=== PATIENT | male | born 1945 | race Caucasian/White ===

== ENCOUNTER → 2018-01-26 16:26 | Outpatient (CLI) | payer MEDICARE, SELFPAY ==
[2018-01-26 17:38] LABS: Anion Gap 6 (5-15); BUN 10 mg/dL (7-18); Calcium,Total 8.5 mg/dL (8.5-10.1); Chloride 103 mmol/L (98-107); Creatinine, Serum 0.91 mg/dL (0.70-1.30); EST Glomerular Filtration Rate 87 mL/min (>60); Est Glom Filt Rate - Afr Amer 105 mL/min (>60); Glucose 99 mg/dL (74-106); Potassium 4.1 mmol/L (3.5-5.1); Sodium Level 136 mmol/L (136-145)
[2018-01-26 18:08] LABS: BNP,B-Type NATRIURETIC PEPTIDE 240.2 pg/mL (0-100)
== END ==
PROVIDERS: Family Provider Family Medicine; PCP Family Medicine; Visit Provider Nurse Practitioner Acute Care
DX: R06.02 Shortness of breath (principal)
CPT/HCPCS: 36415; 80048; 83880

== ENCOUNTER → 2018-02-15 12:44 | Outpatient (CLI) | payer MEDICARE, SELFPAY ==
--- NOTE | 2018-02-15 12:46 | ECHOCS_ITS ---
Reason For Study: DYSPNEA Procedure This was a 2D Doppler, Color Flow transthoracic echocardiogram. Exam performed in department. Left Ventricle Normal LV size. Mild concentric left ventricular hypertrophy. Left ventricular systolic function is normal. The estimated ejection fraction is 65 %. Transmitral diastolic flow velocities suggest severe (stage 3) diastolic dysfunction. No regional wall motion abnormalities noted. Right Ventricle Normal RV size. Normal systolic function. Atria Normal left atrium. Normal right atrium. Mitral Valve Normal mitral valve. Tricuspid Valve Normal tricuspid valve. Mild (1+) tricuspid valve insufficiency. Pulmonary artery systolic pressure is 39 mmHg. Aortic Valve Normal aortic valve. Pulmonic Valve Normal pulmonic valve. Great Vessels Normal aortic root. The pulmonary artery is normal size. Normal inferior vena cava. Pericardium/Pleural No pericardial effusion. Medication 22 gauge I.V. with prn adaptor inserted into right arm. Diluted definity 3ml given slow IV push to enhance endocardial definition. MMode/2D Measurements & Calculations LVIDd: 4.4 cm IVSd: 1.3 cm LVOT diam: 2.0 cm LVIDs: 2.9 cm LVPWd: 1.5 cm LVOT area: 3.0 cm2 FS: 34.4 % Ao root diam: 3.7 cm LAV(MOD-bp): 122.6 ml EDV(MOD-sp4): 148.7 ml LA dimension: 5.9 cm LAV(MOD-bp) Indexed: 45.2 ml/m2 ESV(MOD-sp4): 52.4 ml LAV(MOD-sp2): 79.9 ml EF(MOD-sp4): 64.7 % LAV(MOD-sp4): 150.2 ml EDV(MOD-sp2): 107.2 ml SV(MOD-sp4): 96.3 ml SV(MOD-sp2): 75.9 ml EF(MOD-sp2): 70.8 % LA A4 area: 39.9 cm2 Doppler Measurements & Calculations MV E max ayden: 144.4 cm/sec MV V2 max: 163.2 cm/sec Ao V2 max: 178.2 cm/sec MV A max ayden: 71.4 cm/sec MV max P.7 mmHg Ao max P.8 mmHg MV E/A: 2.0 MV V2 mean: 61.8 cm/sec Ao V2 mean: 127.6 cm/sec MV mean P.1 mmHg Ao mean P.4 mmHg MV V2 VTI: 36.0 cm Ao V2 VTI: 38.3 cm MVA(VTI): 2.0 cm2 JASS(I,D): 1.9 cm2 JASS(V,D): 1.4 cm2 LV V1 max: 84.1 cm/sec SV(LVOT): 72.0 ml PA V2 max: 125.0 cm/sec LV V1 max P.8 mmHg LV V1 mean P.6 mmHg LV V1 mean: 74.3 cm/sec LV V1 VTI: 23.9 cm TR max ayden: 294.0 cm/sec TR max P.6 mmHg Interpretation Summary Normal LV size. Mild concentric left ventricular hypertrophy. Left ventricular systolic function is normal. The estimated ejection fraction is 65 %. Transmitral diastolic flow velocities suggest severe (stage 3) diastolic dysfunction Mild (1+) tricuspid valve insufficiency. Ordering Physician: Ginger Wright Referring Physician: LORENZO MENDOZA Performed By: Tiana Molina, OSCAR, RVT
== END ==
PROVIDERS: Family Provider Family Medicine; PCP Family Medicine; Visit Provider Nurse Practitioner Acute Care
DX: R06.02 Shortness of breath (principal); Z98.890 Other specified postprocedural states
CPT/HCPCS: 93306; Q9957; A4216; C8929

== ENCOUNTER → 2018-03-16 12:48 | Outpatient (CLI) | payer MEDICARE, SELFPAY ==
--- NOTE | 2018-03-16 13:08 | RAD_ITS ---
STUDY: X-RAY CHEST REASON FOR EXAM: Male, 72 years old. Shortness of breath. On home oxygen. TECHNIQUE: 2 views COMPARISON: Prior chest radiograph of March 22, 2017. Prior chest CT exam of March 12, 2017 FINDINGS: A prior infiltrate of the right upper lobe has completely resolved since last year. On lateral imaging there appears to be some vague increased density posteriorly over the spine with no corollary findings on the anterior image. Otherwise stable changes. There is no demonstrated pleural abnormality. Stable cardiac size status post prior midline sternotomy. Normal mediastinum and barak. Normal visualized pulmonary arteries. There is atherosclerotic calcification of the aortic arch with tortuosity. Normal visualized thoracic spine. Normal visualized ribs, clavicles, and shoulders. There is no demonstrated abnormality of the visualized soft tissue structures of the upper abdomen. RAD/Chest PA and Lateral IMPRESSION: Complete resolution of the prior right upper lobe infiltrate. Vague new density over the posterior lower lobes on lateral imaging with no corollary finding on anterior imaging. Could be a area of atelectasis or infiltrate or posterior effusion. Otherwise, stable chronic changes. Stable cardiac size status post prior midline sternotomy. Electronically Signed: Roshni Chi MD at 18:11 EDT , Service support ,
[2018-03-16 13:48] LABS: Absolute Lymphocyte Count 1.56 X10^3/ul (0.83-4.51); Absolute Neutrophil Count 4.7 X10^3/uL (2.0-7.7); Basophil# 0.01 X10^3/uL; Basophil% 0.1 % (0-1); Eosinophil# 0.08 X10^3/uL; Eosinophils% 1.2 % (0-5); Hematocrit 33.7 % (40-54); Lymphocyte # 1.56 X10^3/ul (4.0); Lymphocyte % 22.9 % (19-41); Mean Corp Hgb Conc 29.7 g/gl (32-36); Mean Corpuscular Volume 80.8 fL (80-94); Mean Platelet Vol. 9.9 fl (6.2-12.0); Monocyte# 0.46 X10^3/uL; Monocyte% 6.8 % (0-10); Neutrophil # 4.68 X10^3/uL (2.7-7.7); Neutrophil % 68.9 % (47-70); POSITIVE COUNT NO; POSITIVE DIFFERENTIAL NO; POSITIVE MORPHOLOGY NO; Platelet Count 224 K/mm3 (150-450); RBC Distribution Width CV 17.3 % (11.6-14.6); RBC Distribution Width SD 50.9 fl (35.1-43.9); Red Blood Count 4.17 M/mm3 (4.6-6.2); White Blood Count 6.8 K/mm3 (4.4-11.0)
[2018-03-16 13:54] LABS: International Normalized Ratio 1.2; Prothrombin Time (Protime)PT. 15.3 SECONDS (11.7-14.9)
[2018-03-16 14:08] LABS: Anion Gap 5 (5-15); BUN 13 mg/dL (7-18); BUN/Creat Ratio 13.1 RATIO (10-20); Calcium,Total 8.5 mg/dL (8.5-10.1); Chloride 100 mmol/L (98-107); Creatinine, Serum 0.99 mg/dL (0.70-1.30); EST Glomerular Filtration Rate 78 mL/min (>60); Est Glom Filt Rate - Afr Amer 95 mL/min (>60); Glucose 77 mg/dL (74-106); Potassium 3.8 mmol/L (3.5-5.1); Sodium Level 135 mmol/L (136-145)
== END ==
PROVIDERS: Family Provider Family Medicine; PCP Family Medicine; Visit Provider Internal Medicine Cardiovascular Disease
DX: I50.9 Heart failure, unspecified (principal); I25.119 Atherosclerotic heart disease of native coronary artery with unspecified angina pectoris; I48.0 Paroxysmal atrial fibrillation; R06.02 Shortness of breath
CPT/HCPCS: 36415; 71046; 80048; 85025; 85610; 85730

== ENCOUNTER → 2018-03-22 07:59 | Day surgery (SDC) | payer MEDICARE, SELFPAY ==
[2018-03-21 09:42] VITALS: BMI 44.1
[2018-03-22 10:36] LABS: Base Excess 1 mmol/L (-2 to +2); Bicarbonate 25.3 mmol/L (22-26); Blood Gas Specimen Type ART; PO2 78 mmHG (75-100); SO2 96 % (95-99); Total Carbon Dioxide 26 mmol/L; pCO2 38.8 mmHg (35-45); pH 7.42 (7.35-7.45)
[2018-03-22 10:36] LABS: Blood Gas Specimen Type VEN; VBG BASE EXCESS 1 mmol/L (-1.0-3.5); VBG Bicarbonate 26 mmol/L (22-26); VBG Oxygen Content 27 mmol/L (23-33); VBG PO2 33 mmHg (25-40); VBG SO2 64 % (50-70); VBG pCO2 42.1 mmHg (41-51)
[2018-03-22 10:36] LABS: Blood Gas Specimen Type VEN; VBG BASE EXCESS 2 mmol/L (-1.0-3.5); VBG Bicarbonate 27 mmol/L (22-26); VBG Oxygen Content 29 mmol/L (23-33); VBG PO2 31 mmHg (25-40); VBG SO2 60 % (50-70); VBG pCO2 43.7 mmHg (41-51)
[2018-03-22 10:36] LABS: Blood Gas Specimen Type VEN; VBG BASE EXCESS 3 mmol/L (-1.0-3.5); VBG Bicarbonate 28 mmol/L (22-26); VBG Oxygen Content 29 mmol/L (23-33); VBG PO2 31 mmHg (25-40); VBG SO2 59 % (50-70); VBG pCO2 44.8 mmHg (41-51)
--- NOTE | 2018-03-22 11:03 | CL.D_ITS ---
Patient Name: VANNESA WILSON Study Date: 03/22/2018 Performing: Vinicius Jarrett MD Ht: 74.01 inches 188 cm : 1945 Wt: 343.92 lbs 156 kg Age: 72 Gender: male BSA: 2.74 PROCEDURE(S) PERFORMED [id number]-[id number]/LHC/COR/LV/CABG CLINICAL PROFILE AND INDICATIONS Indications: Stable Known CAD Heart Failure: Heart Failure Type: Diastolic Stress/Imaging Stress/Image Study Performed: No Angina Classification Anginal Classification w/in 2 Weeks: No symptoms CAD Presentations: Other: Shortness of Breath CONCLUSIONS Elevated Left Ventricular End Diastolic Pressure Right heart pressures - moderately to severely elevated The patient has pulmonary hypertension which is moderate - severe. Intracardiac shunting: None Normal LV size, wall motion,and systolic function LVEF: by LV gram 65 % [place] Multivessel CAD LEBRON to the LAD: patent SVG to the IR: patent SVG to the RPDA: patent SVG to the RPLV: patent RECOMMENDATIONS Risk factor modification Medical therapy DESCRIPTION OF PROCEDURE The patient arrived to the procedure lab. The risks and benefits of the procedure as well as a full d escription of our services here and current unavailability of surgical backup were fully explained to the patient and/or their significant other prior to the catheterization. The Timeout was completed, verifying the correct patient and procedure. The patient's procedural site was prepped and draped in the usual fashion. Local anesthetic was given subcutaneously to right groin region with Lidocaine 2%. Using a modified Seldinger technique, arterial access was obtained via the right femoral artery, a 4 Fr sheath was inserted Venous access was obtained via the right femoral vein, a 7Fr sheath was insert ed. A 7Fr thermal dilution catheter was inserted and right heart pressures were recorded, it was then advanced to PA position for cardiac outputs. Thermal dilution cardiac outputs were then recorded. O2 saturations were then obtained. The Thermal dilution catheter was then removed. Left Ventriculograph y was performed in TAPIA projection using a 4 Fr. Pigtail catheter. LV to AO pullback pressures were th en recorded. Simultaneous pressures were then recorded. Left Coronary Artery selective angiography wa s performed in multiple views using a 4 Fr. JL5 catheter. Right Coronary Artery selective angiography was then performed in multiple views using a 4 Fr. 3DRC catheter. Saphenous Vein graft to the RPDA s elective angiography was performed in multiple views using a 4 Fr. 3DRC catheter. Saphenous Vein anabela t to the RPL selective angiography was performed in multiple views using a 4 Fr. 3DRC catheter. Saphe nous Vein graft to the Ramus selective angiography was performed in multiple views using a 4 Fr. 3DRC catheter. Saphenous Vein graft to the RPDA selective angiography was performed in multiple views usi ng a 4 Fr. JR4 catheter. Left internal mammary artery graft to the LAD selective angiography was perf ormed in multiple views using a 4 Fr. JR4 catheter.The arterial sheath was pulled and manual compress ion applied until hemostasis is achieved.. The venous sheath was then pulled and manual compression a pplied until hemostasis achieved CORONARY ANGIOGRAPHY DOMINANCE: Right Dominant LEFT HEART ASSESSMENT Left Ventricular Ejection Fraction: by LV Gram 65 % Elevated Left Ventricular End Diastolic Pressure LVEDP: 23 mmHg Normal Left Ventricular systolic function RIGHT HEART ASSESSMENT Thermal CO: 4.95 Thermal CI: 1.81 PW: 24/26 17 PA: 46/15 29 RV: 48/0 9 RA: / 18 PVR: 194 Right Heart pressures - elevated Pulmonary Hypertension Moderate - Severe Intracardiac shunting: None LEFT MAIN: Mild luminal irregularities LEFT ANTERIOR DECENDING ARTERY: PROX LAD: Eccentric: Hazy: 75 % Stenosis MID LAD: Eccentric: 75 % Stenosis, Eccentric: 85 % Stenosis DISTAL LAD: s/p the LEBRON attachment filling late, faintly, and partially CIRCUMFLEX ARTERY: PROX CIRC: Previously placed stent is patent with minimal luminal irregularities RAMUS: is occluded with the mid to distal portion filling via the SVG graft with no obvious angiograp hically significant appearing disease distal to the graft attachment RIGHT CORONARY ARTERY: Diffuse: Eccentric: 25-50 % Stenosis GRAFTS: LEBRON graft to the Mid LAD is patent with the mid to distal LAD filling late, faintly, and partially Saphenous Vein graft to the Ramus is patent with no angiographically significant appearing disease di stal to the graft attachment Saphenous Vein graft to the RPDA is patent with no angiographically significant appearing disease dis jose to the graft attachment Saphenous Vein graft to the RPLV is patent with no angiographically significant appearing disease dis jose to the graft attachment VALVE FINDINGS: Normal Aortic Valve function Normal Mitral Valve function AORTIC ROOT: Angiographically normal COMPLICATIONS No Complications PROCEDURE MEDICATIONS Versed 1 mg IV Fentanyl 25 mcg IV Oxygen: 2 L/min via nasal cannula SUMMARY OF HEMODYNAMIC DATA Time AIR REST ECG 08:27:39 ECG 08:27:56 RA 22/21 (18) SV 09:48:43 RV 48/0, 9 09:49:00 PA 46/15 (29) PA 09:49:45 PW 24/ (17) PV 09:50:45 LV 127/-5, 15 09:56:23 PW 32/38 (22) 09:56:23 LV 129/-4, 23 09:56:29 PW 32/ (23) 09:56:29 LV 115/5, 20 09:58:02 PW 41/24 (23) 09:58:02 LVp 116/4, 23 09:58:26 AOp 109/52 (74) 09:58:31 PA 45/15 (29) 09:59:21 RV 49/3, 19 09:59:38 RA 39/ (18) 09:59:53 Type SV CO (l/m) CI (l/m/ HR Time AIR REST Thermal 260.50 4.95 1.81 19 08:27:39 Label % O2 Pres/Loc Time AIR REST IVC 64 10:02:07 RA 60 SV 10:02:34 PA 59 PA 10:02:41 Signed By Vinicius Jarrett MD On 03/22/2018 11:03:06 Vinicius Jarrett MD
== END ==
PROVIDERS: Family Provider Family Medicine; PCP Family Medicine; Visit Provider Internal Medicine Cardiovascular Disease
DX: I25.10 Atherosclerotic heart disease of native coronary artery without angina pectoris (principal); I27.20 Pulmonary hypertension, unspecified; I11.0 Hypertensive heart disease with heart failure; I50.31 Acute diastolic (congestive) heart failure; E11.51 Type 2 diabetes mellitus with diabetic peripheral angiopathy without gangrene; G47.33 Obstructive sleep apnea (adult) (pediatric); E66.9 Obesity, unspecified; Z68.41 Body mass index [BMI] 40.0-44.9, adult; I48.0 Paroxysmal atrial fibrillation; I49.3 Ventricular premature depolarization; E78.5 Hyperlipidemia, unspecified; M19.90 Unspecified osteoarthritis, unspecified site; Z95.1 Presence of aortocoronary bypass graft; Z79.82 Long term (current) use of aspirin; Z79.4 Long term (current) use of insulin; Z79.899 Other long term (current) drug therapy
CPT/HCPCS: 82803; 93461; 99152; 99153; J7030; Q9967; C1751; C1769; C1894

== ENCOUNTER → 2018-03-31 11:27 | Outpatient (CLI) | payer MEDICARE, SELFPAY ==
[2018-03-31 12:21] LABS: Anion Gap 7 (5-15); BUN 18 mg/dL (7-18); BUN/Creat Ratio 14.8 RATIO (10-20); Calcium,Total 8.5 mg/dL (8.5-10.1); Chloride 100 mmol/L (98-107); Creatinine, Serum 1.22 mg/dL (0.70-1.30); EST Glomerular Filtration Rate 62 mL/min (>60); Est Glom Filt Rate - Afr Amer 75 mL/min (>60); Glucose 193 mg/dL (74-106); Sodium Level 136 mmol/L (136-145)
== END ==
PROVIDERS: Family Provider Family Medicine; PCP Family Medicine; Visit Provider Internal Medicine Cardiovascular Disease
DX: R06.02 Shortness of breath (principal); I25.10 Atherosclerotic heart disease of native coronary artery without angina pectoris; Z95.1 Presence of aortocoronary bypass graft; Z95.5 Presence of coronary angioplasty implant and graft; I48.0 Paroxysmal atrial fibrillation; I49.3 Ventricular premature depolarization
CPT/HCPCS: 36415; 80048

== ENCOUNTER → 2018-08-09 12:53 | Outpatient (CLI) | payer MEDICARE, SELFPAY ==
--- NOTE | 2018-08-10 08:40 | PFTCOMP_ITS ---
COMPLETE PULMONARY FUNCTION TEST INTERPRETATION Brief HPI: Patient is a 73 year old male, currently under the care of myself, who presents to [facility] for complete pulmonary function tests secondary to diagnosis of RAQUEL. Respiratory therapist reports good effort and reproducible results. Interpretation: Forced expiration spirometry shows no large airways obstructive ventilatory defect with an FEV1 of 69% predicted. There is no significant bronchodilator response by ATS criteria. Spirograms are of good quality and plateau normally. The respiratory flow volume loop shows a normal pattern. Lung volumes by body plethysmography show a decreased total lung capacity at 5.97 L, 81% predicted. All other lung volumes are reduced symmetrically. Diffusion capacity by carbon monoxide is decreased at 45% predicted. The airway resistance is elevated. Compared to previous pulmonary function tests from 09/13/2017, there has been no significant change. Impression: Mild restrictive ventilatory defect with a reduction diffusing capacity out of proportion. No significant change compared to previous study.
== END ==
PROVIDERS: Family Provider Family Medicine; PCP Family Medicine; Visit Provider Internal Medicine Critical Care Medicine
DX: G47.33 Obstructive sleep apnea (adult) (pediatric) (principal); I27.20 Pulmonary hypertension, unspecified
CPT/HCPCS: 94060; 94726; 94729

== ENCOUNTER → 2019-06-26 | Outpatient (CLI) | payer MEDICARE, SELFPAY ==
[2019-03-30 12:42] VITALS: BMI 42.8
--- NOTE | 2019-06-26 13:16 | RAD_ITS ---
STUDY: X-RAY CHEST REASON FOR EXAM: Male, 74 years old. Shortness of breath TECHNIQUE: Frontal and lateral views of the chest COMPARISON: 03/16/2018 FINDINGS: There are mild congestive changes noted. The lungs are otherwise clear. There are no pleural effusions. There is no pneumothorax. The heart is enlarged, but stable. Again noted are sternotomy wires. The visualized osseous structures are within normal limits. RAD/Chest PA and Lateral IMPRESSION: Mild pulmonary vascular congestion. Electronically Signed: Jairo Reza, at 18:03 EDT Tel , Service support ,
[2019-06-26 13:21] LABS: Absolute Lymphocyte Count 1.31 X10^3/uL (0.83-4.51); Absolute Neutrophil Count 5.8 X10^3/uL (2.0-7.7); Basophil# 0.02 X10^3/uL; Basophil% 0.3 % (0-1); Eosinophils% 2.6 % (0-5); Hematocrit 30.6 % (40-54); Hemoglobin 8.4 g/dL (13.0-16.5); Lymphocyte # 1.31 X10^3/ul (4.0); Lymphocyte % 16.9 % (19-41); Mean Corp Hgb Conc 27.5 g/dL (32-36); Mean Corpuscular Hgb 21.7 pg (27.0-32.0); Mean Corpuscular Volume 79.1 fL (80-94); Mean Platelet Vol. 9.7 fl (6.2-12.0); Monocyte% 5.2 % (0-10); NRBC Flagged by Analyzer 0 % (0-5); Neutrophil # 5.77 X10^3/uL (2.7-7.7); Neutrophil % 74.6 % (47-70); Platelet Count 211 K/mm3 (150-450); RBC Distribution Width CV 18.1 % (11.6-14.6); RBC Distribution Width SD 51.1 fl (35.1-43.9); Red Blood Count 3.87 M/mm3 (4.6-6.2); White Blood Count 7.7 K/mm3 (4.4-11.0)
[2019-06-26 13:45] LABS: Anion Gap 10 (5-15); BUN 17 mg/dL (7-18); BUN/Creat Ratio 12.9 RATIO (10-20); Calcium,Total 8.6 mg/dL (8.5-10.1); Chloride 101 mmol/L (98-107); Creatinine, Serum 1.32 mg/dL (0.70-1.30); EST Glomerular Filtration Rate 56 mL/min (>60); Est Glom Filt Rate - Afr Amer 68 mL/min (>60); Glucose 183 mg/dL (74-106); Potassium 4.4 mmol/L (3.5-5.1); Sodium Level 140 mmol/L (136-145)
== END | disposition home or self-care (01) ==
LOC: LAB 12:44
PROVIDERS: Nurse Practitioner Family; Family Provider Family Medicine; PCP Family Medicine; Referring Provider Internal Medicine Cardiovascular Disease; Visit Provider Internal Medicine Cardiovascular Disease
DX: I25.10 Atherosclerotic heart disease of native coronary artery without angina pectoris (principal); I27.20 Pulmonary hypertension, unspecified; R06.09 Other forms of dyspnea; Z95.1 Presence of aortocoronary bypass graft; Z95.5 Presence of coronary angioplasty implant and graft
CPT/HCPCS: 36415; 71046; 80048; 83880; 85025

== ENCOUNTER → 2019-07-18 | Outpatient (CLI) | payer MEDICARE, SELFPAY ==
[2019-07-05 15:02] VITALS: BMI 46.2
--- NOTE | 2019-07-18 14:57 | ECHOCS_ITS ---
Reason For Study: SOB Procedure This was a 2D Doppler, Color Flow transthoracic echocardiogram. The study was technically difficult. Contrast injection was performed. Exam performed in department. Left Ventricle Normal LV size. Mild concentric left ventricular hypertrophy. Left ventricular systolic function is normal. The estimated ejection fraction is 65 %. Unable to assess diastolic dysfunction. No regional wall motion abnormalities noted. Right Ventricle Normal RV size. Normal systolic function. Atria The left atrium is mildly enlarged. The right atrium is not well visualized. No doppler evidence for ASD. Mitral Valve There is moderate mitral annular calcification. Mild focal mitral valve calcification of the anterior leaflet. Trivial mitral valve insufficiency. Tricuspid Valve Normal tricuspid valve. Trivial tricuspid valve insufficiency. Unable to estimate RV systolic pressure/pulmonary artery pressure due to technically difficult study. Aortic Valve The aortic valve is not well visualized. Pulmonic Valve The pulmonic valve is not well visualized. Great Vessels The aortic root is not well visualized peer. Pericardium/Pleural No pericardial effusion. Medication 22 gauge I.V. with prn adaptor inserted into right arm. Diluted definity 3ml given slow IV push to enhance endocardial definition. MMode/2D Measurements & Calculations LVIDd: 5.0 cm IVSd: 1.3 cm LVIDs: 3.0 cm LVPWd: 1.7 cm FS: 39.4 % Time Measurements MV dec time: 0.17 sec Doppler Measurements & Calculations MV E max ayden: 111.9 cm/sec MV V2 max: 194.7 cm/sec MV P1/2t max ayden: 194.7 cm/sec MV A max ayden: 45.1 cm/sec MV max P.2 mmHg MV P1/2t: 52.7 msec MV E/A: 2.5 MV V2 mean: 80.8 cm/sec MV dec slope: 1082 cm/sec2 MV mean P.6 mmHg MVA(P1/2t): 4.2 cm2 MV V2 VTI: 30.6 cm Ao V2 max: 203.0 cm/sec LV V1 max: 84.5 cm/sec PA V2 max: 108.1 cm/sec Ao max P.6 mmHg LV V1 max P.9 mmHg Interpretation Summary The study was technically difficult. Contrast injection was performed. Left ventricular systolic function is normal. The estimated ejection fraction is 65 %. Mild concentric left ventricular hypertrophy. The left atrium is mildly enlarged. There is moderate mitral annular calcification. Mild focal mitral valve calcification of the anterior leaflet. Trivial mitral valve insufficiency. Trivial tricuspid valve insufficiency. Unable to estimate RV systolic pressure/pulmonary artery pressure due to technically difficult study. Unable to assess diastolic dysfunction. Ordering Physician: Gilberto Jimenez Referring Physician: Gilberto Jimenez Performed By: Harjinder George RCS
== END | disposition home or self-care (01) ==
LOC: CVS 14:56
PROVIDERS: Family Provider Family Medicine; PCP Family Medicine; Referring Provider Nurse Practitioner Family; Visit Provider Nurse Practitioner Family
DX: I25.10 Atherosclerotic heart disease of native coronary artery without angina pectoris (principal); R06.09 Other forms of dyspnea; Z95.1 Presence of aortocoronary bypass graft; Z95.5 Presence of coronary angioplasty implant and graft; I27.20 Pulmonary hypertension, unspecified; I48.0 Paroxysmal atrial fibrillation; I10 Essential (primary) hypertension; E78.5 Hyperlipidemia, unspecified
CPT/HCPCS: 93306; Q9957; C8929

== ENCOUNTER 2019-07-25 12:36 | Inpatient (IN) | payer MEDICARE, SELFPAY ==
[2019-07-05 15:02] VITALS: BMI 46.2
[2019-07-25] VITALS (45 sets, daily range): BP systolic 117–170; BP diastolic 70–91; PULSE 93–137; RESP 12–30; TEMP 36.6–36.8; O2SAT 92–100; BMI 49.3; BMI 48.2
--- NOTE | 2019-07-25 12:42 | RAD_ITS ---
STUDY: X-RAY CHEST REASON FOR EXAM: Male, 74 years old. Shortness of breath. TECHNIQUE: Single AP portable view of the chest. COMPARISON: Comparison is made with prior study dated June 26, 2019. FINDINGS: EKG electrodes are seen. Stable elevation of the right hemidiaphragm. There is evidence of vascular congestion and CHF. There is no demonstrated pleural abnormality. Sternal cerclage wires and vascular clips are present from a prior sternotomy and coronary artery bypass graft procedure (CABG). Cardiomegaly. Normal mediastinum and barak. Normal visualized pulmonary arteries. Normal visualized aortic arch and descending thoracic aorta. Normal visualized thoracic spine. Normal visualized ribs, clavicles, and shoulders. There is no demonstrated abnormality of the visualized soft tissue structures of the upper abdomen. RAD/Chest 1 View (Portable) IMPRESSION: Cardiomegaly and CHF. Prior CABG. Electronically Signed: Ander Stafford, at 13:08 EDT , Service support ,
--- NOTE | 2019-07-25 12:42 | EKG12_ITS ---
Test Reason : SOB Blood Pressure : / mmHG Vent. Rate : 121 BPM Atrial Rate : 097 BPM P-R Int : 000 ms QRS Dur : 092 ms QT Int : 296 ms P-R-T Axes : 000 078 -10 degrees QTc Int : 420 ms Atrial fibrillation with rapid ventricular response Abnormal QRS-T angle, consider primary T wave abnormality Abnormal ECG Confirmed by ZOYA DOMÍNGUEZ ([id number]), offline editor TRACY MCLAUGHLIN ([id number]) on 07/26/2019 1:41:34 PM Referred By: Tam Dexter Confirmed By:ZOYA DOMÍNGUEZ
--- NOTE | 2019-07-25 12:48 | ED.VIS.GEN ---
History of Present Illness Chief Complaint: Shortness of Breath Onset: Days Context: Gradual Onset Timing: Continuous Current Severity: Moderate Maximum Severity: Severe Narrative: The patient presents to the emergency department shortness of breath. He states that over the past couple weeks, is been getting worse. He did have an outpatient echo done this week. He is had about a 30 pound weight gain. He describes exertional dyspnea and orthopnea. The patient does have a prior history of atrial fibrillation, but during his bypass he had a pulmonary artery ablation and that is since resolved. He is been following with Dr. Jarrett and with Dr. Turpin. He states he had increase his oxygen at home. He is been having increasing exertional dyspnea and increasing leg edema. He states he did have an echo this past week. He denies any fevers or chills. He denies any chest pain. Prior similar symptoms: Yes Recent Illness/Hospitalization: No Past Medical History - Allergies and Home Meds Allergies/Adverse Reactions: Allergies acetaminophen [From Percocet] Allergy (Verified 07/25/19 12:43) Swelling oxycodone [From Percocet] Allergy (Verified 07/25/19 12:43) A-fib, Swelling, Sulfa (Sulfonamide Antibiotics) Allergy (Verified 07/25/19 12:43) Swelling atropine Adverse Reaction (Severe, Verified 07/25/19 12:43) arrhythmia hydrochlorothiazide [From Hyzaar] Adverse Reaction (Severe, Verified 07/25/19 12:43) arrhythmia losartan [From Hyzaar] Adverse Reaction (Severe, Verified 07/25/19 12:43) arrhythmia quinapril [From Accupril] Adverse Reaction (Severe, Verified 07/25/19 12:43) arrhythmia atorvastatin [From Lipitor] Adverse Reaction (Intermediate, Verified 07/25/19 12:43) myalgias metformin Adverse Reaction (Intermediate, Verified 07/25/19 12:43) myalgias Primary Care Physician: Abdi Navarro MD [Primary Care Provider] - Prior records reviewed: Yes Past Medical History: - - CHF, chronic respiratory failure, history of atrial fibrillation Surgical History: coronary bypass surgery Smoking Status: Never smoker - Family History Maternal Family History: Family History (Last Reviewed 03/30/19 @ 13:06 by ANIKA GasparC) Mother CAD (coronary artery disease) Father CVA (cerebral vascular accident) Myocardial infarction Brother Myocardial infarction Brother CAD (coronary artery disease) Myocardial infarction Sister CAD (coronary artery disease) Family History: Reports: No pertinent history Paternal Family History: Family History (Last Reviewed 03/30/19 @ 13:06 by ILIANA Gaspar) Mother CAD (coronary artery disease) Father CVA (cerebral vascular accident) Myocardial infarction Brother Myocardial infarction Brother CAD (coronary artery disease) Myocardial infarction Sister CAD (coronary artery disease) Family History: Reports: No pertinent history Review of Systems General: Denies: Chills, Fever, Sweats Eyes: Denies: Visual changes - bilaterally, Diplopia ENT: Denies: Rhinorrhea, Sore throat Cardiovascular: Reports: Heart racing. Denies: Chest pain, Palpitations Respiratory: Reports: Dyspnea, Cough, Dyspnea on exertion, Orthopnea Gastrointestinal: Denies: Abdominal pain, Nausea, Vomiting, Diarrhea, Melena, Hematochezia Genitourinary: Denies: Dysuria, Hematuria, Frequency Musculoskeletal: Denies: Back pain, Extremity Pain Skin: Denies: Rash, Wounds Neurological: Denies: Headache, Weakness, Numbness Physical Exam Vital Signs/Narrative: Vital Signs Temp Pulse Resp BP Pulse Ox 07/25/19 12:37 98.3 F 137 H 30 H 147/81 H 100 Inital Vital Signs reviewed: Yes General: Well nourished, Well developed, No Acute Distress Head: Normocephalic, Atraumatic Eyes: Perrl, EOMI ENT: Moist mucous membranes, No rhinorrhea Neck: Supple, Nontender Cardiovascular: No murmurs, Irregular, Tachycardia Respiratory: No distress, Chest nontender, Diminished, Decreased Air Movement Abdomen: Soft, Nontender, Nondistended, Normal bowel sounds Back: Nontender, Normal Inspection Extremities: Nontender, Edema Skin: Normal color, No rash Neurological: Alert, Oriented x3, Cranial nerves II-XII grossly intact, Normal Strength, Normal Sensation Psychological: Normal affect, Normal Mood Diagnostic/Tx/Re-eval Chest X-Ray - ED: 1 View, Read by ED Physician, Chronic Changes, Cardiomegaly, CHF Clinical Impression(s) from Imaging Studies Chest X-Ray 07/25/19 12:42 IMPRESSION: Cardiomegaly and CHF. Prior CABG. Electronically Signed: Ander Stafford, at 13:08 EDT , Service support , Abnormal Lab Results 07/25/19 07/25/19 07/25/19 12:50 12:50 12:50 WBC 8.7 RBC 3.79 L Hgb 8.3 L Hct 29.8 L MCV 78.6 L MCH 21.9 L MCHC 27.9 L RDW Std Deviation 54.2 H RDW Coeff of Lakshmi 18.9 H Plt Count 221 MPV 9.7 Immature Gran % (Auto) 0.300 Neut % (Auto) 83.8 H Lymph % (Auto) 8.5 L [place] % (Auto) 5.4 Eos % (Auto) 1.8 Baso % (Auto) 0.2 Absolute Neuts (auto) 7.3 Absolute Lymphs (auto) 0.74 L Nucleated RBC % 0 Sodium 137 Potassium 4.3 Chloride 101 Carbon Dioxide 30.0 Anion Gap 6 BUN 21 H Creatinine 1.42 H Estim Creat Clear Calc 52.26 Est GFR (MDRD) Af Amer 63 Est GFR (MDRD) Non-Af 52 L BUN/Creatinine Ratio 14.8 Glucose 196 H Calcium 8.6 Troponin I < 0.015 B-Natriuretic Peptide 93.4 - Rhythm Strip Rhythm Strip: A-fib Rate: 120 Ectopy: None - EKG Initial EKG Interpretation: No Acute Injury Pattern, Atrial Fibrillation Prior: Changed Follow-up EKG Interpretation: No Acute Injury Pattern, Atrial Fibrillation Prior: Unchanged - Medical Decision Making The patient was placed on BiPAP on arrival. He did have marked improvement of his aeration and resolution of his hypoxia. He does appear to be in diffuse volume overload. EKG was obtained which shows atrial fibrillation. This does appear to be new. The patient is not on anticoagulants. Patient was given diltiazem with better rate control. Repeat EKG continues to demonstrate atrial fibrillation. Chest x-ray shows evidence of volume overload. The patient was started on IV diuresis. I did discuss his care with Dr. Jarrett. At this point, we are going to start a heparin drip as the patient may need further cardiac intervention and we will hold on long-acting anticoagulants. Patient was discussed with the hospitalist and will be admitted for diuresis and his respiratory failure. Impression 1. Atrial fibrillation with rapid ventricular response 2. CHF with hypoxia 3. Acute on chronic respiratory failure - Critical Care Time Critical care time (excluding procedures): 30-74 minutes ED Disposition - Plan for ED Patient: Referrals: Abdi Navarro MD [Primary Care Provider] -
[2019-07-25 13:00] LABS: Absolute Lymphocyte Count 0.74 X10^3/uL (0.83-4.51); Absolute Neutrophil Count 7.3 X10^3/uL (2.0-7.7); Basophil# 0.02 X10^3/uL; Basophil% 0.2 % (0-1); Eosinophil# 0.16 X10^3/uL; Eosinophils% 1.8 % (0-5); Hematocrit 29.8 % (40-54); Hemoglobin 8.3 g/dL (13.0-16.5); Lymphocyte # 0.74 X10^3/ul (4.0); Lymphocyte % 8.5 % (19-41); Mean Corp Hgb Conc 27.9 g/dL (32-36); Mean Corpuscular Hgb 21.9 pg (27.0-32.0); Mean Corpuscular Volume 78.6 fL (80-94); Mean Platelet Vol. 9.7 fl (6.2-12.0); Monocyte# 0.47 X10^3/uL; Monocyte% 5.4 % (0-10); NRBC Flagged by Analyzer 0 % (0-5); Neutrophil # 7.27 X10^3/uL (2.7-7.7); Neutrophil % 83.8 % (47-70); Platelet Count 221 K/mm3 (150-450); RBC Distribution Width CV 18.9 % (11.6-14.6); RBC Distribution Width SD 54.2 fl (35.1-43.9); Red Blood Count 3.79 M/mm3 (4.6-6.2); White Blood Count 8.7 K/mm3 (4.4-11.0)
[2019-07-25] MEDS: dilTIAZem 25 MG/5 ML Vial 20 MG IV BOLUS (13:07)
[2019-07-25 13:16] LABS: Anion Gap 6 (5-15); BUN 21 mg/dL (7-18); BUN/Creat Ratio 14.8 RATIO (10-20); Calcium,Total 8.6 mg/dL (8.5-10.1); Chloride 101 mmol/L (98-107); Creatinine, Serum 1.42 mg/dL (0.70-1.30); EST Glomerular Filtration Rate 52 mL/min (>60); Est Glom Filt Rate - Afr Amer 63 mL/min (>60); Estimated Creatinine Clearance 52.26 ml/min; Glucose 196 mg/dL (74-106); Potassium 4.3 mmol/L (3.5-5.1); Sodium Level 137 mmol/L (136-145)
--- NOTE | 2019-07-25 13:17 | EKG12_ITS ---
Test Reason : REPEAT Blood Pressure : / mmHG Vent. Rate : 101 BPM Atrial Rate : 127 BPM P-R Int : 000 ms QRS Dur : 092 ms QT Int : 364 ms P-R-T Axes : 000 080 005 degrees QTc Int : 471 ms Atrial fibrillation with rapid ventricular response Abnormal ECG Confirmed by ZOYA DOMÍNGUEZ ([id number]), acquisition editor TRACY MCLAUGHLIN ([id number]) on 07/26/2019 1:40:53 PM Referred By: Tam Dexter Confirmed By:ZOYA DOMÍNGUEZ
[2019-07-25 13:25] LABS: BNP,B-Type NATRIURETIC PEPTIDE 93.4 pg/mL (0-100)
[2019-07-25] MEDS: Furosemide 40 MG/4 ML Vial IV (13:35)
--- NOTE | 2019-07-25 13:53 | NURSING ---
PT, PTT HEMOLIZED
--- NOTE | 2019-07-25 14:05 | NURSING ---
HANK BARRAGAN CHF, AFIB
[2019-07-25] MEDS: Heparin Injection (Vial) 5,000 UNIT/ML VIAL 14000 UNIT IV (14:19)
[2019-07-25] MEDS: HEPARIN/D5w 25,000 UNITS 25,000 UNITS/250 ML IV.SOLN. 21 UNITS IV (14:23)
[2019-07-25 14:28] LABS: International Normalized Ratio 1.2
[2019-07-25 14:29] LABS: Partial Thromboplast Time 30.9 Seconds (24.1-36.2)
--- NOTE | 2019-07-25 14:40 | HP.PCM_ITS ---
Problem List (1) (HFpEF) heart failure with preserved ejection fraction Status: Acute Qualifiers: Heart failure chronicity: acute Qualified Code(s): I50.31 - Acute diastolic (congestive) heart failure (2) Atrial fibrillation with RVR Status: Acute History of Present Illness Date of Admission: 07/25/19 Chief Complaint: shortness of breath The patient is a 74 year old M who has been chronically breath for years but has become progressively more short of breath over the past month but more so over the past several days. Patient has a history of heart failure and states that he has had increasing lower extremity and scrotal edema over the past several weeks and just continued to increase. Patient states that he does not weigh himself daily but states that he is put on at least 30 pounds over the past few weeks. Patient presents to the emergency room and was no tachypneic and was on his standard oxygen but was placed on BiPAP and is breathing much more comfortably at this time. Patient was found to have CHF and did receive IV Lasix. Catheter was placed in the emergency room. Patient states that at home, he has urinary frequency with low urine volumes. May have been some difficulty with the catheter placement and may have not been under the most ideal of sterile conditions, according to the bedside nurse. [] Past Medical History Past Medical History (Chronic Problems): Chronic Problems (Last Reviewed 03/30/19 @ 13:06 by Ginger Wright NP-C) Coronary artery disease (Chronic) Pulmonary hypertension (Chronic) Type II Type 2 diabetes mellitus (Chronic) Presence of aortocoronary bypass graft (Chronic ~10/2010) CABG x4: LEBRON to LAD, SVG to RI, SVG to PDA, SVG to posterolateral Lt ventricular branch, PVI w/ Atricure Ablation and ligation of Lt atrial appendage 10/2010 Presence of stent in coronary artery (Chronic ~01/2011) PTCA/Stent to mid LCX 01/2011 Periodic limb movement sleep disorder (Chronic) DM (diabetes mellitus) with peripheral vascular complication (Chronic) Atherosclerotic heart disease of [place] coronary artery without angina pectoris (Chronic) CABG x4: LEBRON to LAD, SVG to RI, SVG to PDA, SVG to posterolateral Lt ventricular branch, PVI w/ Atricure Ablation and ligation of Lt atrial appendage 10/2010; PTCA/Stent to mid LCX 01/2011 Body mass index 40.0-44.9, adult (Chronic) Bilateral leg weakness (Chronic) Meniscus degeneration (Chronic) RAQUEL (obstructive sleep apnea) (Chronic) Obesity (Chronic) PVC (premature ventricular contraction) (Chronic) Hyperlipidemia (Chronic) Hypertension (Chronic) Paroxysmal a-fib (Chronic) S/P pulmonary vein isolation; Medical History: Medical History (Last Updated 07/25/19 @ 14:44 by Tam Dexter DO) Type 2 diabetes mellitus (Chronic) E11.9 DM (diabetes mellitus) with peripheral vascular complication (Chronic) E11.51 Atherosclerotic heart disease of [place] coronary artery without angina pectoris (Chronic) I25.10 CABG x4: LEBRON to LAD, SVG to RI, SVG to PDA, SVG to posterolateral Lt ventricular branch, PVI w/ Atricure Ablation and ligation of Lt atrial braulio endage 10/2010; PTCA/Stent to mid X 01/2011 Body mass index 40.0-44.9, adult (Chronic) Z68.41 Bilateral leg weakness (Chronic) R29.898 Meniscus degeneration (Chronic) M23.309 RAQUEL (obstructive sleep apnea) (Chronic) G47.33 Obesity (Chronic) E66.9 PVC (premature ventricular contraction) (Chronic) I49.3 Paroxysmal atrial fibrillation (Acute) I48.0 SOB (shortness of breath) (Acute) R06.02 Abnormal EKG (Resolved) R94.31 Dyspnea on exertion (Acute) R06.09 Echo shows EF 65%, stage III diastolic dysfunction and PASP 39 mmHg BPH (benign prostatic hyperplasia) N40.0 Malaise and fatigue R53.81, R53.83 Osteoarthritis M19.90 Allergies acetaminophen [From Percocet] Allergy (Verified 07/25/19 12:43) Swelling oxycodone [From Percocet] Allergy (Verified 07/25/19 12:43) A-fib, Swelling, Sulfa (Sulfonamide Antibiotics) Allergy (Verified 07/25/19 12:43) Swelling atropine Adverse Reaction (Severe, Verified 07/25/19 12:43) arrhythmia hydrochlorothiazide [From Hyzaar] Adverse Reaction (Severe, Verified 07/25/19 12:43) arrhythmia losartan [From Hyzaar] Adverse Reaction (Severe, Verified 07/25/19 12:43) arrhythmia quinapril [From Accupril] Adverse Reaction (Severe, Verified 07/25/19 12:43) arrhythmia atorvastatin [From Lipitor] Adverse Reaction (Intermediate, Verified 07/25/19 12:43) myalgias metformin Adverse Reaction (Intermediate, Verified 07/25/19 12:43) myalgias Home Medications: Ambulatory Orders Medication Instructions Recorded Duloxetine HCl 60 mg PO QHS 03/11/17 Finasteride [Proscar] 5 mg PO QHS 03/11/17 Gabapentin [Neurontin] 300 mg PO BIDCM 03/11/17 Hydrocodone/Acetaminophen 1 tab PO BID 03/11/17 [Hydrocodon-Acetaminophen 5-325] Melatonin 20 mg PO QHS PRN 03/11/17 Ranitidine [Zantac] 300 mg PO BID 03/11/17 Tamsulosin HCl [Flomax] 0.4 mg PO QHS 03/11/17 diphenhydramine 25 1 tab PO QHS PRN 11/24/17 mg-acetaminophen 500 mg tablet albuterol sulfate HFA 90 2 puff INHALATION Q6H #18 g 01/26/18 mcg/actuation aerosol inhaler clonazepam 0.5 mg tablet 0.5 mg PO QDAY PRN tab 03/16/18 insulin U-100 regular human 100 1 sliding scale dose SC UD 03/16/18 unit/mL injection solution polyethylene glycol 3350 17 gram 17 g PO QDAY 03/16/18 oral powder packet furosemide 40 mg tablet 40 mg PO BID #180 tab 03/10/19 hydroxyzine HCl 10 mg tablet 10 mg PO QHS 03/30/19 pramipexole 0.25 mg tablet 0.5 mg PO QHS #180 tab 03/30/19 amlodipine 5 mg tablet 5 mg PO DAILY #30 tab 07/05/19 Surgical History: Surgical History (Last Reviewed 07/25/19 @ 14:44 by Tam Dexter DO) Presence of aortocoronary bypass graft (Chronic) Onset Date: ~10/2010 Z95.1 CABG x4: LEBRON to LAD, SVG to RI, SVG to PDA, SVG to posterolateral Lt ventricular branch, PVI w/ Atricure Ablation and ligation of Lt atrial appendage 10/2010 Presence of stent in coronary artery (Chronic) Onset Date: ~01/2011 Z95.5 PTCA/Stent to mid LCX 01/2011 History of cardiac cath Z98.890 Surgical History: coronary bypass surgery Smoking Status: Never smoker Tobacco Use: Non-smoker Alcohol: None Drugs: None - *Family History Maternal Family History: Family History (Last Reviewed 07/25/19 @ 14:44 by Tam Dexter DO) Mother CAD (coronary artery disease) Father CVA (cerebral vascular accident) Myocardial infarction Brother Myocardial infarction Brother CAD (coronary artery disease) Myocardial infarction Sister CAD (coronary artery disease) History Items: No pertinent history Paternal Family History: Family History (Last Reviewed 07/25/19 @ 14:44 by Tam Dexter DO) Mother CAD (coronary artery disease) Father CVA (cerebral vascular accident) Myocardial infarction Brother Myocardial infarction Brother CAD (coronary artery disease) Myocardial infarction Sister CAD (coronary artery disease) History Items: No pertinent history Review of Systems Constitutional: Denies: Anorexia, Chills, Fever, Night Sweats Eyes: Denies: Blurred vision, Double vision HEENT: Denies: Head Aches, Sinus Congestion, Sinus Drainage Cardiovascular: Reports: Chest Pain - With shortness of breath, Edema Respiratory: Reports: Cough - Nonproductive, Shortness of Breath, Shortness of breath at rest. Denies: Sputum production Gastrointestinal: Denies: Abdominal Pain, Nausea, Vomiting Genitourinary: Reports: Frequency. Denies: Dysuria Musculoskeletal: Denies: Joint Pain, Joint Tenderness Skin: Denies: Rash, Wounds Neurological: Reports: - - There is seizures in his toes. Denies: Blurred vision, Double vision Psychiatric: Denies: Anxiety, Depression Endocrine: Reports: Change in Body Habitus - Roughly increased to 30 pounds over the past several weeks Hematologic/ Lymphatic: Denies: Easy Bruising, Easy Bleeding, Hx of blood clot Comment: A 10 point review of systems were negative except as mentioned in the history of present illness and the other review of systems. VTE Information - Inpt Only VTE Present on Admission: No VTE Mechan Device Prophylaxis: None VTE Pharm Prophylaxis ordered?: No Reason prophylaxis not ordered:: Procedure Not Indicated Patient Problems: Active and Suspected Problems (Last Reviewed 03/30/19 @ 13:06 by Ginger Wright NP-C) (HFpEF) heart failure with preserved ejection fraction (Acute) Atrial fibrillation with RVR (Acute) - Physical Exam General: Alert, No apparent distress, - - On BiPAP. Breathing comfortably. No conversational dyspnea, no respiratory distress. HEENT: Atraumatic, Normocephalic Oral: Moist Mucosa, No Gingival or Mucosal Lesions/ Ulcerations Neck: No Nodes, Thyroid Normal Size and Texture, - - Thick neck and unable to appreciate any JVD Lungs: Normal air movement, - - Coarse breath sounds bilaterally Cardiovascular: Irregular Rate, Tachycardic Abdomen: Bowel Sounds Present, Soft, Non Tender, Non-Distended, Obese, - - Scrotal edema Extremities: Edema - Taut bilaterally standing into the buttocks Skin: No rashes, No breakdown Musculoskeletal: No Tenderness to Palpation of Joints or Extremities, No Muscle Wasting Neurological: Deep Tendon Reflexes 2+/4 and Symmetrical, - - No clonus Psych/Mental Status: Normal Affect, Appropriate Vital Signs Temp Pulse Resp BP Pulse Ox 36.8 C 114 H 14 134/78 H 100 07/25/19 12:37 07/25/19 14:28 07/25/19 14:28 07/25/19 14:12 07/25/19 14:28 Oxygen Flow Rate (L/min) 12 Oxygen Delivery Method Bi-pap Weight: 174.2 kg Body Mass Index (BMI) 49.3 Laboratory Tests Past 24 Hrs 07/25/19 07/25/19 07/25/19 12:50 12:50 12:50 WBC 8.7 RBC 3.79 L Hgb 8.3 L Hct 29.8 L MCV 78.6 L MCH 21.9 L MCHC 27.9 L RDW Std Deviation 54.2 H RDW Coeff of Lakshmi 18.9 H Plt Count 221 MPV 9.7 Immature Gran % (Auto) 0.300 Neut % (Auto) 83.8 H Lymph % (Auto) 8.5 L [place] % (Auto) 5.4 Eos % (Auto) 1.8 Baso % (Auto) 0.2 Absolute Neuts (auto) 7.3 Absolute Lymphs (auto) 0.74 L Nucleated RBC % 0 PT INR APTT Sodium 137 Potassium 4.3 Chloride 101 Carbon Dioxide 30.0 Anion Gap 6 BUN 21 H Creatinine 1.42 H Estim Creat Clear Calc 52.26 Est GFR (MDRD) Af Amer 63 Est GFR (MDRD) Non-Af 52 L BUN/Creatinine Ratio 14.8 Glucose 196 H Calcium 8.6 Troponin I < 0.015 B-Natriuretic Peptide 93.4 07/25/19 14:15 WBC RBC Hgb Hct MCV MCH MCHC RDW Std Deviation RDW Coeff of Lakshmi Plt Count MPV Immature Gran % (Auto) Neut % (Auto) Lymph % (Auto) [place] % (Auto) Eos % (Auto) Baso % (Auto) Absolute Neuts (auto) Absolute Lymphs (auto) Nucleated RBC % PT 15.0 H INR 1.2 APTT 30.9 Sodium Potassium Chloride Carbon Dioxide Anion Gap BUN Creatinine Estim Creat Clear Calc Est GFR (MDRD) Af Amer Est GFR (MDRD) Non-Af BUN/Creatinine Ratio Glucose Calcium Troponin I B-Natriuretic Peptide Assessment/Plan All Active Problems (Last Reviewed 03/30/19 @ 13:06 by Ginger Wright, [employer]-C) (HFpEF) heart failure with preserved ejection fraction (Acute) Atrial fibrillation with RVR (Acute) Paroxysmal atrial fibrillation (Acute) SOB (shortness of breath) (Acute) Abnormal EKG (Resolved) Dyspnea on exertion (Acute) 1. Acute heart failure with preserved ejection fraction * EF of 65% from echocardiogram on July 18 * Patient's weight is up 11 kg since July 05 and 23 kg since March 30 * Continue with IV Lasix * Patient not a candidate for angiotensin receptor blockers nor GLORIA inhibitors given the reported allergies to both agents * Fluid restrict 1500 cc/day 2. Atrial fibrillation with RVR * Patient received a bolus of diltiazem and then subsequently has been started on a drip * Anticoagulated with heparin drip at this time * Cardiology consultation * Cycle troponins * Likley exacerbated due to the CHF 3. Acute on chronic respiratory failure * Secondary to above * Currently on BiPAP, wean as tolerated 4. Diabetes mellitus type 2 * Sliding scale insulin and monitor 5. VTE prophylaxis: Not indicated as patient is already anticoagulated on heparin drip. If the heparin needs to be discontinued then patient need to be considered for likely chemical prophylaxis over mechanical. 6. Advanced care planning: Confirmed with the patient. Patient wishes to be DNR Comfort Care arrest, however, patient is fine with intubation if that would be needed. Code Visit Inpatient E&M: [id number] Init Hosp L3
--- NOTE | 2019-07-25 15:11 | CPS ---
Transported pt from E.R. to PCU on 100% NRB then placed on BIPAP upon arrival to the room. Changed mask to a large for patient comfort.
[2019-07-25 16:21] LABS: Bedside Glucose 205 mg/dL (70-110)
--- NOTE | 2019-07-25 17:54 | PCM.CONS.C ---
Problem List (1) Atrial fibrillation with RVR Status: Acute (2) (HFpEF) heart failure with preserved ejection fraction Status: Acute Qualifiers: Heart failure chronicity: acute Qualified Code(s): I50.31 - Acute diastolic (congestive) heart failure (3) Coronary artery disease Status: Chronic Qualifiers: Coronary Disease-Associated Artery/Lesion type: [place] artery [place] vs. transplanted heart: [place] heart Associated angina: without angina Qualified Code(s): I25.10 - Atherosclerotic heart disease of [place] coronary artery without angina pectoris (4) Presence of stent in coronary artery Status: Chronic Comment: PTCA/Stent to mid LCX 01/2011 (5) Presence of aortocoronary bypass graft Status: Chronic Comment: CABG x4: LEBRON to LAD, SVG to RI, SVG to PDA, SVG to posterolateral Lt ventricular branch, PVI w/ Atricure Ablation and ligation of Lt atrial appendage 10/2010 (6) Hyperlipidemia Status: Chronic Qualifiers: Hyperlipidemia type: unspecified Qualified Code(s): E78.5 - Hyperlipidemia, unspecified (7) Hypertension Status: Chronic Qualifiers: Hypertension type: essential hypertension Qualified Code(s): I10 - Essential (primary) hypertension (8) Pulmonary hypertension Status: Chronic Comment: Type II (9) Type 2 diabetes mellitus Status: Chronic (10) RAQUEL (obstructive sleep apnea) Status: Chronic (11) Anemia Status: Chronic (12) Obesity Status: Chronic Qualifiers: Obesity type: due to excess calories Obesity classification: adult class 3 (BMI >= 40) Serious obesity comorbidity presence: with serious comorbidity Body mass index: BMI 40.0-44.9 Qualified Code(s): E66.01 - Morbid (severe) obesity due to excess calories; Z68.41 - Body mass index (BMI) 40.0-44.9, adult Reason for Consult Date of Consultation: 07/25/19 History of Present Illness: The patient is a 74 year old white male with a past medical history which is included underlying CAD, PCI, CABG, paroxysmal atrial fibrillation, hyperlipidemia, hypertension, pulmonary hypertension, diabetes mellitus, obstructive sleep apnea, anemia, and obesity who presents for evaluation of concerns of progressive shortness of breath/dyspnea, findings compatible with anasarca, as well as subsequent findings compatible with atrial fibrillation. The patient has been undergoing evaluation care as an outpatient for concerns of shortness of breath/dyspnea and peripheral pitting edema. He has been having adjustment of his medications including his diuretics. He is also undergone noninvasive evaluation with a transthoracic echocardiogram as noted below. The patient states that for some time now he has been noticing progressive shortness of breath and dyspnea and peripheral pitting edema. He states his lower extremity edema has worsened over time as it has become more prominent in his legs, thighs, and scrotum. He notes that his scrotal edema has become much more prominent over approximately the last 3 days. He also notes over similar time frame that his shortness of breath/dyspnea has worsened. He presented to the emergency department for further evaluation and care. He was noted to have a negative troponin I level and a negative BNP level of 93.4. His cardiac rhythm appeared to be atrial fibrillation and on ECG demonstrated atrial fibrillation with poor R wave progression and nonspecific T wave abnormality. A portable chest x-ray suggested increased pulmonary vascularity. He was placed in the PCU for further evaluation and care. This has included initiation of IV diuretic therapy. He also states that he has become anemic over time. He has not outpatient appointment with gastroenterology in the near future for evaluation of this. He states the only gastrointestinal bleeding he has noted has been bright red blood per rectum secondary to his hemorrhoids when he is constipated. He denies any symptoms of his atrial dysrhythmia. He has had this in the remote past and states at that point time he could feel it. At the present time he states he cannot. He has had no near syncope or syncope. [] Past Medical History Allergies/Adverse Reactions: Allergies acetaminophen [From Percocet] Allergy (Verified 07/25/19 12:43) Swelling oxycodone [From Percocet] Allergy (Verified 07/25/19 12:43) A-fib, Swelling, Sulfa (Sulfonamide Antibiotics) Allergy (Verified 07/25/19 12:43) Swelling atropine Adverse Reaction (Severe, Verified 07/25/19 12:43) arrhythmia hydrochlorothiazide [From Hyzaar] Adverse Reaction (Severe, Verified 07/25/19 12:43) arrhythmia losartan [From Hyzaar] Adverse Reaction (Severe, Verified 07/25/19 12:43) arrhythmia quinapril [From Accupril] Adverse Reaction (Severe, Verified 07/25/19 12:43) arrhythmia atorvastatin [From Lipitor] Adverse Reaction (Intermediate, Verified 07/25/19 12:43) myalgias metformin Adverse Reaction (Intermediate, Verified 07/25/19 12:43) myalgias Home Medications: Ambulatory Orders Medication Instructions Recorded Duloxetine HCl 60 mg PO QHS 03/11/17 Gabapentin [Neurontin] 300 mg PO BIDCM 03/11/17 Hydrocodone/Acetaminophen 1 tab PO DAILY 03/11/17 [Hydrocodon-Acetaminophen 5-325] Melatonin 15 mg PO QHS PRN 03/11/17 Ranitidine [Zantac] 300 mg PO BID 03/11/17 Tamsulosin HCl [Flomax] 0.4 mg PO QHS MDD \ 03/11/17 polyethylene glycol 3350 17 gram 17 g PO QDAY 03/16/18 oral powder packet furosemide 40 mg tablet 40 mg PO BID #180 tab 03/10/19 pramipexole 0.25 mg tablet 0.5 mg PO QHS #180 tab 03/30/19 amlodipine 5 mg tablet 5 mg PO DAILY #30 tab 07/05/19 Hydrocodone/Acetaminophen 2 ea PO QHS 07/25/19 [Hydrocodon-Acetaminophen 5-325] Hydroxyzine HCl 100 mg PO QHS 07/25/19 Insulin U-500 [Humulin R U-500 0.4 ml SQ TIDCM 07/25/19 (BK)] Naproxen Sodium 440 mg PO BID 07/25/19 Past Medical History (Chronic Problems): Chronic Problems (Last Updated 07/25/19 @ 14:44 by Tam Dexter DO) Hyperlipidemia (Chronic) Hypertension (Chronic) Paroxysmal a-fib (Chronic) S/P pulmonary vein isolation; Periodic limb movement sleep disorder (Chronic) Pulmonary hypertension (Chronic) Type II Coronary artery disease (Chronic) Anemia (Chronic) Type 2 diabetes mellitus (Chronic) Presence of aortocoronary bypass graft (Chronic ~10/2010) CABG x4: LEBRON to LAD, SVG to RI, SVG to PDA, SVG to posterolateral Lt ventricular branch, PVI w/ Atricure Ablation and ligation of Lt atrial appendage 10/2010 Presence of stent in coronary artery (Chronic ~01/2011) PTCA/Stent to mid LCX 01/2011 DM (diabetes mellitus) with peripheral vascular complication (Chronic) Atherosclerotic heart disease of [place] coronary artery without angina pectoris (Chronic) CABG x4: LEBRON to LAD, SVG to RI, SVG to PDA, SVG to posterolateral Lt ventricular branch, PVI w/ Atricure Ablation and ligation of Lt atrial appendage 10/2010; PTCA/Stent to mid LCX 01/2011 Body mass index 40.0-44.9, adult (Chronic) Bilateral leg weakness (Chronic) Meniscus degeneration (Chronic) RAQUEL (obstructive sleep apnea) (Chronic) Obesity (Chronic) PVC (premature ventricular contraction) (Chronic) Surgical History: coronary bypass surgery - *Family History Maternal Family History: Family History (Last Reviewed 07/25/19 @ 14:44 by Tam Dexetr DO) Mother CAD (coronary artery disease) Father CVA (cerebral vascular accident) Myocardial infarction Brother Myocardial infarction Brother CAD (coronary artery disease) Myocardial infarction Sister CAD (coronary artery disease) History Items: No pertinent history Paternal Family History: Family History (Last Reviewed 07/25/19 @ 14:44 by Tam Dexter DO) Mother CAD (coronary artery disease) Father CVA (cerebral vascular accident) Myocardial infarction Brother Myocardial infarction Brother CAD (coronary artery disease) Myocardial infarction Sister CAD (coronary artery disease) History Items: No pertinent history Smoking Status: Never smoker Tobacco Use: Chew Alcohol: None Drugs: None Review of Systems - Review of Systems General: Reports: - - Weight gain. Denies: Fever, Fatigue, Night Sweats Cardiovascular: Reports: Shortness of Breath, Shortness of Breath at Rest, Shortness of Breath with Exertion, PND, Peripheral Edema. Denies: Chest Discomfort, Orthopnea, Palpitations, Lightheadedness, Dizziness, Near Syncope, Syncope Respiratory: Reports: Shortness of Breath. Denies: Cough, Sputum Production, Hemoptysis Gastrointestinal: Denies: Hematemesis, Hematochezia, Melena Genitourinary: Reports: - - Scrotal edema. Denies: Dysuria, Hematuria Skin: Denies: Rash Subjectve: This is a 74-year-old white male who appears to be resting recently comfortably at the moment. Objective: Vital Signs Temp Pulse Resp BP Pulse Ox 98.3 F 121 H 16 148/91 H 97 07/25/19 17:15 07/25/19 17:15 07/25/19 17:15 07/25/19 17:15 07/25/19 17:15 Oxygen Flow Rate (L/min) 4.5 Oxygen Delivery Method Nasal Cannula Weight: 375 lb 7.155 oz Body Mass Index (BMI) 48.2 Intake and Output for Last 24 Hours 07/23/19 07/24/19 07/25/19 23:59 23:59 23:59 Intake Total 22.84 / 22.84 Balance 22.84 / 22.84 General: Awake, Alert, Oriented x 3, Cooperative, No Acute Distress, Obese HEENT: Atraumatic, Normocephalic, PERRL, EOMI, Sclera Non Icteric Oral: Moist Mucosa Neck: Supple, Good ROM, No JVD Lungs: Diminished [place] Bases, Rhonchi Cardiovascular: Irregular Rhythm, Normal S1, Normal S2 Abdomen: Bowel Sounds Present, Soft, Non Tender, Obese Genitalia: Scrotal Edema Extremities: Severe RLE Edema, Severe LLE Edema Psych/Mental Status: Appropriate 07/25/19 12:50: WBC 8.7, RBC 3.79 L, Hgb 8.3 L, Hct 29.8 L, MCV 78.6 L, MCH 21.9 L, MCHC 27.9 L, Plt Count 221, MPV 9.7, Immature Gran % (Auto) 0.300, Neut % (Auto) 83.8 H, Lymph % (Auto) 8.5 L, [place] % (Auto) 5.4, Eos % (Auto) 1.8, Baso % (Auto) 0.2, Absolute Neuts (auto) 7.3, Nucleated RBC % 0 07/25/19 12:50: Sodium 137, Potassium 4.3, Chloride 101, Carbon Dioxide 30.0, Anion Gap 6, BUN 21 H, Creatinine 1.42 H, Est GFR (MDRD) Af Amer 63, Est GFR (MDRD) Non-Af 52 L, BUN/Creatinine Ratio 14.8, Glucose 196 H, Calcium 8.6, Troponin I < 0.015 07/25/19 12:50: B-Natriuretic Peptide 93.4 07/25/19 14:15: PT 15.0 H, INR 1.2, APTT 30.9 07/25/19 16:05: Troponin I < 0.015 Rhythm: EKG: ECHO: 07-18-19: Technically difficult study; contrast injection performed Left ventricular systolic function considered normal with an estimated LVEF 65%; mild concentric LVH; mild left atrial enlargement; moderate mitral annular calcification; mild focal mitral valve calcification of the anterior leaflet; trivial MR/TR; unable to estimate RV systolic pressure; unable to assess diastolic dysfunction Stress test: 09-10-2015: Pharmacologic stress nuclear imaging study: Myocardial perfusion changes appearing compatible with physiologic apical thinning although an area of previous myocardial injury/infarction could not be excluded with no myocardial perfusion changes consider diagnostic for stress-induced myocardial ischemia with a gated LVEF of 56% Cardiac Cath: 03-22-18 Elevated left ventricular end-diastolic pressure Right heart pressures-moderately to severely elevated Pulmonary hypertension which is moderate to severe Intracardiac shunting: None Left ventricle considered normal with respect to size, wall motion, and systolic function with an estimated LVEF 65% Left main coronary artery with mild luminal irregularities LAD with proximal eccentric hazy 75% stenosis followed by mid eccentric 75% stenosis followed by eccentric 85% stenosis with the distal LAD status post a LEBRON graft attachment filling late, faintly, and partially Left circumflex coronary artery previously stented and patent with minimal luminal irregularities Intermediate ramus coronary artery is occluded with the mid to distal portion filling via the SVG graft with no angiographically significant appearing disease distal to the graft attachment Right coronary artery with diffuse eccentric 25 to 50% stenosis LEBRON to the LAD patent SVG to the intermediate ramus patent SVG to the right PDA patent SVG to the right posterior lateral branch patent PCI: 02-18-2011 PCI of the LCx with a Promus 3.0 x 12 mm stent to the mid LCx system CT Surgery: 11-05-2010 LEBRON to the LAD SVG to the intermediate ramus SVG to the PDA SVG to the posterior lateral left ventricular branch Pulmonary vein isolation with an Atricure ablation and ligation of the left atrial appendage CXR: Preliminary evaluation: Increased pulmonary vascularity; please see official report Assessment/Plan 1. Atrial fibrillation The patient has a history of paroxysmal atrial fibrillation. He appears to be in atrial fibrillation at this time. It is unclear whether this is a primary component leading to his worsening CHF scenario versus being secondary to what appears to be his underlying pulmonary disease process. At the present time he will need to continue rate control therapy. He is being placed on antiarrhythmic therapy in the hopes of regaining sinus rhythm. He is also been placed on anticoagulant therapy. He will need to be monitored on anticoagulant therapy based on his anemia for any worsening anemia that would warrant interruption of his anticoagulant therapy for additional evaluation and care. Depending upon his clinical course he may need to be considered for future attempts at regaining sinus rhythm with synchronized biphasic DC cardioversion. This may have to be preceded by a JAMILA as the exact duration of his atrial dysrhythmia is unknown. However prior to such a procedure it would be reasonable to try and bring his overall clinical status and pulmonary process under better control. 2. CHF: Preserved ejection fraction He does have evidence of CHF. This is in the setting of what appears to be preserved LV systolic function. Of interest is that his BNP level is negative. This would be a high negative predictive value laboratory suggesting his findings may not be related to ventricular dysfunction. Thus, although he is going to proceed with evaluation and care for CHF with preserved ejection fraction with medical management as deemed appropriate, consideration will have to be given to monitoring for other noncardiovascular etiologies of his pulmonary findings, etc. that warrant further evaluation and care based upon his negative BNP level. 3. CAD status post PCI status post CABG He has undergone noninvasive and invasive evaluation as described above. At the moment there appears to be no clear-cut indicators of an acute coronary syndrome contributing to his ongoing condition that would warrant reevaluation in the cardiac catheterization laboratory. However, this could change depending upon his clinical course. 4. Hyperlipidemia He will continue risk factor evaluation care as tolerated. 5. Hypertension His blood pressure will be monitored. He will continue medical management with adjustment as needed. 6. Pulmonary hypertension He does have significant pulmonary hypertension as previously noted. This may be secondary to his history of obstructive sleep apnea. This could contribute to cor pulmonale with right heart failure which could contribute to his clinical scenario. He will need continue evaluation and care. 7. Diabetes mellitus He will continue evaluation care per internal medicine. 8. Obstructive sleep apnea Depending upon his overall clinical status he may need further input from pulmonology as well with respect to his ongoing pulmonary disease process. 9. Anemia He is anemic. The etiology is unclear at this time. He is scheduled for future outpatient gastroenterology evaluation. However depending upon his clinical course he may need further evaluation of his anemia during his hospital course. As noted above his hemoglobin will need to be monitored as he is on IV heparin for any obvious evidence of decline warranting interruption of anticoagulant therapy and additional evaluation and care. 10. Obesity Unfortunately he remains obese. This is despite his best efforts of attempting to lose weight. Comment: The patient's case has been discussed and reviewed with the patient, his spouse, and the [facility] emergency department staff. Thank you for allowing me to participate in the care of your patient. This note was generated using a voice recognition system and there may be incorrect words, spelling or punctuation that were not noted when reviewing the office note prior to saving.
[2019-07-25] MEDS: Gabapentin 300 MG Capsule PO (18:00)
[2019-07-25] MEDS: Insulin Lispro 100 UNIT/ML INSULN.PEN SC (18:01)
[2019-07-25] MEDS: Furosemide 500 MG in Empty Viaflex 50 mL 1 EACH CONT INF (18:44)
[2019-07-25 20:53] LABS: Partial Thromboplast Time 67.5 Seconds (24.1-36.2)
[2019-07-25] MEDS: Tamsulosin HCl 0.4 MG Capsule PO (21:26)
[2019-07-25] MEDS: Famotidine 20 MG Tablet 40 MG PO (21:26)
[2019-07-25] MEDS: Finasteride 5 MG Tablet PO (21:26)
[2019-07-25] MEDS: hydrOXYzine PAM 25 MG Capsule 100 MG PO (21:27)
[2019-07-25] MEDS: MELATONIN 10 MG TABLET 20 MG PO (21:27)
[2019-07-25] MEDS: Pramipexole Di-HCl 0.25 MG Tablet 0.5 MG PO (21:27)
[2019-07-25] MEDS: HYDROcodone Bitartrate/Apap 5/325 Tablet PO (21:27)
[2019-07-25] MEDS: DULoxetine Hcl 60 MG Capsule PO (21:27)
[2019-07-25 21:41] LABS: Bedside Glucose 169 mg/dL (70-110)
[2019-07-26] VITALS (42 sets, daily range): BP systolic 120–162; BP diastolic 68–97; PULSE 80–100; RESP 10–20; TEMP 36.1–37; O2SAT 80–100
[2019-07-26] MEDS: HEPARIN/D5w 25,000 UNITS 25,000 UNITS/250 ML IV.SOLN. 21 UNITS IV (01:02)
[2019-07-26 01:36] LABS: Bedside Glucose 120 mg/dL (70-110)
[2019-07-26 03:19] LABS: Partial Thromboplast Time 53.3 Seconds (24.1-36.2)
[2019-07-26] MEDS: Heparin Injection (Vial) 5,000 UNIT/ML VIAL IV (03:35)
--- NOTE | 2019-07-26 03:55 | NURSING ---
pts vitals charted at 0345 were done at 0230 unable to delete or amend time in titration vitals.
[2019-07-26 04:10] LABS: Anion Gap 9 (5-15); BUN 22 mg/dL (7-18); BUN/Creat Ratio 16.7 RATIO (10-20); Calcium,Total 8.1 mg/dL (8.5-10.1); Chloride 102 mmol/L (98-107); Creatinine, Serum 1.32 mg/dL (0.70-1.30); EST Glomerular Filtration Rate 56 mL/min (>60); Est Glom Filt Rate - Afr Amer 68 mL/min (>60); Estimated Creatinine Clearance 56.22 ml/min; Glucose 105 mg/dL (74-106); Magnesium 2.3 mg/dL (1.6-2.6); Potassium 3.5 mmol/L (3.5-5.1); Sodium Level 141 mmol/L (136-145)
[2019-07-26 04:37] LABS: Absolute Lymphocyte Count 1.62 X10^3/uL (0.83-4.51); Absolute Neutrophil Count 7.4 X10^3/uL (2.0-7.7); Basophil# 0.04 X10^3/uL; Basophil% 0.4 % (0-1); Eosinophil# 0.21 X10^3/uL; Eosinophils% 2.1 % (0-5); Hematocrit 27.4 % (40-54); Hemoglobin 7.8 g/dL (13.0-16.5); Lymphocyte # 1.62 X10^3/ul (4.0); Lymphocyte % 16.2 % (19-41); Mean Corp Hgb Conc 28.5 g/dL (32-36); Mean Corpuscular Hgb 21.9 pg (27.0-32.0); NRBC Flagged by Analyzer 0 % (0-5); Neutrophil # 7.39 X10^3/uL (2.7-7.7); Platelet Count 204 K/mm3 (150-450); RBC Distribution Width CV 19.2 % (11.6-14.6); RBC Distribution Width SD 53.6 fl (35.1-43.9); Red Blood Count 3.56 M/mm3 (4.6-6.2)
--- NOTE | 2019-07-26 05:55 | EKG12_ITS ---
Test Reason : AM Blood Pressure : / mmHG Vent. Rate : 088 BPM Atrial Rate : 088 BPM P-R Int : 204 ms QRS Dur : 100 ms QT Int : 414 ms P-R-T Axes : 070 073 024 degrees QTc Int : 500 ms Normal sinus rhythm Nonspecific T wave abnormality Prolonged QT Abnormal ECG When compared with ECG of 25-JUL-2019 13:28, MANUAL COMPARISON REQUIRED, DATA IS UNCONFIRMED Confirmed by ZOYA DOMÍNGUEZ ([id number]), image editor TRACY MCLAUGHLIN ([id number]) on 07/27/2019 2:06:44 PM Referred By: Tam Dexter Confirmed By:ZOYA DOMÍNGUEZ
--- NOTE | 2019-07-26 08:01 | PN_ITS ---
Patient Problems: Active and Suspected Problems (Last Updated 07/26/19 @ 07:25 by Romi Walls MD) (HFpEF) heart failure with preserved ejection fraction (Acute) Atrial fibrillation with RVR (Acute) Subjective: Chief complaint: Follow-up after admission for acute diastolic CHF, A. fib with RVR, acute on chronic hypoxic respiratory failure and anemia. Patient seen and examined. He is on BiPAP. He reported minimal improvement of his shortness of breath and still requiring BiPAP. He denied chest pain, palpitation, dizziness or lightheadedness. He denied abdominal pain, nausea vomiting. He is on IV Lasix drip, Cardizem drip, amiodarone drip and IV heparin drip. He is afebrile, heart rate stable, pressure is maintained, pulse ox is 96% on BiPAP. - Physical Exam General: Alert, Oriented x3, Cooperative, - - Moderately short of breath. HEENT: Atraumatic, PERRLA, EOMI, Normocephalic Oral: Moist Mucosa, No Gingival or Mucosal Lesions/ Ulcerations Neck: Supple, No JVD, Negative Carotid Bruits, Trachea Midline, Thyroid Normal Size and Texture Lungs: No rhonchi, No wheeze, No rales, Diminished, Rhonchi, Short of Breath Cardiovascular: Normal S1, Normal S2, No murmurs, PMI Normal, Irregular Rate Abdomen: Bowel Sounds Present, Soft, Non Tender, Non-Distended, No Hepato- splenomegaly, Obese Extremities: No clubbing, No cyanosis, Edema Skin: No rashes, No breakdown Lymphatic: No Cervical, Supraclavicular, or Inguinal Adenopathy Neurological: Cranial nerves II-XII grossly intact, Motor Exam 5/5 strength throughout Psych/Mental Status: Normal Affect, Appropriate Vital Signs Temp Pulse Resp BP Pulse Ox 98.6 F 87 10 L 136/72 H 96 07/26/19 04:05 07/26/19 06:55 07/26/19 06:55 07/26/19 06:55 07/26/19 06:55 Oxygen Flow Rate (L/min) 35 Oxygen Delivery Method Bi-pap Weight: 374 lb 12.573 oz Body Mass Index (BMI) 48.2 Intake and Output for Last 24 Hours 07/24/19 07/25/19 07/26/19 23:59 23:59 23:59 Intake Total 1193.67 / 1197.92 404.66 / 404.66 Output Total 1050 / 1050 600 / 600 Balance 143.67 / 147.92 -195.34 / -195.34 Laboratory Tests Past 24 Hrs 07/25/19 07/25/19 07/25/19 12:50 12:50 12:50 WBC 8.7 RBC 3.79 L Hgb 8.3 L Hct 29.8 L MCV 78.6 L MCH 21.9 L MCHC 27.9 L RDW Std Deviation 54.2 H RDW Coeff of Lakshmi 18.9 H Plt Count 221 MPV 9.7 Immature Gran % (Auto) 0.300 Neut % (Auto) 83.8 H Lymph % (Auto) 8.5 L [place] % (Auto) 5.4 Eos % (Auto) 1.8 Baso % (Auto) 0.2 Absolute Neuts (auto) 7.3 Absolute Lymphs (auto) 0.74 L Nucleated RBC % 0 PT INR APTT Sodium 137 Potassium 4.3 Chloride 101 Carbon Dioxide 30.0 Anion Gap 6 BUN 21 H Creatinine 1.42 H Estim Creat Clear Calc 52.26 Est GFR (MDRD) Af Amer 63 Est GFR (MDRD) Non-Af 52 L BUN/Creatinine Ratio 14.8 Glucose 196 H Hemoglobin A1c Calcium 8.6 Magnesium Troponin I < 0.015 B-Natriuretic Peptide 93.4 07/25/19 07/25/19 07/25/19 14:15 16:05 18:34 WBC RBC Hgb Hct MCV MCH MCHC RDW Std Deviation RDW Coeff of Lakshmi Plt Count MPV Immature Gran % (Auto) Neut % (Auto) Lymph % (Auto) [place] % (Auto) Eos % (Auto) Baso % (Auto) Absolute Neuts (auto) Absolute Lymphs (auto) Nucleated RBC % PT 15.0 H INR 1.2 APTT 30.9 Sodium Potassium Chloride Carbon Dioxide Anion Gap BUN Creatinine Estim Creat Clear Calc Est GFR (MDRD) Af Amer Est GFR (MDRD) Non-Af BUN/Creatinine Ratio Glucose Hemoglobin A1c Calcium Magnesium Troponin I < 0.015 < 0.015 B-Natriuretic Peptide 07/25/19 07/26/19 07/26/19 20:30 02:55 02:55 WBC 10.0 RBC 3.56 L Hgb 7.8 L Hct 27.4 L MCV 77.0 L MCH 21.9 L MCHC 28.5 L RDW Std Deviation 53.6 H RDW Coeff of Lakshmi 19.2 H Plt Count 204 MPV 9.0 Immature Gran % (Auto) 0.300 Neut % (Auto) 74.0 H Lymph % (Auto) 16.2 L [place] % (Auto) 7.0 Eos % (Auto) 2.1 Baso % (Auto) 0.4 Absolute Neuts (auto) 7.4 Absolute Lymphs (auto) 1.62 Nucleated RBC % 0 PT INR APTT 67.5 H Sodium 141 Potassium 3.5 Chloride 102 Carbon Dioxide 30.0 Anion Gap 9 BUN 22 H Creatinine 1.32 H Estim Creat Clear Calc 56.22 Est GFR (MDRD) Af Amer 68 Est GFR (MDRD) Non-Af 56 L BUN/Creatinine Ratio 16.7 Glucose 105 Hemoglobin A1c Calcium 8.1 L Magnesium 2.3 Troponin I B-Natriuretic Peptide 07/26/19 07/26/19 02:55 02:55 WBC RBC Hgb Hct MCV MCH MCHC RDW Std Deviation RDW Coeff of Lakshmi Plt Count MPV Immature Gran % (Auto) Neut % (Auto) Lymph % (Auto) [place] % (Auto) Eos % (Auto) Baso % (Auto) Absolute Neuts (auto) Absolute Lymphs (auto) Nucleated RBC % PT INR APTT 53.3 H Sodium Potassium Chloride Carbon Dioxide Anion Gap BUN Creatinine Estim Creat Clear Calc Est GFR (MDRD) Af Amer Est GFR (MDRD) Non-Af BUN/Creatinine Ratio Glucose Hemoglobin A1c Pending Calcium Magnesium Troponin I B-Natriuretic Peptide POC Glucose 07/26/19 07/25/19 07/25/19 01:29 21:35 16:16 POC Glucose 120 H 169 H 205 H Clinical Impression(s) from Imaging Studies Chest X-Ray 07/25/19 12:42 IMPRESSION: Cardiomegaly and CHF. Prior CABG. Electronically Signed: Ander Stafford, at 13:08 EDT , Service support , Medical Necessity - Tobacco Use Smoking Status: Never smoker Tobacco Use: Chew Assessment/Plan All Active Problems (Last Updated 07/26/19 @ 07:25 by Romi Walls MD) (HFpEF) heart failure with preserved ejection fraction (Acute) Atrial fibrillation with RVR (Acute) This is a 74 years old male patient presented to the emergency room because of shortness of breath and was found to have acute diastolic CHF, A. fib with RVR and acute on chronic hypoxic respiratory failure. #1 acute diastolic CHF: With preserved ejection fraction. He is on IV Lasix drip. He is not on GLORIA inhibitors because of chronic kidney disease. His EKG revealed normal sinus rhythm, prolonged QTC, no acute ischemic changes. Troponin are negative. Patient had echocardiogram several days ago that showed ejection fraction of 65%, other findings reviewed. Cardiology consulted. Plan to continue same treatment for now. #2 A. fib with RVR: With past history of chronic A. fib. He is on IV Cardizem as well as IV amiodarone drips. He converted back to sinus rhythm, rate is controlled now, blood pressure stable. He is on IV heparin drip for anti- coagulation. #3 acute on chronic hypoxic respiratory failure: Multifactorial secondary to acute CHF, obesity, history of obstructive sleep apnea. At this time, he is on BiPAP. He is on IV diuresis as above. The same treatment. #4 acute on chronic anemia: Baseline hemoglobin around 10 to 11 g/dL. Has been trending down, it is down to 7.8 g/dL today. No evidence of active bleeding. Plan to repeat CBC tomorrow morning, transfuse if hemoglobin remains below 8 g/dL. #5 stage III chronic kidney disease: Baseline kidney function has been around 1.3 to 1.5 mg/dL. Today's creatinine is 1.32, stable at baseline. #6 CAD status post CABG and PCI: EKG without acute ischemic changes, troponins negative, no chest pain. Continue aspirin, IV heparin drip as above. #7 hypertension: Blood pressure stable, continue Norvasc and IV Lasix. #8 type 2 diabetes mellitus: Blood sugar stable, continue Humulin insulin 3 times daily and sliding scale. #9 benign prostatic hypertrophy: Continue Flomax and Proscar. #10 depression: Stable, continue Cymbalta. #11 DVT prophylaxis: On IV heparin drip. This note was generated with [employer] software. It may contain incorrect words, spelling, and punctuation that were not noted in checking the note before signing. Code Visit Inpatient E&M: 17587 Subs Hosp L3
[2019-07-26 08:21] LABS: Bedside Glucose 106 mg/dL (70-110)
[2019-07-26 08:46] LABS: Hemoglobin A1c 6.1 % (4.2-6.3)
[2019-07-26] MEDS: Gabapentin 300 MG Capsule PO ×2 (09:51→17:07)
[2019-07-26] MEDS: Nystatin Powder 15gm Bottle 1 APPLIC TOPICAL ×2 (09:51→22:20)
[2019-07-26] MEDS: Famotidine 20 MG Tablet 40 MG PO ×2 (09:51→22:20)
[2019-07-26] MEDS: amLODIPine 5 MG Tablet PO (09:51)
[2019-07-26] MEDS: Polyethylene Glycol 3350 17 GM PACKET PO (09:52)
[2019-07-26] MEDS: Aspirin E.C. 81 MG Tablet PO (09:58)
[2019-07-26 10:44] LABS: Partial Thromboplast Time 58.4 Seconds (24.1-36.2)
[2019-07-26] MEDS: Amiodarone 200 MG Tablet PO ×2 (11:09→22:18)
--- NOTE | 2019-07-26 12:14 | CASEMGMT ---
Pt had indicated to admitting RN that he does not have a living will but that the POA is on the chart. SW checked the paper and e-chart, the document is not present. SW spoke w/pt and in room, let them know POA form is not on file here. Pt states he is aware of it, and if it becomes necessary will bring in the form. HOLDEN French
[2019-07-26 12:51] LABS: Bedside Glucose 176 mg/dL (70-110)
--- NOTE | 2019-07-26 13:22 | PN.CARD_ITS ---
Subjectve: The patient is awake and alert. He denies ongoing symptoms of chest discomfort. He states he has chronic shortness of breath and dyspnea. He has had no significant change since yesterday. He denies ongoing palpitations at this time. He continues with lower extremity peripheral pitting edema/scrotal edema. Objective: Vital Signs Temp Pulse Resp BP Pulse Ox 97.8 F 88 15 120/72 92 07/26/19 12:00 07/26/19 12:00 07/26/19 12:00 07/26/19 12:00 07/26/19 12:00 Oxygen Flow Rate (L/min) 4 Oxygen Delivery Method Venturi Mask Weight: 374 lb 12.573 oz Body Mass Index (BMI) 48.2 Intake and Output for Last 24 Hours 07/24/19 07/25/19 07/26/19 23:59 23:59 23:59 Intake Total 1193.67 / 1197.92 1025.04 / 1025.04 Output Total 1050 / 1050 1550 / 1550 Balance 143.67 / 147.92 -524.96 / -524.96 General: Awake, Alert, Oriented x 3, Cooperative, Obese HEENT: Atraumatic, Normocephalic, PERRL, EOMI, Sclera Non Icteric Oral: Moist Mucosa Neck: Supple, Good ROM, No JVD Lungs: Rhonchi Cardiovascular: Regular Rhythm, Normal S1, Normal S2 Abdomen: Bowel Sounds Present, Soft, Non Tender, Obese Genitalia: Scrotal Edema Extremities: Severe RLE Edema, Severe LLE Edema Psych/Mental Status: Appropriate 07/25/19 12:50: B-Natriuretic Peptide 93.4 07/25/19 14:15: PT 15.0 H, INR 1.2, APTT 30.9 07/25/19 16:05: Troponin I < 0.015 07/25/19 18:34: Troponin I < 0.015 07/25/19 20:30: APTT 67.5 H 07/26/19 02:55: WBC 10.0, RBC 3.56 L, Hgb 7.8 L, Hct 27.4 L, MCV 77.0 L, MCH 21.9 L, MCHC 28.5 L, Plt Count 204, MPV 9.0, Immature Gran % (Auto) 0.300, Neut % (Auto) 74.0 H, Lymph % (Auto) 16.2 L, [place] % (Auto) 7.0, Eos % (Auto) 2.1, Baso % (Auto) 0.4, Absolute Neuts (auto) 7.4, Nucleated RBC % 0 07/26/19 02:55: Sodium 141, Potassium 3.5, Chloride 102, Carbon Dioxide 30.0, Anion Gap 9, BUN 22 H, Creatinine 1.32 H, Est GFR (MDRD) Af Amer 68, Est GFR (MDRD) Non-Af 56 L, BUN/Creatinine Ratio 16.7, Glucose 105, Calcium 8.1 L, Magnesium 2.3 07/26/19 02:55: Hemoglobin A1c 6.1 07/26/19 02:55: APTT 53.3 H 07/26/19 09:50: APTT 58.4 H Rhythm: Sinus rhythm EKG: Sinus rhythm; nonspecific ST segment abnormality Medical Necessity - Tobacco Use Smoking Status: Never smoker Tobacco Use: Chew Assessment/Plan 1. Atrial fibrillation The patient has a history of paroxysmal atrial fibrillation. He appears to be in atrial fibrillation at this time. It is unclear whether this is a primary component leading to his worsening CHF scenario versus being secondary to what appears to be his underlying pulmonary disease process. He has converted to sinus rhythm. He will continue rate control therapy, anticoagulant therapy, and antiarrhythmic therapy. His IV medications will be converted to oral medications at this time. 2. CHF: Preserved ejection fraction He does have evidence of CHF. This is in the setting of what appears to be preserved LV systolic function. Of interest is that his BNP level is negative. This would be a high negative predictive value laboratory suggesting his findings may not be related to ventricular dysfunction. Thus, although he is going to proceed with evaluation and care for CHF with preserved ejection fraction with medical management as deemed appropriate, consideration will have to be given to monitoring for other noncardiovascular etiologies of his pulmonary findings, etc. that warrant further evaluation and care based upon his negative BNP level. He is continuing diuretic therapy. 3. CAD status post PCI status post CABG He has undergone noninvasive and invasive evaluation as described above. At the moment there appears to be no clear-cut indicators of an acute coronary syndrome contributing to his ongoing condition that would warrant reevaluation in the cardiac catheterization laboratory. However, this could change depending upon his clinical course. 4. Hyperlipidemia He will continue risk factor evaluation care as tolerated. 5. Hypertension His blood pressure will be monitored. He will continue medical management with adjustment as needed. 6. Pulmonary hypertension He does have significant pulmonary hypertension as previously noted. This may be secondary to his history of obstructive sleep apnea. This could contribute to cor pulmonale with right heart failure which could contribute to his clinical scenario. He will need continue evaluation and care. 7. Diabetes mellitus He will continue evaluation care per internal medicine. 8. Obstructive sleep apnea Depending upon his overall clinical status he may need further input from pulmonology as well with respect to his ongoing pulmonary disease process. 9. Anemia His H&H has decreased somewhat. This will need to be followed. He may need PRBC transfusions to assist with his oxygen carrying capacity. 10. Obesity Unfortunately he remains obese. This is despite his best efforts of attempting to lose weight. Thank you for allowing me to participate in the care of your patient. This note was generated using a voice recognition system and there may be incorrect words, spelling or punctuation that were not noted when reviewing the office note prior to saving.
[2019-07-26] MEDS: dilTIAZem CD 120 MG Capsule PO ×2 (13:51→22:14)
[2019-07-26] MEDS: APIXABAN 5 MG TABLET PO ×2 (13:52→22:19)
[2019-07-26] MEDS: 0.9% NaCl Peripheral Flush Adult/Peds IV ×2 (13:52→20:21)
--- NOTE | 2019-07-26 14:11 | CASEMGMT ---
ALESSANDRO SIDDIQI assessment: Face to Face with patient for initial transition planning/care coordination assessment. ALESSANDRO SIDDIQI introduced self and role at [facility], pt voices understanding and consents to assessment at this time. Pt is sitting up in bed in no distress at this time. Pt is A/Ox4 at this time and answers all questions appropriately at this time. Pt's is at bedside during assessment and pt is hard of hearing. Care providers, pharmacy, and demographics verified at this time. PCP: [facility] Specialists: devin Turpin; Luiza, cardio; luis daniel Murry in [place]; ROSIE Hargrove Preferred Pharmacy: [facility] Insurance: [employer] Prescription Benefit: MMOMCR Living Will/HPOA: Pt states does not have LW but does have HPOA and is aware that the HPOA is not on file at [facility] at this time. Pt's , Alice Yan, is HPOA and pt is encouraged to bring HPOA when able. LNOK: Alice Yan, Living Arrangements: Pt states lives with in 1 story condo and states no concerns at home at this time. Pt states is normally independent with ADL's but also states that does help with certain ADL's and helping to transport pt as well. Transportation: Pt states drives self and no tranportation concerns at this time but states does need 's assistance with getting in and out of car. DME/HHC: Pt states has the following DME: cane, walker, w/c, grab bars, shower chair, lift chair, cpap and home oxygen order for 2 liters thru [employer] at this time. Pt states has been using 5 liters at home prior to admission and was heading into the hospital for oxygen testing when ended up admitted. Call to [employer] and they do verify that pt's order is for 2 liters and if pt needs 4liters or less then new order needed but if pt needs more than 4 liters then new order and new testing needed. Pt states no hx of SNF or HHC in the past. Pt/ state no concerns with going home at time of discharge. Pt states is retired. Pt states does not smoke or drink ETOH. Pt states no further concerns/needs at this time. CM to follow for any further oxygen need and discharge planning/needs. Advised pt to ask for CM if any further questions/concerns/needs arise, voices understanding. Pt Goal: Home Plan: Home Suzanna FRANCOIS CM
[2019-07-26 16:47] LABS: Partial Thromboplast Time 33.1 Seconds (24.1-36.2)
[2019-07-26 17:25] LABS: Bedside Glucose 152 mg/dL (70-110)
[2019-07-26] MEDS: Furosemide 500 MG in Empty Viaflex 50 mL 1 EACH CONT INF (20:05)
[2019-07-26] MEDS: DULoxetine Hcl 60 MG Capsule PO (22:18)
[2019-07-26] MEDS: Pramipexole Di-HCl 0.25 MG Tablet 0.5 MG PO (22:19)
[2019-07-26] MEDS: Tamsulosin HCl 0.4 MG Capsule PO (22:19)
[2019-07-26] MEDS: Finasteride 5 MG Tablet PO (22:20)
[2019-07-26] MEDS: hydrOXYzine PAM 25 MG Capsule 100 MG PO (22:21)
[2019-07-26 22:35] LABS: Bedside Glucose 142 mg/dL (70-110)
[2019-07-27] VITALS (11 sets, daily range): BP systolic 144–154; BP diastolic 69–74; PULSE 86–95; RESP 12–18; TEMP 36.3–36.8; O2SAT 95–100
[2019-07-27] MEDS: Amiodarone 200 MG Tablet PO ×3 (05:43→21:36)
[2019-07-27 07:03] LABS: Absolute Lymphocyte Count 0.82 X10^3/uL (0.83-4.51); Absolute Neutrophil Count 7.3 X10^3/uL (2.0-7.7); Basophil# 0.02 X10^3/uL; Basophil% 0.2 % (0-1); Eosinophils% 1.1 % (0-5); Hematocrit 28.9 % (40-54); Lymphocyte # 0.82 X10^3/ul (4.0); Lymphocyte % 9.4 % (19-41); Mean Corp Hgb Conc 27.7 g/dL (32-36); Mean Corpuscular Hgb 21.6 pg (27.0-32.0); Mean Corpuscular Volume 78.1 fL (80-94); Mean Platelet Vol. 9.4 fl (6.2-12.0); Monocyte# 0.53 X10^3/uL; Monocyte% 6.1 % (0-10); NRBC Flagged by Analyzer 0 % (0-5); Neutrophil # 7.25 X10^3/uL (2.7-7.7); Neutrophil % 82.9 % (47-70); Platelet Count 207 K/mm3 (150-450); RBC Distribution Width CV 19.1 % (11.6-14.6); RBC Distribution Width SD 53.7 fl (35.1-43.9); White Blood Count 8.8 K/mm3 (4.4-11.0)
[2019-07-27 07:23] LABS: Anion Gap 3 (5-15); BUN 18 mg/dL (7-18); BUN/Creat Ratio 13.4 RATIO (10-20); Calcium,Total 8.4 mg/dL (8.5-10.1); Chloride 100 mmol/L (98-107); Creatinine, Serum 1.34 mg/dL (0.70-1.30); EST Glomerular Filtration Rate 55 mL/min (>60); Est Glom Filt Rate - Afr Amer 67 mL/min (>60); Estimated Creatinine Clearance 55.38 ml/min; Glucose 92 mg/dL (74-106); Potassium 3.4 mmol/L (3.5-5.1); Sodium Level 140 mmol/L (136-145)
[2019-07-27 07:40] LABS: Bedside Glucose 105 mg/dL (70-110)
--- NOTE | 2019-07-27 08:04 | PN_ITS ---
Patient Problems: Active and Suspected Problems (Last Updated 07/26/19 @ 07:25 by Romi Walls MD) (HFpEF) heart failure with preserved ejection fraction (Acute) Atrial fibrillation with RVR (Acute) Subjective: Chief complaint: Follow-up after admission for acute diastolic CHF, A. fib with RVR, acute on chronic hypoxic respiratory failure and anemia. Patient seen and examined. No acute events overnight. Patient mentioned that his breathing is getting better but he still needs BiPAP. He gets short of breath with nasal cannula only. He complains of cough, no sputum production. Denies chest pain, palpitation, dizziness or lightheadedness. He has been afebrile, blood pressure and heart rate are stable, pulse ox is 97% on BiPAP. - Physical Exam General: Alert, Oriented x3, Cooperative, - - Minimally short of breath. HEENT: Atraumatic, PERRLA, EOMI, Normocephalic Oral: Moist Mucosa, No Gingival or Mucosal Lesions/ Ulcerations Neck: Supple, No JVD, Negative Carotid Bruits, Trachea Midline, Thyroid Normal Size and Texture Lungs: Clear to auscultation, Normal air movement, No rhonchi, No wheeze, Diminished, - - Faint crackles at the bases. Cardiovascular: Regular rate, Regular Rhythm, Normal S1, Normal S2, PMI Normal Abdomen: Bowel Sounds Present, Soft, Non Tender, Non-Distended, No Hepato- splenomegaly, Obese Extremities: No clubbing, No cyanosis, Edema Skin: No rashes, No breakdown Lymphatic: No Cervical, Supraclavicular, or Inguinal Adenopathy Neurological: Cranial nerves II-XII grossly intact, Motor Exam 5/5 strength throughout Psych/Mental Status: Normal Affect, Appropriate, Alert and oriented to time, place, person, mood and affect Vital Signs Temp Pulse Resp BP Pulse Ox 97.4 F L 87 16 154/69 H 95 07/27/19 04:00 07/27/19 07:06 07/27/19 04:00 07/27/19 04:00 07/27/19 06:52 Oxygen Flow Rate (L/min) [ 4 AMBULATION with Oxygen] Oxygen Flow Rate (L/min) 4 Oxygen Delivery Method Nasal Cannula Weight: 370 lb 6.025 oz Body Mass Index (BMI) 48.2 Intake and Output for Last 24 Hours 07/25/19 07/26/19 07/27/19 23:59 23:59 23:59 Intake Total 1193.67 / 1197.92 1636.88 / 1636.88 60 / 60 Output Total 1050 / 1050 3500 / 3500 1675 / 1675 Balance 143.67 / 147.92 -1863.12 / -1863.12 -1615 / -1615 Laboratory Tests Past 24 Hrs 07/26/19 07/26/19 07/26/19 02:55 09:50 15:50 WBC RBC Hgb Hct MCV MCH MCHC RDW Std Deviation RDW Coeff of Lakshmi Plt Count MPV Immature Gran % (Auto) Neut % (Auto) Lymph % (Auto) [place] % (Auto) Eos % (Auto) Baso % (Auto) Absolute Neuts (auto) Absolute Lymphs (auto) Nucleated RBC % APTT 58.4 H 33.1 Sodium Potassium Chloride Carbon Dioxide Anion Gap BUN Creatinine Estim Creat Clear Calc Est GFR (MDRD) Af Amer Est GFR (MDRD) Non-Af BUN/Creatinine Ratio Glucose Hemoglobin A1c 6.1 Calcium 07/27/19 07/27/19 06:37 06:37 WBC 8.8 RBC 3.70 L Hgb 8.0 L Hct 28.9 L MCV 78.1 L MCH 21.6 L MCHC 27.7 L RDW Std Deviation 53.7 H RDW Coeff of Lakshmi 19.1 H Plt Count 207 MPV 9.4 Immature Gran % (Auto) 0.300 Neut % (Auto) 82.9 H Lymph % (Auto) 9.4 L [place] % (Auto) 6.1 Eos % (Auto) 1.1 Baso % (Auto) 0.2 Absolute Neuts (auto) 7.3 Absolute Lymphs (auto) 0.82 L Nucleated RBC % 0 APTT Sodium 140 Potassium 3.4 L Chloride 100 Carbon Dioxide 37.0 H Anion Gap 3 L BUN 18 Creatinine 1.34 H Estim Creat Clear Calc 55.38 Est GFR (MDRD) Af Amer 67 Est GFR (MDRD) Non-Af 55 L BUN/Creatinine Ratio 13.4 Glucose 92 Hemoglobin A1c Calcium 8.4 L POC Glucose 07/27/19 07/26/19 07/26/19 07:37 22:13 17:02 POC Glucose 105 142 H 152 H 07/26/19 07/26/19 12:18 08:16 POC Glucose 176 H 106 Medical Necessity - Tobacco Use Smoking Status: Never smoker Tobacco Use: Chew Assessment/Plan All Active Problems (Last Updated 07/26/19 @ 07:25 by Romi Walls MD) (HFpEF) heart failure with preserved ejection fraction (Acute) Atrial fibrillation with RVR (Acute) This is a 74 years old male patient presented to the emergency room because of shortness of breath and was found to have acute diastolic CHF, A. fib with RVR and acute on chronic hypoxic respiratory failure. #1 acute diastolic CHF: He is on IV Lasix drip. He is not on GLORIA inhibitors because of chronic kidney disease. His EKG revealed normal sinus rhythm, prolonged QTC, no acute ischemic changes. Troponin are negative. Patient had echocardiogram several days ago that showed ejection fraction of 65%, other findings reviewed. Cardiology consulted. Serum BUN and creatinine remained stable. Plan to continue IV Lasix drip. #2 A. fib with RVR: With past history of chronic A. fib. Converted back to sinus rhythm, rate is controlled. IV Cardizem and IV amiodarone drip was discontinued. He is on p.o. amiodarone and Cardizem. Started on Eliquis for anticoagulation. #3 acute on chronic hypoxic respiratory failure: Multifactorial secondary to acute CHF, obesity, history of obstructive sleep apnea. At this time, patient remained on BiPAP. He is on IV diuresis as above. #4 acute on chronic anemia: Baseline hemoglobin around 10 to 11 g/dL. Has been trending down, it is down to 7.8 g/dL yesterday and today, it is 8 g/dL. No evidence of active bleeding. Plan to monitor and transfuse if hemoglobin dropped below 8. #5 stage III chronic kidney disease: Baseline kidney function has been around 1.3 to 1.5 mg/dL. Today's creatinine is 1.34, stable at baseline. Plan to repeat BMP tomorrow morning #6 CAD status post CABG and PCI: EKG without acute ischemic changes, troponins negative, no chest pain. Continue aspirin, IV heparin discontinued. #7 hypertension: Blood pressure stable, continue Norvasc and IV Lasix. #8 type 2 diabetes mellitus: Blood sugar stable, continue Humulin insulin 3 times daily and sliding scale. #9 benign prostatic hypertrophy: Continue Flomax and Proscar. #10 depression: Stable, continue Cymbalta. #11 DVT prophylaxis: Continue Eliquis. This note was generated with [employer] software. It may contain incorrect words, spelling, and punctuation that were not noted in checking the note before signing. Code Visit Inpatient E&M: 56629 Subs Hosp L2
[2019-07-27] MEDS: Aspirin E.C. 81 MG Tablet PO (08:12)
[2019-07-27] MEDS: Gabapentin 300 MG Capsule PO ×2 (08:12→17:00)
[2019-07-27] MEDS: Nystatin Powder 15gm Bottle 1 APPLIC TOPICAL ×2 (10:32→21:35)
[2019-07-27] MEDS: amLODIPine 5 MG Tablet PO (10:33)
[2019-07-27] MEDS: dilTIAZem CD 120 MG Capsule PO ×2 (10:33→21:35)
[2019-07-27] MEDS: APIXABAN 5 MG TABLET PO ×2 (10:33→21:36)
[2019-07-27] MEDS: Famotidine 20 MG Tablet 40 MG PO ×2 (10:33→21:37)
--- NOTE | 2019-07-27 10:36 | PCM.PN.CARD ---
<Tania Wolf M - Last Filed: 07/27/19 10:36> Subjectve: Pt is alert and awake. He denies any ongoing chest discomfort. He does continue to complain of shortness of breath. He states that it is easier for him to breathe using his BiPAP with oxygen. He is not aware of any palpitations at this time. He does continue with lower extremity edema that does extend up into his abdomen. Objective: Vital Signs Temp Pulse Resp BP Pulse Ox 97.4 F L 87 16 154/69 H 95 07/27/19 04:00 07/27/19 07:06 07/27/19 04:00 07/27/19 04:00 07/27/19 06:52 Oxygen Flow Rate (L/min) [ 4 AMBULATION with Oxygen] Oxygen Flow Rate (L/min) 4 Oxygen Delivery Method Nasal Cannula Weight: 370 lb 6.025 oz Body Mass Index (BMI) 48.2 Intake and Output for Last 24 Hours 07/25/19 07/26/19 07/27/19 23:59 23:59 23:59 Intake Total 1193.67 / 1197.92 1636.88 / 1636.88 60 / 60 Output Total 1050 / 1050 3500 / 3500 1675 / 1675 Balance 143.67 / 147.92 -1863.12 / -1863.12 -1615 / -1615 General: Awake, Alert, Oriented x 3, Obese HEENT: Atraumatic, Normocephalic, PERRL, EOMI, Sclera Non Icteric Oral: Moist Mucosa Neck: Supple, Good ROM, No JVD Lungs: Diminished Armand Bases Cardiovascular: Regular Rhythm, Normal S1, Normal S2 Abdomen: Bowel Sounds Present, Non Tender Extremities: Severe RLE Edema, Severe LLE Edema Neurological: CN II-XII Intact Psych/Mental Status: Appropriate 07/26/19 09:50: APTT 58.4 H 07/26/19 15:50: APTT 33.1 07/27/19 06:37: WBC 8.8, RBC 3.70 L, Hgb 8.0 L, Hct 28.9 L, MCV 78.1 L, MCH 21.6 L, MCHC 27.7 L, Plt Count 207, MPV 9.4, Immature Gran % (Auto) 0.300, Neut % (Auto) 82.9 H, Lymph % (Auto) 9.4 L, [place] % (Auto) 6.1, Eos % (Auto) 1.1, Baso % (Auto) 0.2, Absolute Neuts (auto) 7.3, Nucleated RBC % 0 07/27/19 06:37: Sodium 140, Potassium 3.4 L, Chloride 100, Carbon Dioxide 37.0 H, Anion Gap 3 L, BUN 18, Creatinine 1.34 H, Est GFR (MDRD) Af Amer 67, Est GFR (MDRD) Non-Af 55 L, BUN/Creatinine Ratio 13.4, Glucose 92, Calcium 8.4 L Rhythm: SR EKG: ECHO: Stress Test: Cardiac Cath: PCI: CT Surgery: Holter monitor: EPS: PPM: CXR: Chest CT Scan: Medical Necessity - Tobacco Use Smoking Status: Never smoker Tobacco Use: Chew Assessment/Plan 1. Atrial fibrillation The patient has a history of paroxysmal atrial fibrillation. He was noted to be in atrial fibrillation however he has converted to sinus rhythm. He will continue with his rate control therapy, anticoagulation and antiarrhythmic. 2. CHF: Preserved ejection fraction He does have evidence of CHF. This is in the setting of what appears to be preserved LV systolic function. Of note, his BNP is negative. This test does have a high negative predictive value suggesting of findings that may not be related to ventricular dysfunction. Though with his significant edema we will proceed with evaluation for CHF with preserved ejection fraction with medical management as deemed appropriate. Consideration should be given to monitoring for noncardiovascular etiologies that could be contributing to this. For now he will continue with his current diuretic therapy. Of note, weight on July 10, 2019 was 360, when he was admitted his weight was 375. 3. CAD status post PCI status post CABG Patient does not have any symptoms of angina. He will continue with his current medical management. His troponins were negative at time of admission. 4. Hyperlipidemia He will continue risk factor evaluation care as tolerated. 5. Hypertension His blood pressure will be monitored. He will continue medical management with adjustment as needed. 6. Pulmonary hypertension He does have significant pulmonary hypertension as previously noted. This may be secondary to his history of obstructive sleep apnea. This could contribute to cor pulmonale with right heart failure which could contribute to his clinical scenario. He will need continue evaluation and care. 7. Diabetes mellitus He will continue evaluation care per internal medicine. 8. Obstructive sleep apnea Depending upon his overall clinical status he may need further input from pulmonology as well with respect to his ongoing pulmonary disease process. 9. Anemia His H&H has decreased somewhat. This will need to be followed. He may need PRBC transfusions to assist with his oxygen carrying capacity. <KwakuservandoVinicius kraus - Last Filed: 07/27/19 16:27> Objective: Vital Signs Temp Pulse Resp BP Pulse Ox 98.1 F 91 16 148/73 H 100 07/27/19 10:33 07/27/19 15:05 07/27/19 10:33 07/27/19 10:33 07/27/19 10:33 Oxygen Flow Rate (L/min) [ 4 AMBULATION with Oxygen] Oxygen Flow Rate (L/min) 4 Oxygen Delivery Method Bi-pap Weight: 370 lb 6.025 oz Body Mass Index (BMI) 48.2 Intake and Output for Last 24 Hours 07/25/19 07/26/19 07/27/19 23:59 23:59 23:59 Intake Total 1193.67 / 1197.92 1636.88 / 1636.88 540 / 540 Output Total 1050 / 1050 3500 / 3500 3125 / 3125 Balance 143.67 / 147.92 -1863.12 / -1863.12 -2585 / -2585 07/26/19 15:50: APTT 33.1 07/27/19 06:37: WBC 8.8, RBC 3.70 L, Hgb 8.0 L, Hct 28.9 L, MCV 78.1 L, MCH 21.6 L, MCHC 27.7 L, Plt Count 207, MPV 9.4, Immature Gran % (Auto) 0.300, Neut % (Auto) 82.9 H, Lymph % (Auto) 9.4 L, [place] % (Auto) 6.1, Eos % (Auto) 1.1, Baso % (Auto) 0.2, Absolute Neuts (auto) 7.3, Nucleated RBC % 0 07/27/19 06:37: Sodium 140, Potassium 3.4 L, Chloride 100, Carbon Dioxide 37.0 H, Anion Gap 3 L, BUN 18, Creatinine 1.34 H, Est GFR (MDRD) Af Amer 67, Est GFR (MDRD) Non-Af 55 L, BUN/Creatinine Ratio 13.4, Glucose 92, Calcium 8.4 L Rhythm: EKG: ECHO: Stress Test: Cardiac Cath: PCI: CT Surgery: Holter monitor: EPS: PPM: CXR: Chest CT Scan: Assessment/Plan Addendum: Date: 07-27-19 The patient was independently evaluated/examined The patient does appear to sense some element of improvement with respect to his volume status. However this is a slow-growing process. He has had no other new acute changes. He still has diminished breath sounds. His cardiovascular exam demonstrates a regular rhythm and a normal S1-S2. He still has marked edema especially of his lower extremities and scrotum. His cardiac rhythm remains sinus rhythm at this time. At the present time there are concerns based upon his underlying atrial dysrhythmia, CHF with preserved ejection fraction, CAD status post CABG, hyperlipidemia, hypertension, pulmonary hypertension, superimposed upon his diabetes mellitus and his obstructive sleep apnea and his anemia, etc. He is going to need continued monitoring. He will continue medical management. This includes IV medications at this time to assist with his volume status. He will have continued follow-up of his renal function as well. He will need his H&H monitored as well as this is an issue that has yet to be addressed at a future outpatient gastroenterology evaluation pending). Depending upon his course his medications can continue to be adjusted to assist with his aforementioned conditions. Comment: The above was discussed and reviewed with Tania Wolf PA-C.
[2019-07-27 11:31] LABS: Bedside Glucose 216 mg/dL (70-110)
[2019-07-27] MEDS: Insulin Lispro 100 UNIT/ML INSULN.PEN SC ×2 (11:41→16:59)
[2019-07-27 16:21] LABS: Bedside Glucose 171 mg/dL (70-110)
--- NOTE | 2019-07-27 18:52 | NURSING ---
Reviewed and agreed on charting with Luba Hanson RN
[2019-07-27] MEDS: Furosemide 500 MG in Empty Viaflex 50 mL 1 EACH CONT INF (21:24)
[2019-07-27] MEDS: Tamsulosin HCl 0.4 MG Capsule PO (21:36)
[2019-07-27] MEDS: Finasteride 5 MG Tablet PO (21:36)
[2019-07-27] MEDS: DULoxetine Hcl 60 MG Capsule PO (21:36)
[2019-07-27] MEDS: Pramipexole Di-HCl 0.25 MG Tablet 0.5 MG PO (21:37)
[2019-07-27] MEDS: hydrOXYzine PAM 25 MG Capsule 100 MG PO (21:39)
[2019-07-27 23:30] LABS: Bedside Glucose 96 mg/dL (70-110)
[2019-07-28] VITALS (16 sets, daily range): BP systolic 131–146; BP diastolic 67–73; PULSE 81–92; RESP 12–18; TEMP 36.6–36.8; O2SAT 84–100
[2019-07-28] MEDS: Amiodarone 200 MG Tablet PO ×3 (06:03→21:57)
[2019-07-28 06:31] LABS: Absolute Lymphocyte Count 0.81 X10^3/uL (0.83-4.51); Absolute Neutrophil Count 8.3 X10^3/uL (2.0-7.7); Basophil# 0.02 X10^3/uL; Basophil% 0.2 % (0-1); Eosinophil# 0.02 X10^3/uL; Eosinophils% 0.2 % (0-5); Hemoglobin 8.4 g/dL (13.0-16.5); Lymphocyte # 0.81 X10^3/ul (4.0); Lymphocyte % 8.4 % (19-41); Mean Corpuscular Hgb 21.6 pg (27.0-32.0); Mean Corpuscular Volume 77.3 fL (80-94); Mean Platelet Vol. 8.9 fl (6.2-12.0); Monocyte# 0.44 X10^3/uL; Monocyte% 4.6 % (0-10); NRBC Flagged by Analyzer 0 % (0-5); Neutrophil # 8.31 X10^3/uL (2.7-7.7); Neutrophil % 86.1 % (47-70); Platelet Count 221 K/mm3 (150-450); RBC Distribution Width CV 19.2 % (11.6-14.6); RBC Distribution Width SD 53.1 fl (35.1-43.9); Red Blood Count 3.88 M/mm3 (4.6-6.2); White Blood Count 9.7 K/mm3 (4.4-11.0)
[2019-07-28 06:56] LABS: Anion Gap 7 (5-15); BUN 21 mg/dL (7-18); BUN/Creat Ratio 15.2 RATIO (10-20); Calcium,Total 8.6 mg/dL (8.5-10.1); Chloride 97 mmol/L (98-107); Creatinine, Serum 1.38 mg/dL (0.70-1.30); EST Glomerular Filtration Rate 53 mL/min (>60); Est Glom Filt Rate - Afr Amer 65 mL/min (>60); Estimated Creatinine Clearance 53.77 ml/min; Glucose 91 mg/dL (74-106); Potassium 3.7 mmol/L (3.5-5.1); Sodium Level 140 mmol/L (136-145)
--- NOTE | 2019-07-28 08:15 | PN_ITS ---
Patient Problems: Active and Suspected Problems (Last Updated 07/26/19 @ 07:25 by Romi Walls MD) (HFpEF) heart failure with preserved ejection fraction (Acute) Atrial fibrillation with RVR (Acute) Subjective: Chief complaint: Follow-up after admission for acute diastolic CHF, A. fib with RVR, acute on chronic hypoxic respiratory failure and anemia. Patient seen and examined. No acute events overnight. He did mention that his shortness of breath continued to improve slowly and he thinks that he can come off BiPAP. Leg edema also improved. He is afebrile, blood pressure R stable, pulse ox is 98% on BiPAP. - Physical Exam General: Alert, Oriented x3, Cooperative, No apparent distress HEENT: Atraumatic, PERRLA, EOMI, Normocephalic Oral: Moist Mucosa, No Gingival or Mucosal Lesions/ Ulcerations Neck: Supple, No JVD, Negative Carotid Bruits, Trachea Midline, Thyroid Normal Size and Texture Lungs: Clear to auscultation, Normal air movement, No rhonchi, No wheeze, No rales, Diminished Cardiovascular: Regular rate, Regular Rhythm, Normal S1, Normal S2, PMI Normal Abdomen: Bowel Sounds Present, Soft, Non Tender, Non-Distended, No Hepato- splenomegaly, Obese Extremities: No clubbing, No cyanosis, Edema Lymphatic: No Cervical, Supraclavicular, or Inguinal Adenopathy Neurological: Cranial nerves II-XII grossly intact, Neuro grossly intact Psych/Mental Status: Normal Affect, Appropriate, Alert and oriented to time, place, person, mood and affect Vital Signs Temp Pulse Resp BP Pulse Ox 97.9 F 82 13 141/73 H 98 07/28/19 03:30 07/28/19 07:30 07/28/19 06:45 07/28/19 03:30 07/28/19 06:45 Oxygen Flow Rate (L/min) [ 4 AMBULATION with Oxygen] Oxygen Flow Rate (L/min) 4 Oxygen Delivery Method Bi-pap Weight: 363 lb 8.676 oz Body Mass Index (BMI) 48.2 Intake and Output for Last 24 Hours 07/26/19 07/27/19 07/28/19 23:59 23:59 23:59 Intake Total 1636.88 / 1636.88 1367.84 / 1367.84 Output Total 3500 / 3500 5525 / 5525 1899 / 190 Balance -1863.12 / -1863.12 -4157.16 / -4157.16 -1900 / -1900 Laboratory Tests Past 24 Hrs 07/28/19 07/28/19 06:20 06:20 WBC 9.7 RBC 3.88 L Hgb 8.4 L Hct 30.0 L MCV 77.3 L MCH 21.6 L MCHC 28.0 L RDW Std Deviation 53.1 H RDW Coeff of Lakshmi 19.2 H Plt Count 221 MPV 8.9 Immature Gran % (Auto) 0.500 Neut % (Auto) 86.1 H Lymph % (Auto) 8.4 L Kimball % (Auto) 4.6 Eos % (Auto) 0.2 Baso % (Auto) 0.2 Absolute Neuts (auto) 8.3 H Absolute Lymphs (auto) 0.81 L Nucleated RBC % 0 Sodium 140 Potassium 3.7 Chloride 97 L Carbon Dioxide 36.0 H Anion Gap 7 BUN 21 H Creatinine 1.38 H Estim Creat Clear Calc 53.77 Est GFR (MDRD) Af Amer 65 Est GFR (MDRD) Non-Af 53 L BUN/Creatinine Ratio 15.2 Glucose 91 Calcium 8.6 POC Glucose 07/27/19 07/27/19 07/27/19 21:32 16:18 11:28 POC Glucose 96 171 H 216 H Medical Necessity - Tobacco Use Smoking Status: Never smoker Tobacco Use: Chew Assessment/Plan All Active Problems (Last Updated 07/26/19 @ 07:25 by Romi Walls MD) (HFpEF) heart failure with preserved ejection fraction (Acute) Atrial fibrillation with RVR (Acute) This is a 74 years old male patient presented to the emergency room because of shortness of breath and was found to have acute diastolic CHF, A. fib with RVR and acute on chronic hypoxic respiratory failure. #1 acute diastolic CHF: Remained on IV Lasix drip. He is not on GLORIA inhibitors because of chronic kidney disease. He lost around 20 pounds since admission. S ymptoms continue to improve, remains on BiPAP. His EKG revealed normal sinus rhythm, prolonged QTC, no acute ischemic changes. Troponin are negative. Patient had echocardiogram several days ago that showed ejection fraction of 65%, other findings reviewed. BUN and creatinine remained fairly stable. Plan: Try oxygen nasal cannula, hold BiPAP for now, will discuss with cardiology if he can stop IV Lasix drip and start patient on oral Lasix. #2 A. fib with RVR: With past history of chronic A. fib. He is back to sinus rhythm, rate is controlled. He is on p.o. amiodarone and Cardizem. Started on Eliquis for anticoagulation. #3 acute on chronic hypoxic respiratory failure: Multifactorial secondary to acute CHF, obesity, history of obstructive sleep apnea. At this time, patient remained on BiPAP. Plan as above, hold BiPAP, O2 per nasal cannula. #4 acute on chronic anemia: Baseline hemoglobin around 10 to 11 g/dL. Has been trending down, it is down to 7.8 g/dL yesterday and today, it is 8.4 g/dL. No evidence of active bleeding. #5 stage III chronic kidney disease: Baseline kidney function has been around 1.3 to 1.5 mg/dL. Today's creatinine is 1.38, remained stable at baseline. #6 CAD status post CABG and PCI: EKG without acute ischemic changes, troponins negative, no chest pain. Continue aspirin, IV heparin discontinued. #7 hypertension: Blood pressure stable, continue Norvasc and IV Lasix. #8 type 2 diabetes mellitus: Blood sugar stable, continue Humulin insulin 3 times daily and sliding scale. #9 benign prostatic hypertrophy: Continue Flomax and Proscar. #10 depression: Stable, continue Cymbalta. #11 DVT prophylaxis: Continue Eliquis. This note was generated with [employer] dictation software. It may contain incorrect words, spelling, and punctuation that were not noted in checking the note before signing. Code Visit Inpatient E&M: 25288 Subs Hosp L2
[2019-07-28] MEDS: Aspirin E.C. 81 MG Tablet PO (08:38)
[2019-07-28] MEDS: Gabapentin 300 MG Capsule PO ×2 (08:38→16:21)
[2019-07-28] MEDS: Insulin Lispro 100 UNIT/ML INSULN.PEN SC ×2 (08:39→11:28)
[2019-07-28] MEDS: amLODIPine 5 MG Tablet PO (10:09)
[2019-07-28] MEDS: Famotidine 20 MG Tablet 40 MG PO ×2 (10:09→21:59)
[2019-07-28] MEDS: APIXABAN 5 MG TABLET PO ×2 (10:10→21:58)
[2019-07-28] MEDS: dilTIAZem CD 120 MG Capsule PO ×2 (10:10→21:57)
[2019-07-28] MEDS: Nystatin Powder 15gm Bottle 1 APPLIC TOPICAL ×2 (10:11→21:59)
--- NOTE | 2019-07-28 10:19 | PCM.PN.CARD ---
Subjectve: Patient doing better today, continues to diurese without difficulty. Objective: Vital Signs Temp Pulse Resp BP Pulse Ox 98.3 F 87 18 131/67 H 95 07/28/19 10:04 07/28/19 10:04 07/28/19 10:04 07/28/19 10:04 07/28/19 10:04 Oxygen Flow Rate (L/min) [ 4 AMBULATION with Oxygen] Oxygen Flow Rate (L/min) 4 Oxygen Delivery Method Nasal Cannula Weight: 363 lb 8.676 oz Body Mass Index (BMI) 48.2 Intake and Output for Last 24 Hours 07/26/19 07/27/19 07/28/19 23:59 23:59 23:59 Intake Total 1636.88 / 1636.88 1367.84 / 1367.84 Output Total 3500 / 3500 5525 / 5525 2700 / 2700 Balance -1863.12 / -1863.12 -4157.16 / -4157.16 -2700 / -2700 General: Awake, Alert, Oriented x 3 HEENT: PERRL, EOMI, Sclera Non Icteric Neck: Supple, Good ROM, No Lymph Node Enlargement Lungs: Clear to auscultation Cardiovascular: Regular Rhythm, Normal S1, Normal S2, No Murmurs, No Rubs, No Gallops Vascular: No Carotid Bruits, Normal Femoral Pulses, Normal Radial Pulses, Normal Dorsalis Pedal Pulse, Normal Posterior Tibial Pulses Abdomen: Bowel Sounds Present, Soft, Non Tender, No HSM, No Organomegaly Extremities: No Cyanosis, No Clubbing, No edema Neurological: No Focal Motor or Sensory Deficit 07/28/19 06:20: WBC 9.7, RBC 3.88 L, Hgb 8.4 L, Hct 30.0 L, MCV 77.3 L, MCH 21.6 L, MCHC 28.0 L, Plt Count 221, MPV 8.9, Immature Gran % (Auto) 0.500, Neut % (Auto) 86.1 H, Lymph % (Auto) 8.4 L, [place] % (Auto) 4.6, Eos % (Auto) 0.2, Baso % (Auto) 0.2, Absolute Neuts (auto) 8.3 H, Nucleated RBC % 0 07/28/19 06:20: Sodium 140, Potassium 3.7, Chloride 97 L, Carbon Dioxide 36.0 H, Anion Gap 7, BUN 21 H, Creatinine 1.38 H, Est GFR (MDRD) Af Amer 65, Est GFR (MDRD) Non-Af 53 L, BUN/Creatinine Ratio 15.2, Glucose 91, Calcium 8.6 Rhythm: EKG: ECHO: Stress Test: Cardiac Cath: PCI: CT Surgery: Holter monitor: EPS: PPM: CXR: Chest CT Scan: Medical Necessity - Tobacco Use Smoking Status: Never smoker Tobacco Use: Chew Assessment/Plan 1. Congestive heart failure: The patient has predominantly diastolic dysfunction, and pulmonary hypertension with prominently right-sided failure. Patient is currently on a Lasix drip and diuresing fairly well. Would recommend between 1 to 2 L negative on a daily basis and then will make adjustments for p.o. Lasix once the patient has reached his dry weight and is able to lay down flat and no longer has lower extremity edema. Patient may be preload dependent, so we will need to be cautious regarding his diuresis so as not to remove too much fluid. His most recent catheterization 2018 demonstrated widely patent grafts so would not recommend repeat catheter this time. In addition I recommend Leon bandages to assist with venous return and continue IV Lasix drip for 1 more day. Once the patient is able to lay down flat we can switch him to p.o. diuretic therapy. 2. Coronary artery disease: No exertional anginal symptoms at this time. 3. Atrial fibrillation: Patient has a history of paroxysmal atrial fibrillation and presented with that upon admission. He is now back in normal sinus rhythm which I would attempt to keep in place to assist with his atrial kick. Patient is currently on amiodarone loading at this time. Continue Eliquis therapy. 4. Obstructive sleep apnea: The patient is compliant with his CPAP. 5. Dietary noncompliance: The patient admits to dietary noncompliance at home which most likely precipitated his family right-sided congestive heart failure symptoms, got edema, and poor medicine absorption. 6. Thank you very much for the opportunity to participate in the cardiac care of your patient. Code Visit Inpatient E&M: 11910 Subs Hosp L2
[2019-07-28 11:36] LABS: Bedside Glucose 198 mg/dL (70-110)
--- NOTE | 2019-07-28 15:17 | PCM.CONS.PUL ---
Problem List (1) Hyperlipidemia Status: Chronic Qualifiers: Hyperlipidemia type: unspecified Qualified Code(s): E78.5 - Hyperlipidemia, unspecified (2) Hypertension Status: Chronic Qualifiers: Hypertension type: essential hypertension Qualified Code(s): I10 - Essential (primary) hypertension (3) Paroxysmal a-fib Status: Chronic Comment: S/P pulmonary vein isolation; (4) Periodic limb movement sleep disorder Status: Chronic (5) Pulmonary hypertension Status: Chronic Comment: Type II (6) Coronary artery disease Status: Chronic Qualifiers: Coronary Disease-Associated Artery/Lesion type: [place] artery [place] vs. transplanted heart: [place] heart Associated angina: without angina Qualified Code(s): I25.10 - Atherosclerotic heart disease of [place] coronary artery without angina pectoris (7) (HFpEF) heart failure with preserved ejection fraction Status: Acute Qualifiers: Heart failure chronicity: acute Qualified Code(s): I50.31 - Acute diastolic (congestive) heart failure (8) Anemia Status: Chronic (9) Type 2 diabetes mellitus Status: Chronic (10) Presence of aortocoronary bypass graft Status: Chronic Comment: CABG x4: LEBRON to LAD, SVG to RI, SVG to PDA, SVG to posterolateral Lt ventricular branch, PVI w/ Atricure Ablation and ligation of Lt atrial appendage 10/2010 (11) Presence of stent in coronary artery Status: Chronic Comment: PTCA/Stent to mid LCX 01/2011 (12) DM (diabetes mellitus) with peripheral vascular complication Status: Chronic (13) Atherosclerotic heart disease of [place] coronary artery without angina pectoris Status: Chronic Comment: CABG x4: LEBRON to LAD, SVG to RI, SVG to PDA, SVG to posterolateral Lt ventricular branch, PVI w/ Atricure Ablation and ligation of Lt atrial appendage 10/2010; PTCA/Stent to mid LCX 01/2011 (14) Body mass index 40.0-44.9, adult Status: Chronic (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 Patient had reported increasing lower extremity edema, scrotal edema and progressive hypoxemia. Patient states he did not weigh himself daily, but it put on 40 pounds as compared to January 28, 2019. Patient was placed on BiPAP with improvement in symptoms and was placed on IV Lasix. Catheter was placed in the ER. Over the course of the hospitalization, patient has slowly improved. Patient has had a 10 pound diuresis and reports subjective improvement in lower extremity edema and shortness of breath. Patient still is desaturating into the mid 80s with standing at the bedside. Patient is currently on a Lasix drip and tolerating this well. Patient denies any muscle cramps. Family had requested a pulmonary consult for evaluation to see if there was a pulmonary aspect the patient shortness of breath. Patient has not been seen in our office in quite some time. Patient does admit that he tends to make up solutions. Patient states that he has been using nasal cannula in addition to his tank and concentrator with oxygen flows from 6 to 10 L/min. Patient states that this makes him feel better. Patient does have a BiPAP at home, but is not been compliant. Patient states that if I run my oxygen in with my BiPAP mask on, but not the machine my saturations improve faster. Patient readily admits that he tends to eat salty foods, but does not add any salt to his food. Patient denies any current chest pain, dysuria, nausea or vomiting. No fever or chills of been reported. Patient is not reporting any change in sputum production. Past Medical History Past Medical History (Chronic Problems): Chronic Problems (Last Updated 07/26/19 @ 07:25 by Romi Walls MD) Hyperlipidemia (Chronic) Hypertension (Chronic) Paroxysmal a-fib (Chronic) S/P pulmonary vein isolation; Periodic limb movement sleep disorder (Chronic) Pulmonary hypertension (Chronic) Type II Coronary artery disease (Chronic) Anemia (Chronic) Type 2 diabetes mellitus (Chronic) Presence of aortocoronary bypass graft (Chronic ~10/2010) CABG x4: LEBRON to LAD, SVG to RI, SVG to PDA, SVG to posterolateral Lt ventricular branch, PVI w/ Atricure Ablation and ligation of Lt atrial appendage 10/2010 Presence of stent in coronary artery (Chronic ~01/2011) PTCA/Stent to mid LCX 01/2011 DM (diabetes mellitus) with peripheral vascular complication (Chronic) Atherosclerotic heart disease of [place] coronary artery without angina pectoris (Chronic) CABG x4: LEBRON to LAD, SVG to RI, SVG to PDA, SVG to posterolateral Lt ventricular branch, PVI w/ Atricure Ablation and ligation of Lt atrial appendage 10/2010; PTCA/Stent to mid LCX 01/2011 Body mass index 40.0-44.9, adult (Chronic) Meniscus degeneration (Chronic) RAQUEL (obstructive sleep apnea) (Chronic) Obesity (Chronic) PVC (premature ventricular contraction) (Chronic) Medical History: Medical History (Last Updated 07/26/19 @ 07:25 by Romi Walls MD) Type 2 diabetes mellitus (Chronic) E11.9 DM (diabetes mellitus) with peripheral vascular complication (Chronic) E11.51 Atherosclerotic heart disease of [place] coronary artery without angina pectoris (Chronic) I25.10 CABG x4: LEBRON to LAD, SVG to RI, SVG to PDA, SVG to posterolateral Lt ventricular branch, PVI w/ Atricure Ablation and ligation of Lt atrial appendage 10/2010; PTCA/Stent to mid LCX 01/2011 Body mass index 40.0-44.9, adult (Chronic) Z68.41 Meniscus degeneration (Chronic) M23.309 RAQUEL (obstructive sleep apnea) (Chronic) G47.33 Obesity (Chronic) E66.9 PVC (premature ventricular contraction) (Chronic) I49.3 BPH (benign prostatic hyperplasia) N40.0 Malaise and fatigue R53.81, R53.83 Osteoarthritis M19.90 Allergies acetaminophen [From Percocet] Allergy (Verified 07/25/19 12:43) Swelling oxycodone [From Percocet] Allergy (Verified 07/25/19 12:43) A-fib, Swelling, Sulfa (Sulfonamide Antibiotics) Allergy (Verified 07/25/19 12:43) Swelling atropine Adverse Reaction (Severe, Verified 07/25/19 12:43) arrhythmia hydrochlorothiazide [From Hyzaar] Adverse Reaction (Severe, Verified 07/25/19 12:43) arrhythmia losartan [From Hyzaar] Adverse Reaction (Severe, Verified 07/25/19 12:43) arrhythmia quinapril [From Accupril] Adverse Reaction (Severe, Verified 07/25/19 12:43) arrhythmia atorvastatin [From Lipitor] Adverse Reaction (Intermediate, Verified 07/25/19 12:43) myalgias metformin Adverse Reaction (Intermediate, Verified 07/25/19 12:43) myalgias Home Medications: Ambulatory Orders Medication Instructions Recorded Duloxetine HCl 60 mg PO QHS 03/11/17 Gabapentin [Neurontin] 300 mg PO BIDCM 03/11/17 Hydrocodone/Acetaminophen 1 tab PO DAILY 03/11/17 [Hydrocodon-Acetaminophen 5-325] Melatonin 15 mg PO QHS PRN 03/11/17 Ranitidine [Zantac] 300 mg PO BID 03/11/17 Tamsulosin HCl [Flomax] 0.4 mg PO QHS MDD \ 03/11/17 polyethylene glycol 3350 17 gram 17 g PO QDAY 03/16/18 oral powder packet furosemide 40 mg tablet 40 mg PO BID #180 tab 03/10/19 pramipexole 0.25 mg tablet 0.5 mg PO QHS #180 tab 03/30/19 amlodipine 5 mg tablet 5 mg PO DAILY #30 tab 07/05/19 Hydrocodone/Acetaminophen 2 ea PO QHS 07/25/19 [Hydrocodon-Acetaminophen 5-325] Hydroxyzine HCl 100 mg PO QHS 07/25/19 Insulin U-500 [Humulin R U-500 0.4 ml SQ TIDCM 07/25/19 (BK)] Naproxen Sodium 440 mg PO BID 07/25/19 Surgical History: Surgical History (Last Reviewed 07/25/19 @ 14:44 by Tam Dexter DO) Presence of aortocoronary bypass graft (Chronic) Onset Date: ~10/2010 Z95.1 CABG x4: LEBRON to LAD, SVG to RI, SVG to PDA, SVG to posterolateral Lt ventricular branch, PVI w/ Atricure Ablation and ligation of Lt atrial appendage 10/2010 Presence of stent in coronary artery (Chronic) Onset Date: ~01/2011 Z95.5 PTCA/Stent to mid LCX 01/2011 History of cardiac cath Z98.890 Surgical History: coronary bypass surgery Smoking Status: Never smoker Tobacco Use: Chew Alcohol: None Drugs: None - *Family History Maternal Family History: Family History (Last Reviewed 07/25/19 @ 14:44 by Tam Dexter DO) Mother CAD (coronary artery disease) Father CVA (cerebral vascular accident) Myocardial infarction Brother Myocardial infarction Brother CAD (coronary artery disease) Myocardial infarction Sister CAD (coronary artery disease) History Items: No pertinent history Paternal Family History: Family History (Last Reviewed 07/25/19 @ 14:44 by Tam Dexter DO) Mother CAD (coronary artery disease) Father CVA (cerebral vascular accident) Myocardial infarction Brother Myocardial infarction Brother CAD (coronary artery disease) Myocardial infarction Sister CAD (coronary artery disease) History Items: No pertinent history Review of Systems Constitutional: Reports: Weight Change. Denies: Anorexia, Chills, Fever, Night Sweats Eyes: Denies: Blurred vision, Conjunctivae Inflammation, Double vision, Drainage, Eyelid Inflammation, Vision Change HEENT: Denies: Difficulty Swallowing, Nasal bleeding, Nasal Congestion, Post Nasal Drip, Sore Throat Cardiovascular: Reports: Chest Tightness, Edema, Heaviness, Orthopnea. Denies: Chest Pain, Palpitations Respiratory: Reports: Shortness of Breath, Wheezing. Denies: Hemoptysis Gastrointestinal: Denies: Abdominal Pain, Diarrhea, Dyspepsia, Vomiting Genitourinary: Reports: Hesitancy. Denies: Dysuria, Frequency, Hematuria Musculoskeletal: Denies: Foot Pain, Joint swelling Skin: Reports: Skin Changes. Denies: Dryness, Jaundice Neurological: Reports: Balance problems. Denies: Change in Speech, Difficulty swallowing, Focal weakness, Incoordination, Numbness Psychiatric: Denies: Anxiety, Depression Endocrine: Denies: Change in Body Habitus Hematologic/ Lymphatic: Denies: Adenopathy, Easy Bruising, Easy Bleeding Patient Problems: Active and Suspected Problems (Last Updated 07/26/19 @ 07:25 by Romi Walls MD) (HFpEF) heart failure with preserved ejection fraction (Acute) Atrial fibrillation with RVR (Acute) Objective: CXR with cardiomegaly and CHF. Previous PFT showed moderate restrictive ventilatory defect. - Physical Exam General: Alert, Oriented x3, Cooperative, No apparent distress, - - Morbidly obese. No conversational dyspnea HEENT: Atraumatic, PERRLA, EOMI, Normocephalic, - - Slight injection Oral: Moist Mucosa, No Gingival or Mucosal Lesions/ Ulcerations, - - Dentures. Neck: Supple, No JVD, No Nodes, Trachea Midline Lungs: Diminished, Wheezes - End exhalation Cardiovascular: Normal S1, Normal S2, No murmurs, Irregular Rate, No rub noted, No Gallop Abdomen: Bowel Sounds Present, Soft, Non Tender, Non-Distended, Obese Extremities: No clubbing, No cyanosis, Edema - 3+ lower extremity Skin: No rashes, No breakdown Musculoskeletal: No Tenderness to Palpation of Joints or Extremities Lymphatic: No Cervical, Supraclavicular, or Inguinal Adenopathy Neurological: Cranial nerves II-XII grossly intact, Neuro grossly intact, Motor Exam 5/5 strength throughout Psych/Mental Status: Alert and oriented to time, place, person, mood and affect Vital Signs Temp Pulse Resp BP Pulse Ox 36.8 C 90 18 131/67 H 84 07/28/19 10:04 07/28/19 11:00 07/28/19 10:04 07/28/19 10:04 07/28/19 14:21 Oxygen Flow Rate (L/min) [ 4.5 AMBULATION with Oxygen] Oxygen Flow Rate (L/min) 4.5 Oxygen Delivery Method Nasal Cannula Weight: 164.9 kg Body Mass Index (BMI) 48.2 Intake and Output for Last 24 Hours 07/26/19 07/27/19 07/28/19 23:59 23:59 23:59 Intake Total 1636.88 / 1636.88 1367.84 / 1367.84 494.55 / 494.55 Output Total 3500 / 3500 5525 / 5525 2700 / 2700 Balance -1863.12 / -1863.12 -4157.16 / -4157.16 -2205.45 / -2205.45 Laboratory Tests Past 24 Hrs 07/28/19 07/28/19 06:20 06:20 WBC 9.7 RBC 3.88 L Hgb 8.4 L Hct 30.0 L MCV 77.3 L MCH 21.6 L MCHC 28.0 L RDW Std Deviation 53.1 H RDW Coeff of Lakshmi 19.2 H Plt Count 221 MPV 8.9 Immature Gran % (Auto) 0.500 Neut % (Auto) 86.1 H Lymph % (Auto) 8.4 L [place] % (Auto) 4.6 Eos % (Auto) 0.2 Baso % (Auto) 0.2 Absolute Neuts (auto) 8.3 H Absolute Lymphs (auto) 0.81 L Nucleated RBC % 0 Sodium 140 Potassium 3.7 Chloride 97 L Carbon Dioxide 36.0 H Anion Gap 7 BUN 21 H Creatinine 1.38 H Estim Creat Clear Calc 53.77 Est GFR (MDRD) Af Amer 65 Est GFR (MDRD) Non-Af 53 L BUN/Creatinine Ratio 15.2 Glucose 91 Calcium 8.6 POC Glucose 07/28/19 07/27/19 07/27/19 11:22 21:32 16:18 POC Glucose 198 H 96 171 H Assessment/Plan All Active Problems (Last Updated 07/26/19 @ 07:25 by Romi Walls MD) (HFpEF) heart failure with preserved ejection fraction (Acute) Atrial fibrillation with RVR (Acute) RECOMMENDATIONS: 1. Continue diuresis 2. Aggressive blood pressure control with afterload reduction 3. Albuterol as needed is likely sufficient 4. Walking oximetry prior to discharge IMPRESSIONS: 1. Acute on chronic diastolic congestive heart failure/A. fib with RVR Patient is 40 pounds above his dry weight on March 30, 2019, but is responding well to diuretic therapy. Patient has been compliant with BiPAP therapy, which likely helps. Continue to wean nasal cannula oxygen as tolerated. Patient is back in sinus rhythm on telemetry. Continue amiodarone, Cardizem and Eliquis. 2. Acute on chronic hypoxic respiratory failure secondary to probable cor pulmonale Patient with significant weight gain over the last 4 months and has been using supplemental oxygen and BiPAP intermittently and probably inappropriately. Clinical suspicion for desaturation with ambulation leading to elevated pulmonary artery pressures. Despite multiple conversations, patient continues to have a poor insight into his overall disease process. Continue with aggressive diuresis. Patient should have a walking oximetry prior to discharge. 3. Stage III CKD/CAD/hypertension/type 2 diabetes mellitus/BPH/depression/history of noncompliance/morbid obesity Complicates care, management, recovery and prognosis. Continue with baseline medications. No significant changes are indicated. Did stress the role of weight loss in the overall disease plan of care. Blood sugars are relatively controlled on current regimen. Code Visit Inpatient E&M: 87490 Init Hosp L2
--- NOTE | 2019-07-28 15:54 | CASEMGMT ---
Green sheet on chart for possible increased home oxygen need. CM to follow PT/OT and for further discharge planning/needs. SStdeo FRANCOIS CM
[2019-07-28 17:16] LABS: Bedside Glucose 52 mg/dL (70-110)
[2019-07-28 17:16] LABS: Bedside Glucose 85 mg/dL (70-110)
[2019-07-28] MEDS: DULoxetine Hcl 60 MG Capsule PO (21:57)
[2019-07-28] MEDS: Pramipexole Di-HCl 0.25 MG Tablet 0.5 MG PO (21:58)
[2019-07-28] MEDS: Tamsulosin HCl 0.4 MG Capsule PO (21:59)
[2019-07-28] MEDS: hydrOXYzine PAM 25 MG Capsule 100 MG PO (21:59)
[2019-07-28] MEDS: Finasteride 5 MG Tablet PO (22:00)
--- NOTE | 2019-07-28 22:03 | NURSING ---
checked BGT per patient request, 62. Gave apple juice and crackers with PB. Repeat BGT 70
[2019-07-28 22:40] LABS: Bedside Glucose 62 mg/dL (70-110)
[2019-07-28 22:40] LABS: Bedside Glucose 70 mg/dL (70-110)
[2019-07-28 22:40] LABS: Bedside Glucose 109 mg/dL (70-110)
--- NOTE | 2019-07-28 23:14 | CPS ---
Patient requested to not wear Bipap tonight, preferred to wear oxygen.
[2019-07-29] VITALS (13 sets, daily range): BP systolic 125–147; BP diastolic 69–74; PULSE 84–89; RESP 12–18; TEMP 36.6–36.8; O2SAT 95–98
[2019-07-29] MEDS: Furosemide 500 MG in Empty Viaflex 50 mL 1 EACH CONT INF (00:46)
--- NOTE | 2019-07-29 00:48 | NURSING ---
UNSCHEDULED LASIX GTT HUNG AT THIS TIME. PREVIOUS BAG EMPTY AT THIS TIME, EVEN THOUGH APPEARING TO HAVE ONLY RUN FOR 24HRS PER JAN. ORDERED 10MG/1ML/HR CONT Q50H PER JAN. PER COMMISSARY ASSISTANT NOTE, PATIENT TO RECEIVE GTT FOR ONE MORE DAY. VERIFIED WITH WOOD STOCK BLANK HANDLERALESSANDRO HAYDEN.
[2019-07-29] MEDS: Amiodarone 200 MG Tablet PO ×3 (05:28→21:08)
[2019-07-29 07:03] LABS: Albumin, Serum 3.3 g/dL (3.2-5.0); BUN 20 mg/dL (7-18); BUN/Creat Ratio 13.4 RATIO (10-20); Calcium,Total 8.3 mg/dL (8.5-10.1); Chloride 95 mmol/L (98-107); Creatinine, Serum 1.49 mg/dL (0.70-1.30); EST Glomerular Filtration Rate 49 mL/min (>60); Est Glom Filt Rate - Afr Amer 59 mL/min (>60); Glucose 124 mg/dL (74-106); Phosphorus 3.3 mg/dL (2.5-4.9); Potassium 3.4 mmol/L (3.5-5.1); Sodium Level 137 mmol/L (136-145)
--- NOTE | 2019-07-29 08:28 | PN_ITS ---
Patient Problems: Active and Suspected Problems (Last Updated 07/26/19 @ 07:25 by Romi Walls MD) (HFpEF) heart failure with preserved ejection fraction (Acute) Atrial fibrillation with RVR (Acute) Subjective: Patient did well overnight. Patient reports subjective improvement in overall condition. No bleeding complications have been reported. Patient is not having a productive cough. - Physical Exam General: Alert, Oriented x3, Cooperative, No apparent distress, Well developed, Well nourished, - - No conversational dyspnea. Morbidly obese. HEENT: Atraumatic, PERRLA, EOMI, Normocephalic, - - No scleral icterus or injection noted Oral: Moist Mucosa, No Gingival or Mucosal Lesions/ Ulcerations Neck: Supple, No JVD, No Nodes, Trachea Midline Lungs: No rhonchi, No wheeze, No rales, Diminished, - - Symmetric expansion. No dullness to percussion. Cardiovascular: Regular rate, Regular Rhythm, Normal S1, Normal S2, No murmurs, No rub noted, No Gallop Abdomen: Bowel Sounds Present, Soft, Non Tender, Non-Distended Extremities: No clubbing, No cyanosis, Capillary Refill Less than 3 Seconds, Edema Skin: No rashes, No breakdown Musculoskeletal: No Tenderness to Palpation of Joints or Extremities Lymphatic: No Cervical, Supraclavicular, or Inguinal Adenopathy Neurological: Cranial nerves II-XII grossly intact, Neuro grossly intact, Motor Exam 5/5 strength throughout Psych/Mental Status: Alert and oriented to time, place, person, mood and affect Vital Signs Temp Pulse Resp BP Pulse Ox 36.6 C 84 18 137/69 H 98 07/29/19 03:25 07/29/19 07:07 07/29/19 03:25 07/29/19 03:25 07/29/19 07:35 Oxygen Flow Rate (L/min) [ 4.5 AMBULATION with Oxygen] Oxygen Flow Rate (L/min) 4 Oxygen Delivery Method Nasal Cannula Weight: 161.507 kg Body Mass Index (BMI) 48.2 Intake and Output for Last 24 Hours 07/27/19 07/28/19 07/29/19 23:59 23:59 23:59 Intake Total 1367.84 / 1367.84 1444.00 / 1444.00 237.73 / 237.73 Output Total 5525 / 5525 7125 / 7125 1825 / 1825 Balance -4157.16 / -4157.16 -5681.00 / -5681.00 -1587.27 / -1587.27 Laboratory Tests Past 24 Hrs 07/29/19 06:34 Sodium 137 Potassium 3.4 L Chloride 95 L Carbon Dioxide 38.0 H BUN 20 H Creatinine 1.49 H Estim Creat Clear Calc 49.80 Est GFR (MDRD) Af Amer 59 L Est GFR (MDRD) Non-Af 49 L BUN/Creatinine Ratio 13.4 Glucose 124 H Calcium 8.3 L Phosphorus 3.3 Albumin 3.3 POC Glucose 07/28/19 07/28/19 07/28/19 22:37 22:06 21:50 POC Glucose 109 70 62 L 07/28/19 07/28/19 07/28/19 17:12 16:14 11:22 POC Glucose 85 52 L 198 H Medical Necessity - Tobacco Use Smoking Status: Never smoker Tobacco Use: Chew Assessment/Plan All Active Problems (Last Updated 07/26/19 @ 07:25 by Romi Walls MD) (HFpEF) heart failure with preserved ejection fraction (Acute) Atrial fibrillation with RVR (Acute) RECOMMENDATIONS: 1. Continue diuresis for now. May need to transition to intermittent dosing tomorrow 2. Aggressive blood pressure control with afterload reduction 3. Albuterol as needed is likely sufficient 4. Walking oximetry prior to discharge IMPRESSIONS: 1. Acute on chronic diastolic congestive heart failure/A. fib with RVR Patient was 40 pounds above his dry weight on March 30, 2019, but is responding well to diuretic therapy. Patient has been compliant with BiPAP therapy, which likely helps. Continue to wean nasal cannula oxygen as [place] erated. Patient is back in sinus rhythm on telemetry. Continue amiodarone, Cardizem and Eliquis. 2. Acute on chronic hypoxic respiratory failure secondary to probable cor pulmonale Patient with significant weight gain over the last 4 months and has been using supplemental oxygen and BiPAP intermittently and probably inappropriately. Clinical suspicion for desaturation with ambulation leading to elevated pulmonary artery pressures. Despite multiple conversations, patient continues to have a poor insight into his overall disease process. Continue with aggressi ve diuresis. Patient should have a walking oximetry prior to discharge. 3. Stage III CKD/CAD/hypertension/type 2 diabetes mellitus/BPH/depression/history of noncompliance/morbid obesity Complicates care, management, recovery and prognosis. Continue with baseline medications. No significant changes are indicated. Did stress the role of weight loss in the overall disease plan of care. Blood sugars are relatively controlled on current regimen. Code Visit Inpatient E&M: 24673 Subs Hosp L2
--- NOTE | 2019-07-29 08:36 | PN_ITS ---
Patient Problems: Active and Suspected Problems (Last Updated 07/26/19 @ 07:25 by Romi Walls MD) (HFpEF) heart failure with preserved ejection fraction (Acute) Atrial fibrillation with RVR (Acute) Subjective: Chief complaint: Follow-up after admission for acute diastolic CHF, A. fib with RVR, acute on chronic hypoxic respiratory failure and anemia. Patient seen and examined. No acute events overnight. Shortness of breath continued to improve very slowly. Denied chest pain. Leg edema significantly improved. This morning, he is on oxygen at 4 L. Other vital signs are stable. - Physical Exam General: Alert, Oriented x3, Cooperative, No apparent distress HEENT: Atraumatic, PERRLA, EOMI, Normocephalic Oral: Moist Mucosa, No Gingival or Mucosal Lesions/ Ulcerations Neck: Supple, No JVD, Negative Carotid Bruits, Trachea Midline, Thyroid Normal Size and Texture Lungs: Clear to auscultation, Normal air movement, No rhonchi, No wheeze, No rales, Diminished Cardiovascular: Regular rate, Regular Rhythm, Normal S1, Normal S2, PMI Normal Abdomen: Bowel Sounds Present, Soft, Non Tender, Non-Distended, No Hepato-splenomegaly, Obese Extremities: No clubbing, No cyanosis, Edema Skin: No rashes, No breakdown Lymphatic: No Cervical, Supraclavicular, or Inguinal Adenopathy Neurological: Cranial nerves II-XII grossly intact, Neuro grossly intact Psych/Mental Status: Normal Affect, Appropriate, Alert and oriented to time, place, person, mood and affect Vital Signs Temp Pulse Resp BP Pulse Ox 98 F 84 18 137/69 H 98 07/29/19 03:25 07/29/19 07:07 07/29/19 03:25 07/29/19 03:25 07/29/19 07:35 Oxygen Flow Rate (L/min) [ 4.5 AMBULATION with Oxygen] Oxygen Flow Rate (L/min) 4 Oxygen Delivery Method Nasal Cannula Weight: 356 lb 1 oz Body Mass Index (BMI) 48.2 Intake and Output for Last 24 Hours 07/27/19 07/28/19 07/29/19 23:59 23:59 23:59 Intake Total 1367.84 / 1367.84 1444.00 / 1444.00 237.73 / 237.73 Output Total 5525 / 5525 7125 / 7125 1825 / 1825 Balance -4157.16 / -4157.16 -5681.00 / -5681.00 -1587.27 / -1587.27 Laboratory Tests Past 24 Hrs 07/29/19 06:34 Sodium 137 Potassium 3.4 L Chloride 95 L Carbon Dioxide 38.0 H BUN 20 H Creatinine 1.49 H Estim Creat Clear Calc 49.80 Est GFR (MDRD) Af Amer 59 L Est GFR (MDRD) Non-Af 49 L BUN/Creatinine Ratio 13.4 Glucose 124 H Calcium 8.3 L Phosphorus 3.3 Albumin 3.3 POC Glucose 07/28/19 07/28/19 07/28/19 22:37 22:06 21:50 POC Glucose 109 70 62 L 07/28/19 07/28/19 07/28/19 17:12 16:14 11:22 POC Glucose 85 52 L 198 H Medical Necessity - Tobacco Use Smoking Status: Never smoker Tobacco Use: Chew Assessment/Plan All Active Problems (Last Updated 07/26/19 @ 07:25 by Romi Walls MD) (HFpEF) heart failure with preserved ejection fraction (Acute) Atrial fibrillation with RVR (Acute) This is a 74 years old male patient presented to the emergency room because of shortness of breath and was found to have acute diastolic CHF, A. fib with RVR and acute on chronic hypoxic respiratory failure. #1 acute diastolic CHF: Remained on IV Lasix drip. He is not on GLORIA inhibitors because of chronic kidney disease. He lost around 28 pounds since admission. Symptoms continue to improve, on 4 L of oxygen. BUN and creatinine continue to rise slowly. His EKG revealed normal sinus rhythm, prolonged QTC, no acute ischemic changes. Troponin are negative. Patient had echocardiogram several days ago that showed ejection fraction of 65%, other findings reviewed. Plan: Wean off oxygen as tolerated, DC IV Lasix drip if okay with cardiology. #2 A. fib with RVR: With past history of chronic A. fib. He is back to sinus rhythm, rate is controlled. He is on p.o. amiodarone and Cardizem. He is on Eliquis for anticoagulation. #3 acute on chronic hypoxic respiratory failure: Multifactorial secondary to acute CHF, obesity, history of obstructive sleep apnea. At this time, patient on oxygen at 4 L. Plan as above. #4 acute on chronic anemia: Baseline hemoglobin around 10 to 11 g/dL. Has been trending down, it is down to 7.8 g/dL yesterday and yesterday was it is 8.4 g/dL. No evidence of active bleeding. #5 stage III chronic kidney disease: Baseline kidney function has been around 1.3 to 1.5 mg/dL. Today's creatinine is 1.49, remained stable at baseline but it is slowly rising. Plan to DC IV Lasix drip as above if okay with cardiology. #6 CAD status post CABG and PCI: EKG without acute ischemic changes, troponins negative, no chest pain. Continue aspirin. #7 hypertension: Blood pressure stable, continue Norvasc, plan to DC IV Lasix drip as above. #8 type 2 diabetes mellitus: Blood sugar stable, continue Humulin insulin 3 times daily and sliding scale. #9 benign prostatic hypertrophy: Continue Flomax and Proscar. #10 depression: Stable, continue Cymbalta. #11 DVT prophylaxis: Continue Eliquis. This note was generated with [employer] dictation software. It may contain incorrect words, spelling, and punctuation that were not noted in checking the note before signing. Code Visit Inpatient E&M: 05078 Subs Hosp L2
[2019-07-29] MEDS: amLODIPine 5 MG Tablet PO (09:06)
[2019-07-29] MEDS: Gabapentin 300 MG Capsule PO ×2 (09:07→17:21)
[2019-07-29] MEDS: dilTIAZem CD 120 MG Capsule PO ×2 (09:07→21:09)
[2019-07-29] MEDS: Polyethylene Glycol 3350 17 GM PACKET PO (09:07)
[2019-07-29] MEDS: APIXABAN 5 MG TABLET PO ×2 (09:08→21:08)
[2019-07-29] MEDS: Aspirin E.C. 81 MG Tablet PO (09:08)
[2019-07-29] MEDS: Famotidine 20 MG Tablet 40 MG PO ×2 (09:08→21:07)
[2019-07-29] MEDS: Nystatin Powder 15gm Bottle 1 APPLIC TOPICAL ×2 (09:09→21:09)
[2019-07-29 09:16] LABS: Bedside Glucose 194 mg/dL (70-110)
[2019-07-29] MEDS: Insulin Lispro 100 UNIT/ML INSULN.PEN SC ×2 (09:17→12:11)
--- NOTE | 2019-07-29 10:33 | PN.CARD_ITS ---
Subjectve: Patient sitting in a chair, continues to do well. Feels much less bloated, but still has lower extremity edema. Patient is able to lay down flat without difficulty. Objective: Vital Signs Temp Pulse Resp BP Pulse Ox 97.8 F 85 18 142/69 H 95 07/29/19 09:03 07/29/19 09:03 07/29/19 09:03 07/29/19 09:03 07/29/19 09:03 Oxygen Flow Rate (L/min) [ 4.5 AMBULATION with Oxygen] Oxygen Flow Rate (L/min) 4 Oxygen Delivery Method Room Air Weight: 356 lb 1 oz Body Mass Index (BMI) 48.2 Intake and Output for Last 24 Hours 07/27/19 07/28/19 07/29/19 23:59 23:59 23:59 Intake Total 1367.84 / 1367.84 1444.00 / 1444.00 237.73 / 237.73 Output Total 5525 / 5525 7125 / 7125 1825 / 1825 Balance -4157.16 / -4157.16 -5681.00 / -5681.00 -1587.27 / -1587.27 General: Awake, Alert, Oriented x 3 HEENT: PERRL, EOMI, Sclera Non Icteric Neck: Supple, Good ROM, No Lymph Node Enlargement Lungs: Clear to auscultation Cardiovascular: Regular Rhythm, Normal S1, Normal S2, No Murmurs, No Rubs, No Gallops Vascular: No Carotid Bruits, Normal Femoral Pulses, Normal Radial Pulses, Normal Dorsalis Pedal Pulse, Normal Posterior Tibial Pulses Abdomen: Bowel Sounds Present, Soft, Non Tender, No HSM, No Organomegaly Extremities: No Cyanosis, No Clubbing, No edema Neurological: No Focal Motor or Sensory Deficit 07/29/19 06:34: Sodium 137, Potassium 3.4 L, Chloride 95 L, Carbon Dioxide 38.0 H, BUN 20 H, Creatinine 1.49 H, Est GFR (MDRD) Af Amer 59 L, Est GFR (MDRD) Non- Af 49 L, BUN/Creatinine Ratio 13.4, Glucose 124 H, Calcium 8.3 L, Phosphorus 3.3 Rhythm: EKG: ECHO: Stress Test: Cardiac Cath: PCI: CT Surgery: Holter monitor: EPS: PPM: CXR: Chest CT Scan: Medical Necessity - Tobacco Use Smoking Status: Never smoker Tobacco Use: Chew Assessment/Plan 1. Congestive heart failure: The patient has predominantly diastolic dysfunction, and pulmonary hypertension with prominently right-sided failure. Patient is currently on a Lasix drip and diuresing fairly well. Would recommend between 1 to 2 L negative on a daily basis and then will make adjustments for p.o. Lasix once the patient has reached his dry weight and is able to lay down flat and no longer has lower extremity edema. Net negative IV diuresis yesterday with 1.5 L. Would recommend an additional day of IV Lasix drip as the patient still has edema in his lower extremities. Patient may be preload dependent, so we will need to be cautious regarding his diuresis so as not to remove too much fluid. His most recent catheterization 2018 demonstrated widely patent grafts so would not recommend repeat catheter this time. In addition I would recommend discontinuation of amlodipine as this contributes to lower extremity edema grams p.o. In addition I recommend Leon bandages to assist with venous return and continue IV Lasix drip for 1 more day. Would recommend 1 more day of IV diuretic therapy, then switch him to Lasix 80 mg p.o. twice daily. 2. Coronary artery disease: No exertional anginal symptoms at this time. 3. Atrial fibrillation: Patient has a history of paroxysmal atrial fibrillation and presented with that upon admission. He is now back in normal sinus rhythm which I would attempt to keep in place to assist with his atrial kick. Patient is currently on amiodarone loading at this time. Continue Eliquis therapy. 4. Obstructive sleep apnea: The patient is compliant with his CPAP. 5. Dietary noncompliance: The patient admits to dietary noncompliance at home which most likely precipitated his family right-sided congestive heart failure symptoms, got edema, and poor medicine absorption. 6. Thank you very much for the opportunity to participate in the cardiac care of your patient. Code Visit Inpatient E&M: 54937 Subs Hosp L2
[2019-07-29 11:26] LABS: Bedside Glucose 171 mg/dL (70-110)
[2019-07-29 16:31] LABS: Bedside Glucose 127 mg/dL (70-110)
[2019-07-29] MEDS: Pramipexole Di-HCl 0.25 MG Tablet 0.5 MG PO (21:07)
[2019-07-29] MEDS: Tamsulosin HCl 0.4 MG Capsule PO (21:07)
[2019-07-29] MEDS: hydrOXYzine PAM 25 MG Capsule 100 MG PO (21:07)
[2019-07-29] MEDS: DULoxetine Hcl 60 MG Capsule PO (21:08)
[2019-07-29] MEDS: Finasteride 5 MG Tablet PO (21:09)
[2019-07-29 22:46] LABS: Bedside Glucose 87 mg/dL (70-110)
[2019-07-30 01:30] VITALS: RESP 12; RESP 18
[2019-07-30 02:53] VITALS: BP 134/48; PULSE 86; RESP 17; TEMP 36.4; O2SAT 98
[2019-07-30 03:04] VITALS: PULSE 88
[2019-07-30 05:56] LABS: Absolute Lymphocyte Count 0.89 X10^3/uL (0.83-4.51); Absolute Neutrophil Count 7.9 X10^3/uL (2.0-7.7); Basophil# 0.02 X10^3/uL; Basophil% 0.2 % (0-1); Eosinophil# 0.09 X10^3/uL; Eosinophils% 0.9 % (0-5); Hematocrit 30.6 % (40-54); Hemoglobin 8.5 g/dL (13.0-16.5); Lymphocyte # 0.89 X10^3/ul (4.0); Lymphocyte % 9.3 % (19-41); Mean Corp Hgb Conc 27.8 g/dL (32-36); Mean Corpuscular Hgb 21.6 pg (27.0-32.0); Mean Corpuscular Volume 77.7 fL (80-94); Mean Platelet Vol. 9.4 fl (6.2-12.0); Monocyte# 0.61 X10^3/uL; Monocyte% 6.4 % (0-10); NRBC Flagged by Analyzer 0 % (0-5); Neutrophil # 7.94 X10^3/uL (2.7-7.7); Neutrophil % 82.9 % (47-70); Platelet Count 226 K/mm3 (150-450); RBC Distribution Width CV 18.6 % (11.6-14.6); Red Blood Count 3.94 M/mm3 (4.6-6.2); White Blood Count 9.6 K/mm3 (4.4-11.0)
[2019-07-30 06:06] LABS: Anion Gap 8 (5-15); BUN 24 mg/dL (7-18); BUN/Creat Ratio 15.1 RATIO (10-20); Calcium,Total 8.5 mg/dL (8.5-10.1); Chloride 95 mmol/L (98-107); Creatinine, Serum 1.59 mg/dL (0.70-1.30); EST Glomerular Filtration Rate 45 mL/min (>60); Est Glom Filt Rate - Afr Amer 55 mL/min (>60); Estimated Creatinine Clearance 46.67 ml/min; Glucose 80 mg/dL (74-106); Sodium Level 138 mmol/L (136-145)
[2019-07-30] MEDS: Amiodarone 200 MG Tablet PO (06:15)
--- NOTE | 2019-07-30 07:19 | EKG12_ITS ---
Test Reason : RHYTHM Blood Pressure : / mmHG Vent. Rate : 098 BPM Atrial Rate : 071 BPM P-R Int : 000 ms QRS Dur : 114 ms QT Int : 340 ms P-R-T Axes : 000 090 038 degrees QTc Int : 434 ms Atrial fibrillation Rightward axis Abnormal ECG When compared with ECG of 26-JUL-2019 05:21, Atrial fibrillation has replaced Sinus rhythm QT has shortened Confirmed by ZOYA DOMÍNGUEZ ([id number]), content editor SALMA HARDY ([id number] on 08/08/2019 1:09:46 PM Referred By: Tam Dexter Confirmed By:ZOYA DOMÍNGUEZ
--- NOTE | 2019-07-30 07:34 | PN_ITS ---
Patient Problems: Active and Suspected Problems (Last Updated 07/26/19 @ 07:25 by Romi Walls MD) (HFpEF) heart failure with preserved ejection fraction (Acute) Atrial fibrillation with RVR (Acute) - Physical Exam General: Alert, Oriented x3, Cooperative, No apparent distress, Well developed, Well nourished, - - Morbidly obese. No conversational dyspnea. HEENT: Atraumatic, PERRLA, EOMI, Normocephalic, - - No scleral icterus or injection noted Oral: Moist Mucosa, No Gingival or Mucosal Lesions/ Ulcerations Neck: Supple, No JVD, No Nodes, Trachea Midline Lungs: No rhonchi, No wheeze, No rales, Diminished, - - Symmetric expansion. No dullness to percussion. Cardiovascular: Regular rate, Regular Rhythm, Normal S1, Normal S2, No murmurs, No rub noted, No Gallop Abdomen: Bowel Sounds Present, Soft, Non Tender, Non-Distended, Obese Extremities: No clubbing, No cyanosis, Edema - Continues to improve Skin: No rashes, No breakdown Musculoskeletal: No Tenderness to Palpation of Joints or Extremities Lymphatic: No Cervical, Supraclavicular, or Inguinal Adenopathy Neurological: Cranial nerves II-XII grossly intact, Neuro grossly intact, Motor Exam 5/5 strength throughout, Sensory exam intact to light touch and pain Psych/Mental Status: Alert and oriented to time, place, person, mood and affect Vital Signs Temp Pulse Resp BP Pulse Ox 36.4 C L 88 17 134/48 H 98 07/30/19 02:53 07/30/19 03:04 07/30/19 02:53 07/30/19 02:53 07/30/19 02:53 Oxygen Flow Rate (L/min) [ 4.5 AMBULATION with Oxygen] Oxygen Flow Rate (L/min) 3 Oxygen Delivery Method Room Air Weight: 158 kg Body Mass Index (BMI) 48.2 Intake and Output for Last 24 Hours 07/28/19 07/29/19 07/30/19 23:59 23:59 23:59 Intake Total 1444.00 / 1444.00 1689.33 / 1689.33 237 / 237 Output Total 7125 / 7125 6875 / 6875 1375 / 1375 Balance -5681.00 / -5681.00 -5185.67 / -5185.67 -1138 / -1138 Laboratory Tests Past 24 Hrs 07/30/19 07/30/19 05:30 05:30 WBC 9.6 RBC 3.94 L Hgb 8.5 L Hct 30.6 L MCV 77.7 L MCH 21.6 L MCHC 27.8 L RDW Std Deviation 53.0 H RDW Coeff of Lakshmi 18.6 H Plt Count 226 MPV 9.4 Immature Gran % (Auto) 0.300 Neut % (Auto) 82.9 H Lymph % (Auto) 9.3 L [place] % (Auto) 6.4 Eos % (Auto) 0.9 Baso % (Auto) 0.2 Absolute Neuts (auto) 7.9 H Absolute Lymphs (auto) 0.89 Nucleated RBC % 0 Sodium 138 Potassium 4.0 Chloride 95 L Carbon Dioxide 35.0 H Anion Gap 8 BUN 24 H Creatinine 1.59 H Estim Creat Clear Calc 46.67 Est GFR (MDRD) Af Amer 55 L Est GFR (MDRD) Non-Af 45 L BUN/Creatinine Ratio 15.1 Glucose 80 Calcium 8.5 POC Glucose 07/29/19 07/29/19 07/29/19 21:13 16:24 11:20 POC Glucose 87 127 H 171 H 07/29/19 08:57 POC Glucose 194 H Medical Necessity - Tobacco Use Smoking Status: Never smoker Tobacco Use: Chew Assessment/Plan All Active Problems (Last Updated 07/26/19 @ 07:25 by Romi Walls MD) (HFpEF) heart failure with preserved ejection fraction (Acute) Atrial fibrillation with RVR (Acute) RECOMMENDATIONS: 1. Continue diuresis for now. Could consider transition to intermittent dosing 2. Aggressive blood pressure control with afterload reduction 3. Albuterol as needed is likely sufficient 4. Walking oximetry prior to discharge IMPRESSIONS: 1. Acute on chronic diastolic congestive heart failure/A. fib with RVR Patient was 40 pounds above his dry weight on March 30, 2019, but is responding well to diuretic therapy. Patient has been compliant with BiPAP therapy, which likely helps. Continue to wean nasal cannula oxygen as tolerated. Patient is back in sinus rhythm on telemetry. Continue amiodarone, Cardizem and Eliquis. 2. Acute on chronic hypoxic respiratory failure secondary to probable cor pulmonale Patient with significant weight gain over the last 4 months and has been using supplemental oxygen and BiPAP intermittently and probably inappropriately. Clinical suspicion for desaturation with ambulation leading to elevated pulmonary artery pressures. Despite multiple conversations, patient continues to have a poor insight into his overall disease process. Despite 30+ pounds of diuresis, patient's renal function remained stable. Continue to stress the importance of maintaining saturations above 90% at all times. Continue with aggressive diuresis. Patient should have a walking oximetry prior to discharge. 3. Stage III CKD/CAD/hypertension/type 2 diabetes mellitus/BPH/depression/history of noncompliance/morbid obesity Complicates care, management, recovery and prognosis. Continue with baseline medications. No significant changes are indicated. Did stress the role of weight loss in the overall disease plan of care. Blood sugars are relatively controlled on current regimen. Code Visit Inpatient E&M: 63310 Subs Hosp L2
[2019-07-30 07:35] VITALS: O2SAT 95
[2019-07-30] MEDS: Gabapentin 300 MG Capsule PO (08:06)
[2019-07-30] MEDS: Aspirin E.C. 81 MG Tablet PO (08:07)
--- NOTE | 2019-07-30 08:08 | PCM.PROGNOTE ---
Patient Problems: Active and Suspected Problems (Last Updated 07/30/19 @ 08:06 by Romi Walls MD) (HFpEF) heart failure with preserved ejection fraction (Acute) Atrial fibrillation with RVR (Acute) Subjective: Chief complaint: Follow-up after admission for acute diastolic CHF, A. fib with RVR, acute on chronic hypoxic respiratory failure and anemia. Patient seen and examined. No acute events overnight. Today, is feeling better, shortness of breath is improving every day as well as leg edema. Denies chest pain. He is on 3 L of oxygen. Other vital signs are stable. - Physical Exam General: Alert, Oriented x3, Cooperative, No apparent distress HEENT: Atraumatic, PERRLA, EOMI, Normocephalic Oral: Moist Mucosa, No Gingival or Mucosal Lesions/ Ulcerations Neck: Supple, No JVD, Negative Carotid Bruits, Trachea Midline, Thyroid Normal Size and Texture Lungs: Clear to auscultation, Normal air movement, No rhonchi, No wheeze, No rales, Diminished Cardiovascular: Normal S1, Normal S2, No murmurs, PMI Normal, Irregular Rate Abdomen: Bowel Sounds Present, Soft, Non Tender, Non-Distended, No Hepato-splenomegaly, Obese Extremities: No clubbing, No cyanosis, Edema Skin: No rashes, No breakdown Lymphatic: No Cervical, Supraclavicular, or Inguinal Adenopathy Neurological: Cranial nerves II-XII grossly intact, Neuro grossly intact Psych/Mental Status: Normal Affect, Appropriate, Alert and oriented to time, place, person, mood and affect Vital Signs Temp Pulse Resp BP Pulse Ox 97.6 F L 88 17 134/48 H 95 07/30/19 02:53 07/30/19 03:04 07/30/19 02:53 07/30/19 02:53 07/30/19 07:35 Oxygen Flow Rate (L/min) [ 4.5 AMBULATION with Oxygen] Oxygen Flow Rate (L/min) 3 Oxygen Delivery Method Nasal Cannula Weight: 348 lb 5.286 oz Body Mass Index (BMI) 48.2 Intake and Output for Last 24 Hours 07/28/19 07/29/19 07/30/19 23:59 23:59 23:59 Intake Total 1444.00 / 1444.00 1689.33 / 1689.33 237 / 237 Output Total 7125 / 7139 6875 / 6875 1375 / 1375 Balance -5681.00 / -5681.00 -5185.67 / -5185.67 -1138 / -1138 Laboratory Tests Past 24 Hrs 07/30/19 07/30/19 05:30 05:30 WBC 9.6 RBC 3.94 L Hgb 8.5 L Hct 30.6 L MCV 77.7 L MCH 21.6 L MCHC 27.8 L RDW Std Deviation 53.0 H RDW Coeff of Lakshmi 18.6 H Plt Count 226 MPV 9.4 Immature Gran % (Auto) 0.300 Neut % (Auto) 82.9 H Lymph % (Auto) 9.3 L [place] % (Auto) 6.4 Eos % (Auto) 0.9 Baso % (Auto) 0.2 Absolute Neuts (auto) 7.9 H Absolute Lymphs (auto) 0.89 Nucleated RBC % 0 Sodium 138 Potassium 4.0 Chloride 95 L Carbon Dioxide 35.0 H Anion Gap 8 BUN 24 H Creatinine 1.59 H Estim Creat Clear Calc 46.67 Est GFR (MDRD) Af Amer 55 L Est GFR (MDRD) Non-Af 45 L BUN/Creatinine Ratio 15.1 Glucose 80 Calcium 8.5 POC Glucose 07/29/19 07/29/19 07/29/19 21:13 16:24 11:20 POC Glucose 87 127 H 171 H 07/29/19 08:57 POC Glucose 194 H Medical Necessity - Tobacco Use Smoking Status: Never smoker Tobacco Use: Chew Assessment/Plan All Active Problems (Last Updated 07/30/19 @ 08:06 by Romi Walls MD) (HFpEF) heart failure with preserved ejection fraction (Acute) Atrial fibrillation with RVR (Acute) This is a 74 years old male patient presented to the emergency room because of shortness of breath and was found to have acute diastolic CHF, A. fib with RVR and acute on chronic hypoxic respiratory failure. #1 acute diastolic CHF: Still on IV Lasix drip. He is not on GLORIA inhibitors because of chronic kidney disease. He lost around 36 pounds since admission. Symptoms continue to improve, on 3 L of oxygen. BUN and creatinine continue to rise slowly because of IV Lasix drip. His EKG revealed normal sinus rhythm, prolonged QTC, no acute ischemic changes. Troponin are negative. Patient had echocardiogram several days ago that showed ejection fraction of 65%, other findings reviewed. Plan: DC IV Lasix drip, start oral Lasix 80 mg p.o. twice daily, DC Thomas catheter, anticipate discharge home later today or tomorrow. #2 A. fib with RVR: With past history of chronic A. fib. Today, he is in A. fib, rate is controlled. He is on p.o. amiodarone and Cardizem. He is on Eliquis for anticoagulation. #3 acute on chronic hypoxic respiratory failure: Multifactorial secondary to acute CHF, obesity, history of obstructive sleep apnea. This morning, patient on oxygen at 3 L. Plan as above. #4 acute on chronic anemia: Baseline hemoglobin around 10 to 11 g/dL. Has been trending down, it is down to 7.8 g/dL yesterday and today's hemoglobin is 8.5 g/dL. No evidence of active bleeding. #5 stage III chronic kidney disease: Baseline kidney function has been around 1.3 to 1.5 mg/dL. Today's creatinine is 1.59, continue to rise slowly but still close to baseline. Plan as above. #6 CAD status post CABG and PCI: EKG without acute ischemic changes, troponins negative, no chest pain. Continue aspirin. #7 hypertension: Blood pressure stable, continue Norvasc, start oral Lasix as above. #8 type 2 diabetes mellitus: Blood sugar stable, continue Humulin insulin 3 times daily and sliding scale. #9 benign prostatic hypertrophy: Continue Flomax and Proscar. #10 depression: Stable, continue Cymbalta. #11 DVT prophylaxis: Continue Eliquis. This note was generated with [employer] software. It may contain incorrect words, spelling, and punctuation that were not noted in checking the note before signing. Code Visit Inpatient E&M: 08976 Subs Hosp L2
[2019-07-30 08:16] LABS: Bedside Glucose 157 mg/dL (70-110)
[2019-07-30 08:18] VITALS: RESP 18
[2019-07-30 09:32] VITALS: BP 123/51; PULSE 95; RESP 18; TEMP 36.7; O2SAT 96
[2019-07-30] MEDS: dilTIAZem CD 120 MG Capsule PO (09:46)
[2019-07-30] MEDS: APIXABAN 5 MG TABLET PO (09:46)
[2019-07-30] MEDS: Famotidine 20 MG Tablet 40 MG PO (09:46)
[2019-07-30] MEDS: Isosorbide Mononitrate 30 MG Tablet PO (09:46)
[2019-07-30] MEDS: Nystatin Powder 15gm Bottle 1 APPLIC TOPICAL (09:47)
[2019-07-30] MEDS: Polyethylene Glycol 3350 17 GM PACKET PO (09:47)
[2019-07-30] MEDS: Furosemide 80 MG Tablet PO (09:52)
--- NOTE | 2019-07-30 10:09 | PN.CARD_ITS ---
Subjectve: Patient feeling much better, and appears to be around his dry weight. His lower extremity edema has almost completely resolved. Telemetry overnight showed atrial fibrillation with controlled ventricular response. Objective: Vital Signs Temp Pulse Resp BP Pulse Ox 98.1 F 95 18 123/51 H 96 07/30/19 09:32 07/30/19 09:32 07/30/19 09:32 07/30/19 09:32 07/30/19 09:32 Oxygen Flow Rate (L/min) [ 4.5 AMBULATION with Oxygen] Oxygen Flow Rate (L/min) 2 Oxygen Delivery Method Nasal Cannula Weight: 348 lb 5.286 oz Body Mass Index (BMI) 48.2 Intake and Output for Last 24 Hours 07/28/19 07/29/19 07/30/19 23:59 23:59 23:59 Intake Total 1444.00 / 1444.00 1689.33 / 1689.33 248.18 / 248.18 Output Total 7125 / 7125 6875 / 6875 1375 / 1375 Balance -5681.00 / -5681.00 -5185.67 / -5185.67 -1126.82 / -1126.82 General: Awake, Alert, Oriented x 3 HEENT: PERRL, EOMI, Sclera Non Icteric Neck: Supple, Good ROM, No Lymph Node Enlargement Lungs: Clear to auscultation Cardiovascular: Irregular Rhythm, Normal S1, Normal S2, No Murmurs, No Rubs, No Gallops Vascular: No Carotid Bruits, Normal Femoral Pulses, Normal Radial Pulses, Normal Dorsalis Pedal Pulse, Normal Posterior Tibial Pulses Abdomen: Bowel Sounds Present, Soft, Non Tender, No HSM, No Organomegaly Extremities: No Cyanosis, No Clubbing, No edema Neurological: No Focal Motor or Sensory Deficit 07/30/19 05:30: WBC 9.6, RBC 3.94 L, Hgb 8.5 L, Hct 30.6 L, MCV 77.7 L, MCH 21.6 L, MCHC 27.8 L, Plt Count 226, MPV 9.4, Immature Gran % (Auto) 0.300, Neut % (Auto) 82.9 H, Lymph % (Auto) 9.3 L, [place] % (Auto) 6.4, Eos % (Auto) 0.9, Baso % (Auto) 0.2, Absolute Neuts (auto) 7.9 H, Nucleated RBC % 0 07/30/19 05:30: Sodium 138, Potassium 4.0, Chloride 95 L, Carbon Dioxide 35.0 H, Anion Gap 8, BUN 24 H, Creatinine 1.59 H, Est GFR (MDRD) Af Amer 55 L, Est GFR (MDRD) Non-Af 45 L, BUN/Creatinine Ratio 15.1, Glucose 80, Calcium 8.5 Rhythm: EKG: ECHO: Stress Test: Cardiac Cath: PCI: CT Surgery: Holter monitor: EPS: PPM: CXR: Chest CT Scan: Medical Necessity - Tobacco Use Smoking Status: Never smoker Tobacco Use: Chew Assessment/Plan 1. Congestive heart failure: The patient has predominantly diastolic dysfunction, and pulmonary hypertension with prominently right-sided failure. Patient is currently on a Lasix drip and diuresing fairly well. Now that the patient has achieved or is at least approaching his dry weight, recommend discontinuation of IV Lasix drip and switching him to Lasix 80 mg p.o. twice daily. Patient may be preload dependent, so we will need to be cautious regarding his diuresis so as not to remove too much fluid. His most recent catheterization 2018 demonstrated widely patent grafts so would not recommend repeat catheter this time. In addition I would recommend discontinuation of amlodipine as this contributes to lower extremity edema grams p.o. In addition I recommend Leon bandages to assist with venous return and continue IV Lasix drip for 1 more day. 2. Coronary artery disease: No exertional anginal symptoms at this time. 3. Atrial fibrillation: Patient has a history of paroxysmal atrial fibrillation and presented with that upon admission. He is now back in normal sinus rhythm which I would attempt to keep in place to assist with his atrial kick. Patient is currently on amiodarone loading at this time. Recommend switching him to amiodarone 200 mg p.o. daily so as to avoid excessive use of amiodarone as an outpatient. Continue Eliquis therapy. We will plan for elective DC cardioversion once amiodarone loading has been completed. 4. Obstructive sleep apnea: The patient is compliant with his CPAP. 5. Dietary noncompliance: The patient admits to dietary noncompliance at home which most likely precipitated his family right-sided congestive heart failure symptoms, got edema, and poor medicine absorption. 6. Anemia: The patient has noted anemia and is apparently awaiting appointment with Dr. Hargrove. 7. Thank you very much for the opportunity to participate in the cardiac care of your patient. Patient may be discharged home if he is tolerating p.o. Lasix well, ambulating well, and has no significant tachycardia. He will follow-up with Dr. Jarrett going forward. Code Visit Inpatient E&M: 78464 Subs Hosp L2
[2019-07-30 11:30] LABS: Bedside Glucose 201 mg/dL (70-110)
[2019-07-30 11:40] LABS: Ferritin 37 ng/mL (26-388); Iron 27 ug/dL (65-175); Iron Binding Capacity,Total 361 ug/dL (250-450); PERCENT IRON SATURATION 7.5 % (15.0-55.0)
[2019-07-30] MEDS: Insulin Lispro 100 UNIT/ML INSULN.PEN SC (12:07)
--- NOTE | 2019-07-30 12:21 | DCINST_ITS ---
- Discharge Diagnoses Current Active Problems: Current Active and Chronic Problems (Last Updated 07/30/19 @ 08:06 by Romi Walls MD) (HFpEF) heart failure with preserved ejection fraction (Acute) Atrial fibrillation with RVR (Acute) Anemia (Chronic) You will use the following diet at home:: Calorie/Carbohydrate Controlled (specify 1200, 1400, etc) - 1800 castillo, Cardiac, Fluid restricted (specify 2000 mls, 1500 mls) - Less than 1500 cc daily Your food should be the consistency of: Regular Discharge Activity: Return to Normal Activity Weight Bearing Status: Weight bearing as tolerated Call your doctor if you observe: Fever of 101 or Higher, Shortness of breath, Dizziness, Fainting spells, Chest pain, Increased palpitations (irregular heartbeat), Uncontrolled pain Instructions: Heart Failure, Heart Failure: Tracking Your Weight, Taking Medication to Control Heart Failure, Using Oxygen at Home Allergies/Adverse Reactions: Allergies acetaminophen [From Percocet] Allergy (Verified 07/25/19 12:43) Swelling oxycodone [From Percocet] Allergy (Verified 07/25/19 12:43) A-fib, Swelling, Sulfa (Sulfonamide Antibiotics) Allergy (Verified 07/25/19 12:43) Swelling atropine Adverse Reaction (Severe, Verified 07/25/19 12:43) arrhythmia hydrochlorothiazide [From Hyzaar] Adverse Reaction (Severe, Verified 07/25/19 12:43) arrhythmia losartan [From Hyzaar] Adverse Reaction (Severe, Verified 07/25/19 12:43) arrhythmia quinapril [From Accupril] Adverse Reaction (Severe, Verified 07/25/19 12:43) arrhythmia atorvastatin [From Lipitor] Adverse Reaction (Intermediate, Verified 07/25/19 12:43) myalgias metformin Adverse Reaction (Intermediate, Verified 07/25/19 12:43) myalgias Medications to take at Discharge Duloxetine HCl 60 mg PO QHS 03/11/17 Gabapentin [Neurontin] 300 mg PO BIDCM 03/11/17 Hydrocodone/Acetaminophen [Hydrocodon-Acetaminophen 5-325] 1 tab PO DAILY 03/11/17 Melatonin 15 mg PO QHS PRN 03/11/17 Ranitidine [Zantac] 300 mg PO BID 03/11/17 Tamsulosin HCl [Flomax] 0.4 mg PO QHS MDD \ 03/11/17 polyethylene glycol 3350 17 gram oral powder packet 17 g PO QDAY 03/16/18 pramipexole 0.25 mg tablet 0.5 mg PO QHS #180 tab 03/30/19 Hydrocodone/Acetaminophen [Hydrocodon-Acetaminophen 5-325] 2 ea PO QHS 07/25/19 Hydroxyzine HCl 100 mg PO QHS 07/25/19 Insulin U-500 [Humulin R U-500 ([facility])] 0.4 ml SQ TIDCM 07/25/19 Amiodarone HCl [Cordarone] 200 mg PO DAILY #30 tab 07/30/19 Apixaban [Eliquis] 5 mg PO BID #90 tab 07/30/19 Diltiazem CD [Cardizem CD] 120 mg PO Q12 #30 cap 07/30/19 Ferrous Sulfate 325 mg PO BIDCM #90 tab 07/30/19 Furosemide [Lasix] 80 mg PO BID@1000,1800 #90 tab 07/30/19 Isosorbide Mononitrate [Imdur] 30 mg PO DAILY #30 tab 07/30/19 Pantoprazole Sodium [Protonix] 40 mg PO DAILY #30 tab 07/30/19 The following prescriptions were given: Diltiazem CD [Cardizem CD] 120 mg PO Q12 #30 cap Prescription Printed Amiodarone HCl [Cordarone] 200 mg PO DAILY #30 tab Prescription Printed Apixaban [Eliquis] 5 mg PO BID #90 tab Prescription Printed Ferrous Sulfate 325 mg PO BIDCM #90 tab Prescription Printed Isosorbide Mononitrate [Imdur] 30 mg PO DAILY #30 tab Prescription Printed Furosemide [Lasix] 80 mg PO BID@1000,1800 #90 tab Prescription Printed Pantoprazole Sodium [Protonix] 40 mg PO DAILY #30 tab Prescription Printed Primary Care Physician: Abdi Navarro MD [Primary Care Provider] - Please follow up with your Primary Care Physician in: 1 week. Test Results: Test results from this visit will be discussed in further detail at your follow- up appointment, if applicable. Please Follow Up With: Vinicius Jarrett MD When: 1-2 week.
--- NOTE | 2019-07-30 12:42 | PCM.DC.SUM ---
Discharge Date and Diagnosis - Problem List Patient Problems: Active and Suspected Problems (Last Updated 07/30/19 @ 08:06 by Romi Walls MD) (HFpEF) heart failure with preserved ejection fraction (Acute) Atrial fibrillation with RVR (Acute) Date of Admission: 07/25/19 Date of Discharge: 07/30/19 - Primary Discharge Diagnosis Active and Suspected Problems (Last Updated 07/30/19 @ 08:06 by Romi Walls MD) #1 acute diastolic CHF. #2 A. fib with RVR. #3 acute on chronic hypoxic respiratory failure. #4 acute on chronic iron deficiency anemia. - Secondary Discharge Diagnosis Chronic Problems (Last Updated 07/30/19 @ 08:06 by Romi Walls MD) Hyperlipidemia (Chronic) Hypertension (Chronic) Paroxysmal a-fib (Chronic) S/P pulmonary vein isolation; Periodic limb movement sleep disorder (Chronic) Pulmonary hypertension (Chronic) Type II Coronary artery disease (Chronic) Anemia (Chronic) Type 2 diabetes mellitus (Chronic) Presence of aortocoronary bypass graft (Chronic ~10/2010) CABG x4: LEBRON to LAD, SVG to RI, SVG to PDA, SVG to posterolateral Lt ventricular branch, PVI w/ Atricure Ablation and ligation of Lt atrial appendage 10/2010 Presence of stent in coronary artery (Chronic ~01/2011) PTCA/Stent to mid LCX 01/2011 DM (diabetes mellitus) with peripheral vascular complication (Chronic) Atherosclerotic heart disease of [place] coronary artery without angina pectoris (Chronic) CABG x4: LEBRON to LAD, SVG to RI, SVG to PDA, SVG to posterolateral Lt ventricular branch, PVI w/ Atricure Ablation and ligation of Lt atrial appendage 10/2010; PTCA/Stent to mid LCX 01/2011 Body mass index 40.0-44.9, adult (Chronic) Meniscus degeneration (Chronic) RAQUEL (obstructive sleep apnea) (Chronic) Obesity (Chronic) PVC (premature ventricular contraction) (Chronic) Hospital Course and Treatment Imaging Results: Clinical Impression(s) from Imaging Studies Chest X-Ray 07/25/19 12:42 IMPRESSION: Cardiomegaly and CHF. Prior CABG. Electronically Signed: Ander Stafford, at 13:08 EDT , Service support , Dr. Casey/Dr. Jarrett, cardiology. Dr. Turpin, pulmonology. Operations: None Procedures: EKG Summary of Care Provided: Patient seen and examined on the day of discharge and appeared to be stable to be discharged home. Shortness of breath continued to improve every day as well as leg edema. He is down to 2 L of oxygen, other vital signs are stable. He ambulated and he did okay, no tachycardia.\ This is a 74 years old male patient presented to the emergency room because of shortness of breath and was found to have acute diastolic CHF, A. fib with RVR and acute on chronic hypoxic respiratory failure. #1 acute diastolic CHF: Treated with IV Lasix and oral nitrates as well as BiPAP. He was not given any GLORIA inhibitor because of chronic kidney disease. Patient was not compliant with his oxygen at home and also with salt restrictions. He lost around 36 pounds since admission. His EKG revealed normal sinus rhythm, prolonged QTC, no acute ischemic changes. Troponin were negative. Patient had echocardiogram several days ago before this admission that showed ejection fraction of 65%. Patient discharged home on Lasix 80 mg p.o. twice daily. #2 A. fib with RVR: With past history of chronic A. fib. He was treated with IV amiodarone drip and IV Cardizem drip, converted back to sinus rhythm and he has been going in and out of atrial fibrillation with controlled ventricular response. Later, he was started on oral amiodarone and Cardizem as well as Eliquis for anti-Coblation. #3 acute on chronic hypoxic respiratory failure: Multifactorial secondary to acute CHF, obesity, history of obstructive sleep apnea. Initially, he required BiPAP and with IV diuresis, his symptoms improved and we were able to wean him down to nasal cannula. On the day of discharge, he required 2 L of oxygen and he did not desaturates upon ambulation. #4 acute on chronic iron deficiency anemia: Baseline hemoglobin around 10 to 11 g/dL. During this admission, hemoglobin was 7.8 g/dL which was attributed to hemodilution due to fluid retention. With IV diuresis, hemoglobin came up to 8.5 g/dL. No blood transfusion given. Serum iron was 27, iron saturation was 7.5. Patient denied any melena or hematochezia but he does have a history of hemorrhoids and sometimes he have streaks of blood on the outer side of his stool. He was started on iron supplement as well as Protonix, patient was on ibuprofen which was discontinued. #5 stage III chronic kidney disease: Baseline kidney function has been around 1.3 to 1.5 mg/dL. Upon discharge, creatinine is 1.59, remained close to baseline. #6 CAD status post CABG and PCI: Discharged on ulcer but more nitrate and Eliquis. #7 hypertension: Blood pressure stable, discharged on Cardizem, Lasix and isosorbide dinitrate. Norvasc discontinued. Patient discharged home in a stable medical condition, discharged on amiodarone and Cardizem for rate control for A. fib, discharged on Eliquis for anticoagulation, started on iron supplements for acute on chronic iron deficiency anemia, discharged on Lasix 80 mg p.o. twice daily, started on Protonix, continue with on other previous home medications, recommended follow-up with PCP in 1 week, follow-up with cardiology in 1 to 2 weeks. This note was generated with [employer] dictation software. It may contain incorrect words, spelling, and punctuation that were not noted in checking the note before signing. Patient Problems: Active and Suspected Problems (Last Updated 07/30/19 @ 08:06 by Romi Walls MD) (HFpEF) heart failure with preserved ejection fraction (Acute) Atrial fibrillation with RVR (Acute) - Physical Exam General: Alert, Oriented x3, Cooperative, No apparent distress HEENT: Atraumatic, PERRLA, EOMI, Normocephalic Oral: Moist Mucosa, No Gingival or Mucosal Lesions/ Ulcerations Neck: Supple, No JVD, Negative Carotid Bruits, Trachea Midline, Thyroid Normal Size and Texture Lungs: Clear to auscultation, Normal air movement, No rhonchi, No wheeze, No rales, Diminished Cardiovascular: Normal S1, Normal S2, No murmurs, PMI Normal, Irregular Rate Abdomen: Bowel Sounds Present, Soft, Non Tender, Non-Distended, No Hepato-splenomegaly, Obese Extremities: No clubbing, No cyanosis, Edema - Trace edema. Skin: No rashes, No breakdown Lymphatic: No Cervical, Supraclavicular, or Inguinal Adenopathy Neurological: Cranial nerves II-XII grossly intact, Neuro grossly intact Psych/Mental Status: Normal Affect, Appropriate Vital Signs Temp Pulse Resp BP Pulse Ox 98.1 F 95 18 123/51 H 96 07/30/19 09:32 07/30/19 09:32 07/30/19 09:32 07/30/19 09:32 07/30/19 09:32 Oxygen Flow Rate (L/min) [ 4.5 AMBULATION with Oxygen] Oxygen Flow Rate (L/min) 2 Oxygen Delivery Method Nasal Cannula Weight: 348 lb 5.286 oz Body Mass Index (BMI) 48.2 Intake and Output for Last 24 Hours 07/28/19 07/29/19 07/30/19 23:59 23:59 23:59 Intake Total 1444.00 / 1444.00 1689.33 / 1689.33 748.18 / 748.18 Output Total 7125 / 7125 6875 / 6875 2550 / 2550 Balance -5681.00 / -5681.00 -5185.67 / -5185.67 -1801.82 / -1801.82 Laboratory Tests Past 24 Hrs 07/30/19 07/30/19 07/30/19 05:30 05:30 05:30 WBC 9.6 RBC 3.94 L Hgb 8.5 L Hct 30.6 L MCV 77.7 L MCH 21.6 L MCHC 27.8 L RDW Std Deviation 53.0 H RDW Coeff of Lakshmi 18.6 H Plt Count 226 MPV 9.4 Immature Gran % (Auto) 0.300 Neut % (Auto) 82.9 H Lymph % (Auto) 9.3 L [place] % (Auto) 6.4 Eos % (Auto) 0.9 Baso % (Auto) 0.2 Absolute Neuts (auto) 7.9 H Absolute Lymphs (auto) 0.89 Nucleated RBC % 0 Sodium 138 Potassium 4.0 Chloride 95 L Carbon Dioxide 35.0 H Anion Gap 8 BUN 24 H Creatinine 1.59 H Estim Creat Clear Calc 46.67 Est GFR (MDRD) Af Amer 55 L Est GFR (MDRD) Non-Af 45 L BUN/Creatinine Ratio 15.1 Glucose 80 Calcium 8.5 Iron 27 L TIBC 361 Iron Saturation 7.5 L Ferritin 37 POC Glucose 07/30/19 07/30/19 07/29/19 11:23 08:02 21:13 POC Glucose 201 H 157 H 87 07/29/19 16:24 POC Glucose 127 H Discharge Activity: Return to Normal Activity Weight Bearing Status: Weight bearing as tolerated Call your doctor if you observe: Fever of 101 or Higher, Shortness of breath, Dizziness, Fainting spells, Chest pain, Increased palpitations (irregular heartbeat), Uncontrolled pain Home Medications: Medications to take at Discharge Duloxetine HCl 60 mg PO QHS 03/11/17 Gabapentin [Neurontin] 300 mg PO BIDCM 03/11/17 Hydrocodone/Acetaminophen [Hydrocodon-Acetaminophen 5-325] 1 tab PO DAILY 03/11/17 Melatonin 15 mg PO QHS PRN 03/11/17 Ranitidine [Zantac] 300 mg PO BID 03/11/17 Tamsulosin HCl [Flomax] 0.4 mg PO QHS MDD \ 03/11/17 polyethylene glycol 3350 17 gram oral powder packet 17 g PO QDAY 03/16/18 pramipexole 0.25 mg tablet 0.5 mg PO QHS #180 tab 03/30/19 Hydrocodone/Acetaminophen [Hydrocodon-Acetaminophen 5-325] 2 ea PO QHS 07/25/19 Hydroxyzine HCl 100 mg PO QHS 07/25/19 Insulin U-500 [Humulin R U-500 ([facility])] 0.4 ml SQ TIDCM 07/25/19 Amiodarone HCl [Cordarone] 200 mg PO DAILY #30 tab 07/30/19 Apixaban [Eliquis] 5 mg PO BID #90 tab 07/30/19 Diltiazem CD [Cardizem CD] 120 mg PO Q12 #30 cap 07/30/19 Ferrous Sulfate 325 mg PO BIDCM #90 tab 07/30/19 Furosemide [Lasix] 80 mg PO BID@1000,1800 #90 tab 07/30/19 Isosorbide Mononitrate [Imdur] 30 mg PO DAILY #30 tab 07/30/19 Pantoprazole Sodium [Protonix] 40 mg PO DAILY #30 tab 07/30/19 Following Prescrptions Were Given to Patient: Diltiazem CD [Cardizem CD] 120 mg PO Q12 #30 cap Prescription Printed Amiodarone HCl [Cordarone] 200 mg PO DAILY #30 tab Prescription Printed Apixaban [Eliquis] 5 mg PO BID #90 tab Prescription Printed Ferrous Sulfate 325 mg PO BIDCM #90 tab Prescription Printed Isosorbide Mononitrate [Imdur] 30 mg PO DAILY #30 tab Prescription Printed Furosemide [Lasix] 80 mg PO BID@1000,1800 #90 tab Prescription Printed Pantoprazole Sodium [Protonix] 40 mg PO DAILY #30 tab Prescription Printed Primary Care Physician: Abdi Navarro MD [Primary Care Provider] - Please follow up with your Primary Care Physician in: 1 week. Please Follow Up With: Vinicius Jarrett MD When: 1-2 week. Please Follow Up With: Abdi Navarro MD When: 1 week Patient Instructions: Taking Medication to Control Heart Failure, Heart Failure: Tracking Your Weight, Heart Failure, Using Oxygen at Home Disposition: Home Minutes spent on discharge:: 35 Patient Condition:: Stable Medical Necessity - Tobacco Use Smoking Status: Never smoker Tobacco Use: Chew Meaningful Use Info Meaningful Use Diagnoses (Choose all that apply): None applicable - CHF GLORIA/ARB ordered at discharge?: No Reason GLORIA/ARB not ordered?: Worsening renal disease Documented LVEF (%): 65 Code Visit Inpatient E&M: 97066 Disch Hosp
--- NOTE | 2019-07-31 14:57 | CASEMGMT ---
RN DEVANG DC PHONE CALL DC DATE: 07/30/19 DC Disposition: Home Diagnosis on Discharge: CHF LACE/STRATA: 10/25 Intro role of CM to patient's via phone. states pt is doing well, is following dc instructions and f/u appts are made. No care improvement suggestions given, states pt had excellent care. Gio SEVERINON RN ACM
== END 2019-07-30 13:28 | disposition home or self-care (01) | DRG 291 ==
LOC: ED 13:57 → PCU 14:15
PROVIDERS: Internal Medicine Critical Care Medicine; Emergency Provider Emergency Medicine; Family Provider Family Medicine; PCP Family Medicine; Visit Provider Hospitalist
DX: I13.0 Hypertensive heart and chronic kidney disease with heart failure and stage 1 through stage 4 chronic kidney disease, or unspecified chronic kidney disease (principal); J96.21 Acute and chronic respiratory failure with hypoxia; I50.31 Acute diastolic (congestive) heart failure; Z68.42 Body mass index [BMI] 45.0-49.9, adult; I25.10 Atherosclerotic heart disease of native coronary artery without angina pectoris; I48.0 Paroxysmal atrial fibrillation; E78.5 Hyperlipidemia, unspecified; G47.33 Obstructive sleep apnea (adult) (pediatric); E66.01 Morbid (severe) obesity due to excess calories; E11.22 Type 2 diabetes mellitus with diabetic chronic kidney disease; N18.3 Chronic kidney disease, stage 3 (moderate); D50.9 Iron deficiency anemia, unspecified; Z95.1 Presence of aortocoronary bypass graft; Z72.0 Tobacco use; Z95.5 Presence of coronary angioplasty implant and graft; Z99.81 Dependence on supplemental oxygen; Z79.4 Long term (current) use of insulin
CPT/HCPCS: 36415; 51702; 71045; 80048; 80069; 82728; 82962; 83036; 83540; 83550; 83735; 83880; 84484; 85025; 85610; 85730; 93005; 94002; 94003; 97110; 97116; 97162; 97166; 97530; 97535; 97802; 99285; 99406; A4216; J1940

== ENCOUNTER 2019-09-08 10:24 | Day surgery (SDC) | payer MEDICARE, SELFPAY ==
[2019-09-04 15:43] VITALS: BMI 43.3
[2019-09-07 11:25] VITALS: BMI 43.3
--- NOTE | 2019-09-08 11:39 | HP.PCM_ITS ---
Problem List (1) Atrial fibrillation with RVR Status: Acute (2) Coronary artery disease Status: Chronic Qualifiers: (3) Presence of stent in coronary artery Status: Chronic Comment: PTCA/Stent to mid LCX 01/2011 (4) (HFpEF) heart failure with preserved ejection fraction Status: Chronic Qualifiers: (5) Hyperlipidemia Status: Chronic Qualifiers: (6) Hypertension Status: Chronic Qualifiers: (7) Pulmonary hypertension Status: Chronic Comment: Type II (8) RAQUEL (obstructive sleep apnea) Status: Chronic (9) Obesity Status: Chronic Qualifiers: History and Physical Date of Admission: 09/08/19 [facility] [address] [place] [address] OFFICE VISIT Date of Service: 09/04/19 MR#: [id number] Acct: [id number] Name: LISBET WILSON Rep #: [id number] Provider: Tania Wolf Age/Sex: 74/M Location: [facility] Status: Signed HPI HPI History of Present Illness Details: This is a 74-year-old gentleman that presents here today for a hospital follow-up. He was hospitalized last week for acute diastolic heart failure, atrial fibrillation with RVR, acute on chronic hypoxic respiratory failure. He has a history of coronary artery disease status post CABG x4 in October 2010, PTCA/stenting to mid LCx in January 2011, paroxysmal atrial fibrillation, hypertension, hyperlipidemia, obstructive sleep apnea, pulmonary hypertension, and diabetes mellitus type 2. Patient also does have iron deficient anemia and stage III kidney disease. Patient did lose 36 pounds during his hospital admission. This was through IV diuretics. Was also treated with IV amiodarone and IV Cardizem for his atrial fibrillation with RVR. He did convert back to sinus rhythm however was noted to also have paroxysmal atrial fibrillation. He was discharged home with ami odarone, Cardizem and Eliquis. Pt has been monitoring his weight every day. He feels that it is doing better. He feels that he urinates better with IV lasix. He us now reading labels with sodium. He feels his breathing is better. He sts that he can not walk a distance. He does have a daily cough. He does not feel that he was doing as well as what he did when compared to his OV in June. He feels better than what he did prior to going in to the hospital. At his last office visit we had added metolazone to help with his swelling however he had a BMP that was done with PCP, it was noted that his potassium was low and his metolazone has since been discontinued. He was started on potassium supplements. His amiodarone was also discontinued secondary to tremors. Pt sts that he is getting worse since he was here last. He feels that he is having issues with fatigue and weakness. He sts that is is difficult for him to open a jar. He finds that it is difficult for him to get out of the WC chair by himself. He is having issues with his vision- this has been going on for approx 6 months- he does have color changes when he looks at the ceiling after he wakes up. This is been frequent. He also states that his stigmatize has gotten worse. He breathing is okay only with O2- if he takes off his O2 his SPO2 will drop into the 70's. His weight is close to were it was when he left the hospital. Although he sts that it does fluctuate significantly. He had a 10 lb weight gain in one day- this was following a low BP. His HR at home has ranged from 90-120. Intake Vital Signs 09/04/19 Height 6 ft 3 in 09/04/19 Weight: 347 lb 09/04/19 Body Mass Index (BMI) 43.3 09/04/19 Blood Pressure 144/78 H 09/04/19 Blood Pressure Location Lt brachial 09/04/19 Blood Pressure Position Sitting 09/04/19 Respiratory Rate 20 H 09/04/19 Pulse Rate 118 H 09/04/19 Pulse Ox 88 09/04/19 Oxygen Delivery Method nasal canula 09/04/19 Oxygen Flow Rate (L/min) 4.5 Intake Visit Reasons: PER MMM Bead Filler Required: No Is patient in pain?: No Allergies acetaminophen [From Percocet] Allergy (Verified 09/04/19 15:43) Swelling oxycodone [From Percocet] Allergy (Verified 09/04/19 15:43) A-fib, Swelling, Sulfa (Sulfonamide Antibiotics) Allergy (Verified 09/04/19 15:43) Swelling atropine Adverse Reaction (Severe, Verified 09/04/19 15:43) arrhythmia hydrochlorothiazide [From Hyzaar] Adverse Reaction (Severe, Verified 09/04/19 15:43) arrhythmia losartan [From Hyzaar] Adverse Reaction (Severe, Verified 09/04/19 15:43) arrhythmia quinapril [From Accupril] Adverse Reaction (Severe, Verified 09/04/19 15:43) arrhythmia atorvastatin [From Lipitor] Adverse Reaction (Intermediate, Verified 09/04/19 15:43) myalgias metformin Adverse Reaction (Intermediate, Verified 09/04/19 15:43) myalgias Medications Duloxetine HCl 60 mg PO QHS 03/11/17 [History Confirmed 09/04/19] Gabapentin [Neurontin] 300 mg PO BIDCM 03/11/17 [History Confirmed 09/04/19] Melatonin 15 mg PO QHS PRN 03/11/17 [History Confirmed 09/04/19] Tamsulosin HCl [Flomax] 0.4 mg PO QHS MDD \ 03/11/17 [History Confirmed 09/04/19] polyethylene glycol 3350 17 gram oral powder packet 17 g PO QDAY 03/16/18 [History Confirmed 09/04/19] pramipexole 0.25 mg tablet 0.5 mg PO QHS #180 tab 03/30/19 [Rx Confirmed 09/04/19] Hydrocodone/Acetaminophen [Hydrocodon-Acetaminophen 5-325] 2 ea PO QHS 07/25/19 [History Confirmed 09/04/19] Hydroxyzine HCl 100 mg PO QHS 07/25/19 [History Confirmed 09/04/19] Insulin U-500 [Humulin R U-500 (BKC)] 0.4 ml SQ TIDCM 07/25/19 [History Confirmed 09/04/19] Ferrous Sulfate 325 mg PO BIDCM #90 tab 07/30/19 [Rx Confirmed 09/04/19] Pantoprazole Sodium [Protonix] 40 mg PO DAILY #30 tab 07/30/19 [Rx Confirmed 09/04/19] apixaban 5 mg tablet 5 mg PO BID #60 tab 08/14/19 [Rx Confirmed 09/04/19] isosorbide mononitrate ER 30 mg tablet,extended release 24 hr 30 mg PO DAILY #30 tab 08/14/19 [Rx Confirmed 09/04/19] potassium chloride ER 20 mEq tablet,extended release 20 meq PO TID #1 tab 08/25/19 [Rx Confirmed 09/04/19] diltiazem CD 360 mg capsule,extended release 24 hr 360 mg PO DAILY #30 cap 09/04/19 [Rx Confirmed 09/04/19] furosemide 80 mg tablet 80 mg PO BID tab 09/04/19 [History Confirmed 09/04/19] [facility] Medical History (Updated 09/06/19 @ 16:43 by VICKIE Diallo) Type 2 diabetes mellitus (Chronic) DM (diabetes mellitus) with peripheral vascular complication (Chronic) Atherosclerotic heart disease of [place] coronary artery without angina pectoris (Chronic) Body mass index 40.0-44.9, adult (Chronic) RAQUEL (obstructive sleep apnea) (Chronic) Obesity (Chronic) PVC (premature ventricular contraction) (Chronic) BPH (benign prostatic hyperplasia) (Chronic) Osteoarthritis (Chronic) Surgical History Presence of aortocoronary bypass graft (Chronic ~10/2010) Presence of stent in coronary artery (Chronic ~01/2011) Family History Mother CAD (coronary artery disease) Father CVA (cerebral vascular accident) Myocardial infarction Brother Myocardial infarction Brother CAD (coronary artery disease) Myocardial infarction Sister CAD (coronary artery disease) Social History (Updated 09/06/19 @ 16:50 by VICKIE Diallo) Smoking Status: Never smoker second hand exposure: No alcohol intake: never substance use type: does not use caffeine: Yes Type: coffee what type of physical activity do you participate in: none seatbelt use: always do you feel safe at home: Yes ROS Const Const: Positive for fatigue and weakness; negative for body ache, fever(s) or chills Eyes Eyes: Positive for change in vision ENT ENT: Positive for dizziness and balance problems Cardio Chest Pain: No Palpitations: No Edema: Bilateral Muscle aches with walking: None Resp Respiratory: Positive for SOB with activity and SOB orthopnea\SOB lying down; negative for SOB at rest or paroxysmal nocturnal dyspnea GI GI: Negative nausea, vomiting blood/hematemesis, bright, red blood in stools or black,tarry stools : Negative for hematuria or frequent nighttime urination/ nocturia Musc Musc: Positive for muscle aches/ myalgia, muscle weakness, joint pain and balance problems Skin Skin: Negative non-healing lesions or rash Neuro Neuro: Positive for dizziness and weakness Endo Endo: Positive for fatigue Allergy Allergy/Immunology: Negative for rash Cardiology Exam Const Appearance: cooperative and ill appearing Nutritional Appearance: obese Orientation: alert, awake and oriented x3 Head Head: normal to inspection Ears: hearing grossly normal bilaterally Nose: external nose normal Face and Sinus: face symmetric Mouth: oral mucosae normal Teeth and gingiva: edentulous Eyes General: appearance normal, both eyes and all related structures Eyelids: eyelids normal EOM: EOM intact bilaterally Neck Neck: normal visual inspection and no JVD Carotids: normal carotid upstroke Chest Chest inspection: normal inspection of the chest, symmetric chest movement and normal respiratory effort; negative cough Auscultation: Bilateral: Diminished Lung Sounds Cardio Rate: tachycardic Rhythm: irregularly irregular Heart sounds: S1 normal and S2 normal; negative rub, gallop or murmur GI GI: obese Neuro General: alert, awake, oriented x3 and CN's II-XI intact bilaterally Skin Skin: no rashes or lesions noted Extremities Pulses: Normal: Right Posterior Tibial Pulse, Left Posterior Tibial Pulse, Right Radial Pulse, Left Radial Pulse Lower Extremity Edema: +3: Bilateral Psych Psychological: normal affect Assessment & Plan 1. Atrial fibrillation with RVR I48.91 Plan - VICKIE Diallo Would like to try to have better control of her patient's heart rate. Will increase his Cardizem to 360 mg daily. However concerned that this may contribute to his lower extremity edema. Patient has been anticoagulated with a factor X a inhibitor for greater than 4 weeks. Would like to try to attempt a cardioversion. This is scheduled for September [address] Jarrett. Orders Orders: Cardioversion 09/04/19 VICKIE Diallo 2. Acute heart failure with preserved ejection fraction I50.31 Plan - VICKIE Diallo Patient still does have symptoms of diastolic heart failure. He was unable to tolerate metolazone due to low potassium. We will attempt a cardioversion to see if this helps with his diastolic dysfunction. He will continue with his current dose of diuretics. Advised that he continue to monitor his weight closely. 3. Coronary artery disease involving [place] coronary artery of [place] heart without angina pectoris I25.10 Plan - VICKIE Diallo Stable, from a cardiac standpoint patient does not have any symptoms of angina. We recommend that they continue with current aggressive medical management and risk factor modification. 4. Essential hypertension I10 Plan - VICKIE Diallo Blood pressure is adequately controlled however we are increasing his Cardizem to try to help with rate control. Plan Detail Other Medications Changed: From: furosemide 80 mg PO DAILY 60 tabs 11RF To: furosemide 80 mg PO BID Vinicius Jarrett MD From: diltiazem CD 120 mg PO Q12 30 caps 11RF To: diltiazem CD 360 mg PO DAILY 30 caps 11RF VICKIE Diallo Additional Comments - VICKIE Diallo Encourage patient to further discuss his symptoms of fatigue with his PCP. Patient may benefit from considering physical therapy. The above patient was discussed with Dr. Jarrett, he agrees with plan of care. Thank you for allowing us to participate in patient's plan of care, if you have any questions please do not hesitate to call. This note was generated using a voice recognition system and there may be incorrect words, spelling or punctuation errors that were not noted when reviewing the office note prior to saving. Follow Up 1 Month (MMM- please give one hour) Coding Level of Care Code Off vis,est,level 4 Diagnoses Atrial fibrillation with RVR I48.91 Acute heart failure with preserved ejection fraction I50.31 ??Heart failure chronicity: acute Coronary artery disease involving [place] coronary artery of [place] heart without angina pectoris I25.10 ??Coronary Disease-Associated Artery/Lesion type: [place] artery ??[place] vs. transplanted heart: [place] heart ??Associated angina: without angina Essential hypertension I10 ??Hypertension type: essential hypertension Coding Level of Care Code Off vis,est,level 4 Diagnoses Atrial fibrillation with RVR I48.91 Acute heart failure with preserved ejection fraction I50.31 ??Heart failure chronicity: acute Coronary artery disease involving [place] coronary artery of [place] heart without angina pectoris I25.10 ??Coronary Disease-Associated Artery/Lesion type: [place] artery ??[place] vs. transplanted heart: [place] heart ??Associated angina: without angina Essential hypertension I10 ??Hypertension type: essential hypertension Supplemental Info Supplemental Information Echocardiogram in 2019: Left ventricular systolic function is normal. The estimated ejection fraction is 65 %. Mild concentric left ventricular hypertrophy. The left atrium is mildly enlarged. There is moderate mitral annular calcification. Mild focal mitral valve calcification of the anterior leaflet. Trivial mitral valve insufficiency. Trivial tricuspid valve insufficiency. Unable to estimate RV systolic pressure/pulmonary artery pressure due to technically difficult study. Unable to assess diastolic dysfunction. Heart catheterization from 03/22/2018: CORONARY ANGIOGRAPHY DOMINANCE: Right Dominant LEFT HEART ASSESSMENT Left Ventricular Ejection Fraction: by LV Gram 65 % Elevated Left Ventricular End Diastolic Pressure LVEDP: 23 mmHg Normal Left Ventricular systolic function RIGHT HEART ASSESSMENT Thermal CO: 4.95 Thermal CI: 1.81 PW: 24/26 17 PA: 46/15 29 RV: 48/0 9 RA: 22/ 18 PVR: 194 Right Heart pressures - elevated Pulmonary Hypertension Moderate - Severe Intracardiac shunting: None LEFT MAIN: Mild luminal irregularities LEFT ANTERIOR DESCENDING ARTERY: PROX LAD: Eccentric: Hazy: 75 % Stenosis MID LAD: Eccentric: 75 % Stenosis, Eccentric: 85 % Stenosis DISTAL LAD: s/p the LEBRON attachment filling late, faintly, and partially CIRCUMFLEX ARTERY: PROX CIRC: Previously placed stent is patent with minimal luminal irregularities RAMUS: is occluded with the mid to distal portion filling via the SVG graft with no obvious angiographically significant appearing disease distal to the graft attachment RIGHT CORONARY ARTERY: Diffuse: Eccentric: 25-50 % Stenosis GRAFTS: LEBRON graft to the Mid LAD is patent with the mid to distal LAD filling late, faintly, and partially Saphenous Vein graft to the Ramus is patent with no angiographically significant appearing disease distal to the graft attachment Saphenous Vein graft to the is patent with no angiographically significant appearing disease distal to the graft attachment Saphenous Vein graft to the RPLV is patent with no angiographically significant appearing disease distal to the graft attachment VALVE FINDINGS: Normal Aortic Valve function Normal Mitral Valve function AORTIC ROOT: Angiographically normal CONCLUSIONS Elevated Left Ventricular End Diastolic Pressure Right heart pressures - moderately to severely elevated The patient has pulmonary hypertension which is moderate - severe. Intracardiac shunting: None Normal LV size, wall motion,and systolic function LVEF: by LV gram 65 % [place] Multivessel CAD LEBRON to the LAD: patent SVG to the IR: patent SVG to the RPDA: patent SVG to the RPLV: patent RECOMMENDATIONS Risk factor modification Medical therapy He has undergone evaluation with a transthoracic echocardiogram. This was performed on 02/15/2018. The results are as noted below.Interpretation Summary Normal LV size. Mild concentric left ventricular hypertrophy. Left ventricular systolic function is normal. The estimated ejection fraction is 65 %. Transmitral diastolic flow velocities suggest severe (stage 3) diastolic dysfunction Mild (1+) tricuspid valve insufficiency. He states he has had no other laboratory studies, ECGs, or chest x-rays. There have been no other cardiovascular diagnostic studies performed. As you recall he does have a history of underlying cardiovascular disease. This includes CAD. Based upon review of his medical records it appears his last diagnostic cardiac catheterization was performed on 02/17/2011 at [facility]. At that time his left ventricle was normal with an LVEF of 70%; mild to moderately elevated left ventricular end-diastolic pressure; left main coronary artery with 10-20% stenosis; LAD with 60-70% stenosis in the proximal portion, 50-60% stenosis in the midportion, and 80-90% stenosis in the midportion with a subsequent LEBRON graft to the LAD. The LAD was reported as occluded distal to the LEBRON anastomosis. A small proximal diagonal branch had 50-60% and 70-80% stenosis. There was an occluded proximal to mid intermediate ramus branch. There was a patent SVG graft to the intermediate ramus branch. The proximal LCx had 80-90% stenosis. The RCA had 40-50% stenosis and subsequent occlusion in the proximal PDA. There was notation of a patent SVG graft to the intermediate ramus vessel as well as the PDA and the third right posterior lateral artery. He was subsequently recommended for PCI of the LCx system. This occurred on 02/18/2011. At that time he received a Promus 3.0?12 mm stent to the mid LCx system. His coronary bypass grafting surgery was performed on 11/05/2010. At that time he received the aforementioned LEBRON to the LAD, SVG to the intermediate ramus vessel, SVG to the PDA, and SVG to the posterior lateral left ventricular branch. He also received pulmonary vein isolation with an Atrialcure ablation and ligation of the left atrial appendage. He did have an exercise tolerance test in the form of a pharmacologic stress nuclear imaging study performed on 09/10/2015. The results are as noted below. IMPRESSION: 1. Rest and stress SPECT Cardiolite nuclear imaging demonstrate myocardial perfusion changes appearing compatible with an area of physiologic apical thinning, however, an area of previous myocardial injury/infarction cannot be excluded, with no myocardial perfusion changes considered diagnostic for stress-induced myocardial ischemia. 2. The gated Cardiolite study reports an LVEF of 56%. Diagnostics Electrocardiogram 08/14/19 Echocardiogram 07/18/19 Stress Test Nuclear Medicine 09/10/15 Cardiac Catheterization 03/22/18 Chest X-Ray 07/25/19 Pulmonary Pulmonary Function Test 08/10/18 Pulmonary Exercise Test 05/05/17 09/06/19 1650 <Electronically signed by Tania Wick> Date _ Tania JOHNSTON 09/06/19 1704<Electronically signed by Vinicius Jarrett MD> Cosigner Signature: Date (if applicable) Vinicius Jarrett MD CC: Abdi Navarro MD ~ I have re-examined the patient. There are no clinical changes since date of exam.
--- NOTE | 2019-09-08 12:09 | CARDIOVERS ---
Cardioversion Cardioversion: Date: 09-08-19 Procedure: Synchronized Biphasic DC Cardioversion Indications: Atrial fibrillation Consent: [Per the Patient] Anesthesia: per Dr. Turpin of pulmonology and critical care medicine with propofol 60 mg IV push total Procedure: Synchronized Biphasic DC Cardioversion: 200 J x1: Result: Sinus rhythm; PACs Complications: no apparent complications This note was generated with Transmit Promoation software. It may contain incorrect words, spelling, and punctuation that were not noted in checking the note before signing.
--- NOTE | 2019-09-08 12:10 | EKG12_ITS ---
Test Reason : AFIB Blood Pressure : / mmHG Vent. Rate : 125 BPM Atrial Rate : 214 BPM P-R Int : 000 ms QRS Dur : 098 ms QT Int : 300 ms P-R-T Axes : 000 086 -28 degrees QTc Int : 433 ms Atrial fibrillation with premature ventricular or aberrantly conducted complexes Abnormal ECG When compared with ECG of 30-JUL-2019 07:29, Nonspecific T wave abnormality, worse in Inferior leads Confirmed by ANEESH WEI, LALIT ([id number]), editorial specialist LANIE RUSSELL ([id number]) on 09/18/2019 11:37:48 AM Referred By: Vinicius Jarrett Confirmed By:LALIT MELENDREZ MD
--- NOTE | 2019-09-08 14:04 | PCM.OP.PRO ---
Problem List (1) Atrial fibrillation with RVR Status: Acute (2) (HFpEF) heart failure with preserved ejection fraction Status: Chronic Qualifiers: Heart failure chronicity: chronic Qualified Code(s): I50.32 - Chronic diastolic (congestive) heart failure (3) Body mass index 40.0-44.9, adult Status: Chronic (4) Coronary artery disease Status: Chronic Qualifiers: (5) DM (diabetes mellitus) with peripheral vascular complication Status: Chronic (6) Hyperlipidemia Status: Chronic Qualifiers: (7) Hypertension Status: Chronic Qualifiers: (8) RAQUEL (obstructive sleep apnea) Status: Chronic (9) Periodic limb movement sleep disorder Status: Chronic (10) Presence of aortocoronary bypass graft Status: Chronic Comment: CABG x4: LEBRON to LAD, SVG to RI, SVG to PDA, SVG to posterolateral Lt ventricular branch, PVI w/ Atricure Ablation and ligation of Lt atrial appendage 10/2010 (11) Presence of stent in coronary artery Status: Chronic Comment: PTCA/Stent to mid LCX 01/2011 (12) Pulmonary hypertension Status: Chronic Comment: Type II (13) Type 2 diabetes mellitus Status: Chronic Procedure Report Date of Procedure: 09/08/19 - Conscious sedation CONSCIOUS SEDATION REPORT BRIEF HISTORY OF PRESENT ILLNESS: The patient is a 74-year-old male who presented to [facility] for an elective outpatient cardioversion due to underlying atrial fibrillation. The patient reports no PO intake since midnight. The patient does have a history of obstructive sleep apnea. The patient reports no history of smoking and COPD. The patient denies any recent constitutional symptoms such as fevers, chills, nausea or vomiting. The patient denies previous anesthetic complications. Patient's last known ejection fraction is 65%. Patient states he has had issues with waking up aggressive following anesthesia. PHYSICAL EXAMINATION: VITAL SIGNS: Reviewed and were acceptable. GENERAL: The patient is a male, in no apparent distress, speaking in full sentences. HEENT: Normocephalic, atraumatic. Mucous membranes are moist and pink. Good mouth opening noted. Trachea is midline. Good neck mobility. MP IV CHEST: S1, S2 irregularly irregular. No murmurs, rubs or gallops were noted. LUNGS: Clear to auscultation bilaterally without appreciable wheezes, rales or rhonchi. ABDOMEN: Soft, nontender, nondistended. Positive bowel sounds. EXTREMITIES: There is no clubbing, cyanosis. Significant right lower extremity edema with venous stasis changes. ASA Class: II DESCRIPTION OF PROCEDURE: After confirmation of informed consent, the patient's anesthesia plan was reviewed in detail. Propofol was chosen. Risks and benefits were reviewed and the patient agreed to proceed. At 11:50 AM, the patient was given 40 mg of propofol. The patient required a total of 60 mg of propofol throughout the procedure to achieve appropriate sedation. The patient achieved an appropriate level of sedation and received 1 attempt synchronized cardioversion, at [address] Jarrett at the bedside. This was successful in achieving normal sinus rhythm. The patient was monitored until 11:57 AM, at which time the patient reached their baseline mental status and function. The patient tolerated the procedure well. COMPLICATIONS: None ESTIMATED BLOOD LOSS: None RECOMMENDATIONS: Okay to recover in usual fashion. Code Visit [id number]: Other Procedure See Report - 24494 - 7 minutes
== END 2019-09-08 12:00 | disposition home or self-care (01) ==
PROVIDERS: Family Provider Family Medicine; PCP Family Medicine; Referring Provider Internal Medicine Cardiovascular Disease; Visit Provider Internal Medicine Cardiovascular Disease
DX: I48.0 Paroxysmal atrial fibrillation (principal); I49.1 Atrial premature depolarization; I25.10 Atherosclerotic heart disease of native coronary artery without angina pectoris; E11.22 Type 2 diabetes mellitus with diabetic chronic kidney disease; I13.0 Hypertensive heart and chronic kidney disease with heart failure and stage 1 through stage 4 chronic kidney disease, or unspecified chronic kidney disease; N18.3 Chronic kidney disease, stage 3 (moderate); I50.9 Heart failure, unspecified; D50.9 Iron deficiency anemia, unspecified; G47.33 Obstructive sleep apnea (adult) (pediatric); E66.9 Obesity, unspecified; Z68.41 Body mass index [BMI] 40.0-44.9, adult; I49.3 Ventricular premature depolarization; N40.0 Benign prostatic hyperplasia without lower urinary tract symptoms; M19.90 Unspecified osteoarthritis, unspecified site; E78.5 Hyperlipidemia, unspecified; I27.20 Pulmonary hypertension, unspecified; Z87.09 Personal history of other diseases of the respiratory system; Z95.1 Presence of aortocoronary bypass graft; Z79.01 Long term (current) use of anticoagulants; Z79.4 Long term (current) use of insulin; Z79.899 Other long term (current) drug therapy
CPT/HCPCS: 92960; 93005; J7040

== ENCOUNTER → 2019-10-11 15:49 | Outpatient (CLI) | payer MEDICARE, SELFPAY ==
[2019-10-11 14:35] VITALS: BMI 41.2
[2019-10-11 17:51] LABS: BUN 49 mg/dL (7-18); BUN/Creat Ratio 29.5 RATIO (10-20); Calcium,Total 9.2 mg/dL (8.5-10.1); Carbon Dioxide > 45.0 mmol/L (21.0-32.0); Chloride 73 mmol/L (98-107); Creatinine, Serum 1.66 mg/dL (0.70-1.30); EST Glomerular Filtration Rate 43 mL/min (>60); Est Glom Filt Rate - Afr Amer 52 mL/min (>60); Glucose 47 mg/dL (74-106); Potassium 1.9 mmol/L (3.5-5.1); Sodium Level 130 mmol/L (136-145)
== END ==
LOC: LABSPEC 15:50 → LAB 15:51
PROVIDERS: Family Provider Family Medicine; PCP Family Medicine; Referring Provider Physician Assistant Medical; Visit Provider Physician Assistant Medical
DX: I48.0 Paroxysmal atrial fibrillation (principal)
CPT/HCPCS: 36415; 80048

== ENCOUNTER 2019-10-11 18:21 | Inpatient (IN) | payer MEDICARE, SELFPAY ==
[2019-10-11] VITALS (7 sets, daily range): BP systolic 124–157; BP diastolic 69–91; PULSE 103–116; RESP 16–27; TEMP 36.4–36.7; O2SAT 4–100; BMI 41.2; BMI 38.9
--- NOTE | 2019-10-11 18:39 | EKG12_ITS ---
Test Reason : Blood Pressure : / mmHG Vent. Rate : 111 BPM Atrial Rate : 107 BPM P-R Int : 000 ms QRS Dur : 104 ms QT Int : 466 ms P-R-T Axes : 000 084 053 degrees QTc Int : 633 ms Atrial fibrillation with rapid ventricular response with premature ventricular or aberrantly conducte d complexes Prolonged QT Abnormal ECG Confirmed by ROBINSON WEI, JOHNNIE ([id number]), field map editor TRACY MCLAUGHLIN ([id number]) on 10/13/2019 12:37:20 PM Referred By: Josephine Avila Confirmed By:TIGIST BOWERS MD
--- NOTE | 2019-10-11 19:42 | ED.RN ---
DR WALLS MADE AWARE OF K+1.9,CHLORIDE 72, CO2 GREATER THAN 45.
[2019-10-11 19:43] LABS: BUN 50 mg/dL (7-18); BUN/Creat Ratio 28.7 RATIO (10-20); Carbon Dioxide > 45.0 mmol/L (21.0-32.0); Chloride 72 mmol/L (98-107); Creatinine, Serum 1.74 mg/dL (0.70-1.30); EST Glomerular Filtration Rate 41 mL/min (>60); Est Glom Filt Rate - Afr Amer 49 mL/min (>60); Estimated Creatinine Clearance 43.84 ml/min; Glucose 166 mg/dL (74-106); Magnesium 2.6 mg/dL (1.6-2.6); Potassium 1.9 mmol/L (3.5-5.1); Sodium Level 127 mmol/L (136-145)
--- NOTE | 2019-10-11 19:56 | ED.DCSUM_ITS ---
- ER Visit Summary Date of Service: 10/11/19 Chief Complaint: [Abnormal lab values] History of Present Illness: The patient is a 74 M [presents to the emergency department complaint of abnormal lab values. Patient states he had some blood work performed today that was ordered by his management specialist and it was noted that he had a low potassium and was told to come to the emergency department. Patient really states he feels quite well otherwise. He denies any chest pain or shortness of breath currently. Patient is always on 2 L of O2 for his history of CHF. Patient takes 80 mg of Lasix 3 times a day and does not take any potassium currently. Patient states that he discontinued all of his medica tions 3 or 4 weeks ago but then has since gotten back on 5 of his medications. [place] any chest pain.] Physical Examination: [HEENT-PERRLA, EOMI. Cranial nerves II through XII gr ossly intact. TMs clear. Mucous membranes moist. No adenopathy. Cardiovascular-irregularly irregular with a 2 out of 6 systolic ejection murmur. Lungs-initially in the bases. Patient has some rales in the bases. No accessory muscle use or retractions. Abdomen-normoactive bowel sounds, soft, nontender, no rebound or rigidity, no peritoneal signs. Extremities-intact ?4, normal range of motion, normal pulses, atraumatic. Patient has +2 edema both lower extremities.] Test Results: [EKG obtained arrival showed atrial fibrillation with a ventricular rate of 111 bpm with prolonged QT. BMP obtained showed a sodium of 127, potassium 1.9, chloride 72, glucose 166, BUN 50, creatinine 1.74.] Emergency Department Course and Treatment: [Patient was ordered potassium 40 mEq IV.] Treatment Plan: [Admit for replacement of potassium.] Disposition: [Admit] Impression: [Hypokalemia-severe CHF Atrial fibrillation] This note was generated with [employer] dictation software. It may contain incorrect words, spelling, and punctuation that were not noted in review of the chart prior to signing ED Disposition - Plan for ED Patient: Referrals: Abdi Navarro MD [Primary Care Provider] -
--- NOTE | 2019-10-11 20:11 | HP.PCM_ITS ---
Problem List (1) Hypokalemia Status: Acute (2) Hyponatremia Status: Acute (3) Hypochloremia Status: Acute (4) CKD (chronic kidney disease), stage III Status: Chronic (5) Hyperlipidemia Status: Chronic Qualifiers: Hyperlipidemia type: unspecified (6) Hypertension Status: Chronic Qualifiers: Hypertension type: essential hypertension (7) Paroxysmal a-fib Status: Chronic Comment: S/P pulmonary vein isolation; (8) Coronary artery disease Status: Chronic Qualifiers: Coronary Disease-Associated Artery/Lesion type: unspecified vessel or lesion type [place] vs. transplanted heart: unspecified whether [place] or transplanted heart Associated angina: angina presence unspecified Qualified Code(s): I25.10 - Atherosclerotic heart disease of [place] coronary artery without angina pectoris (9) (HFpEF) heart failure with preserved ejection fraction Status: Chronic Qualifiers: Heart failure chronicity: chronic Qualified Code(s): I50.32 - Chronic diastolic (congestive) heart failure (10) Presence of aortocoronary bypass graft Status: Chronic Comment: CABG x4: LEBRON to LAD, SVG to RI, SVG to PDA, SVG to posterolateral Lt ventricular branch, PVI w/ Atricure Ablation and ligation of Lt atrial appendage 10/2010 (11) Presence of stent in coronary artery Status: Chronic Comment: PTCA/Stent to mid LCX 01/2011 (12) DM (diabetes mellitus) with peripheral vascular complication Status: Chronic (13) Atherosclerotic heart disease of [place] coronary artery without angina pectoris Status: Chronic Qualifiers: [place] vs. transplanted heart: unspecified whether [place] or transplanted heart Qualified Code(s): I25.10 - Atherosclerotic heart disease of [place] coronary artery without angina pectoris Comment: CABG x4: LEBRON to LAD, SVG to RI, SVG to PDA, SVG to posterolateral Lt ventricular branch, PVI w/ Atricure Ablation and ligation of Lt atrial appendage 10/2010; PTCA/Stent to mid LCX 01/2011 (14) Body mass index 40.0-44.9, adult Status: Chronic (15) RAQUEL (obstructive sleep apnea) Status: Chronic History of Present Illness Date of Admission: 10/11/19 Chief Complaint: Abnormal labs The patient is a 74 y/o M w/ PMHx: CKD stage III, Chronic Atrial Fibrillation, Diastolic CHF w/ Chronic Hypoxic Respiratory Failure (2L NC), HTN, HLD, Morbid Obesity, Diabetes mellitus type II, RAQUEL with CPAP non-compliance, Morbid Obesity, CAD s/p CABG x 4 and PCI, BPH who presents to the [facility] ED on 10/11/2019 per referral of his packing room inspector secondary to abnormal labs with notable hypokalemia with patient noted to be asymptomatic with no recent chest pain, dyspnea above baseline as chronically always on 2 L nasal cannula noted to have recently taken himself off of some of his medications including initially his anticoagulant therapy which he restarted following discussions with his candy dipper hand regarding stroke risks as an example in addition to his potassium supplementation but continued to take his aggressive 3 times daily Lasix regimen. Discussed why the patient did this and he very adamantly stated that he was in charge of all of his own medications and his healthcare and can decide when he wanted to stop his medications. Discussed that it would be beneficial to discuss options of de-escalation of his medications especially given these type of presentations and occurrences like this with hyperkalemia. Patient notes that he is unable to tolerate CPAP and unwilling to try again. In the ED included T 90.1, heart rate 116, BP 124/72, respiratory rate 20, 92% on 4 L nasal cannula, BMP with sodium 127, potassium 1.9, chloride 72, carbon dioxide greater than 45, BUN/creatinine 50/1.74, glucose 166, magnesium 2.6. In the ED patient ministered potassium chloride 40 mEq initiated, EKG w/ atrial fibrillation with mild prolonged QT with no acute findings. Past Medical History Past Medical History (Chronic Problems): Chronic Problems (Last Reviewed 09/26/19 @ 13:47 by Corinna Bryant) CKD (chronic kidney disease), stage III (Chronic) Hyperlipidemia (Chronic) Hypertension (Chronic) Paroxysmal a-fib (Chronic) S/P pulmonary vein isolation; Periodic limb movement sleep disorder (Chronic) Pulmonary hypertension (Chronic) Type II Coronary artery disease (Chronic) (HFpEF) heart failure with preserved ejection fraction (Chronic) Anemia (Chronic) Type 2 diabetes mellitus (Chronic) Presence of aortocoronary bypass graft (Chronic ~10/2010) CABG x4: LEBRON to LAD, SVG to RI, SVG to PDA, SVG to posterolateral Lt ve ntricular branch, PVI w/ Atricure Ablation and ligation of Lt atrial appendage 10/2010 Presence of stent in coronary artery (Chronic ~01/2011) PTCA/Stent to mid LCX 01/2011 DM (diabetes mellitus) with peripheral vascular complication (Chronic) Atherosclerotic heart disease of [place] coronary artery without angina pectoris (Chronic) CABG x4: LEBRON to LAD, SVG to RI, SVG to PDA, SVG to posterolateral Lt ventricular branch, PVI w/ Atricure Ablation and ligation of Lt atrial appendage 10/2010; PTCA/Stent to mid LCX 01/2011 Body mass index 40.0-44.9, adult (Chronic) Meniscus degeneration (Chronic) RAQUEL (obstructive sleep apnea) (Chronic) Obesity (Chronic) PVC (premature ventricular contraction) (Chronic) Medical History: Medical History (Last Reviewed 09/26/19 @ 13:47 by Corinna Bryant) Type 2 diabetes mellitus (Chronic) E11.9 DM (diabetes mellitus) with peripheral vascular complication (Chronic) E11.51 Atherosclerotic heart disease of [place] coronary artery without angina pectoris (Chronic) I25.10 CABG x4: LEBRON to LAD, SVG to RI, SVG to PDA, SVG to posterolateral Lt ventricular branch, PVI w/ Atricure Ablation and ligation of Lt atrial appendage 10/2010; PTCA/Stent to mid LCX 01/2011 Body mass index 40.0-44.9, adult (Chronic) Z68.41 RAQUEL (obstructive sleep apnea) (Chronic) G47.33 Obesity (Chronic) E66.9 PVC (premature ventricular contraction) (Chronic) I49.3 History of cardioversion Onset Date: ~09/08/19 Z98.890 BPH (benign prostatic hyperplasia) N40.0 Osteoarthritis M19.90 Allergies acetaminophen [From Percocet] Allergy (Verified 10/11/19 14:35) Swelling oxycodone [From Percocet] Allergy (Verified 10/11/19 14:35) A-fib, Swelling, Sulfa (Sulfonamide Antibiotics) Allergy (Verified 10/11/19 14:35) Swelling atropine Adverse Reaction (Severe, Verified 10/11/19 14:35) arrhythmia hydrochlorothiazide [From Hyzaar] Adverse Reaction (Severe, Verified 10/11/19 14:35) arrhythmia losartan [From Hyzaar] Adverse Reaction (Severe, Verified 10/11/19 14:35) arrhythmia quinapril [From Accupril] Adverse Reaction (Severe, Verified 10/11/19 14:35) arrhythmia atorvastatin [From Lipitor] Adverse Reaction (Intermediate, Verified 10/11/19 14:35) myalgias metformin Adverse Reaction (Intermediate, Verified 10/11/19 14:35) myalgias Home Medications: Ambulatory Orders Medication Instructions Recorded Gabapentin [Neurontin] 300 mg PO BIDCM 03/11/17 Insulin U-500 [Humulin R U-500 150 - 225 units SQ TIDCM 07/25/19 ([facility])] apixaban 5 mg tablet 5 mg PO BID #60 tab 08/14/19 furosemide 80 mg tablet 80 mg PO TID tab 09/04/19 Ampicillin Trihydrate 500 mg PO TID 10/11/19 Metolazone [Zaroxolyn] 2.5 mg PO DAILY 10/11/19 Pramipexole Di-HCl [Mirapex] 0.5 mg PO QHS 10/11/19 Surgical History: Surgical History (Last Reviewed 09/26/19 @ 13:47 by Corinna Bryant) Presence of aortocoronary bypass graft (Chronic) Onset Date: ~10/2010 Z95.1 CABG x4: LEBRON to LAD, SVG to RI, SVG to PDA, SVG to posterolateral Lt ventricular branch, PVI w/ Atricure Ablation and ligation of Lt atrial appendage 10/2010 Presence of stent in coronary artery (Chronic) Onset Date: ~01/2011 Z95.5 PTCA/Stent to mid LCX 01/2011 Surgical History: - - CABG X4, PCI. Psychiatric History: Anxiety, Depression Lives: Spouse/ Significant Other Smoking Status: Never smoker Tobacco Use: Non-smoker Alcohol: None Drugs: None - *Family History Maternal Family History: Family History (Last Reviewed 09/26/19 @ 13:47 by Corinna Bryant) Mother CAD (coronary artery disease) Father CVA (cerebral vascular accident) Myocardial infarction Brother Myocardial infarction Brother CAD (coronary artery disease) Myocardial infarction Sister CAD (coronary artery disease) History Items: High Cholesterol, Heart Disease, Hypertension Paternal Family History: Family History (Last Reviewed 09/26/19 @ 13:47 by Corinna Bryant) Mother CAD (coronary artery disease) Father CVA (cerebral vascular accident) Myocardial infarction Brother Myocardial infarction Brother CAD (coronary artery disease) Myocardial infarction Sister CAD (coronary artery disease) History Items: High Cholesterol, Heart Disease, Hypertension, Stroke Review of Systems Constitutional: Denies: Chills, Fever, Malaise, Weakness, Weight Change, Fatigue HEENT: Denies: Head Aches, Sinus Congestion, Sinus Drainage Cardiovascular: Denies: Chest Pain, Chest Tightness, Heaviness, Light Headedness, Orthopnea, Palpitations Respiratory: Denies: Cough, Shortness of breath at rest, Sputum production Gastrointestinal: Denies: Abdominal Pain, Nausea, Vomiting Genitourinary: Denies: Dysuria Musculoskeletal: Reports: Joint Pain. Denies: Joint Tenderness Skin: Reports: Skin Changes. Denies: Rash, Wounds Neurological: Denies: Numbness, Tingling, Focal weakness Psychiatric: Reports: Anxiety, Depression. Denies: Homicidal Ideations, Suicidal Ideations Hematologic/ Lymphatic: Reports: Easy Bruising, Easy Bleeding VTE Information - Inpt Only VTE Present on Admission: No VTE Mechan Device Prophylaxis: SCD's VTE Pharm Prophylaxis ordered?: No Reason prophylaxis not ordered:: Treatment Not Indicated - Continue on his home anticoagulant therapy. Patient Problems: Active and Suspected Problems (Last Reviewed 09/26/19 @ 13:47 by Corinna Bryant) Hypokalemia (Acute) Hyponatremia (Acute) Hypochloremia (Acute) Subjective: Seated upright in the ED bed, no acute distress, irritable with questions. Objective: Physical Examination: General: awake, alert, oriented x 3 and cooperative, seated upright in the ED bed, no acute distress, denies any complaints, irritated with questioning. Skin: normal color, turgor, no icterus, cyanosis except occasional very staged ecchymoses to extremities, bilateral lower extremity chronic venous stasis skin changes, dry skin. HEENT: AT/NC, EOMI, PERRLA, mildly dry MM, no carotid bruits or JVD noted; however, habitus makes examination difficult with thickened neck. Lungs: CTA bilaterally, moderate effort, moderate decrease BL bases, no rales, ronchi or wheezing. Heart: Irregular, rate controlled; no gallop, rub audible. Abdomen: soft, morbidly obese, NTTP, ND, normal BS, no HSM; however, habitus makes examination difficult. Extremities: no cyanosis, clubbing, see skin, bilateral lower extremity chronic venous stasis skin changes, dry, no obvious pitting edema. Neurological: patient awake, alert, oriented x 3; cognitive function intact; pupils equally reactive to light and accomodation; cranial nerves II-XII grossly normal, moving all 4 extremities, no focal deficits, strength mildly global dec rease likely chronic secondary to chronic comorbidities, no acute complaints currently. Psychiatric: affect appears irritable, no acute evidence of depressive or anxiety feelings. - Physical Exam Vitals/I&O's: Vital Signs Temp Pulse Resp BP Pulse Ox 98.1 F 103 H 16 143/77 H 4 10/11/19 19:29 10/11/19 19:29 10/11/19 19:29 10/11/19 19:29 10/11/19 19:29 Oxygen Flow Rate (L/min) 4 Oxygen Delivery Method Nasal Cannula Weight: 330 lb Body Mass Index (BMI) 41.2 Laboratory Results 10/11/19 19:04: Sodium 127 L, Potassium 1.9 L*, Chloride 72 L*, Carbon Dioxide > 45.0 H*, Anion Gap TNP, BUN 50 H, Creatinine 1.74 H, Estim Creat Clear Calc 43.84, Est GFR (MDRD) Af Amer 49 L, Est GFR (MDRD) Non-Af 41 L, BUN/Creatinine Ratio 28.7 H, Glucose 166 H, Calcium 9.0, Magnesium 2.6 Current Medications Potassium Chloride () 10 meq in 100 mls @ 100 mls/hr IV BOLUS Q1H EHSAN Stop: 10/11/19 23:44 Assessment/Plan All Active Problems (Last Reviewed 09/26/19 @ 13:47 by Corinna Bryant) Hypokalemia (Acute) Hyponatremia (Acute) Hypochloremia (Acute) Atrial fibrillation with RVR (Acute) The patient is a 74 y/o M w/ PMHx: CKD stage III, Chronic Atrial Fibrillation, Diastolic CHF w/ Chronic Hypoxic Respiratory Failure (2L NC), HTN, HLD, Morbid Obesity, Diabetes mellitus type II, RAQUEL with CPAP non-compliance, Morbid Obesity, CAD s/p CABG x 4 and PCI, BPH who presents to the [facility] ED on 10/11/2019 per referral of his packing room inspector secondary to abnormal labs with notable hypokalemia with patient noted to be asymptomatic with no recent chest pain, dyspnea, noted to have recently taken himself off of some of his medications including his potassium supplementation. 1. Hypokalemia: Admission K+ 1.9, supplementation given while in the emergency room, likely secondary to ongoing aggressive diuresis with Lasix and metolazone without continuation of his oral potassium supplementation, obtain magnesium level, will repeat level this evening and administer further therapy with repeat level in AM, will maintain on cardiac telemetry. 2. Hyponatremia, hypochloremia, multifactorial: Likely secondary to hypovolemia given aggressive diuresis. Admission sodium 127, chloride 72, likely secondary to aggressive self diuresis, holding Lasix and metolazone, gently hydrating, repeat level in AM. 3. Chronic Kidney Disease Stage III: Admission BUN/Cr 50/1.74, baseline renal function appears 1.3-1.5, repeat BMP in AM. 4. CAD: Status post CABG x4 and PCI, will continue apixaban, not on beta- memo, GLORIA inhibitor or ARB nor statin therapy with self recent de-escalation of his medications, encourage medication compliance, encourage follow-up with cardiology. 5. Chronic atrial fibrillation: We will continue patient home apixaban regimen, rate controlled, not on rate or rhythm agent. Encouraged continued follow-up with his packing room inspector. 6. Chronic diastolic CHF with chronic hypoxic and hypercarbic respiratory failure: We will continue patient home chronic oxygen supplementation, holding Lasix temporarily given acute presentation with aggressive self diuresis with electrolyte disturbances, gently hydrating given underlying CHF history, resume Lasix once appropriate, also holding metolazone, not on GLORIA inhibitor or arm nor is patient on Lasix, encourage continued follow-up with cardiology and encourage medication compliance. Declined usage of CPAP or BiPAP machine. 7. Hypertension: Given presentation with electrolyte disturbances temporarily holding Lasix and metolazone, resume once clinically appropriate, not on GLORIA inhibitor or beta-memo, defer to cardiology patient has been discontinuing his medications, PRN hydralazine. 8. Hyperlipidemia: Not on statin therapy, encouraged medication compliance, encourage continued follow-up with cardiology. 9. Diabetes mellitus type II: Will continue home insulin regimen, ADA diet, accu checks w/ ISS. 10. Morbid Obesity: Weight loss and lifestyle changes encouraged, nutrition consulted. 11. RAQUEL: Noncompliant with CPAP. 12. DVT prophylaxis: SCDs, apixaban. 13. CODE status: Patient's present and is his healthcare power of sustainability coach, living will in place. Discussed CODE status at length including difference between FULL code, DNR-CCA and DNR-CC status. Following discussions about the differences in these status, requested DNR-CCA, no intubation status. Advanced Care Planning Face to Face Time: 16 minutes. Code Visit Inpatient E&M: 64219 Init Hosp L3 Procedures: 87845 Advncd Care Plan 30 Min
[2019-10-11] MEDS: Potassium Chloride 10mEq/100mL 10 MEQ/100 ML IV.SOLN. 100 MEQ IV BOLUS ×3 (20:23→22:48)
[2019-10-11 22:40] LABS: Bedside Glucose 92 mg/dL (70-110)
[2019-10-11] MEDS: Pramipexole Di-HCl 0.5 MG Tablet PO (22:48)
[2019-10-11] MEDS: Gabapentin 300 MG Capsule PO (22:48)
[2019-10-11] MEDS: guaiFENesin 600 MG Tablet PO (22:48)
[2019-10-11] MEDS: APIXABAN 5 MG TABLET PO (22:48)
[2019-10-11] MEDS: AMOXICILLIN 500 MG CAPSULE PO (23:04)
[2019-10-11 23:37] LABS: BUN 47 mg/dL (7-18); BUN/Creat Ratio 29.6 RATIO (10-20); Calcium,Total 8.9 mg/dL (8.5-10.1); Carbon Dioxide > 45.0 mmol/L (21.0-32.0); Chloride 74 mmol/L (98-107); Creatinine, Serum 1.59 mg/dL (0.70-1.30); EST Glomerular Filtration Rate 45 mL/min (>60); Est Glom Filt Rate - Afr Amer 55 mL/min (>60); Estimated Creatinine Clearance 47.98 ml/min; Glucose 147 mg/dL (74-106); Potassium 2.1 mmol/L (3.5-5.1); Sodium Level 129 mmol/L (136-145)
[2019-10-12] VITALS (9 sets, daily range): BP systolic 118–144; BP diastolic 56–83; PULSE 97–118; RESP 16–18; TEMP 36.8–37.3; O2SAT 96–98
[2019-10-12] MEDS: Potassium Chloride 10mEq/100mL 10 MEQ/100 ML IV.SOLN. 100 MEQ IV BOLUS ×13 (00:20→21:22)
[2019-10-12] MEDS: 0.9% Normal Saline 1,000 ML 100 ML IV ×2 (00:20→13:45)
[2019-10-12] MEDS: AMOXICILLIN 500 MG CAPSULE PO ×3 (05:10→21:22)
[2019-10-12] MEDS: Insulin Lispro 100 UNIT/ML INSULN.PEN SC (06:39)
[2019-10-12 06:58] LABS: Basophil# 0.03 X10^3/uL; Basophil% 0.2 % (0-1); Eosinophil# 0.08 X10^3/uL; Eosinophils% 0.6 % (0-5); Hematocrit 32.8 % (40-54); Hemoglobin 9.6 g/dL (13.0-16.5); Lymphocyte % 8.6 % (19-41); Mean Corp Hgb Conc 29.3 g/dL (32-36); Mean Corpuscular Volume 78.5 fL (80-94); Mean Platelet Vol. 9.2 fl (6.2-12.0); Monocyte# 0.59 X10^3/uL; Monocyte% 4.2 % (0-10); NRBC Flagged by Analyzer 0 % (0-5); Neutrophil # 11.96 X10^3/uL (2.7-7.7); Neutrophil % 85.8 % (47-70); Platelet Count 245 K/mm3 (150-450); RBC Distribution Width CV 19.2 % (11.6-14.6); RBC Distribution Width SD 53.3 fl (35.1-43.9); Red Blood Count 4.18 M/mm3 (4.6-6.2)
[2019-10-12 07:05] LABS: Bedside Glucose 195 mg/dL (70-110)
[2019-10-12 07:38] LABS: Anion Gap 5 (5-15); BUN 43 mg/dL (7-18); BUN/Creat Ratio 30.1 RATIO (10-20); Calcium,Total 8.6 mg/dL (8.5-10.1); Chloride 78 mmol/L (98-107); Creatinine, Serum 1.43 mg/dL (0.70-1.30); EST Glomerular Filtration Rate 51 mL/min (>60); Est Glom Filt Rate - Afr Amer 62 mL/min (>60); Estimated Creatinine Clearance 53.35 ml/min; Glucose 176 mg/dL (74-106); Potassium 2.3 mmol/L (3.5-5.1); Sodium Level 128 mmol/L (136-145)
[2019-10-12] MEDS: Gabapentin 300 MG Capsule PO ×2 (08:18→16:16)
[2019-10-12] MEDS: APIXABAN 5 MG TABLET PO ×2 (08:18→21:22)
[2019-10-12] MEDS: guaiFENesin 600 MG Tablet PO ×2 (08:18→21:22)
[2019-10-12] MEDS: Glucerna Shake 120 ML LIQUID PO (08:27)
--- NOTE | 2019-10-12 08:28 | EKG12_ITS ---
Test Reason : Blood Pressure : / mmHG Vent. Rate : 122 BPM Atrial Rate : 085 BPM P-R Int : 000 ms QRS Dur : 100 ms QT Int : 398 ms P-R-T Axes : 000 090 017 degrees QTc Int : 567 ms Atrial fibrillation with rapid ventricular response with premature ventricular or aberrantly conducte d complexes Rightward axis Abnormal ECG When compared with ECG of 11-OCT-2019 19:15, MANUAL COMPARISON REQUIRED, DATA IS UNCONFIRMED Confirmed by ANEESH WEI, LALIT ([id number]), assignment editor TRACY MCLAUGHLIN ([id number]) on 10/16/2019 9:57:07 AM Referred By: Josephine Avila Confirmed By:LALIT MELENDREZ MD
--- NOTE | 2019-10-12 11:59 | NURSING ---
Was asked to see patient for dry flaky skin to bilateral lower legs. patient has a small cluster of scabbed areas to the left parekh. washed legs and feet with soap and water. was able to remove all the dry scabbed areas. applied aloe vesta. no need for wound care at this time. no open areas noted.
[2019-10-12 12:11] LABS: Bedside Glucose 172 mg/dL (70-110)
--- NOTE | 2019-10-12 12:22 | PN_ITS ---
<IonBri - Last Filed: 10/12/19 13:01> Patient Problems: Active and Suspected Problems (Last Reviewed 09/26/19 @ 13:47 by Corinna Bryant) Hypokalemia (Acute) Hyponatremia (Acute) Hypochloremia (Acute) Subjective: Patient seen and examined. Drowsy during assessment. Awakes briefly and denies current complaints. - Physical Exam Vitals/I&O's: Vital Signs Temp Pulse Resp BP Pulse Ox 99.0 F 113 H 16 118/56 L 98 10/12/19 09:46 10/12/19 09:46 10/12/19 09:46 10/12/19 09:46 10/12/19 09:46 Oxygen Flow Rate (L/min) 4 Oxygen Delivery Method Nasal Cannula Weight: 312 lb 2.793 oz Body Mass Index (BMI) 38.9 Intake and Output for Last 24 Hours 10/10/19 10/11/19 10/12/19 23:59 23:59 23:59 Intake Total 298.33 / 1018.33 2436.67 / 2436.67 Output Total 1075 / 1075 Balance 298.33 / 493.33 1361.67 / 1361.67 General: - - Drowsy, no apparent distress HEENT: Atraumatic, PERRLA, EOMI, Normocephalic Oral: Dry Mucosa Neck: Supple, No JVD, Negative Carotid Bruits Lungs: Clear to auscultation, Diminished Cardiovascular: - - Atrial fibrillation, tachycardic Abdomen: Bowel Sounds Present, Soft, Non Tender, Obese Extremities: No edema, Capillary Refill Less than 3 Seconds Skin: No rashes, No breakdown, - - Chronic skin changes bilateral lower extremities Musculoskeletal: No Tenderness to Palpation of Joints or Extremities Neurological: Cranial nerves II-XII grossly intact, Neuro grossly intact Psych/Mental Status: - - Unable to assess, drowsy Laboratory Results 10/11/19 19:04: Sodium 127 L, Potassium 1.9 L*, Chloride 72 L*, Carbon Dioxide > 45.0 H*, Anion Gap TNP, BUN 50 H, Creatinine 1.74 H, Estim Creat Clear Calc 43.84, Est GFR (MDRD) Af Amer 49 L, Est GFR (MDRD) Non-Af 41 L, BUN/Creatinine Ratio 28.7 H, Glucose 166 H, Calcium 9.0, Magnesium 2.6 10/11/19 22:18: POC Glucose 92 10/11/19 23:10: Sodium 129 L, Potassium 2.1 L*, Chloride 74 L*, Carbon Dioxide > 45.0 H*, Anion Gap TNP, BUN 47 H, Creatinine 1.59 H, Estim Creat Clear Calc 47.98, Est GFR (MDRD) Af Amer 55 L, Est GFR (MDRD) Non-Af 45 L, BUN/Creatinine Ratio 29.6 H, Glucose 147 H, Calcium 8.9 10/12/19 06:37: POC Glucose 195 H 10/12/19 06:40: WBC 14.0 H, RBC 4.18 L, Hgb 9.6 L, Hct 32.8 L, MCV 78.5 L, MCH 23.0 L, MCHC 29.3 L, RDW Std Deviation 53.3 H, RDW Coeff of Lakshmi 19.2 H, Plt Count 245, MPV 9.2, Immature Gran % (Auto) 0.600, Neut % (Auto) 85.8 H, Lymph % (Auto) 8.6 L, [place] % (Auto) 4.2, Eos % (Auto) 0.6, Baso % (Auto) 0.2, Absolute Neuts (auto) 12.0 H, Absolute Lymphs (auto) 1.20, Nucleated RBC % 0 10/12/19 06:40: Sodium 128 L, Potassium 2.3 L*, Chloride 78 L, Carbon Dioxide 45.0 H, Anion Gap 5, BUN 43 H, Creatinine 1.43 H, Estim Creat Clear Calc 53.35, Est GFR (MDRD) Af Amer 62, Est GFR (MDRD) Non-Af 51 L, BUN/Creatinine Ratio 30.1 H, Glucose 176 H, Calcium 8.6 10/12/19 12:03: POC Glucose 172 H Current Medications Acetaminophen (Tylenol) 650 mg PO Q6H PRN PRN PRN Reason: Non-cardiac pain (mod-severe) Al Hydroxide/Mg Hydroxide (Mylanta Ii) 15 - 30 ml PO Q4H PRN PRN PRN Reason: INDIGESTION Albuterol Sulfate (Ventolin Aerosols) 2.5 mg INHALATION Q2H PRN PRN PRN Reason: dyspnea, wheezing Amiodarone HCl (Cordarone) 200 mg PO DAILY [facility] Amlodipine Besylate (Norvasc) 5 mg PO DAILY [facility] Amoxicillin (Amoxil) 500 mg PO TID [facility] Last Admin: 10/12/19 05:10 Dose: 500 mg Documented by: Apixaban (Eliquis) 5 mg PO BID [facility] Last Admin: 10/12/19 08:18 Dose: 5 mg Documented by: Dextrose (D50w Syringe) 0 gm IV X1 PRN; Protocol PRN Reason: Hypoglycemia Diltiazem HCl (Cardizem Cd) 360 mg PO DAILY [facility] Duloxetine HCl (Cymbalta) 60 mg PO DAILY [facility] Ferrous Sulfate (Ferrous Sulfate) 325 mg PO BIDCM [facility] Furosemide (Lasix) 80 mg PO BIDLX [facility] Last Admin: 10/12/19 08:18 Dose: 300 mg Documented by: Glucagon () 1 mg IM .X1 PRN PRN Reason: Hypoglycemia Guaifenesin (Mucinex) 600 mg PO BID [facility] Last Admin: 10/12/19 08:18 Dose: 600 mg Documented by: Hydralazine HCl (Apresoline Iv) 10 mg IV Q4H PRN PRN PRN Reason: SBP > 160 Sodium Chloride () 250 mls @ 15 mls/hr IV .[id number] PRN PRN Reason: Saline Flush Potassium Chloride () 10 meq in 100 mls @ 100 mls/hr IV BOLUS Q1H [facility] Stop: 10/12/19 13:59 Last Admin: 10/12/19 11:14 Dose: 100 mls/hr Documented by: Insulin Human Lispro (Humalog Kwikpen (Bk)) 0 unit SC ACHS [facility]; Protocol Last Admin: 10/12/19 12:04 Dose: Not Given Documented by: Insulin Human Regular (Humulin R U-500 (Bk)) 150 units SC TIDCM [facility] Last Admin: 10/12/19 12:05 Dose: 150 units Documented by: Isosorbide Mononitrate (Imdur) 30 mg PO DAILY [facility] Magnesium Hydroxide (Milk Of Magnesia) 30 ml PO DAILY PRN PRN Reason: Constipation Melatonin (Melatonin) 3 mg PO QHS PRN PRN PRN Reason: INSOMNIA Metolazone (Zaroxolyn) 2.5 mg PO DAILY [facility] Nutritional Formula (Lactose Free) (Glucerna Shake) 120 ml PO TIDCM [facility] Last Admin: 10/12/19 12:05 Dose: Not Given Documented by: Ondansetron HCl (Zofran) 4 mg IV Q8H PRN PRN PRN Reason: NAUSEA/VOMITING Pantoprazole Sodium (Protonix) 40 mg PO DAILY [facility] Potassium Chloride (K-Dur) 10 meq PO BIDCM [facility] Pramipexole Dihydrochloride (Mirapex) 0.5 mg PO QHS [facility] Last Admin: 10/11/19 22:48 Dose: 0.5 mg Documented by: Sodium Chloride () 10 - 40 ml IV UD PRN PRN Reason: SALINE FLUSH Tamsulosin HCl (Flomax) 0.4 mg PO DAILY@1730 [facility] Medical Necessity - Tobacco Use Smoking Status: Never smoker Tobacco Use: Non-smoker Assessment/Plan All Active Problems (Last Reviewed 09/26/19 @ 13:47 by Corinna Bryant) Hypokalemia (Acute) Hyponatremia (Acute) Hypochloremia (Acute) Atrial fibrillation with RVR (Acute) 1. Hypokalemia-replace per protocol, trend BMP. Suspect secondary to Lasix and metolazone regimen. Diuretic regimen on hold. Magnesium within normal limits. Repeat potassium following IV potassium completion this afternoon. 2. Hyponatremia, hypochloremia-gentle IV fluids. Trend BMP. 3. Chronic kidney disease stage III-at baseline, trend BMP. 4. CAD status post CABG x4 and PCI- continue eliquis, isosorbide. Not on aspirin, statin or beta-memo. 5. Chronic atrial fibrillation-continue Eliquis, Cardizem regimen. 6. Chronic diastolic CHF with chronic hypoxic and hypercapnic respiratory failure-continue oxygen supplementation to maintain O2 at or above 90%. Lasix regimen on hold. 7. Chronic microcytic anemia-at baseline. Continue iron supplementation. 8. Hypertension-blood pressure stable. Continue isosorbide, Cardizem. Diuretic regimen on hold. 9. Hyperlipidemia-not on statin. 10. Type 2 diabetes [id number] ACHS. Continue home insulin regimen and sliding scale insulin. 11. RAQUEL-noncompliant with CPAP. 12. Morbid obesity-encouraged diet and lifestyle modifications. DVT prophylaxis-Eliza This patient was seen by ILIANA Michelle under the supervision of Dr. Andrade. <RaymondBasilia Vikki - Last Filed: 10/12/19 16:21> - Physical Exam Vitals/I&O's: Vital Signs Temp Pulse Resp BP Pulse Ox 99.0 F 113 H 16 118/56 L 98 10/12/19 09:46 10/12/19 09:46 10/12/19 09:46 10/12/19 09:46 10/12/19 09:46 Oxygen Flow Rate (L/min) 4 Oxygen Delivery Method Nasal Cannula Weight: 312 lb 2.793 oz Body Mass Index (BMI) 38.9 Intake and Output for Last 24 Hours 10/10/19 10/11/19 10/12/19 23:59 23:59 23:59 Intake Total 298.33 / 1018.33 2736.67 / 2736.67 Output Total 1725 / 1725 Balance 298.33 / 493.33 1011.67 / 1011.67 Laboratory Results 10/11/19 19:04: Sodium 127 L, Potassium 1.9 L*, Chloride 72 L*, Carbon Dioxide > 45.0 H*, Anion Gap TNP, BUN 50 H, Creatinine 1.74 H, Estim Creat Clear Calc 43.84, Est GFR (MDRD) Af Amer 49 L, Est GFR (MDRD) Non-Af 41 L, BUN/Creatinine Ratio 28.7 H, Glucose 166 H, Calcium 9.0, Magnesium 2.6 10/11/19 22:18: POC Glucose 92 10/11/19 23:10: Sodium 129 L, Potassium 2.1 L*, Chloride 74 L*, Carbon Dioxide > 45.0 H*, Anion Gap TNP, BUN 47 H, Creatinine 1.59 H, Estim Creat Clear Calc 47.98, Est GFR (MDRD) Af Amer 55 L, Est GFR (MDRD) Non-Af 45 L, BUN/Creatinine Ratio 29.6 H, Glucose 147 H, Calcium 8.9 10/12/19 06:37: POC Glucose 195 H 10/12/19 06:40: WBC 14.0 H, RBC 4.18 L, Hgb 9.6 L, Hct 32.8 L, MCV 78.5 L, MCH 23.0 L, MCHC 29.3 L, RDW Std Deviation 53.3 H, RDW Coeff of Lakshmi 19.2 H, Plt Count 245, MPV 9.2, Immature Gran % (Auto) 0.600, Neut % (Auto) 85.8 H, Lymph % (Auto) 8.6 L, [place] % (Auto) 4.2, Eos % (Auto) 0.6, Baso % (Auto) 0.2, Absolute Neuts (auto) 12.0 H, Absolute Lymphs (auto) 1.20, Nucleated RBC % 0 10/12/19 06:40: Sodium 128 L, Potassium 2.3 L*, Chloride 78 L, Carbon Dioxide 45.0 H, Anion Gap 5, BUN 43 H, Creatinine 1.43 H, Estim Creat Clear Calc 53.35, Est GFR (MDRD) Af Amer 62, Est GFR (MDRD) Non-Af 51 L, BUN/Creatinine Ratio 30.1 H, Glucose 176 H, Calcium 8.6 10/12/19 12:03: POC Glucose 172 H Current Medications Acetaminophen (Tylenol) 650 mg PO Q6H PRN PRN PRN Reason: Non-cardiac pain (mod-severe) Al Hydroxide/Mg Hydroxide (Mylanta Ii) 15 - 30 ml PO Q4H PRN PRN PRN Reason: INDIGESTION Albuterol Sulfate (Ventolin Aerosols) 2.5 mg INHALATION Q2H PRN PRN PRN Reason: dyspnea, wheezing Amiodarone HCl (Cordarone) 200 mg PO DAILY [facility] Amlodipine Besylate (Norvasc) 5 mg PO DAILY [facility] Amoxicillin (Amoxil) 500 mg PO TID [facility] Last Admin: 10/12/19 13:47 Dose: 500 mg Documented by: Apixaban (Eliquis) 5 mg PO BID [facility] Last Admin: 10/12/19 08:18 Dose: 5 mg Documented by: Dextrose (D50w Syringe) 0 gm IV X1 PRN; Protocol PRN Reason: Hypoglycemia Diltiazem HCl (Cardizem Cd) 360 mg PO DAILY [facility] Duloxetine HCl (Cymbalta) 60 mg PO DAILY [facility]ous Sulf[facility]) [facility] Last Admin: 10/12/19 16:15 Dose: Not Given Documented by: Gab[facility]) [facility] Last Admin: 10/12/19 08:18 Dose: 300 mg Documented by: Glucagon () 1 mg IM .X1 PRN PRN Reason: Hypoglycemia Guaifenesin (Mucinex) 600 mg PO BID [facility] Last Admin: 10/12/19 08:18 Dose: 600 mg Documented by: Hydralazine HCl (Apresoline Iv) 10 mg IV Q4H PRN PRN PRN Reason: SBP > 160 Sodium Chloride () 250 mls @ 15 mls/hr IV .[id number] PRN PRN Reason: Saline Flush Sodium Chloride () 1,000 mls @ 100 mls/hr IV .Q10H [facility] Stop: 10/12/19 17:59 Last Admin: 10/12/19 13:45 Dose: 100 mls/hr Documented by: Insulin Human Lispro (Humalog Kwikpen ([facility])) 0 unit SC ACHS [facility]; Protocol Last Admin: 10/12/19 16:14 Dose: Not Given Documented by: Insulin Human Regular (Humulin R U-500 ([facility])) 150 units SC TIDCM [facility] Last Admin: 10/12/19 12:05 Dose: 150 units Documented by: Isosorbide Mononitrate (Imdur) 30 mg PO DAILY [facility] Magnesium Hydroxide (Milk Of Magnesia) 30 ml PO DAILY PRN PRN Reason: Constipation Melatonin (Melatonin) 3 mg PO QHS PRN PRN PRN Reason: INSOMNIA Metolazone (Zaroxolyn) 2.5 mg PO DAILY [facility] Ondansetron HCl (Zofran) 4 mg IV Q8H PRN PRN PRN Reason: NAUSEA/VOMITING Pantoprazole Sodium (Protonix) 40 mg PO DAILY [facility] Potassium Chloride (K-Dur) 10 meq PO BIDCM [facility] Pramipexole Dihydrochloride (Mirapex) 0.5 mg PO QHS [facility] Last Admin: 10/11/19 22:48 Dose: 0.5 mg Documented by: Sodium Chloride () 10 - 40 ml IV UD PRN PRN Reason: SALINE FLUSH Tamsulosin HCl (Flomax) 0.4 mg PO DAILY@1730 [facility] Last Admin: 10/12/19 16:15 Dose: Not Given Documented by: Assessment/Plan Patient seen by Bri BARRIENTOS under my supervision Patient was admitted after being referred by his cloth finisher to the ED on account of significant hypokalemia. Patient was completely asymptomatic. This was thought to be due to his Lasix and metolazone that he was taking. He was admitted and managed for hypokalemia. Potassium was aggressively replaced and Lasix and metolazone were held silveira on admission. Seen and examined. Patient had no complaints and felt well. Review of systems otherwise negative. According to his nurse, patient's heart rate has been poorly controlled and had been jumping up into the 130s. EKG showed that he was in A. fib with RVR with heart rate around 120. Per med rec, patient was not on any beta-memo or rate limiting medication. Review of his recent cardiology visit notes shows that patient was supposed to be on amiodarone and Cardizem. Patient however stated that he had not been taking these as he controlled his medications himself and did not feel like taking them. Also vitals reviewed. o/e: Vital Signs Height 6 ft 3 in Weight: 312 lb 2.793 oz Weight in Pounds 312.2 lbs Pulse Ox 98 Temperature 99.0 F Pulse Rate [Apical] 103 Pulse Rate 113 Respiratory Rate 16 Blood Pressure [Right Arm] 143/77 Blood Pressure 118/56 Blood Pressure Position Semi-Fowlers General: - - alert and oriented x 3, cooperative HEENT: Atraumatic, PERRLA, EOMI, Normocephalic Oral: Dry Mucosa Neck: Supple, No JVD, Negative Carotid Bruits Lungs: Clear to auscultation, Diminished Cardiovascular: - - Atrial fibrillation, tachycardic Abdomen: Bowel Sounds Present, Soft, Non Tender, Obese Extremities: No edema, Capillary Refill Less than 3 Seconds Skin: No rashes, No breakdown, mild 1+ bipedal edema Musculoskeletal: No Tenderness to Palpation of Joints or Extremities Neurological: Cranial nerves II-XII grossly intact, Neuro grossly intact Psych/Mental Status: - -normal affect Plan is to continue aggressively replacing potassium resume amiodarone and cardizem at home dose. Patient counseled to take the medications to help control his heart rate. Continue Holding Lasix and metolazone. Rest of management as per ILIANA Michelle's notes which I reviewed and endorsed. Code Visit Inpatient E&M: 90292 Subs Hosp L2
--- NOTE | 2019-10-12 13:28 | CASEMGMT ---
Assessment- SW met with patient and his . They were both in agreement to complete assessment with SW. Living situation- Patient lives with his in a 1 story condo with 1 entry step. PCP: Dr Navarro Specialists: Dr Turpin-Pulmonology, Dr Murry- in [place] for Endocrinology, and Dr Jarrett Cardiology [facility]: [facility] DME: cane, walker, wheelchair, grab bars, shower chair, lift chair, cpap, and 2L oxygen. Cpap and O2 are from [employer] ADL's/IADL's: Patient is mostly independent. He and his share cooking responsibilities. He sponge bathes. His manages his medications. He drives, but his does most of the driving. He uses his walker inside the home and the wheelchair in the garage. Past SNF/rehab: None Past HH: Yes. Could not remember name LW: Yes, and they are aware they are not on file at [facility] POA: Yes, and they are aware they are not on file at [facility] SW asked patient and his if they would like home health at discharge. Patient said he does not need it. SW also talked about Palliative Care with them and patient declined a referral and the pamphlet. Plan: Home with support of Alondra Garcia [employer]
[2019-10-12 16:40] LABS: Bedside Glucose 109 mg/dL (70-110)
[2019-10-12 16:40] LABS: Bedside Glucose 38 mg/dL (70-110)
[2019-10-12 17:00] LABS: Potassium 2.3 mmol/L (3.5-5.1)
[2019-10-12] MEDS: Pramipexole Di-HCl 0.5 MG Tablet PO (21:23)
[2019-10-12 22:06] LABS: Bedside Glucose 118 mg/dL (70-110)
[2019-10-12 22:06] LABS: Bedside Glucose 55 mg/dL (70-110)
[2019-10-13] MEDS: Potassium Chloride 10mEq/100mL 10 MEQ/100 ML IV.SOLN. 100 MEQ IV BOLUS ×4 (00:38→04:08)
[2019-10-13 01:20] LABS: Bedside Glucose 68 mg/dL (70-110)
[2019-10-13 01:25] LABS: Bedside Glucose 122 mg/dL (70-110)
[2019-10-13] MEDS: HYDROcodone Bitartrate/Apap 5/325 Tablet PO (02:16)
[2019-10-13 03:20] VITALS: BP 136/65; PULSE 110; RESP 18; TEMP 37.3; O2SAT 94
[2019-10-13 03:31] VITALS: PULSE 128
[2019-10-13 04:13] VITALS: BP 136/65; PULSE 128
[2019-10-13] MEDS: Metoprolol Tartrate 5 MG/5 ML Vial IV (04:13)
[2019-10-13] MEDS: 0.9% Saline Lock 10 ML Syringe IV ×2 (04:13→06:08)
[2019-10-13 04:31] LABS: Bedside Glucose 203 mg/dL (70-110)
[2019-10-13] MEDS: AMOXICILLIN 500 MG CAPSULE PO (05:25)
[2019-10-13 06:39] LABS: Hematocrit 33.2 % (40-54); Hemoglobin 9.5 g/dL (13.0-16.5); Mean Corp Hgb Conc 28.6 g/dL (32-36); Mean Corpuscular Hgb 22.9 pg (27.0-32.0); Mean Platelet Vol. 9.1 fl (6.2-12.0); Platelet Count 234 K/mm3 (150-450); RBC Distribution Width CV 19.6 % (11.6-14.6); RBC Distribution Width SD 55.4 fl (35.1-43.9); Red Blood Count 4.15 M/mm3 (4.6-6.2); White Blood Count 13.5 K/mm3 (4.4-11.0)
[2019-10-13 07:00] VITALS: PULSE 114
[2019-10-13 07:01] LABS: Bedside Glucose 141 mg/dL (70-110)
[2019-10-13 07:01] LABS: Anion Gap 5 (5-15); BUN 42 mg/dL (7-18); BUN/Creat Ratio 28.2 RATIO (10-20); Calcium,Total 8.5 mg/dL (8.5-10.1); Chloride 84 mmol/L (98-107); Creatinine, Serum 1.49 mg/dL (0.70-1.30); EST Glomerular Filtration Rate 49 mL/min (>60); Est Glom Filt Rate - Afr Amer 59 mL/min (>60); Glucose 142 mg/dL (74-106); Potassium 3.3 mmol/L (3.5-5.1); Sodium Level 131 mmol/L (136-145)
[2019-10-13 08:28] VITALS: BP 128/72; PULSE 107; RESP 16; TEMP 37; O2SAT 98
[2019-10-13] MEDS: dilTIAZem CD 180 MG Capsule 360 MG PO (08:30)
[2019-10-13] MEDS: Ferrous Sulfate 325 MG Tablet PO (08:31)
[2019-10-13] MEDS: guaiFENesin 600 MG Tablet PO (08:32)
[2019-10-13] MEDS: APIXABAN 5 MG TABLET PO (08:33)
[2019-10-13] MEDS: Pantoprazole Sodium 40 MG Tablet PO (08:34)
[2019-10-13] MEDS: Amiodarone 200 MG Tablet PO (08:35)
[2019-10-13] MEDS: Metolazone 2.5 MG Tablet PO (08:35)
[2019-10-13] MEDS: Gabapentin 300 MG Capsule PO (08:36)
--- NOTE | 2019-10-13 10:21 | DCINST_ITS ---
- Discharge Diagnoses Current Active Problems: Current Active and Chronic Problems (Last Reviewed 09/26/19 @ 13:47 by Corinna Bryant) Hypokalemia (Acute) Hyponatremia (Acute) Hypochloremia (Acute) CKD (chronic kidney disease), stage III (Chronic) You will use the following diet at home:: Calorie/Carbohydrate Controlled ( specify 1200, 1400, etc), Cardiac Discharge Activity: Return to Normal Activity Call your doctor if you observe: Shortness of breath, Dizziness, Fainting spells, Chest pain, Increased palpitations (irregular heartbeat) Additional Instructions: You will need to have repeat BMP to check your potassium in 3 days which can be completed by her primary care provider. Allergies/Adverse Reactions: Allergies acetaminophen [From Percocet] Allergy (Verified 10/11/19 14:35) Swelling oxycodone [From Percocet] Allergy (Verified 10/11/19 14:35) A-fib, Swelling, Sulfa (Sulfonamide Antibiotics) Allergy (Verified 10/11/19 14:35) Swelling atropine Adverse Reaction (Severe, Verified 10/11/19 14:35) arrhythmia hydrochlorothiazide [From Hyzaar] Adverse Reaction (Severe, Verified 10/11/19 14:35) arrhythmia losartan [From Hyzaar] Adverse Reaction (Severe, Verified 10/11/19 14:35) arrhythmia quinapril [From Accupril] Adverse Reaction (Severe, Verified 10/11/19 14:35) arrhythmia atorvastatin [From Lipitor] Adverse Reaction (Intermediate, Verified 10/11/19 14:35) myalgias metformin Adverse Reaction (Intermediate, Verified 10/11/19 14:35) myalgias Medications to take at Discharge Gabapentin [Neurontin] 300 mg PO BIDCM 03/11/17 Insulin U-500 [Humulin R U-500 ([facility])] 150 - 225 units SQ TIDCM 07/25/19 apixaban 5 mg tablet 5 mg PO BID #60 tab 08/14/19 furosemide 80 mg tablet 80 mg PO BID tab 09/04/19 Metolazone [Zaroxolyn] 2.5 mg PO DAILY 10/11/19 Pramipexole Di-HCl [Mirapex] 0.5 mg PO QHS 10/11/19 Amiodarone HCl 200 mg PO DAILY 10/12/19 Amlodipine Besylate 5 mg PO DAILY 10/12/19 Diltiazem HCl [Diltiazem 24Hr ER (Cd)] 360 mg PO DAILY 10/12/19 Duloxetine HCl 60 mg PO DAILY 10/12/19 Ferrous Sulfate 325 mg PO BID 10/12/19 Isosorbide Mononitrate [Isosorbide Mononitrate ER] 30 mg PO DAILY 10/12/19 Pantoprazole Sodium [Protonix] 40 mg PO DAILY 10/12/19 Tamsulosin HCl [Flomax] 0.4 mg PO DAILY 10/12/19 Ampicillin Trihydrate 500 mg PO TID #0 10/13/19 Hydrocodone/Acetaminophen [Hydrocodone-Acetamin 5-325 mg] 1 tab PO BID 10/13/19 Potassium Chloride [K-Dur] 40 meq PO BID #120 tab 10/13/19 The following prescriptions were given: Potassium Chloride [K-Dur] 40 meq PO BID #120 tab Transmission Status: Pending to [id number] [facility] Primary Care Physician: Abdi Navarro MD [Primary Care Provider] - Please follow up with your Primary Care Physician in: 3-5 Days Test Results: Test results from this visit will be discussed in further detail at your follow- up appointment, if applicable. Please Follow Up With: Tania Wolf PA When: 1-2 Weeks Proposed Discharge Date: 10/13/19
--- NOTE | 2019-10-13 10:41 | PHA.DC.MR ---
Pharmacy Service has performed discharge medication reconciliation for this patient. Home Medications Gabapentin [Neurontin] 300 mg PO BIDCM 03/11/17 Insulin U-500 [Humulin R U-500 ([facility])] 150 - 225 units SQ TIDCM 07/25/19 apixaban 5 mg tablet 5 mg PO BID #60 tab 08/14/19 furosemide 80 mg tablet 80 mg PO BID tab 09/04/19 Metolazone [Zaroxolyn] 2.5 mg PO DAILY 10/11/19 Pramipexole Di-HCl [Mirapex] 0.5 mg PO QHS 10/11/19 Amiodarone HCl 200 mg PO DAILY 10/12/19 Amlodipine Besylate 5 mg PO DAILY 10/12/19 Diltiazem HCl [Diltiazem 24Hr ER (Cd)] 360 mg PO DAILY 10/12/19 Duloxetine HCl 60 mg PO DAILY 10/12/19 Ferrous Sulfate 325 mg PO BID 10/12/19 Isosorbide Mononitrate [Isosorbide Mononitrate ER] 30 mg PO DAILY 10/12/19 Pantoprazole Sodium [Protonix] 40 mg PO DAILY 10/12/19 Tamsulosin HCl [Flomax] 0.4 mg PO DAILY 10/12/19 Ampicillin Trihydrate 500 mg PO TID #0 10/13/19 Hydrocodone/Acetaminophen [Hydrocodone-Acetamin 5-325 mg] 1 tab PO BID 10/13/19 Potassium Chloride [K-Dur] 40 meq PO BID #120 tab 10/13/19 The patient's discharge medication list was reviewed for discrepancies and discrepancies were resolved.
--- NOTE | 2019-10-13 12:46 | DS.PCM_ITS ---
<Bri Lemon - Last Filed: 10/13/19 12:59> Discharge Date and Diagnosis Date of Admission: 10/11/19 Date of Discharge: 10/13/19 - Primary Discharge Diagnosis 1. Hypokalemia, secondary to diuretic regimen 2. Hypovolemic hyponatremia, hypochloremia 3. Chronic kidney disease stage III 4. CAD status post CABG x4 and PCI 5. Chronic atrial fibrillation 6. Chronic diastolic CHF with chronic hypoxic and hypercapnic respiratory failure 7. Chronic microcytic anemia 8. Hypertension 9. Hyperlipidemia 10. Type 2 diabetes mellitus 11. RAQUEL 12. Morbid obesity - Secondary Discharge Diagnosis Chronic Problems (Last Reviewed 09/26/19 @ 13:47 by Corinna Bryant) CKD (chronic kidney disease), stage III (Chronic) Hyperlipidemia (Chronic) Hypertension (Chronic) Paroxysmal a-fib (Chronic) S/P pulmonary vein isolation; Periodic limb movement sleep disorder (Chronic) Pulmonary hypertension (Chronic) Type II Coronary artery disease (Chronic) (HFpEF) heart failure with preserved ejection fraction (Chronic) Anemia (Chronic) Type 2 diabetes mellitus (Chronic) Presence of aortocoronary bypass graft (Chronic ~10/2010) CABG x4: LEBRON to LAD, SVG to RI, SVG to PDA, SVG to posterolateral Lt ventricular branch, PVI w/ Atricure Ablation and ligation of Lt atrial appendage 10/2010 Presence of stent in coronary artery (Chronic ~01/2011) PTCA/Stent to mid LCX 01/2011 DM (diabetes mellitus) with peripheral vascular complication (Chronic) Atherosclerotic heart disease of [place] coronary artery without angina pectoris (Chronic) CABG x4: LEBRON to LAD, SVG to RI, SVG to PDA, SVG to posterolateral Lt ventricular branch, PVI w/ Atricure Ablation and ligation of Lt atrial appendage 10/2010; PTCA/Stent to mid LCX 01/2011 Body mass index 40.0-44.9, adult (Chronic) Meniscus degeneration (Chronic) RAQUEL (obstructive sleep apnea) (Chronic) Obesity (Chronic) PVC (premature ventricular contraction) (Chronic) Hospital Course and Treatment Operations: None Procedures: None Summary of Care Provided: The patient is a 74 year old M admitted 10/11/2019 due to abnormal labs. 1. Hypokalemia-replaced per protocol, resolved. Suspect secondary to Lasix and metolazone regimen. Magnesium within normal limits. Discharge on potassium 40 mg once twice daily. Patient will need repeat BMP in 3 days which will be ordered and followed by primary care provider. Patient assistance services at home for help with medication administration and/or home care. Follow-up with primary care provider as scheduled next Wednesday. Per pharmacy, Lasix pres cription is for 80 mg twice daily. Patient reports he has been taking Lasix 80 mg 3 times daily. Recommend Lasix 80 mg twice daily at discharge with further follow-up with primary care provider and cardiology. Follow-up with cardiology in 1 week. 2. Hypovolemic hyponatremia, hypochloremia-improved with holding diuretics and gentle IV fluids. 3. Chronic kidney disease stage III-at baseline. 4. CAD status post CABG x4 and PCI- continue eliquis, isosorbide. Not on aspirin, statin or beta-memo. 5. Chronic atrial fibrillation-continue Eliquis, Cardizem regimen. 6. Chronic diastolic CHF with chronic hypoxic and hypercapnic respiratory failure-continue oxygen supplementation to maintain O2 at or above 90%. Continue Lasix 80 mg twice daily as noted above. 7. Chronic microcytic anemia-at baseline. Continue iron supplementation. 8. Hypertension-blood pressure stable. Continue isosorbide, Cardizem. 9. Hyperlipidemia-not on statin. 10. Type 2 diabetes mellitus-continue home insulin regimen. 11. RAQUEL-noncompliant with CPAP. 12. Morbid obesity-encouraged diet and lifestyle modifications. General: Alert, oriented, no apparent distress HEENT: Atraumatic, PERRLA, EOMI, Normocephalic Oral: Dry Mucosa Neck: Supple, No JVD, Negative Carotid Bruits Lungs: Clear to auscultation, Diminished Cardiovascular: Atrial fibrillation, mild intermittent tachycardia Abdomen: Bowel Sounds Present, Soft, Non Tender, Obese Extremities: No edema, Capillary Refill Less than 3 Seconds Skin: No rashes, No breakdown, Chronic skin changes bilateral lower extremities Musculoskeletal: No Tenderness to Palpation of Joints or Extremities Neurological: Cranial nerves II-XII grossly intact, Neuro grossly intact Psych/Mental Status: Normal affect, appropriate Patient seen and examined prior to discharge. Physical assessment as noted above. Patient is stable for discharge with follow up recommendations as noted above. This patient was seen by ILIANA Michelle under the supervision of Dr. Andrade. - Physical Exam Vitals/I&O's: Vital Signs Temp Pulse Resp BP Pulse Ox 98.6 F 107 H 16 128/72 H 98 10/13/19 08:28 10/13/19 08:28 10/13/19 08:28 10/13/19 08:28 10/13/19 08:28 Oxygen Flow Rate (L/min) 4 Oxygen Delivery Method Nasal Cannula Weight: 323 lb 3.163 oz Body Mass Index (BMI) 38.9 Intake and Output for Last 24 Hours 10/11/19 10/12/19 10/13/19 23:59 23:59 23:59 Intake Total 298.33 / 1018.33 4146.67 / 4146.67 880 / 880 Output Total 2675 / 2675 250 / 250 Balance 298.33 / 493.33 1471.67 / 1471.67 630 / 630 Laboratory Results 10/12/19 15:20: Potassium 2.3 L* 10/12/19 16:10: POC Glucose 38 L* 10/12/19 16:31: POC Glucose 109 10/12/19 21:18: POC Glucose 55 L 10/12/19 21:58: POC Glucose 118 H 10/12/19 23:00: Potassium 3.0 L 10/13/19 00:12: POC Glucose 68 L 10/13/19 01:20: POC Glucose 122 H 10/13/19 04:21: POC Glucose 203 H 10/13/19 06:25: WBC 13.5 H, RBC 4.15 L, Hgb 9.5 L, Hct 33.2 L, MCV 80.0, MCH 22.9 L, MCHC 28.6 L, RDW Std Deviation 55.4 H, RDW Coeff of Lakshmi 19.6 H, Plt Count 234, MPV 9.1 10/13/19 06:25: Sodium 131 L, Potassium 3.3 L, Chloride 84 L, Carbon Dioxide 42.0 H, Anion Gap 5, BUN 42 H, Creatinine 1.49 H, Estim Creat Clear Calc 51.20, Est GFR (MDRD) Af Amer 59 L, Est GFR (MDRD) Non-Af 49 L, BUN/Creatinine Ratio 28.2 H, Glucose 142 H, Calcium 8.5 10/13/19 06:48: POC Glucose 141 H Discharge Diet: Low fat/ Low Cholesterol, 2000 mg Sodium Diet Discharge Activity: Return to Normal Activity Call your doctor if you observe: Shortness of breath, Dizziness, Fainting spells, Chest pain, Increased palpitations (irregular heartbeat) Home Medications: Medications to take at Discharge Gabapentin [Neurontin] 300 mg PO BIDCM 03/11/17 Insulin U-500 [Humulin R U-500 (BKC)] 150 - 225 units SQ TIDCM 07/25/19 apixaban 5 mg tablet 5 mg PO BID #60 tab 08/14/19 furosemide 80 mg tablet 80 mg PO BID tab 09/04/19 Metolazone [Zaroxolyn] 2.5 mg PO DAILY 10/11/19 Pramipexole Di-HCl [Mirapex] 0.5 mg PO QHS 10/11/19 Amiodarone HCl 200 mg PO DAILY 10/12/19 Amlodipine Besylate 5 mg PO DAILY 10/12/19 Diltiazem HCl [Diltiazem 24Hr ER (Cd)] 360 mg PO DAILY 10/12/19 Duloxetine HCl 60 mg PO DAILY 10/12/19 Ferrous Sulfate 325 mg PO BID 10/12/19 Isosorbide Mononitrate [Isosorbide Mononitrate ER] 30 mg PO DAILY 10/12/19 Pantoprazole Sodium [Protonix] 40 mg PO DAILY 10/12/19 Tamsulosin HCl [Flomax] 0.4 mg PO DAILY 10/12/19 Ampicillin Trihydrate 500 mg PO TID #0 10/13/19 Hydrocodone/Acetaminophen [Hydrocodone-Acetamin 5-325 mg] 1 tab PO BID 10/13/19 Potassium Chloride [K-Dur] 40 meq PO BID #120 tab 10/13/19 Following Prescrptions Were Given to Patient: Potassium Chloride [K-Dur] 40 meq PO BID #120 tab Transmission Status: Received by [facility] Primary Care Physician: Abdi Navarro MD [Primary Care Provider] - Please follow up with your Primary Care Physician in: 3-5 Days Please Follow Up With: aTnia Wolf PA When: 1-2 Weeks Please Follow Up With: Abdi Navarro MD Disposition: Home Minutes spent on discharge:: 35 Patient Condition:: Stable Medical Necessity - Tobacco Use Smoking Status: Never smoker Tobacco Use: Non-smoker Meaningful Use Info Meaningful Use Diagnoses (Choose all that apply): None applicable <Basilia Andrade - Last Filed: 10/13/19 14:50> Discharge Date and Diagnosis - Secondary Discharge Diagnosis Chronic Problems (Last Reviewed 09/26/19 @ 13:47 by Corinna Bryant) CKD (chronic kidney disease), stage III (Chronic) Hyperlipidemia (Chronic) Hypertension (Chronic) Paroxysmal a-fib (Chronic) S/P pulmonary vein isolation; Periodic limb movement sleep disorder (Chronic) Pulmonary hypertension (Chronic) Type II Coronary artery disease (Chronic) (HFpEF) heart failure with preserved ejection fraction (Chronic) Anemia (Chronic) Type 2 diabetes mellitus (Chronic) Presence of aortocoronary bypass graft (Chronic ~10/2010) CABG x4: LEBRON to LAD, SVG to RI, SVG to PDA, SVG to posterolateral Lt ventricular branch, PVI w/ Atricure Ablation and ligation of Lt atrial appendage 10/2010 Presence of stent in coronary artery (Chronic ~01/2011) PTCA/Stent to mid LCX 01/2011 DM (diabetes mellitus) with peripheral vascular complication (Chronic) Atherosclerotic heart disease of [place] coronary artery without angina pectoris (Chronic) CABG x4: LEBRON to LAD, SVG to RI, SVG to PDA, SVG to posterolateral Lt ventricular branch, PVI w/ Atricure Ablation and ligation of Lt atrial appendage 10/2010; PTCA/Stent to mid LCX 01/2011 Body mass index 40.0-44.9, adult (Chronic) Meniscus degeneration (Chronic) RAQUEL (obstructive sleep apnea) (Chronic) Obesity (Chronic) PVC (premature ventricular contraction) (Chronic) Hospital Course and Treatment Summary of Care Provided: patient seen by Bri BARRIENTOS under my supervision. 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 Patient had no complaints whatsoever. Hyperkalemia was thought to be due to the Lasix and metolazone he was taken. Patient was admitted and managed for hypokalemia likely due to diuretics. Potassium was aggressively replaced. It was noted during admission the patient's heart rate was poorly controlled. Patient admitted to not taking his Cardizem and amiodarone that had been prescribed to him. These were restarted during admission and patient was counseled about the need for compliance. Patient was also noted to have low blood sugars usually in the afternoons and evenings. He was on Humulin U 500 150 units 3 times daily and patient said at home his blood sugars are usually elevated though his A1c was around 6. He said his parts counterperson in [place] had put him on this Humulin insulin and so he wanted to follow-up with his parts counterperson for any changes to be made as deemed necessary. Patient remained stable and was discharged on 10/13/2019 with a prescription for p.o. potassium 40mg daily. He is follow-up with his primary care doctor and client engagement specialist as well as parts counterperson. Patient seen and examined prior to discharge. He had no complaints and felt well. Review of systems otherwise negative. Labs and vitals reviewed. Home medication reviewed and reconciled. o/e: Vital Signs Height 6 ft 3 in Weight: 323 lb 3.163 oz Weight in Pounds 323.2 lbs Pulse Ox 98 Temperature 98.6 F Pulse Rate [Apical] 103 Pulse Rate 107 Respiratory Rate 16 Blood Pressure [Right Arm] 143/77 Blood Pressure 128/72 Blood Pressure Position Semi-Fowlers [] General: alert and oriented x 3, cooperative HEENT: Atraumatic, PERRLA, EOMI, Normocephalic Oral: Dry Mucosa Neck: Supple, No JVD, Negative Carotid Bruits Lungs: Clear to auscultation, Diminished Cardiovascular: Atrial fibrillation, tachycardic Abdomen: Bowel Sounds Present, Soft, Non Tender, Obese Extremities: No edema, Capillary Refill Less than 3 Seconds Skin: No rashes, No breakdown, mild 1+ bipedal edema Musculoskeletal: No Tenderness to Palpation of Joints or Extremities Neurological: Cranial nerves II-XII grossly intact, Neuro grossly intact Psych/Mental Status: - -normal affect Plan as above. Rest as per Bri Lemon [employer]ATER AND PULPER FEEDER-C's note, which I have reviewed and endorsed. - Physical Exam Vitals/I&O's: Vital Signs Temp Pulse Resp BP Pulse Ox 98.6 F 107 H 16 128/72 H 98 10/13/19 08:28 10/13/19 08:28 10/13/19 08:28 10/13/19 08:28 10/13/19 08:28 Oxygen Flow Rate (L/min) 4 Oxygen Delivery Method Nasal Cannula Weight: 323 lb 3.163 oz Body Mass Index (BMI) 38.9 Intake and Output for Last 24 Hours 10/11/19 10/12/19 10/13/19 23:59 23:59 23:59 Intake Total 298.33 / 1018.33 4146.67 / 4146.67 880 / 880 Output Total 2675 / 2675 250 / 250 Balance 298.33 / 493.33 1471.67 / 1471.67 630 / 630 Laboratory Results 10/12/19 15:20: Potassium 2.3 L* 10/12/19 16:10: POC Glucose 38 L* 10/12/19 16:31: POC Glucose 109 10/12/19 21:18: POC Glucose 55 L 10/12/19 21:58: POC Glucose 118 H 10/12/19 23:00: Potassium 3.0 L 10/13/19 00:12: POC Glucose 68 L 10/13/19 01:20: POC Glucose 122 H 10/13/19 04:21: POC Glucose 203 H 10/13/19 06:25: WBC 13.5 H, RBC 4.15 L, Hgb 9.5 L, Hct 33.2 L, MCV 80.0, MCH 22.9 L, MCHC 28.6 L, RDW Std Deviation 55.4 H, RDW Coeff of Lakshmi 19.6 H, Plt Count 234, MPV 9.1 10/13/19 06:25: Sodium 131 L, Potassium 3.3 L, Chloride 84 L, Carbon Dioxide 42.0 H, Anion Gap 5, BUN 42 H, Creatinine 1.49 H, Estim Creat Clear Calc 51.20, Est GFR (MDRD) Af Amer 59 L, Est GFR (MDRD) Non-Af 49 L, BUN/Creatinine Ratio 28.2 H, Glucose 142 H, Calcium 8.5 10/13/19 06:48: POC Glucose 141 H Code Visit Inpatient E&M: [id number] Disch Hosp
== END 2019-10-13 10:59 | disposition home or self-care (01) | DRG 641 ==
LOC: ED 19:08 → PCU 20:47
PROVIDERS: Nurse Practitioner Family; Admitting Provider Family Medicine; Emergency Provider Emergency Medicine; Family Provider Family Medicine; PCP Family Medicine; Referring Provider Family Medicine; Visit Provider Student in an Organized Health Care Education/Training Program
DX: E87.6 Hypokalemia (principal); J96.11 Chronic respiratory failure with hypoxia; I13.0 Hypertensive heart and chronic kidney disease with heart failure and stage 1 through stage 4 chronic kidney disease, or unspecified chronic kidney disease; I48.20 Chronic atrial fibrillation, unspecified; I50.32 Chronic diastolic (congestive) heart failure; J96.12 Chronic respiratory failure with hypercapnia; E66.01 Morbid (severe) obesity due to excess calories; Z99.81 Dependence on supplemental oxygen; N40.0 Benign prostatic hyperplasia without lower urinary tract symptoms; E11.22 Type 2 diabetes mellitus with diabetic chronic kidney disease; E87.1 Hypo-osmolality and hyponatremia; E87.8 Other disorders of electrolyte and fluid balance, not elsewhere classified; Z66 Do not resuscitate; D50.9 Iron deficiency anemia, unspecified; E78.5 Hyperlipidemia, unspecified; N18.3 Chronic kidney disease, stage 3 (moderate); E86.1 Hypovolemia; T50.2X5A Adverse effect of carbonic-anhydrase inhibitors, benzothiadiazides and other diuretics, initial encounter; Z79.4 Long term (current) use of insulin; G47.33 Obstructive sleep apnea (adult) (pediatric); Z91.19 Patient's noncompliance with other medical treatment and regimen; I25.10 Atherosclerotic heart disease of native coronary artery without angina pectoris; Z95.1 Presence of aortocoronary bypass graft; Z79.02 Long term (current) use of antithrombotics/antiplatelets; Z95.5 Presence of coronary angioplasty implant and graft; Z68.38 Body mass index [BMI] 38.0-38.9, adult
CPT/HCPCS: 36415; 51702; 80048; 82962; 83735; 84132; 85025; 85027; 93005; 97802; 99251; 99283; J7030; A4216; G0463

== ENCOUNTER 2019-10-15 01:52 | Inpatient (IN) | payer MEDICARE, SELFPAY ==
[2019-10-11 21:12] VITALS: BMI 38.9
[2019-10-15] VITALS (22 sets, daily range): BP systolic 96–148; BP diastolic 66–86; PULSE 85–137; RESP 16–25; TEMP 36.1–36.6; O2SAT 92–100; BMI 41.7; BMI 41.2
--- NOTE | 2019-10-15 02:07 | EKG12_ITS ---
Test Reason : ALT MENTAL STATUS Blood Pressure : / mmHG Vent. Rate : 097 BPM Atrial Rate : 117 BPM P-R Int : 000 ms QRS Dur : 118 ms QT Int : 450 ms P-R-T Axes : 000 073 085 degrees QTc Int : 571 ms Atrial fibrillation with premature ventricular or aberrantly conducted complexes Non-specific intra-ventricular conduction delay Prolonged QT Abnormal ECG Confirmed by ANEESH WEI, LALIT ([id number]), purchase request editor TRACY MCLAUGHLIN ([id number]) on 10/17/2019 10:05:17 AM Referred By: Josephine Avila Confirmed By:LALIT MELENDREZ MD
--- NOTE | 2019-10-15 02:07 | CT_ITS ---
STUDY: CT BRAIN WITHOUT CONTRAST REASON FOR EXAM: Male, 74 years old. Altered mental status. RADIATION DOSAGE (If Supplied By Facility): CTDIvol = ( 44.99 ) mGy, DLP = ( 846.73 ) mGycm TECHNIQUE: Transaxial CT imaging of the brain was performed without administration of intravenous contrast material. Individualized dose optimization techniques were used for this CT. COMPARISON: 03/12/2013. FINDINGS: Normal soft tissue structures. Normal calvarium. There is mild cerebral atrophy with widening of the extra-axial spaces and ventricular dilatation. There are areas of decreased attenuation within the white matter tracts of the supratentorial brain, consistent with mild microvascular disease changes. There are small punctate calcifications of the basal ganglia which are seen in the aging brain as a normal variant. Normal brainstem. There is mild cerebellar atrophy. There is no intracranial hemorrhage. There are no findings of an acute ischemic infarction. Normal visualized paranasal sinuses. CT/Brain/Head without Contrast IMPRESSION: Mild generalized brain atrophy along with microangiopathic white matter disease. No acute intracranial hemorrhage or space-occupying lesion. Electronically Signed: Altagracia Maldonado MD at 3:14 EST , Service support ,
--- NOTE | 2019-10-15 02:08 | ED.DCSUM_ITS ---
History of Present Illness Chief Complaint: Alt LOC Narrative: Patient is a 74-year-old male who presents with acute confusion. He was recently hospitalized for hypokalemia which was attributed to diuretic use. He has a Thomas in due to diuresis. He is also currently on ampicillin for UTI. He had some confusion on Wednesday however attributes this to recent hospitalization and thought that he slept well his symptoms may improve. 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 The n morning he seemed to be doing better. He woke acutely agitated and confused this morning. No fevers. No vomiting. denies any other recent medical illness. Past Medical History - Allergies and Home Meds Allergies/Adverse Reactions: Allergies acetaminophen [From Percocet] Allergy (Verified 10/11/19 14:35) Swelling oxycodone [From Percocet] Allergy (Verified 10/11/19 14:35) A-fib, Swelling, Sulfa (Sulfonamide Antibiotics) Allergy (Verified 10/11/19 14:35) Swelling atropine Adverse Reaction (Severe, Verified 10/11/19 14:35) arrhythmia hydrochlorothiazide [From Hyzaar] Adverse Reaction (Severe, Verified 10/11/19 14:35) arrhythmia losartan [From Hyzaar] Adverse Reaction (Severe, Verified 10/11/19 14:35) arrhythmia quinapril [From Accupril] Adverse Reaction (Severe, Verified 10/11/19 14:35) arrhythmia atorvastatin [From Lipitor] Adverse Reaction (Intermediate, Verified 10/11/19 14:35) myalgias metformin Adverse Reaction (Intermediate, Verified 10/11/19 14:35) myalgias Primary Care Physician: Abdi Navarro MD [Primary Care Provider] - Past Medical History: - - Diabetes, hypertension, hyperlipidemia, atrial fibrillation Surgical History: - - CABG X4, PCI. Smoking Status: Unknown if ever smoked - Family History Maternal Family History: Family History (Last Reviewed 10/12/19 @ 17:32 by VICKIE Diallo) Mother CAD (coronary artery disease) Father CVA (cerebral vascular accident) Myocardial infarction Brother Myocardial infarction Brother CAD (coronary artery disease) Myocardial infarction Sister CAD (coronary artery disease) Family History: Reports: High Cholesterol, Heart Disease, Hypertension Paternal Family History: Family History (Last Reviewed 10/12/19 @ 17:32 by VICKIE Diallo) Mother CAD (coronary artery disease) Father CVA (cerebral vascular accident) Myocardial infarction Brother Myocardial infarction Brother CAD (coronary artery disease) Myocardial infarction Sister CAD (coronary artery disease) Family History: Reports: High Cholesterol, Heart Disease, Hypertension, Stroke Review of Systems ROS: Unable to Obtain - Due to altered mental status Physical Exam Vital Signs/Narrative: Vital Signs Temp Pulse Resp BP Pulse Ox 10/15/19 02:05 97.7 F L 115 H 25 H 148/66 H 95 10/15/19 02:02 115 H 25 H 148/66 H 95 10/15/19 01:55 97.7 F L 115 H 22 H 129/73 H 92 Inital Vital Signs reviewed: Yes General: Well nourished Head: Normocephalic Eyes: EOMI ENT: Moist mucous membranes Neck: Supple Cardiovascular: - - Heart irregularly irregular and tachycardic Respiratory: No distress, CTA bilaterally Abdomen: Soft, Nontender Extremities: Nontender, Edema Skin: Normal color Neurological: - - Patient agitated and shouting out making statements such as do not hit me Psychological: Agitated Diagnostic/Tx/Re-eval Impressions Brain CT 10/15/19 02:07 IMPRESSION: Mild generalized brain atrophy along with microangiopathic white matter disease. No acute intracranial hemorrhage or space-occupying lesion. Electronically Signed: Altagracia Maldonado MD at 3:14 EST , Service support , Chest X-Ray 10/15/19 02:50 IMPRESSION: Mild asymmetric congestive heart failure, overall improved in the interval. Electronically Signed: Altagracia Maldonado MD at 3:10 EST , Service support , 10/15/19 02:07 Brain/Head without Contrast [CT] Stat 10/15/19 02:50 Chest 1 View (Portable) [RAD] Stat Laboratory Results 10/15/19 10/15/19 10/15/19 02:05 02:05 02:05 WBC 16.1 H RBC 4.38 L Hgb 10.2 L Hct 34.1 L MCV 77.9 L MCH 23.3 L MCHC 29.9 L RDW Std Deviation 53.5 H RDW Coeff of Lakshmi 19.5 H Plt Count 266 MPV 9.1 Immature Gran % (Auto) 1.000 H Neut % (Auto) 91.8 H Lymph % (Auto) 4.3 L [place] % (Auto) 2.7 Eos % (Auto) 0.1 Baso % (Auto) 0.1 Absolute Neuts (auto) 14.8 H Absolute Lymphs (auto) 0.69 L Nucleated RBC % 0 PT 16.9 H INR 1.4 Specimen Type Sample Site VBG pH VBG pO2 VBG O2 Sat (Calc) VBG O2 Content VBG Base Excess POC Mix VBG pCO2 Pt Tmp O2 Delivery Device Liter Flow Blood Gas Notified Whom Blood Gas Notified Time Sodium 131 L Potassium 2.3 L* Chloride 81 L Carbon Dioxide 41.0 H Anion Gap 9 BUN 37 H Creatinine 1.59 H Estim Creat Clear Calc 46.67 Est GFR (MDRD) Af Amer 55 L Est GFR (MDRD) Non-Af 45 L BUN/Creatinine Ratio 23.3 H Glucose 22 L* Lactic Acid Calcium 9.0 Magnesium Total Bilirubin 0.90 AST 29 ALT 22 Alkaline Phosphatase 99 Total Protein 8.5 H Albumin 3.1 L Globulin 5.4 H Albumin/Globulin Ratio 0.6 L Urine Color Urine Clarity Urine pH Ur Specific [place] Urine Protein Urine Glucose (UA) Urine Ketones Urine Occult Blood Urine Nitrite Urine Bilirubin Urine Urobilinogen Ur Leukocyte Esterase Urine RBC Urine WBC Ur Squamous Epith Cells Urine Bacteria Urine Mucus 10/15/19 10/15/19 10/15/19 02:05 02:05 03:00 WBC RBC Hgb Hct MCV MCH MCHC RDW Std Deviation RDW Coeff of Lakshmi Plt Count MPV Immature Gran % (Auto) Neut % (Auto) Lymph % (Auto) [place] % (Auto) Eos % (Auto) Baso % (Auto) Absolute Neuts (auto) Absolute Lymphs (auto) Nucleated RBC % PT INR Specimen Type Sample Site VBG pH VBG pO2 VBG O2 Sat (Calc) VBG O2 Content VBG Base Excess POC Mix VBG pCO2 Pt Tmp O2 Delivery Device Liter Flow Blood Gas Notified Whom Blood Gas Notified Time Sodium Potassium Chloride Carbon Dioxide Anion Gap BUN Creatinine Estim Creat Clear Calc Est GFR (MDRD) Af Amer Est GFR (MDRD) Non-Af BUN/Creatinine Ratio Glucose Lactic Acid Cancelled Calcium Magnesium 2.6 Total Bilirubin AST ALT Alkaline Phosphatase Total Protein Albumin Globulin Albumin/Globulin Ratio Urine Color Yellow Urine Clarity Sl. Cloudy Urine pH 6.5 Ur Specific [place] 1.010 Urine Protein 15 H Urine Glucose (UA) Normal Urine Ketones Negative Urine Occult Blood 25 H Urine Nitrite Positive H Urine Bilirubin Negative Urine Urobilinogen Normal Ur Leukocyte Esterase 500 H Urine RBC 0 SEEN Urine WBC 0-5 SEEN Ur Squamous Epith Cells 0 SEEN Urine Bacteria 2+ Urine Mucus 0 SEEN 10/15/19 03:13 WBC RBC Hgb Hct MCV MCH MCHC RDW Std Deviation RDW Coeff of Lakshmi Plt Count MPV Immature Gran % (Auto) Neut % (Auto) Lymph % (Auto) [place] % (Auto) Eos % (Auto) Baso % (Auto) Absolute Neuts (auto) Absolute Lymphs (auto) Nucleated RBC % PT INR Specimen Type SADA Sample Site R Radial VBG pH 7.54 H VBG pO2 39 VBG O2 Sat (Calc) 78 H VBG O2 Content 50 H VBG Base Excess 26 H POC Mix VBG pCO2 Pt Tmp 57.0 H O2 Delivery Device Nasal Can Liter Flow 4.0 Blood Gas Notified Whom ED Blood Gas Notified Time 300 Sodium Potassium Chloride Carbon Dioxide Anion Gap BUN Creatinine Estim Creat Clear Calc Est GFR (MDRD) Af Amer Est GFR (MDRD) Non-Af BUN/Creatinine Ratio Glucose Lactic Acid Calcium Magnesium Total Bilirubin AST ALT Alkaline Phosphatase Total Protein Albumin Globulin Albumin/Globulin Ratio Urine Color Urine Clarity Urine pH Ur Specific [place] Urine Protein Urine Glucose (UA) Urine Ketones Urine Occult Blood Urine Nitrite Urine Bilirubin Urine Urobilinogen Ur Leukocyte Esterase Urine RBC Urine WBC Ur Squamous Epith Cells Urine Bacteria Urine Mucus - Medical Decision Making Glucose for EMS was 161 however when repeated here was 23. Patient was given D50. Repeat blood sugar greater than 100 however when rechecked again was 40. Patient was given additional D50 and and started on a dextrose infusion. Labs are notable for urinalysis consistent with cystitis. Patient was given IV Rocephin. Blood and urine cultures have been sent. Lactic acid is pending. Labs otherwise notable for white count of 16,000 and severe hypokalemia with a potassium of 2.3. Magnesium is also pending. Patient had an IV potassium chl oride infusion ordered. Chest x-ray shows CHF which is improved from prior and CT the head shows no acute findings. Patient was discussed with the hospitalist and admitted. ED Disposition - Plan for ED Patient: Disposition: Acute Care Hospital [facility] Diagnosis: Hypokalemia, Hypoglycemia, UTI (urinary tract infection), Delirium Referrals: Abdi Navarro MD [Primary Care Provider] -
[2019-10-15] MEDS: Dextrose 50%-Water 25 GM/50 ML DISP.SYRIN IV ×3 (02:11→06:00)
[2019-10-15 02:14] LABS: Mucous, Urine 0 SEEN /hpf (<or=2+); Red Blood Cells-Urine 0 SEEN /hpf (0-5); Squamous Epithelial Cells - UA 0 SEEN /hpf (0-5)
[2019-10-15 02:16] LABS: Color, Urine Yellow (Yellow); Glucose, Dipstick Normal (Normal); Ketone-Dipstick Negative (Negative); Leukocyte Esterase-Dipstick 500 /ul (Negative); Nitrite-Dipstick Positive (Negative); Occult Blood-Urine 25 /ul (Negative); Protein-Dipstick 15 mg/dl (Negative); Urine Bilirubin Dipstick Negative (Negative); Urine Clarity Sl. Cloudy (Clear); Urine Urobilinogen Normal (Normal); Urine pH 6.5 (5.0 - 8.0)
[2019-10-15 02:17] LABS: Absolute Lymphocyte Count 0.69 X10^3/uL (0.83-4.51); Absolute Neutrophil Count 14.8 X10^3/uL (2.0-7.7); Basophil# 0.02 X10^3/uL; Basophil% 0.1 % (0-1); Eosinophil# 0.01 X10^3/uL; Eosinophils% 0.1 % (0-5); Hematocrit 34.1 % (40-54); Hemoglobin 10.2 g/dL (13.0-16.5); Lymphocyte # 0.69 X10^3/ul (4.0); Lymphocyte % 4.3 % (19-41); Mean Corp Hgb Conc 29.9 g/dL (32-36); Mean Corpuscular Hgb 23.3 pg (27.0-32.0); Mean Corpuscular Volume 77.9 fL (80-94); Mean Platelet Vol. 9.1 fl (6.2-12.0); Monocyte# 0.44 X10^3/uL; Monocyte% 2.7 % (0-10); NRBC Flagged by Analyzer 0 % (0-5); Neutrophil # 14.76 X10^3/uL (2.7-7.7); Neutrophil % 91.8 % (47-70); Platelet Count 266 K/mm3 (150-450); RBC Distribution Width CV 19.5 % (11.6-14.6); RBC Distribution Width SD 53.5 fl (35.1-43.9); Red Blood Count 4.38 M/mm3 (4.6-6.2); White Blood Count 16.1 K/mm3 (4.4-11.0)
--- NOTE | 2019-10-15 02:19 | ED.RN ---
PT IS NOT ASLEEP. DID NOT WAKE UP WHEN ABG WAS PULLED. AWARE.
[2019-10-15 02:24] LABS: Bacteria 2+ /hpf (None Seen); White Blood Cells 0-5 SEEN /hpf (0-5)
[2019-10-15 02:34] LABS: International Normalized Ratio 1.4; Prothrombin Time (Protime)PT. 16.9 SECONDS (11.7-14.9)
[2019-10-15 02:41] LABS: ALB/GLOB Ratio 0.6 RATIO (0.9-2.4); AST(SGOT) 29 U/L (15-37); Alanine Aminotransfer ALT/SGPT 22 U/L (16-61); Albumin, Serum 3.1 g/dL (3.2-5.0); Alkaline Phosphatase 99 U/L (45-117); Anion Gap 9 (5-15); BUN 37 mg/dL (7-18); BUN/Creat Ratio 23.3 RATIO (10-20); Chloride 81 mmol/L (98-107); Creatinine, Serum 1.59 mg/dL (0.70-1.30); EST Glomerular Filtration Rate 45 mL/min (>60); Est Glom Filt Rate - Afr Amer 55 mL/min (>60); Estimated Creatinine Clearance 46.67 ml/min; Globulin 5.4 g/dL (2.2-4.2); Glucose 22 mg/dL (74-106); Potassium 2.3 mmol/L (3.5-5.1); Protein, Total 8.5 g/dL (6.4-8.2); Sodium Level 131 mmol/L (136-145)
--- NOTE | 2019-10-15 02:50 | RAD_ITS ---
STUDY: X-RAY CHEST REASON FOR EXAM: Male, 74 years old. Altered mental status. TECHNIQUE: Single AP portable view of the chest. COMPARISON: 07/25/2019. FINDINGS: The lungs are normally expanded with fullness of the markings, left more than right and slightly improved in the interval. There is no demonstrated pleural abnormality. Heart is mildly enlarged. Midline sternotomy wires noted. Normal mediastinum and barak. There is atherosclerotic calcification of the aortic arch with tortuosity. Suboptimally visualized thoracic spine. Normal visualized ribs, clavicles, and shoulders. There is no demonstrated abnormality of the visualized soft tissue structures of the upper abdomen. RAD/Chest 1 View (Portable) IMPRESSION: Mild asymmetric congestive heart failure, overall improved in the interval. Electronically Signed: Altagracia Maldonado MD at 3:10 EST , Service support ,
[2019-10-15 03:21] LABS: Blood Gas Specimen Type VEN; O2 Delivery Device Nasal Can; SITE R Radial; Time Given 300; VBG BASE EXCESS 26 mmol/L (-1.0-3.5); VBG Bicarbonate 48 mmol/L (22-26); VBG Oxygen Content 50 mmol/L (23-33); VBG PO2 39 mmHg (25-40); VBG SO2 78 % (50-70); VBG pH 7.54 (7.32-7.42)
--- NOTE | 2019-10-15 03:21 | CPS ---
blood gas ended up being venous, dr. padilla was fine with that.
[2019-10-15] MEDS: Ceftriaxone 1 GM/50 ML BAG IV (03:25)
[2019-10-15] MEDS: Dext 5%-0.45% NS 1,000 ML 75 ML IV (03:36)
[2019-10-15] MEDS: Potassium Chloride 10mEq/100mL 10 MEQ/100 ML IV.SOLN. 100 MEQ IV BOLUS ×4 (03:38→06:48)
[2019-10-15 03:40] LABS: Magnesium 2.6 mg/dL (1.6-2.6)
--- NOTE | 2019-10-15 03:49 | PCM.HP.STD ---
Problem List (1) Acute encephalopathy Status: Acute (2) Hypoglycemia Status: Acute (3) Sepsis Status: Acute Qualifiers: Sepsis type: sepsis due to unspecified organism Sepsis acute organ dysfunction status: unspecified Qualified Code(s): A41.9 - Sepsis, unspecified organism (4) UTI (urinary tract infection) Status: Acute Qualifiers: Urinary tract infection type: acute cystitis (5) Hypokalemia Status: Acute (6) Hyponatremia Status: Acute (7) Hypochloremia Status: Acute (8) CKD (chronic kidney disease), stage III Status: Chronic (9) Hyperlipidemia Status: Chronic Qualifiers: Hyperlipidemia type: unspecified Qualified Code(s): E78.5 - Hyperlipidemia, unspecified (10) Hypertension Status: Chronic Qualifiers: Hypertension type: essential hypertension Qualified Code(s): I10 - Essential (primary) hypertension (11) Paroxysmal a-fib Status: Chronic Comment: S/P pulmonary vein isolation; (12) Periodic limb movement sleep disorder Status: Chronic (13) Coronary artery disease Status: Chronic Qualifiers: Coronary Disease-Associated Artery/Lesion type: unspecified vessel or lesion type [place] vs. transplanted heart: unspecified whether [place] or transplanted heart Associated angina: angina presence unspecified Qualified Code(s): I25.10 - Atherosclerotic heart disease of [place] coronary artery without angina pectoris (14) (HFpEF) heart failure with preserved ejection fraction Status: Chronic Qualifiers: Heart failure chronicity: chronic Qualified Code(s): I50.32 - Chronic diastolic (congestive) heart failure (15) Anemia Status: Chronic Qualifiers: Anemia type: unspecified type Qualified Code(s): D64.9 - Anemia, unspecified (16) Type 2 diabetes mellitus Status: Chronic Qualifiers: Diabetes mellitus exterminator helper termite insulin use: with nursing home use Diabetes mellitus complication status: with other specified complication Qualified Code(s): E11.69 - Type 2 diabetes mellitus with other specified complication; Z79.4 - exterminator helper termite (current) use of insulin (17) Presence of aortocoronary bypass graft Status: Chronic Comment: CABG x4: LEBRON to LAD, SVG to RI, SVG to PDA, SVG to posterolateral Lt ventricular branch, PVI w/ Atricure Ablation and ligation of Lt atrial appendage 10/2010 (18) DM (diabetes mellitus) with peripheral vascular complication Status: Chronic (19) Body mass index 40.0-44.9, adult Status: Chronic (20) RAQUEL (obstructive sleep apnea) Status: Chronic History of Present Illness Date of Admission: 10/15/19 Chief Complaint: Confusion The patient is a 74 y/o M w/ PMHx: CKD stage III, Chronic Atrial Fibrillation, Diastolic CHF w/ Chronic Hypoxic Respiratory Failure (4L NC), HTN, HLD, Morbid Obesity, Diabetes mellitus type II, RAQUEL with CPAP non-compliance, Morbid Obesity, CAD s/p CABG x 4 and PCI, BPH who was recently admitted 10/11-10/13/19 following treatment of hypokalemia secondary to diuretic usage without potassium concurrent supplementation as well as hypovolemic hyponatremia and hypochloremia with upon discharge recommended transition to lasix 80 mg BID as had been self administering lasix TID with also noted episodes of hypoglycemia while inpatient but declined to have his insulin regimen changed as noted he would only discuss these alterations with his seafood technology specialist who now re-presents to the [facility] ED on 10/15/19 with history of onset of acute confusion with recent initiation of ampicillin for urinary tract infection with concurrent Thomas catheter in place secondary to patient diuresis with complaints of urinary difficulties with initial onset of mild mental status changes the prior Wednesday however he continued to be confused and was noted to have delusions noted to have awoken on a.m. of day prior to ED presentation with severe agitation and irritability with no recent fevers, chills, URI type symptoms prompting to return to the ED for his evaluation. Work-up in the ED included T 97.7, heart rate 115, BP 148/66, respiratory rate 25, 95% on 5 L nasal cannula, per report EMS glucose 161 however upon repeat assessment upon ED presentation glucose 23 with D50 administration with repeat testing 133 following administration-->repeat 40, CBC with WBC 16.1, hemoglobin 10.2, platelet 266 with left shift, urinalysis with noted urine to be cloudy, 15 protein, 25 occult blood, positive nitrite, leukocyte esterase 500 although WBCs only 0-5 but 2+ bacteria noted, coags w/ PT 16.9, INR 1.4, CMP with sodium 131, potassium 2.3, chloride 81, carbon dioxide 41, BUN/creatinine 37/1.59, glucose 22, CXR w/ mild asymmetric congestive heart failure with overall improvement in the interval, CT head with mild generalized brain atrophy along with microangiopathic white matter disease with no acute intracranial hemorrhage or space-occupying lesion, ABG with pH 7.54, PO2 78, PCO2 57 on 4 L nasal cannula, Bld Cx x 2 pending per ED. In the ED the patient was rocephin, potassium IV 40 mEq, administered D50 x 2 and initiated on D5NS but continued to have decreases in his blood sugar therefore patient was transitioned to D10 and per discussion with ED physician decision to admit to the ICU for close monitoring. Past Medical History Past Medical History (Chronic Problems): Chronic Problems (Last Reviewed 09/26/19 @ 13:47 by Corinna Bryant) CKD (chronic kidney disease), stage III (Chronic) Hyperlipidemia (Chronic) Hypertension (Chronic) Paroxysmal a-fib (Chronic) S/P pulmonary vein isolation; Periodic limb movement sleep disorder (Chronic) Pulmonary hypertension (Chronic) Type II Coronary artery disease (Chronic) (HFpEF) heart failure with preserved ejection fraction (Chronic) Anemia (Chronic) Type 2 diabetes mellitus (Chronic) Presence of aortocoronary bypass graft (Chronic ~10/2010) CABG x4: LEBRON to LAD, SVG to RI, SVG to PDA, SVG to posterolateral Lt ventricular branch, PVI w/ Atricure Ablation and ligation of Lt atrial appendage 10/2010 Presence of stent in coronary artery (Chronic ~01/2011) PTCA/Stent to mid LCX 01/2011 DM (diabetes mellitus) with peripheral vascular complication (Chronic) Atherosclerotic heart disease of [place] coronary artery without angina pectoris (Chronic) CABG x4: LEBRON to LAD, SVG to RI, SVG to PDA, SVG to posterolateral Lt ventricular branch, PVI w/ Atricure Ablation and ligation of Lt atrial appendage 10/2010; PTCA/Stent to mid LCX 01/2011 Body mass index 40.0-44.9, adult (Chronic) Meniscus degeneration (Chronic) RAQUEL (obstructive sleep apnea) (Chronic) Obesity (Chronic) PVC (premature ventricular contraction) (Chronic) Medical History: Medical History (Last Reviewed 09/26/19 @ 13:47 by Corinna Bryant) Type 2 diabetes mellitus (Chronic) E11.9 DM (diabetes mellitus) with peripheral vascular complication (Chronic) E11.51 Atherosclerotic heart disease of [place] coronary artery without angina pectoris (Chronic) I25.10 CABG x4: LEBRON to LAD, SVG to RI, SVG to PDA, SVG to posterolateral Lt ventricular branch, PVI w/ Atricure Ablation and ligation of Lt atrial appendage 10/2010; PTCA/Stent to mid LCX 01/2011 Body mass index 40.0-44.9, adult (Chronic) Z68.41 RAQUEL (obstructive sleep apnea) (Chronic) G47.33 Obesity (Chronic) E66.9 PVC (premature ventricular contraction) (Chronic) I49.3 History of cardioversion Onset Date: ~09/08/19 Z98.890 BPH (benign prostatic hyperplasia) N40.0 Osteoarthritis M19.90 Allergies acetaminophen [From Percocet] Allergy (Verified 10/11/19 14:35) Swelling oxycodone [From Percocet] Allergy (Verified 10/11/19 14:35) A-fib, Swelling, Sulfa (Sulfonamide Antibiotics) Allergy (Verified 10/11/19 14:35) Swelling atropine Adverse Reaction (Severe, Verified 10/11/19 14:35) arrhythmia hydrochlorothiazide [From Hyzaar] Adverse Reaction (Severe, Verified 10/11/19 14:35) arrhythmia losartan [From Hyzaar] Adverse Reaction (Severe, Verified 10/11/19 14:35) arrhythmia quinapril [From Accupril] Adverse Reaction (Severe, Verified 10/11/19 14:35) arrhythmia atorvastatin [From Lipitor] Adverse Reaction (Intermediate, Verified 10/11/19 14:35) myalgias metformin Adverse Reaction (Intermediate, Verified 10/11/19 14:35) myalgias Home Medications: Ambulatory Orders Medication Instructions Recorded Gabapentin [Neurontin] 300 mg PO BIDCM 03/11/17 Insulin U-500 [Humulin R U-500 150 - 225 units SQ TIDCM 07/25/19 ([facility])] apixaban 5 mg tablet 5 mg PO BID #60 tab 08/14/19 furosemide 80 mg tablet 80 mg PO BID tab 09/04/19 Metolazone [Zaroxolyn] 2.5 mg PO DAILY 10/11/19 Pramipexole Di-HCl [Mirapex] 0.5 mg PO QHS 10/11/19 Amiodarone HCl 200 mg PO DAILY 10/12/19 Amlodipine Besylate 5 mg PO DAILY 10/12/19 Diltiazem HCl [Diltiazem 24Hr ER 360 mg PO DAILY 10/12/19 (Cd)] Duloxetine HCl 60 mg PO DAILY 10/12/19 Ferrous Sulfate 325 mg PO BID 10/12/19 Isosorbide Mononitrate [Isosorbide 30 mg PO DAILY 10/12/19 Mononitrate ER] Pantoprazole Sodium [Protonix] 40 mg PO DAILY 10/12/19 Tamsulosin HCl [Flomax] 0.4 mg PO DAILY 10/12/19 Ampicillin Trihydrate 500 mg PO TID #0 10/13/19 Hydrocodone/Acetaminophen 1 tab PO BID 10/13/19 [Hydrocodone-Acetamin 5-325 mg] Potassium Chloride [K-Dur] 40 meq PO BID #120 tab 10/13/19 Surgical History: Surgical History (Last Reviewed 10/12/19 @ 17:32 by VICKIE Diallo) Presence of aortocoronary bypass graft (Chronic) Onset Date: ~10/2010 Z95.1 CABG x4: LEBRON to LAD, SVG to RI, SVG to PDA, SVG to posterolateral Lt ventricular branch, PVI w/ Atricure Ablation and ligation of Lt atrial appendage 10/2010 Presence of stent in coronary artery (Chronic) Onset Date: ~01/2011 Z95.5 PTCA/Stent to mid LCX 01/2011 Surgical History: - - CABG X4, PCI. Psychiatric History: Anxiety, Depression Lives: Spouse/ Significant Other Smoking Status: Never smoker Tobacco Use: Non-smoker Alcohol: None - *Family History Maternal Family History: Family History (Last Reviewed 10/12/19 @ 17:32 by VICKIE Dialol) Mother CAD (coronary artery disease) Father CVA (cerebral vascular accident) Myocardial infarction Brother Myocardial infarction Brother CAD (coronary artery disease) Myocardial infarction Sister CAD (coronary artery disease) History Items: High Cholesterol, Heart Disease, Hypertension Paternal Family History: Family History (Last Reviewed 10/12/19 @ 17:32 by VICKIE Diallo) Mother CAD (coronary artery disease) Father CVA (cerebral vascular accident) Myocardial infarction Brother Myocardial infarction Brother CAD (coronary artery disease) Myocardial infarction Sister CAD (coronary artery disease) History Items: High Cholesterol, Heart Disease, Hypertension, Stroke Review of Systems Unable to obtain accurate/complete ROS d/t: Patient unable to give ROS secondary to encephalopathic state. VTE Information - Inpt Only VTE Present on Admission: No VTE Mechan Device Prophylaxis: SCD's VTE Pharm Prophylaxis ordered?: No Reason prophylaxis not ordered:: Treatment Not Indicated - Will continue his home eliquis. Patient Problems: Active and Suspected Problems (Last Reviewed 09/26/19 @ 13:47 by Corinna Bryant) Acute encephalopathy (Acute) Hypoglycemia (Acute) Sepsis (Acute) UTI (urinary tract infection) (Acute) Subjective: Seated upright in the ED bed, arousable but lethargic and falling back asleep, currently no acute distress but previously was agitated. Objective: Physical Examination: General: Awakens to some stimuli, not alert, not oriented, intermittently uncooperative, previously was agitated, seated upright in the ED bed, currently no acute distress. Skin: normal color, turgor, no icterus, cyanosis except occasional very staged ecchymoses and bilateral lower extremity chronic venous stasis skin changes. HEENT: AT/NC, EOM unable to be assessed well given lethargic status, PERRLA, dry MM, no carotid bruits or JVD noted. Lungs: Diminished breath sounds bilaterally, greater bilateral bases, moderate effort,no rales, ronchi or wheezing. Heart: Regular; no gallop, rub audible. Abdomen: soft, NTTP, ND, normal BS, no HSM. Extremities: no cyanosis, clubbing, bilateral lower extremity chronic venous stasis skin changes. Neurological: Awakens to some stimuli, not alert, not oriented, intermittently uncooperative, previously was agitated, seated upright in the ED bed, currently no acute distress; cognitive function not baseline intact; pupils equally reactive to light and accomodation; cranial nerves appear grossly normal but difficult assessment given only intermittently awakening, upon initial ED presentation moving all extremities and does so with stimulus currently but lethargic, falling asleep, strength is severely global decrease secondary to acute presentation. Psychiatric: affect appears flat, lethargic, previously upon ED initial presentation was agitated, no acute evidence of depressive or anxiety feelings. - Physical Exam Vitals/I&O's: Vital Signs Temp Pulse Resp BP Pulse Ox 97.4 F L 90 18 124/69 H 98 10/15/19 03:32 10/15/19 03:32 10/15/19 03:32 10/15/19 03:32 10/15/19 03:32 Oxygen Flow Rate (L/min) 4 Oxygen Delivery Method Nasal Cannula Weight: 324 lb 15.382 oz Body Mass Index (BMI) 41.7 Finger Stick Blood Glucose 48 Intake and Output for Last 24 Hours 10/13/19 10/14/19 10/15/19 23:59 23:59 23:59 Intake Total 50 / 50 Balance 50 / 50 Laboratory Results 10/15/19 02:05: WBC 16.1 H, RBC 4.38 L, Hgb 10.2 L, Hct 34.1 L, MCV 77.9 L, MCH 23.3 L, MCHC 29.9 L, RDW Std Deviation 53.5 H, RDW Coeff of Lakshmi 19.5 H, Plt Count 266, MPV 9.1, Immature Gran % (Auto) 1.000 H, Neut % (Auto) 91.8 H, Lymph % (Auto) 4.3 L, [place] % (Auto) 2.7, Eos % (Auto) 0.1, Baso % (Auto) 0.1, Absolute Neuts (auto) 14.8 H, Absolute Lymphs (auto) 0.69 L, Nucleated RBC % 0 10/15/19 02:05: PT 16.9 H, INR 1.4 10/15/19 02:05: Sodium 131 L, Potassium 2.3 L*, Chloride 81 L, Carbon Dioxide 41.0 H, Anion Gap 9, BUN 37 H, Creatinine 1.59 H, Estim Creat Clear Calc 46.67, Est GFR (MDRD) Af Amer 55 L, Est GFR (MDRD) Non-Af 45 L, BUN/Creatinine Ratio 23.3 H, Glucose 22 L*, Calcium 9.0, Total Bilirubin 0.90, AST 29, ALT 22, Alkaline Phosphatase 99, Total Protein 8.5 H, Albumin 3.1 L, Globulin 5.4 H, Albumin/Globulin Ratio 0.6 L 10/15/19 02:05: Urine Color Yellow, Urine Clarity Sl. Cloudy, Urine pH 6.5, Ur Specific [place] 1.010, Urine Protein 15 H, Urine Glucose (UA) Normal, Urine Ketones Negative, Urine Occult Blood 25 H, Urine Nitrite Positive H, Urine Bilirubin Negative, Urine Urobilinogen Normal, Ur Leukocyte Esterase 500 H, Urine RBC 0 SEEN, Urine WBC 0-5 SEEN, Ur Squamous Epith Cells 0 SEEN, Urine Bacteria 2+, Urine Mucus 0 SEEN 10/15/19 02:05: Magnesium 2.6 10/15/19 03:00: Lactic Acid Cancelled 10/15/19 03:13: Specimen Type SADA, Sample Site R Radial, VBG pH 7.54 H, VBG pO2 39, VBG O2 Sat (Calc) 78 H, VBG O2 Content 50 H, VBG Base Excess 26 H, POC Mix VBG pCO2 Pt Tmp 57.0 H, O2 Delivery Device Nasal Can, Liter Flow 4.0, Blood Gas Notified Whom ED MD, Blood Gas Notified Time 300 Current Medications Dextrose/Sodium Chloride () 1,000 mls @ 75 mls/hr IV .[id number] EHSAN Last Admin: 10/15/19 03:36 Dose: 75 mls/hr Documented by: Potassium Chloride () 10 meq in 100 mls @ 100 mls/hr IV BOLUS Q1H EHSAN Stop: 10/15/19 07:29 Last Admin: 10/15/19 03:38 Dose: 100 mls/hr Documented by: Assessment/Plan All Active Problems (Last Reviewed 09/26/19 @ 13:47 by Corinna Bryant) Hypokalemia (Acute) Hyponatremia (Acute) Hypochloremia (Acute) Acute encephalopathy (Acute) Hypoglycemia (Acute) Sepsis (Acute) UTI (urinary tract infection) (Acute) Atrial fibrillation with RVR (Acute) The patient is a 74 y/o M w/ PMHx: CKD stage III, Chronic Atrial Fibrillation, Diastolic CHF w/ Chronic Hypoxic Respiratory Failure (4L NC), HTN, HLD, Morbid Obesity, Diabetes mellitus type II, RAQUEL with CPAP non-compliance, Morbid Obesity, CAD s/p CABG x 4 and PCI, BPH who was recently admitted 10/11-10/13/19 following treatment of hypokalemia secondary to diuretic usage without potassium concurrent supplementation as well as hypovolemic hyponatremia and hypochloremia with upon discharge recommended transition to lasix 80 mg BID as had been self administering lasix TID with also noted episodes of hypoglycemia while inpatient but declined to have his insulin regimen changed as noted he would only discuss these alterations with his seafood technology specialist who now re-presents to the [facility] ED on 10/15/19 with history of onset of acute confusion. 1. Acute Sepsis secondary to Acute Urinary Tract Infection completed by recent Thomas catheter placement: Will admit to the ICU given severity of ongoing hypoglycemia, maintain on telemetry, UA upon ED evaluation remarkable although no market WBCs however 2+ bacteria and concerning for urinary tract infection with indwelling Thmoas catheter secondary to recent diuresis, continue IVFs, monitor I/Os, continue IV Rocephin w/ transition as able pending sensitivities and speciation. Bld cx x 2 obtained in the ED. 2. Acute recurrent hypokalemia, hypochloremia: Patient with notable history of noncompliance with medications with recent admission with similar presentation, will continue aggressive potassium supplementation with repeat BMP to ascertain further needs. 3. Diabetes mellitus type II w/ Hypoglycemia: Given severe hypoglycemia with encephalopathy with electrolyte disturbances, will continue judicious D10 since patient was still hypoglycemic with D5NS, continue to closely monitor, NPO currently given encephalopathy but once improves allow transition to ADA diet, hold on ISS until BS remain appropriate. 07/26/19 Hgb 6.1%. 4. Acute Encephalopathy, Multifactorial, Infection, Metabolic: Secondary to #1, #2, #3, admission CT head with no acute findings, fall precautions, aspiration precautions, PT/OT/CM assessments for discharge planning. 5. Chronic Kidney Disease Stage III: Admission BUN/Cr 37/1.59, baseline renal function appears 1.3-1.5, despite suspected hypovolemia appears baseline, repeat BMP in AM. 6. CAD: Status post CABG x 4 and PCI, will continue apixaban, not on beta-memo as on amiodarone and Cardizem, not on GLORIA inhibitor or ARB secondary to underlying renal disease, not on statin therapy secondary to intolerance. 7. Chronic atrial fibrillation: We will continue patient home apixaban regimen, mildly increased rate upon presentation; however, patient agitated and previously had been refusing his amiodarone and cardizem but had been restarted during recent admission, will continue. 8. Chronic diastolic CHF with chronic hypoxic and hypercarbic respiratory failure (4L NC): We will continue home oxygen supplementation, apixaban, holding Lasix, metolazone regimen given severity of hypokalemia, not on beta-memo as on amiodarone and Cardizem, not on GLORIA inhibitor or ARB secondary to underlying renal disease. 9. Hypertension: We will continue home amlodipine, Cardizem, isosorbide regimen, holding home Lasix, metolazone given severe hypokalemia, PRN hydralazine. 10. Hyperlipidemia: Not on statin therapy, intolerance history. 11. Morbid Obesity: Weight loss and lifestyle changes encouraged, nutrition consulted. 12. Chronic Normocytic Anemia: Admission Hgb 10.2, MCV 77.9, baseline appears 8-10, stable, trend, continue iron supplementations. 13. RAQUEL: Noncompliant with CPAP. 14. DVT prophylaxis: SCDs, apixaban. 15. 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 Recent admission with CODE STATUS discussions at length with requested DNR/CCA no intubation at that time. Discussed status again especially given patient's confusion and amenable to continuation of the prior status with DNR CCA, no intubation. Advanced Care Planning Face to Face Time: 16 minutes. Code Visit Inpatient E&M: 11955 Init Hosp L3 Procedures: 36771 Advncd Care Plan 30 Min
[2019-10-15 04:06] LABS: Bedside Glucose 48 mg/dL (70-110)
[2019-10-15 04:06] LABS: Bedside Glucose 128 mg/dL (70-110)
[2019-10-15 04:10] LABS: Bedside Glucose 93 mg/dL (70-110)
[2019-10-15 04:21] LABS: Bedside Glucose 82 mg/dL (70-110)
[2019-10-15 04:24] LABS: Lactic Acid 1.9 mmol/L (0.4-2.0)
[2019-10-15] MEDS: Dextrose 10%-Water 250 ML 60 ML IV (04:34)
[2019-10-15 05:10] LABS: Bedside Glucose 67 mg/dL (70-110)
[2019-10-15 05:56] LABS: Bedside Glucose 46 mg/dL (70-110)
--- NOTE | 2019-10-15 06:08 | PCM.CON.CC ---
Reason for Consult Date of Consultation: 10/15/19 Reason for Consultation: Sepsis, UTI, metabolic derangements History of Present Illness: The patient is a 74-year-old male, with a history as outlined below, who presented to the emergency department on October 15 with encephalopathy. The patient reports that last evening he checked his blood glucose level and found it to be elevated. He therefore dosed himself with insulin, which was above the level that was recommended per his home sliding scale regimen. The patient then became confused during the youth career specialist hours, which prompted his to contact EMS. The patient was just discharged from the hospital on October 13 after having been admitted with hypokalemia and hypovolemic hyponatremia. The patient's diuretic regimen was adjusted. The patient does currently follow with Dr. Turpin in the pulmonary medicine clinic due to a history of obstructive sleep apnea, for which he is noncompliant with use of nocturnal Pap therapy. The patient does have a known history of coronary artery disease status post CABG along with paroxysmal atrial fibrillation. On presentation to the emergency department, the patient was noted to be afebrile, tachycardic and tachypneic. He was, nevertheless, hemodynamically stable. The patient was noted to be requiring 4 L/min of supplemental oxygen to maintain appropriate saturations. Laboratory evaluation revealed an elevated white blood cell count to 16,000. There was also evidence of baseline microcytic anemia. INR was noted to be 1.4. Chemistry profile was notable for a sodium of 131, potassium of 2.3, chloride of 81, bicarbonate of 41 and creatinine of 1.59, which is baseline. The patient was significantly hypoglycemic with a glucose of 22. Lactate was within normal limits. Urinalysis was positive for nitrites and leukocyte esterase. 2+ urine bacteria was noted. CT head was obtained and revealed mild generalized atrophy along with microangiopathic white matter disease. The patient received supplemental IV fluids, electrolyte repletion and antimicrobials. He was then admitted to the medical intensive care unit for further management. The patient's mentation was noted to have improved early this morning following stabilization and his blood glucose levels. The patient is currently alert and mentating appropriately. Past Medical History Past Medical History (Chronic Problems): Chronic Problems (Last Reviewed 09/26/19 @ 13:47 by Corinna Bryant) CKD (chronic kidney disease), stage III (Chronic) Hyperlipidemia (Chronic) Hypertension (Chronic) Paroxysmal a-fib (Chronic) S/P pulmonary vein isolation; Periodic limb movement sleep disorder (Chronic) Pulmonary hypertension (Chronic) Type II Coronary artery disease (Chronic) (HFpEF) heart failure with preserved ejection fraction (Chronic) Anemia (Chronic) Type 2 diabetes mellitus (Chronic) Presence of aortocoronary bypass graft (Chronic ~10/2010) CABG x4: LEBRON to LAD, SVG to RI, SVG to PDA, SVG to posterolateral Lt ventricular branch, PVI w/ Atricure Ablation and ligation of Lt atrial appendage 10/2010 Presence of stent in coronary artery (Chronic ~01/2011) PTCA/Stent to mid LCX 01/2011 DM (diabetes mellitus) with peripheral vascular complication (Chronic) Atherosclerotic heart disease of [place] coronary artery without angina pectoris (Chronic) CABG x4: LEBRON to LAD, SVG to RI, SVG to PDA, SVG to posterolateral Lt ventricular branch, PVI w/ Atricure Ablation and ligation of Lt atrial appendage 10/2010; PTCA/Stent to mid LCX 01/2011 Body mass index 40.0-44.9, adult (Chronic) Meniscus degeneration (Chronic) RAQUEL (obstructive sleep apnea) (Chronic) Obesity (Chronic) PVC (premature ventricular contraction) (Chronic) Medical History: Medical History (Last Reviewed 09/26/19 @ 13:47 by Corinna Bryant) Type 2 diabetes mellitus (Chronic) E11.9 DM (diabetes mellitus) with peripheral vascular complication (Chronic) E11.51 Atherosclerotic heart disease of [place] coronary artery without angina pectoris (Chronic) I25.10 CABG x4: LEBRON to LAD, SVG to RI, SVG to PDA, SVG to posterolateral Lt ventricular branch, PVI w/ Atricure Ablation and ligation of Lt atrial appendage 10/2010; PTCA/Stent to mid LCX 01/2011 Body mass index 40.0-44.9, adult (Chronic) Z68.41 RAQUEL (obstructive sleep apnea) (Chronic) G47.33 Obesity (Chronic) E66.9 PVC (premature ventricular contraction) (Chronic) I49.3 History of cardioversion Onset Date: ~09/08/19 Z98.890 BPH (benign prostatic hyperplasia) N40.0 Osteoarthritis M19.90 Allergies acetaminophen [From Percocet] Allergy (Verified 10/11/19 14:35) Swelling oxycodone [From Percocet] Allergy (Verified 10/11/19 14:35) A-fib, Swelling, Sulfa (Sulfonamide Antibiotics) Allergy (Verified 10/11/19 14:35) Swelling atropine Adverse Reaction (Severe, Verified 10/11/19 14:35) arrhythmia hydrochlorothiazide [From Hyzaar] Adverse Reaction (Severe, Verified 10/11/19 14:35) arrhythmia losartan [From Hyzaar] Adverse Reaction (Severe, Verified 10/11/19 14:35) arrhythmia quinapril [From Accupril] Adverse Reaction (Severe, Verified 10/11/19 14:35) arrhythmia atorvastatin [From Lipitor] Adverse Reaction (Intermediate, Verified 10/11/19 14:35) myalgias metformin Adverse Reaction (Intermediate, Verified 10/11/19 14:35) myalgias Home Medications: Ambulatory Orders Medication Instructions Recorded Gabapentin [Neurontin] 300 mg PO BIDCM 03/11/17 Insulin U-500 [Humulin R U-500 150 - 225 units SQ TIDCM 07/25/19 ([facility])] apixaban 5 mg tablet 5 mg PO BID #60 tab 08/14/19 furosemide 80 mg tablet 80 mg PO BID tab 09/04/19 Metolazone [Zaroxolyn] 2.5 mg PO DAILY 10/11/19 Pramipexole Di-HCl [Mirapex] 0.5 mg PO QHS 10/11/19 Amiodarone HCl 200 mg PO DAILY 10/12/19 Amlodipine Besylate 5 mg PO DAILY 10/12/19 Diltiazem HCl [Diltiazem 24Hr ER 360 mg PO DAILY 10/12/19 ()] Duloxetine HCl 60 mg PO DAILY 10/12/19 Ferrous Sulfate 325 mg PO BID 10/12/19 Isosorbide Mononitrate [Isosorbide 30 mg PO DAILY 10/12/19 Mononitrate ER] Pantoprazole Sodium [Protonix] 40 mg PO DAILY 10/12/19 Tamsulosin HCl [Flomax] 0.4 mg PO DAILY 10/12/19 Ampicillin Trihydrate 500 mg PO TID #0 10/13/19 Hydrocodone/Acetaminophen 1 tab PO BID 10/13/19 [Hydrocodone-Acetamin 5-325 mg] Potassium Chloride [K-Dur] 40 meq PO BID #120 tab 10/13/19 Surgical History: Surgical History (Last Reviewed 10/12/19 @ 17:32 by VICKIE Diallo) Presence of aortocoronary bypass graft (Chronic) Onset Date: ~10/2010 Z95.1 CABG x4: LEBRON to LAD, SVG to RI, SVG to PDA, SVG to posterolateral Lt ventricular branch, PVI w/ Atricure Ablation and ligation of Lt atrial appendage 10/2010 Presence of stent in coronary artery (Chronic) Onset Date: ~01/2011 Z95.5 PTCA/Stent to mid LCX 01/2011 Surgical History: - - CABG X4, PCI. Psychiatric History: Anxiety, Depression Lives: Spouse/ Significant Other Smoking Status: Never smoker Tobacco Use: Non-smoker, Chew Alcohol: None - *Family History Maternal Family History: Family History (Last Reviewed 10/12/19 @ 17:32 by VICKIE Diallo) Mother CAD (coronary artery disease) Father CVA (cerebral vascular accident) Myocardial infarction Brother Myocardial infarction Brother CAD (coronary artery disease) Myocardial infarction Sister CAD (coronary artery disease) History Items: High Cholesterol, Heart Disease, Hypertension Paternal Family History: Family History (Last Reviewed 10/12/19 @ 17:32 by VICKIE Diallo) Mother CAD (coronary artery disease) Father CVA (cerebral vascular accident) Myocardial infarction Brother Myocardial infarction Brother CAD (coronary artery disease) Myocardial infarction Sister CAD (coronary artery disease) History Items: High Cholesterol, Heart Disease, Hypertension, Stroke Review of Systems Constitutional: Denies: Chills, Fever Eyes: Denies: Blurred vision, Double vision HEENT: Denies: Head Aches, Sinus Congestion, Sinus Drainage Cardiovascular: Denies: Chest Pain, Palpitations Respiratory: Reports: Shortness of Breath Gastrointestinal: Denies: Abdominal Pain, Nausea, Vomiting Genitourinary: Denies: Dysuria Musculoskeletal: Denies: Joint Pain, Joint Tenderness Skin: Denies: Rash, Wounds Neurological: Reports: Confusion Psychiatric: Denies: Anxiety, Depression, Homicidal Ideations, Suicidal Ideations Hematologic/ Lymphatic: Reports: Anemia Objective: The patient's most recent lab work, culture data and imaging studies have all been personally reviewed. Surface echocardiogram from June 2019 revealed normal LV size with mild concentric LVH and an ejection fraction of 65%. Diastolic function and right ventricular systolic pressure were unable to be estimated. The patient has known obstructive sleep apnea for which he is supposed to be utilizing bilevel therapy with a pressure support of 25/21, based upon polysomnogram completed in 2017. Blood and urine cultures are currently pending. - Physical Exam Vitals/I&O's: Vital Signs Temp Pulse Resp BP Pulse Ox 97.0 F L 99 18 111/76 100 10/15/19 05:15 10/15/19 05:19 10/15/19 05:15 10/15/19 05:15 10/15/19 05:15 Oxygen Flow Rate (L/min) 4 Oxygen Delivery Method Nasal Cannula Weight: 320 lb 15.889 oz Body Mass Index (BMI) 41.2 Finger Stick Blood Glucose 82 Intake and Output for Last 24 Hours 10/13/19 10/14/19 10/15/19 23:59 23:59 23:59 Intake Total 409 / 409 Balance 409 / 409 General: Alert, Cooperative, No apparent distress, - - Morbidly obese. Sitting upright in bed. is present at the bedside. HEENT: Atraumatic, PERRLA, Normocephalic Oral: No Gingival or Mucosal Lesions/ Ulcerations Neck: Supple, No Nodes, Trachea Midline Lungs: No rhonchi, No wheeze, No rales, Diminished Cardiovascular: Regular rate, Regular Rhythm, Normal S1, Normal S2, No murmurs Abdomen: Bowel Sounds Present, Soft, Non Tender, Obese Extremities: No clubbing, No cyanosis Skin: - - Lower extremity venous stasis dermatitis Musculoskeletal: No Muscle Wasting Lymphatic: No Cervical, Supraclavicular, or Inguinal Adenopathy Neurological: Cranial nerves II-XII grossly intact, Neuro grossly intact Psych/Mental Status: Normal Affect, Appropriate Labs (Last 48 Hours) 10/15/19 10/15/19 10/15/19 02:05 02:05 02:05 WBC 16.1 H RBC 4.38 L Hgb 10.2 L Hct 34.1 L MCV 77.9 L MCH 23.3 L MCHC 29.9 L RDW Std Deviation 53.5 H RDW Coeff of Lakshmi 19.5 H Plt Count 266 MPV 9.1 Immature Gran % (Auto) 1.000 H Neut % (Auto) 91.8 H Lymph % (Auto) 4.3 L [place] % (Auto) 2.7 Eos % (Auto) 0.1 Baso % (Auto) 0.1 Absolute Neuts (auto) 14.8 H Absolute Lymphs (auto) 0.69 L Nucleated RBC % 0 PT 16.9 H INR 1.4 Specimen Type Sample Site VBG pH VBG pO2 VBG O2 Sat (Calc) VBG O2 Content VBG Base Excess POC Mix VBG pCO2 Pt Tmp O2 Delivery Device Liter Flow Blood Gas Notified Whom Blood Gas Notified Time Sodium 131 L Potassium 2.3 L* Chloride 81 L Carbon Dioxide 41.0 H Anion Gap 9 BUN 37 H Creatinine 1.59 H Estim Creat Clear Calc 46.67 Est GFR (MDRD) Af Amer 55 L Est GFR (MDRD) Non-Af 45 L BUN/Creatinine Ratio 23.3 H Glucose 22 L* Lactic Acid Calcium 9.0 Magnesium Total Bilirubin 0.90 AST 29 ALT 22 Alkaline Phosphatase 99 Total Protein 8.5 H Albumin 3.1 L Globulin 5.4 H Albumin/Globulin Ratio 0.6 L Urine Color Urine Clarity Urine pH Ur Specific [place] Urine Protein Urine Glucose (UA) Urine Ketones Urine Occult Blood Urine Nitrite Urine Bilirubin Urine Urobilinogen Ur Leukocyte Esterase Urine RBC Urine WBC Ur Squamous Epith Cells Urine Bacteria Urine Mucus POC Glucose 10/15/19 10/15/19 10/15/19 02:05 02:05 03:00 WBC RBC Hgb Hct MCV MCH MCHC RDW Std Deviation RDW Coeff of Lakshmi Plt Count MPV Immature Gran % (Auto) Neut % (Auto) Lymph % (Auto) [place] % (Auto) Eos % (Auto) Baso % (Auto) Absolute Neuts (auto) Absolute Lymphs (auto) Nucleated RBC % PT INR Specimen Type Sample Site VBG pH VBG pO2 VBG O2 Sat (Calc) VBG O2 Content VBG Base Excess POC Mix VBG pCO2 Pt Tmp O2 Delivery Device Liter Flow Blood Gas Notified Whom Blood Gas Notified Time Sodium Potassium Chloride Carbon Dioxide Anion Gap BUN Creatinine Estim Creat Clear Calc Est GFR (MDRD) Af Amer Est GFR (MDRD) Non-Af BUN/Creatinine Ratio Glucose Lactic Acid Cancelled Calcium Magnesium 2.6 Total Bilirubin AST ALT Alkaline Phosphatase Total Protein Albumin Globulin Albumin/Globulin Ratio Urine Color Yellow Urine Clarity Sl. Cloudy Urine pH 6.5 Ur Specific [place] 1.010 Urine Protein 15 H Urine Glucose (UA) Normal Urine Ketones Negative Urine Occult Blood 25 H Urine Nitrite Positive H Urine Bilirubin Negative Urine Urobilinogen Normal Ur Leukocyte Esterase 500 H Urine RBC 0 SEEN Urine WBC 0-5 SEEN Ur Squamous Epith Cells 0 SEEN Urine Bacteria 2+ Urine Mucus 0 SEEN POC Glucose 10/15/19 10/15/19 10/15/19 03:13 03:17 03:35 WBC RBC Hgb Hct MCV MCH MCHC RDW Std Deviation RDW Coeff of Lakshmi Plt Count MPV Immature Gran % (Auto) Neut % (Auto) Lymph % (Auto) [place] % (Auto) Eos % (Auto) Baso % (Auto) Absolute Neuts (auto) Absolute Lymphs (auto) Nucleated RBC % PT INR Specimen Type SADA Sample Site R Radial VBG pH 7.54 H VBG pO2 39 VBG O2 Sat (Calc) 78 H VBG O2 Content 50 H VBG Base Excess 26 H POC Mix VBG pCO2 Pt Tmp 57.0 H O2 Delivery Device Nasal Can Liter Flow 4.0 Blood Gas Notified Whom ED MD Blood Gas Notified Time 300 Sodium Potassium Chloride Carbon Dioxide Anion Gap BUN Creatinine Estim Creat Clear Calc Est GFR (MDRD) Af Amer Est GFR (MDRD) Non-Af BUN/Creatinine Ratio Glucose Lactic Acid Calcium Magnesium Total Bilirubin AST ALT Alkaline Phosphatase Total Protein Albumin Globulin Albumin/Globulin Ratio Urine Color Urine Clarity Urine pH Ur Specific [place] Urine Protein Urine Glucose (UA) Urine Ketones Urine Occult Blood Urine Nitrite Urine Bilirubin Urine Urobilinogen Ur Leukocyte Esterase Urine RBC Urine WBC Ur Squamous Epith Cells Urine Bacteria Urine Mucus POC Glucose 48 L 128 H 10/15/19 10/15/19 10/15/19 03:55 04:00 04:15 WBC RBC Hgb Hct MCV MCH MCHC RDW Std Deviation RDW Coeff of Lakshmi Plt Count MPV Immature Gran % (Auto) Neut % (Auto) Lymph % (Auto) [place] % (Auto) Eos % (Auto) Baso % (Auto) Absolute Neuts (auto) Absolute Lymphs (auto) Nucleated RBC % PT INR Specimen Type Sample Site VBG pH VBG pO2 VBG O2 Sat (Calc) VBG O2 Content VBG Base Excess POC Mix VBG pCO2 Pt Tmp O2 Delivery Device Liter Flow Blood Gas Notified Whom Blood Gas Notified Time Sodium Potassium Chloride Carbon Dioxide Anion Gap BUN Creatinine Estim Creat Clear Calc Est GFR (MDRD) Af Amer Est GFR (MDRD) Non-Af BUN/Creatinine Ratio Glucose Lactic Acid 1.9 Calcium Magnesium Total Bilirubin AST ALT Alkaline Phosphatase Total Protein Albumin Globulin Albumin/Globulin Ratio Urine Color Urine Clarity Urine pH Ur Specific [place] Urine Protein Urine Glucose (UA) Urine Ketones Urine Occult Blood Urine Nitrite Urine Bilirubin Urine Urobilinogen Ur Leukocyte Esterase Urine RBC Urine WBC Ur Squamous Epith Cells Urine Bacteria Urine Mucus POC Glucose 93 82 10/15/19 10/15/19 04:59 05:51 WBC RBC Hgb Hct MCV MCH MCHC RDW Std Deviation RDW Coeff of Lakshmi Plt Count MPV Immature Gran % (Auto) Neut % (Auto) Lymph % (Auto) [place] % (Auto) Eos % (Auto) Baso % (Auto) Absolute Neuts (auto) Absolute Lymphs (auto) Nucleated RBC % PT INR Specimen Type Sample Site VBG pH VBG pO2 VBG O2 Sat (Calc) VBG O2 Content VBG Base Excess POC Mix VBG pCO2 Pt Tmp O2 Delivery Device Liter Flow Blood Gas Notified Whom Blood Gas Notified Time Sodium Potassium Chloride Carbon Dioxide Anion Gap BUN Creatinine Estim Creat Clear Calc Est GFR (MDRD) Af Amer Est GFR (MDRD) Non-Af BUN/Creatinine Ratio Glucose Lactic Acid Calcium Magnesium Total Bilirubin AST ALT Alkaline Phosphatase Total Protein Albumin Globulin Albumin/Globulin Ratio Urine Color Urine Clarity Urine pH Ur Specific [place] Urine Protein Urine Glucose (UA) Urine Ketones Urine Occult Blood Urine Nitrite Urine Bilirubin Urine Urobilinogen Ur Leukocyte Esterase Urine RBC Urine WBC Ur Squamous Epith Cells Urine Bacteria Urine Mucus POC Glucose 67 L 46 L Clinical Impression(s) from Imaging Studies Brain CT 10/15/19 02:07 IMPRESSION: Mild generalized brain atrophy along with microangiopathic white matter disease. No acute intracranial hemorrhage or space-occupying lesion. Electronically Signed: Altagracia Maldonado MD at 3:14 EST , Service support , Chest X-Ray 10/15/19 02:50 IMPRESSION: Mild asymmetric congestive heart failure, overall improved in the interval. Electronically Signed: Altagracia Maldonado MD at 3:10 EST , Service support , Current Medications Acetaminophen (Tylenol) 650 mg PO Q6H PRN PRN PRN Reason: Non-cardiac pain (mod-severe) Al Hydroxide/Mg Hydroxide ([place]ylanta Ii) 15 - 30 ml PO Q4H PRN PRN PRN Reason: INDIGESTION Albuterol Sulfate (Ventolin Aerosols) 2.5 mg INHALATION Q2H PRN PRN PRN Reason: dyspnea, wheezing Amiodarone HCl (Cordarone) 200 mg PO DAILY [facility] Amlodipine Besylate (Norvasc) 5 mg PO DAILY [facility] Apixaban (Eliquis) 5 mg PO BID [facility] Dextrose (D50w Syringe) 0 gm IV X1 PRN; Protocol PRN Reason: Hypoglycemia Last Admin: 10/15/19 06:00 Dose: 25 gm Documented by: Diltiazem HCl (Cardizem Cd) 360 mg PO DAILY [facility] Duloxetine HCl (Cymbalta) 60 mg PO DAILY [facility] Ferrous Sulfate (Ferrous Sulfate) 325 mg PO BIDCM [facility] Glucagon () 1 mg IM .X1 PRN PRN Reason: Hypoglycemia Glucagon () 3 mg IV X1 ONE Stop: 10/15/19 05:58 Hydralazine HCl (Apresoline Iv) 10 mg IV Q4H PRN PRN PRN Reason: SBP > 160 Potassium Chloride () 10 meq in 100 mls @ 100 mls/hr IV BOLUS Q1H [facility] Stop: 10/15/19 07:29 Last Admin: 10/15/19 05:48 Dose: 100 mls/hr Documented by: Dextrose (Dextrose 10%-Water) 250 mls @ 100 mls/hr IV .Q2H30M [facility] Last Infusion: 10/15/19 06:03 Dose: 100 mls/hr Documented by: Ceftriaxone Sodium (Rocephin) 1 gm in 50 mls @ 100 mls/hr IV Q24H [facility] Sodium Chloride () 250 mls @ 15 mls/hr IV .[id number] PRN PRN Reason: Saline Flush Isosorbide Mononitrate (Imdur) 30 mg PO DAILY [facility] Magnesium Hydroxide (Milk Of Magnesia) 30 ml PO DAILY PRN PRN Reason: Constipation Nitroglycerin (Nitrostat) 0.4 mg SUBLINGUAL Q5M PRN PRN Reason: CARDIAC/CHEST PAIN Ondansetron HCl (Zofran) 4 mg IV Q8H PRN PRN PRN Reason: NAUSEA/VOMITING Pantoprazole Sodium (Protonix) 40 mg PO DAILY [facility] Potassium Chloride (K-Dur) 40 meq PO BID [facility] Pramipexole Dihydrochloride (Mirapex) 0.5 mg PO QHS [facility] Sodium Chloride () 10 - 40 ml IV UD PRN PRN Reason: SALINE FLUSH Tamsulosin HCl (Flomax) 0.4 mg PO DAILY [facility] Assessment/Plan RECOMMENDATIONS: 1. Transition from D10 infusion to D5 normal saline with potassium. Fluids can be discontinued once the patient is able to tolerate p.o. intake. 2. Aggressive electrolyte repletion. 3. Continue antimicrobials, pending culture results. 4. Wean supplemental oxygen as tolerated. 5. Recommend initiation of nocturnal Pap therapy while admitted to the hospital. 6. Encourage incentive spirometer use and mobilize patient as tolerated. IMPRESSIONS: 1. Encephalopathy Likely multifactorial in etiology with iatrogenic hypoglycemia and presumptive urinary tract infection contributing. The patient's mentation has improved back to baseline this morning following stabilization and his blood glucose levels. The patient was initially started on a D10 infusion, which was transitioned to D5 normal saline with potassium supplementation. The patient's diet has been advanced. He is currently on antimicrobials to treat the possible underlying urinary tract source of infection. The patient does follow with an aircraft dispatcher on an outpatient basis. He readily admits that he dosed himself with insulin which was above the recommended amount per his sliding scale regimen. 2. Sepsis with concerns for cystitis The patient remains hemodynamically stable. He currently has dextrose containing supplemental IV fluids infusing. These can likely be discontinued, once the patient is able to tolerate p.o. intake. Recommend continuing antimicrobial therapy, pending culture results. 3. Hyponatremia/hypochloremia/hypokalemia The patient was recently admitted under similar circumstances due to a history of medication noncompliance. This is likely a main contributing factor for the patient's metabolic/electrolyte derangements once again. The patient is currently receiving aggressive electrolyte repletion. Diuretics are currently on hold. 4. Morbid obesity/paroxysmal atrial fibrillation/coronary artery disease/chronic kidney disease/RAQUEL with PAP noncompliance Complicates care, management, recovery and prognosis. Continue home medications as indicated. Recommend use of nocturnal Pap therapy while admitted to the hospital. This note was generated with Dragon dictation software. It may contain incorrect words, spelling, and punctuation that were not noted in checking the note before signing. Code Visit Inpatient E&M: 42381 Init Hosp L3
[2019-10-15] MEDS: Glucagon 1 MG/ML Syringe 3 MG IV (06:29)
[2019-10-15 06:40] LABS: Bedside Glucose 118 mg/dL (70-110)
[2019-10-15 06:43] LABS: Absolute Lymphocyte Count 0.72 X10^3/uL (0.83-4.51); Absolute Neutrophil Count 13.1 X10^3/uL (2.0-7.7); Basophil# 0.01 X10^3/uL; Basophil% 0.1 % (0-1); Hematocrit 32.7 % (40-54); Hemoglobin 9.5 g/dL (13.0-16.5); Lymphocyte # 0.72 X10^3/ul (4.0); Mean Corp Hgb Conc 29.1 g/dL (32-36); Mean Corpuscular Hgb 22.9 pg (27.0-32.0); Mean Platelet Vol. 9.4 fl (6.2-12.0); Monocyte# 0.41 X10^3/uL; Monocyte% 2.9 % (0-10); NRBC Flagged by Analyzer 0 % (0-5); Neutrophil # 13.13 X10^3/uL (2.7-7.7); Neutrophil % 91.4 % (47-70); Platelet Count 230 K/mm3 (150-450); RBC Distribution Width CV 19.4 % (11.6-14.6); RBC Distribution Width SD 54.3 fl (35.1-43.9); Red Blood Count 4.14 M/mm3 (4.6-6.2); White Blood Count 14.4 K/mm3 (4.4-11.0)
[2019-10-15 06:53] LABS: Anion Gap 10 (5-15); BUN 36 mg/dL (7-18); BUN/Creat Ratio 23.4 RATIO (10-20); Calcium,Total 8.6 mg/dL (8.5-10.1); Chloride 77 mmol/L (98-107); Creatinine, Serum 1.54 mg/dL (0.70-1.30); EST Glomerular Filtration Rate 47 mL/min (>60); Est Glom Filt Rate - Afr Amer 57 mL/min (>60); Estimated Creatinine Clearance 48.19 ml/min; Glucose 99 mg/dL (74-106); Magnesium 2.7 mg/dL (1.6-2.6); Potassium 2.9 mmol/L (3.5-5.1); Sodium Level 130 mmol/L (136-145)
[2019-10-15 07:05] LABS: Bedside Glucose 23 mg/dL (70-110)
[2019-10-15 07:05] LABS: Bedside Glucose 20 mg/dL (70-110)
[2019-10-15 07:05] LABS: Bedside Glucose 133 mg/dL (70-110)
[2019-10-15 07:31] LABS: Base Excess 25 mmol/L (-2 to +2); Bicarbonate 47.3 mmol/L (22-26); Blood Gas Specimen Type ART; O2 Delivery Device Nasal Can; PO2 81 mmHG (75-100); SITE L Brachial; SO2 97 % (95-99); Time Given 725; Total Carbon Dioxide 49 mmol/L; pCO2 50.9 mmHg (35-45); pH 7.58 (7.35-7.45)
[2019-10-15 07:55] LABS: Bedside Glucose 146 mg/dL (70-110)
[2019-10-15] MEDS: amLODIPine 5 MG Tablet PO (08:01)
[2019-10-15] MEDS: Ferrous Sulfate 325 MG Tablet PO (08:01)
[2019-10-15] MEDS: Pantoprazole Sodium 40 MG Tablet PO (08:02)
[2019-10-15] MEDS: APIXABAN 5 MG TABLET PO (08:03)
[2019-10-15] MEDS: DULoxetine Hcl 60 MG Capsule PO (08:03)
[2019-10-15] MEDS: Amiodarone 200 MG Tablet PO (08:03)
[2019-10-15] MEDS: Tamsulosin HCl 0.4 MG Capsule PO (08:04)
--- NOTE | 2019-10-15 08:40 | NURSING ---
[place] 5 tabs of home medication given to to take home.
[2019-10-15] MEDS: dilTIAZem CD 180 MG Capsule 360 MG PO (10:48)
[2019-10-15 11:01] LABS: Bedside Glucose 173 mg/dL (70-110)
[2019-10-15] MEDS: dilTIAZem 25 MG/5 ML Vial 15 MG IV BOLUS (13:49)
[2019-10-15] MEDS: 0.9% Saline Lock 10 ML Syringe IV (13:51)
--- NOTE | 2019-10-15 14:00 | NURSING ---
Dr Wills informed hr 130-140 received order for cardizem ivp hr 113 after
[2019-10-15 15:11] LABS: Bedside Glucose 294 mg/dL (70-110)
--- NOTE | 2019-10-15 15:21 | NURSING ---
dr wills notified pt said he called his and would be leaving @ 4pm , Dr Wills said he would not discharge patient he is not medically clear he would have to leave [facility]
--- NOTE | 2019-10-15 16:00 | NURSING ---
pt did leave against medical advice, waiver signed, to door per wheelchair in care of
--- NOTE | 2019-10-15 19:42 | PCM.DC.SUM ---
Discharge Date and Diagnosis Date of Admission: 10/15/19 Date of Discharge: 10/15/19 - Primary Discharge Diagnosis 1. Acute Sepsis secondary to Acute Urinary Tract Infection completed by recent Thomas catheter placement 2. Acute recurrent hypokalemia, hypochloremia with notable history of noncompliance with medications 3. Diabetes mellitus type II w/ Hypoglycemia 4. Acute Encephalopathy, Multifactorial, Infection, Metabolic, Secondary to #1, #2, #3 5. Chronic Kidney Disease Stage III 6. CAD 7. Chronic atrial fibrillation 8. Chronic diastolic CHF with chronic hypoxic and hypercarbic respiratory failure (4L NC) 9. Hypertension 10. Hyperlipidemia 11. Morbid Obesity 12. Chronic Normocytic Anemia 13. RAQUEL, Noncompliant with CPAP - Secondary Discharge Diagnosis Chronic Problems (Last Reviewed 09/26/19 @ 13:47 by Corinna Bryant) CKD (chronic kidney disease), stage III (Chronic) Hyperlipidemia (Chronic) Hypertension (Chronic) Paroxysmal a-fib (Chronic) S/P pulmonary vein isolation; Periodic limb movement sleep disorder (Chronic) Pulmonary hypertension (Chronic) Type II Coronary artery disease (Chronic) (HFpEF) heart failure with preserved ejection fraction (Chronic) Anemia (Chronic) Type 2 diabetes mellitus (Chronic) Presence of aortocoronary bypass graft (Chronic ~10/2010) CABG x4: LEBRON to LAD, SVG to RI, SVG to PDA, SVG to posterolateral Lt ventricular branch, PVI w/ Atricure Ablation and ligation of Lt atrial appendage 10/2010 Presence of stent in coronary artery (Chronic ~01/2011) PTCA/Stent to mid LCX 01/2011 DM (diabetes mellitus) with peripheral vascular complication (Chronic) Atherosclerotic heart disease of [place] coronary artery without angina pectoris (Chronic) CABG x4: LEBRON to LAD, SVG to RI, SVG to PDA, SVG to posterolateral Lt ventricular branch, PVI w/ Atricure Ablation and ligation of Lt atrial appendage 10/2010; PTCA/Stent to mid LCX 01/2011 Body mass index 40.0-44.9, adult (Chronic) Meniscus degeneration (Chronic) RAQUEL (obstructive sleep apnea) (Chronic) Obesity (Chronic) PVC (premature ventricular contraction) (Chronic) Hospital Course and Treatment Dr. Prather ICU Operations: None Procedures: EKG Summary of Care Provided: The patient is a 74 y/o M w/ PMHx: CKD stage III, Chronic Atrial Fibrillation, Diastolic CHF w/ Chronic Hypoxic Respiratory Failure (4L NC), HTN, HLD, Morbid Obesity, Diabetes mellitus type II, RAQUEL with CPAP non-compliance, Morbid Obesity, CAD s/p CABG x 4 and PCI, BPH who was recently admitted 10/11-10/13/19 following treatment of hypokalemia secondary to diuretic usage without potassium concurrent supplementation as well as hypovolemic hyponatremia and hypochloremia with upon discharge recommended transition to lasix 80 mg BID as had been self administering lasix TID with also noted episodes of hypoglycemia while inpatient but declined to have his insulin regimen changed as noted he would only 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 ED on 10/15/19 with history of onset of acute confusion with recent initiation of ampicillin for urinary tract infection with concurrent Thomas catheter in place secondary to patient diuresis with complaints of urinary difficulties with initial onset of mild mental status changes the prior Wednesday however he continued to be confused and was noted to have delusions noted to have awoken on a.m. of day prior to ED presentation with severe agitation and irritability with no recent fevers, chills, URI type symptoms prompting to return to the ED for his evaluation. Work-up in the ED included T 97.7, heart rate 115, BP 148/66, respiratory rate 25, 95% on 5 L nasal cannula, per report EMS glucose 161 however upon repeat assessment upon ED presentation glucose 23 with D50 administration with repeat testing 133 following administration-->repeat 40, CBC with WBC 16.1, hemoglobin 10.2, platelet 266 with left shift, urinalysis with noted urine to be cloudy, 15 protein, 25 occult blood, positive nitrite, leukocyte esterase 500 although WBCs only 0-5 but 2+ bacteria noted, coags w/ PT 16.9, INR 1.4, CMP with sodium 131, potassium 2.3, chloride 81, carbon dioxide 41, BUN/creatinine 37/1.59, glucose 22, CXR w/ mild asymmetric congestive heart failure with overall improvement in the interval, CT head with mild generalized brain atrophy along with microangiopathic white matter disease with no acute intracranial hemorrhage or space-occupying lesion, ABG with pH 7.54, PO2 78, PCO2 57 on 4 L nasal cannula, Bld Cx x 2 pending per ED. In the ED the patient was rocephin, potassium IV 40 mEq, administered D50 x 2 and initiated on D5NS but continued to have decreases in his blood sugar therefore patient was transitioned to D10 and per discussion with ED physician decision to admit to the ICU for close monitoring. As noted the patient was admitted to the ICU given severity of ongoing hypoglycemia, maintained on telemetry, UA upon ED evaluation remarkable although no market WBCs however 2+ bacteria and concerning for urinary tract infection with indwelling Thomas catheter secondary to recent diuresis, continued IVFs, monitor I/Os, continued IV Rocephin, continued on aggressive potassium supplementation with serial BMPs suspected likely again to inappropriate self ministration of his medications as well as continue maintenance on D10 with D50 administrations and glucagon as needed for hypoglycemia. Patient was very encephalopathic however clinically improved per report and later in the date approximate 1600 despite notable attempts left AGAINST MEDICAL ADVICE and was noted at that time to be completely oriented to self, place, recent events and despite this and understanding his current healthcare status may lead to his he left. - Physical Exam Vitals/I&O's: Vital Signs Temp Pulse Resp BP Pulse Ox 97.9 F 116 H 19 H 126/77 H 100 10/15/19 12:00 10/15/19 15:00 10/15/19 15:00 10/15/19 15:00 10/15/19 15:20 Oxygen Flow Rate (L/min) 4 Oxygen Delivery Method Nasal Cannula Weight: 320 lb 15.889 oz Body Mass Index (BMI) 41.2 Finger Stick Blood Glucose 82 Intake and Output for Last 24 Hours 10/13/19 10/14/19 10/15/19 23:59 23:59 23:59 Intake Total 2512.5 / 2512.5 Output Total 1100 / 1100 Balance 1412.5 / 1412.5 Laboratory Results 10/15/19 02:05: WBC 16.1 H, RBC 4.38 L, Hgb 10.2 L, Hct 34.1 L, MCV 77.9 L, MCH 23.3 L, MCHC 29.9 L, RDW Std Deviation 53.5 H, RDW Coeff of Lakshmi 19.5 H, Plt Count 266, MPV 9.1, Immature Gran % (Auto) 1.000 H, Neut % (Auto) 91.8 H, Lymph % (Auto) 4.3 L, [place] % (Auto) 2.7, Eos % (Auto) 0.1, Baso % (Auto) 0.1, Absolute Neuts (auto) 14.8 H, Absolute Lymphs (auto) 0.69 L, Nucleated RBC % 0 10/15/19 02:05: PT 16.9 H, INR 1.4 10/15/19 02:05: Sodium 131 L, Potassium 2.3 L*, Chloride 81 L, Carbon Dioxide 41.0 H, Anion Gap 9, BUN 37 H, Creatinine 1.59 H, Estim Creat Clear Calc 46.67, Est GFR (MDRD) Af Amer 55 L, Est GFR (MDRD) Non-Af 45 L, BUN/Creatinine Ratio 23.3 H, Glucose 22 L*, Calcium 9.0, Total Bilirubin 0.90, AST 29, ALT 22, Alkaline Phosphatase 99, Total Protein 8.5 H, Albumin 3.1 L, Globulin 5.4 H, Albumin/Globulin Ratio 0.6 L 10/15/19 02:05: Urine Color Yellow, Urine Clarity Sl. Cloudy, Urine pH 6.5, Ur Specific [place] 1.010, Urine Protein 15 H, Urine Glucose (UA) Normal, Urine Ketones Negative, Urine Occult Blood 25 H, Urine Nitrite Positive H, Urine Bilirubin Negative, Urine Urobilinogen Normal, Ur Leukocyte Esterase 500 H, Urine RBC 0 SEEN, Urine WBC 0-5 SEEN, Ur Squamous Epith Cells 0 SEEN, Urine Bacteria 2+, Urine Mucus 0 SEEN 10/15/19 02:05: Magnesium 2.6 10/15/19 02:06: POC Glucose 20 L* 10/15/19 02:08: POC Glucose 23 L* 10/15/19 02:18: POC Glucose 133 H 10/15/19 03:00: Lactic Acid Cancelled 10/15/19 03:13: Specimen Type SADA, Sample Site R Radial, VBG pH 7.54 H, VBG pO2 39, VBG O2 Sat (Calc) 78 H, VBG O2 Content 50 H, VBG Base Excess 26 H, POC Mix VBG pCO2 Pt Tmp 57.0 H, O2 Delivery Device Nasal Can, Liter Flow 4.0, Blood Gas Notified Whom ED , Blood Gas Notified Time 300 10/15/19 03:17: POC Glucose 48 L 10/15/19 03:35: POC Glucose 128 H 10/15/19 03:55: Lactic Acid 1.9 10/15/19 04:00: POC Glucose 93 10/15/19 04:15: POC Glucose 82 10/15/19 04:59: POC Glucose 67 L 10/15/19 05:51: POC Glucose 46 L 10/15/19 06:24: POC Glucose 118 H 10/15/19 06:30: Sodium 130 L, Potassium 2.9 L, Chloride 77 L, Carbon Dioxide 43.0 H, Anion Gap 10, BUN 36 H, Creatinine 1.54 H, Estim Creat Clear Calc 48.19, Est GFR (MDRD) Af Amer 57 L, Est GFR (MDRD) Non-Af 47 L, BUN/Creatinine Ratio 23.4 H, Glucose 99, Calcium 8.6, Magnesium 2.7 H 10/15/19 06:30: WBC 14.4 H, RBC 4.14 L, Hgb 9.5 L, Hct 32.7 L, MCV 79.0 L, MCH 22.9 L, MCHC 29.1 L, RDW Std Deviation 54.3 H, RDW Coeff of Lakshmi 19.4 H, Plt Count 230, MPV 9.4, Immature Gran % (Auto) 0.600, Neut % (Auto) 91.4 H, Lymph % (Auto) 5.0 L, [place] % (Auto) 2.9, Eos % (Auto) 0.0, Baso % (Auto) 0.1, Absolute Neuts (auto) 13.1 H, Absolute Lymphs (auto) 0.72 L, Nucleated RBC % 0 10/15/19 07:26: Specimen Type ART, Sample Site L Brachial, pH 7.58 H, Bicarbonate Actual 47.3 H, POC Total CO2 49, Base Excess 25 H, O2 Saturation 97, ABG pCO2 50.9 H, ABG pO2 81, O2 Delivery Device Nasal Can, Liter Flow 4.0, Blood Gas Notified Whom ICU , Blood Gas Notified Time 725 10/15/19 07:49: POC Glucose 146 H 10/15/19 10:56: POC Glucose 173 H 10/15/19 15:04: POC Glucose 294 H Home Medications: Medications to take at Discharge Gabapentin [Neurontin] 300 mg PO BIDCM 03/11/17 Insulin U-500 [Humulin R U-500 (BKC)] 150 - 225 units SQ TIDCM 07/25/19 apixaban 5 mg tablet 5 mg PO BID #60 tab 08/14/19 furosemide 80 mg tablet 80 mg PO BID tab 09/04/19 Metolazone [Zaroxolyn] 2.5 mg PO DAILY 10/11/19 Pramipexole Di-HCl [Mirapex] 0.5 mg PO QHS 10/11/19 Amiodarone HCl 200 mg PO DAILY 10/12/19 Amlodipine Besylate 5 mg PO DAILY 10/12/19 Diltiazem HCl [Diltiazem 24Hr ER (Cd)] 360 mg PO DAILY 10/12/19 Duloxetine HCl 60 mg PO DAILY 10/12/19 Ferrous Sulfate 325 mg PO BID 10/12/19 Isosorbide Mononitrate [Isosorbide Mononitrate ER] 30 mg PO DAILY 10/12/19 Pantoprazole Sodium [Protonix] 40 mg PO DAILY 10/12/19 Tamsulosin HCl [Flomax] 0.4 mg PO DAILY 10/12/19 Ampicillin Trihydrate 500 mg PO TID #0 10/13/19 Hydrocodone/Acetaminophen [Hydrocodone-Acetamin 5-325 mg] 1 tab PO BID 10/13/19 Potassium Chloride [K-Dur] 40 meq PO BID #120 tab 10/13/19 Primary Care Physician: Abdi Navarro MD [Primary Care Provider] - Disposition: Against Medical Advice Minutes spent on discharge:: 35 Patient Condition:: Poor Medical Necessity - Tobacco Use Smoking Status: Never smoker Tobacco Use: Non-smoker, Chew Meaningful Use Info Meaningful Use Diagnoses (Choose all that apply): None applicable Code Visit OBSV E&M: 49074 Observ/hosp same date L3
== END 2019-10-15 16:00 | disposition left against medical advice (07) | DRG 871 ==
LOC: ED 04:03 → PCU 04:24 → ICU 04:56
PROVIDERS: Admitting Provider Family Medicine; Emergency Provider Emergency Medicine; Family Provider Family Medicine; PCP Family Medicine; Referring Provider Family Medicine; Visit Provider Internal Medicine
DX: A41.9 Sepsis, unspecified organism (principal); G93.41 Metabolic encephalopathy; J96.11 Chronic respiratory failure with hypoxia; J96.12 Chronic respiratory failure with hypercapnia; I13.0 Hypertensive heart and chronic kidney disease with heart failure and stage 1 through stage 4 chronic kidney disease, or unspecified chronic kidney disease; E87.1 Hypo-osmolality and hyponatremia; I48.20 Chronic atrial fibrillation, unspecified; N30.00 Acute cystitis without hematuria; I50.32 Chronic diastolic (congestive) heart failure; Z68.41 Body mass index [BMI] 40.0-44.9, adult; E11.649 Type 2 diabetes mellitus with hypoglycemia without coma; I25.10 Atherosclerotic heart disease of native coronary artery without angina pectoris; E87.8 Other disorders of electrolyte and fluid balance, not elsewhere classified; E87.6 Hypokalemia; Z99.81 Dependence on supplemental oxygen; N18.3 Chronic kidney disease, stage 3 (moderate); E66.01 Morbid (severe) obesity due to excess calories; G47.33 Obstructive sleep apnea (adult) (pediatric); Z66 Do not resuscitate; E78.5 Hyperlipidemia, unspecified; E11.22 Type 2 diabetes mellitus with diabetic chronic kidney disease; E11.51 Type 2 diabetes mellitus with diabetic peripheral angiopathy without gangrene; G47.61 Periodic limb movement disorder; N40.0 Benign prostatic hyperplasia without lower urinary tract symptoms; Z91.19 Patient's noncompliance with other medical treatment and regimen; Z95.1 Presence of aortocoronary bypass graft; Z95.5 Presence of coronary angioplasty implant and graft; Z79.4 Long term (current) use of insulin; Z72.0 Tobacco use; Z79.01 Long term (current) use of anticoagulants
CPT/HCPCS: 36415; 36600; 70450; 71045; 80048; 80053; 81001; 82803; 82962; 83605; 83735; 85025; 85610; 87040; 87077; 87086; 87088; 87186; 93005; 97162; 97166; 97802; 99251; 99285; A4216; G0463; J1610; J7799

== ENCOUNTER 2019-10-31 03:59 | Observation (INO) | payer MEDICARE, SELFPAY ==
[2019-10-15 05:15] VITALS: BMI 41.2
[2019-10-31] VITALS (24 sets, daily range): BP systolic 105–154; BP diastolic 26–100; PULSE 85–130; RESP 14–29; TEMP 35.3–36.7; O2SAT 91–100; BMI 40.7; BMI 38.6
--- NOTE | 2019-10-31 04:16 | CT_ITS ---
STUDY: CT BRAIN WITHOUT CONTRAST REASON FOR EXAM: Male, 74 years old. Trauma RADIATION DOSAGE (If Supplied By Facility): CTDIvol = ( 44.99 ) mGy, DLP = ( 866.41 ) mGycm TECHNIQUE: Transaxial CT imaging of the brain was performed without administration of intravenous contrast material. Individualized dose optimization techniques were used for this CT. COMPARISON: No relevant priors. FINDINGS: RIGHT frontal scalp swelling. Normal calvarium. Normal size ventricles and extra-axial spaces for the patient''s age. Normal white matter tracts of the cerebral hemispheres. Normal basal ganglia and thalami. Normal brainstem. Normal cerebellum. There is no intracranial hemorrhage. There are no findings of an acute ischemic infarction. Normal visualized paranasal sinuses. CT/Brain/Head without Contrast IMPRESSION: There is scalp swelling in the RIGHT frontal region. There is NO skull fracture. There is NO intracranial hemorrhage. Electronically Signed: Mahesh Quevedo MD at 4:58 EST , Service support ,
--- NOTE | 2019-10-31 04:18 | ED.DCSUM_ITS ---
History of Present Illness Chief Complaint: Fall Detail of Chief Complaint: Fall, hypoglycemia Informant: Patient, Family Onset: Today Narrative: Patient reported went to the garage to get something early this morning and fell. Patient does not remember details. states she heard him calling for her. Per EMS patient was alert and oriented x3. His blood sugar was noted to be less than 20. Patient does take insulin but does not remember when he last took his insulin. He did eat ice cream around 10:30 PM but states he did not take insulin at that time. - Past Medical History (1) (HFpEF) heart failure with preserved ejection fraction Status: Chronic (2) Atherosclerotic heart disease of [place] coronary artery without angina pectoris Status: Chronic Comment: CABG x4: LEBRON to LAD, SVG to RI, SVG to PDA, SVG to posterolateral Lt ventricular branch, PVI w/ Atricure Ablation and ligation of Lt atrial appendage 10/2010; PTCA/Stent to mid LCX 01/2011 (3) CKD (chronic kidney disease), stage III Status: Chronic (4) Coronary artery disease Status: Chronic (5) DM (diabetes mellitus) with peripheral vascular complication Status: Chronic (6) Hyperlipidemia Status: Chronic (7) Hypertension Status: Chronic (8) RAQUEL (obstructive sleep apnea) Status: Chronic (9) Paroxysmal a-fib Status: Chronic Comment: S/P pulmonary vein isolation; (10) Pulmonary hypertension Status: Chronic Comment: Type II Past Medical History - Allergies and Home Meds Allergies/Adverse Reactions: Allergies acetaminophen [From Percocet] Allergy (Verified 10/31/19 05:18) Swelling oxycodone [From Percocet] Allergy (Verified 10/31/19 05:18) A-fib, Swelling, Sulfa (Sulfonamide Antibiotics) Allergy (Verified 10/31/19 05:18) Swelling atropine Adverse Reaction (Severe, Verified 10/31/19 05:18) arrhythmia hydrochlorothiazide [From Hyzaar] Adverse Reaction (Severe, Verified 10/31/19 05:18) arrhythmia losartan [From Hyzaar] Adverse Reaction (Severe, Verified 10/31/19 05:18) arrhythmia quinapril [From Accupril] Adverse Reaction (Severe, Verified 10/31/19 05:18) arrhythmia atorvastatin [From Lipitor] Adverse Reaction (Intermediate, Verified 10/31/19 05:18) myalgias metformin Adverse Reaction (Intermediate, Verified 10/31/19 05:18) myalgias Primary Care Physician: Abdi Navarro MD [Primary Care Provider] - Prior records reviewed: Yes Surgical History: - - CABG X4, PCI. Smoking Status: Never smoker - Family History Maternal Family History: Family History (Last Reviewed 10/12/19 @ 17:32 by VICKIE Diallo) Mother CAD (coronary artery disease) Father CVA (cerebral vascular accident) Myocardial infarction Brother Myocardial infarction Brother CAD (coronary artery disease) Myocardial infarction Sister CAD (coronary artery disease) Family History: Reports: High Cholesterol, Heart Disease, Hypertension Paternal Family History: Family History (Last Reviewed 10/12/19 @ 17:32 by VICKIE Diallo) Mother CAD (coronary artery disease) Father CVA (cerebral vascular accident) Myocardial infarction Brother Myocardial infarction Brother CAD (coronary artery disease) Myocardial infarction Sister CAD (coronary artery disease) Family History: Reports: High Cholesterol, Heart Disease, Hypertension, Stroke Review of Systems General: Denies: Chills, Fever Eyes: Denies: Visual changes - bilaterally ENT: Denies: Sore throat Cardiovascular: Denies: Chest pain, Palpitations Respiratory: Denies: Dyspnea, Cough Gastrointestinal: Denies: Abdominal pain, Nausea, Vomiting, Diarrhea Musculoskeletal: Denies: Neck pain, Back pain Skin: Reports: Abrasions, Wounds Neurological: Denies: Headache Hematologic: Reports: Easy bruising - Secondary to Eliquis Allergy: Denies: Uticaria Physical Exam Vital Signs/Narrative: Vital Signs Temp Pulse Resp BP Pulse Ox 10/31/19 04:00 95.6 F L 101 H 20 H 128/74 H 99 Inital Vital Signs reviewed: Yes General: Well nourished, Well developed Head: - - 3 x 4 cm area of skin abrasion to the right forehead. ENT: Dry mucous membranes Neck: - - No C-spine tenderness. Cardiovascular: Regular rate, Regular rhythm Respiratory: No distress, CTA bilaterally Abdomen: Soft, Nontender Extremities: - - Multiple abrasions on the lower extremities in different stages of healing. Neurological: Alert, Oriented x3 Psychological: Normal affect Diagnostic/Tx/Re-eval Impressions Brain CT 10/31/19 04:16 IMPRESSION: There is scalp swelling in the RIGHT frontal region. There is NO skull fracture. There is NO intracranial hemorrhage. Electronically Signed: Mahesh Quevedo MD at 4:58 EST , Service support , 10/31/19 04:16 Brain/Head without Contrast [CT] Stat Laboratory Results 10/31/19 10/31/19 10/31/19 04:06 04:21 04:21 WBC 10.7 RBC 4.77 Hgb 11.0 L Hct 37.0 L MCV 77.6 L MCH 23.1 L MCHC 29.7 L RDW Std Deviation 51.5 H RDW Coeff of Lakshmi 18.6 H Plt Count 276 MPV 8.4 Immature Gran % (Auto) 0.600 Neut % (Auto) 85.8 H Lymph % (Auto) 8.9 L [place] % (Auto) 4.0 Eos % (Auto) 0.5 Baso % (Auto) 0.2 Absolute Neuts (auto) 9.2 H Absolute Lymphs (auto) 0.95 Nucleated RBC % 0 Sodium 129 L Potassium 1.9 L* Chloride 78 L Carbon Dioxide 43.0 H Anion Gap 8 BUN 49 H Creatinine 1.77 H Estim Creat Clear Calc 41.93 Est GFR (MDRD) Af Amer 48 L Est GFR (MDRD) Non-Af 40 L BUN/Creatinine Ratio 27.7 H Glucose 59 L Calcium 8.7 POC Glucose 50 L 10/31/19 10/31/19 04:47 05:56 WBC RBC Hgb Hct MCV MCH MCHC RDW Std Deviation RDW Coeff of Lakshmi Plt Count MPV Immature Gran % (Auto) Neut % (Auto) Lymph % (Auto) [place] % (Auto) Eos % (Auto) Baso % (Auto) Absolute Neuts (auto) Absolute Lymphs (auto) Nucleated RBC % Sodium Potassium Chloride Carbon Dioxide Anion Gap BUN Creatinine Estim Creat Clear Calc Est GFR (MDRD) Af Amer Est GFR (MDRD) Non-Af BUN/Creatinine Ratio Glucose Calcium POC Glucose 66 L 11 L* - EKG Initial EKG Interpretation: Atrial Fibrillation - A. fib at 98 with occasional PVCs. - Medical Decision Making Patient was awake and oriented x3 on arrival. Blood sugar had come up to 50 with the D10 given by squad. Patient was given an amp of D50 and sent to CT. Upon returning from CAT scan patient's blood sugar was 66. Patient's facial wounds were cleansed and dressed. Lab called with patient's significantly low potassium level. IV potassium replacement has been started. Patient was sleeping comfortably and was updated at bedside. I was notified by nursing staff short time later that repeat blood sugar is now 11. He is given an amp of D50 and blood sugar is currently reading 146. Patient is still sleeping comfortably and does not arouse. states when the patient gets into a deep sleep he is like this and difficult to arouse. Patient had fluids started with D10 normal saline and blood sugars checked every 15 minutes. I called hospitalist for admission was advised to wait until dayshift comes in as they do not have open beds currently. Addendum: Patient's blood sugar was back up to 146 after giving D50. I went back in the room to reevaluate him and he was awake and complaining of severe spasms and cramps in his legs. Blood sugar at that time was 98. 20 minutes later blood sugar was rechecked and is now 50. Patient be given another amp of D50 and we are still awaiting D5 normal saline to be set up from pharmacy to start as maintenance. ED Disposition - Plan for ED Patient: Disposition: Acute Care [facility] Diagnosis: Hypoglycemia, Fall, Hypokalemia Referrals: Abdi Navarro MD [Primary Care Provider] -
[2019-10-31] MEDS: Dextrose 50%-Water 25 GM/50 ML DISP.SYRIN IV ×3 (04:23→06:56)
[2019-10-31 04:31] LABS: Bedside Glucose 50 mg/dL (70-110)
[2019-10-31 04:32] LABS: Absolute Lymphocyte Count 0.95 X10^3/uL (0.83-4.51); Absolute Neutrophil Count 9.2 X10^3/uL (2.0-7.7); Basophil# 0.02 X10^3/uL; Basophil% 0.2 % (0-1); Eosinophil# 0.05 X10^3/uL; Eosinophils% 0.5 % (0-5); Lymphocyte # 0.95 X10^3/ul (4.0); Lymphocyte % 8.9 % (19-41); Mean Corp Hgb Conc 29.7 g/dL (32-36); Mean Corpuscular Hgb 23.1 pg (27.0-32.0); Mean Corpuscular Volume 77.6 fL (80-94); Mean Platelet Vol. 8.4 fl (6.2-12.0); Monocyte# 0.43 X10^3/uL; NRBC Flagged by Analyzer 0 % (0-5); Neutrophil # 9.16 X10^3/uL (2.7-7.7); Neutrophil % 85.8 % (47-70); Platelet Count 276 K/mm3 (150-450); RBC Distribution Width CV 18.6 % (11.6-14.6); RBC Distribution Width SD 51.5 fl (35.1-43.9); Red Blood Count 4.77 M/mm3 (4.6-6.2); White Blood Count 10.7 K/mm3 (4.4-11.0)
[2019-10-31 04:50] LABS: Bedside Glucose 66 mg/dL (70-110)
[2019-10-31 04:56] LABS: Anion Gap 8 (5-15); BUN 49 mg/dL (7-18); BUN/Creat Ratio 27.7 RATIO (10-20); Calcium,Total 8.7 mg/dL (8.5-10.1); Chloride 78 mmol/L (98-107); Creatinine, Serum 1.77 mg/dL (0.70-1.30); EST Glomerular Filtration Rate 40 mL/min (>60); Est Glom Filt Rate - Afr Amer 48 mL/min (>60); Estimated Creatinine Clearance 41.93 ml/min; Glucose 59 mg/dL (74-106); Potassium 1.9 mmol/L (3.5-5.1); Sodium Level 129 mmol/L (136-145)
--- NOTE | 2019-10-31 04:56 | EKG12_ITS ---
Test Reason : FALL Blood Pressure : / mmHG Vent. Rate : 098 BPM Atrial Rate : 241 BPM P-R Int : 000 ms QRS Dur : 124 ms QT Int : 454 ms P-R-T Axes : 000 066 064 degrees QTc Int : 579 ms Atrial fibrillation Non-specific intra-ventricular conduction delay Borderline ECG Confirmed by ANEESH WEI, LALIT ([id number]), video tape editor SALMA HARDY ([id number]) on 11/01/2019 11:48:53 AM Referred By: MIRELLA Confirmed By:LALIT MELENDREZ MD
[2019-10-31] MEDS: Potassium Chloride 10mEq/100mL 10 MEQ/100 ML IV.SOLN. 100 MEQ IV BOLUS ×8 (05:16→16:36)
[2019-10-31 06:11] LABS: Bedside Glucose 11 mg/dL (70-110)
[2019-10-31 06:15] LABS: Bedside Glucose 146 mg/dL (70-110)
[2019-10-31] MEDS: Ondansetron 4 MG/2 ML Vial IV (06:32)
[2019-10-31] MEDS: Morphine 4 MG/ML Syringe IV (06:33)
[2019-10-31 06:40] LABS: Bedside Glucose 98 mg/dL (70-110)
[2019-10-31 07:00] LABS: Bedside Glucose 50 mg/dL (70-110)
[2019-10-31] MEDS: Dextrose 5%/0.9% NaCl 1,000 ML 200 ML IV (07:01)
--- NOTE | 2019-10-31 08:15 | HP.PCM_ITS ---
Problem List (1) Hypokalemia Status: Acute (2) Hypoglycemia Status: Acute History of Present Illness Date of Admission: 10/31/19 Chief Complaint: fall The patient is a 74 year old M was in his garage around 4 AM and then fell. EMS was called and patient alert and oriented x3. Patient blood sugar was noted to be less than 20. Patient does take U500 insulin but states that he takes it only as needed on a sliding scale. States that will take it maybe twice a day or once a day or maybe not even for 3 days. Patient was admitted on 15 October with similar issues with hypoglycemia but left AGAINST MEDICAL ADVICE claiming that he was cared for very poorly by the nursing staff. States that nursing staff told that they would give him water when they were ready to do so and I would not open the blinds for him. He was upset and left AGAINST MEDICAL ADVICE. Stated that he did not bring this to any higher ups within the hospital. Patient states that yesterday he was not eating properly but did take his U5 100 approximately 2 days ago. In the emergency room, patient did receive D50 but still would become hypoglycemic after initial improvement with his blood sugar. He was then started on D5 normal saline IV fluids. [] Past Medical History Past Medical History (Chronic Problems): Chronic Problems (Last Reviewed 09/26/19 @ 13:47 by Corinna Bryant) CKD (chronic kidney disease), stage III (Chronic) Hyperlipidemia (Chronic) Hypertension (Chronic) Paroxysmal a-fib (Chronic) S/P pulmonary vein isolation; Periodic limb movement sleep disorder (Chronic) Pulmonary hypertension (Chronic) Type II Coronary artery disease (Chronic) (HFpEF) heart failure with preserved ejection fraction (Chronic) Anemia (Chronic) Type 2 diabetes mellitus (Chronic) Presence of aortocoronary bypass graft (Chronic ~10/2010) CABG x4: LEBRON to LAD, SVG to RI, SVG to PDA, SVG to posterolateral Lt ventricular branch, PVI w/ Atricure Ablation and ligation of Lt atrial appendage 10/2010 Presence of stent in coronary artery (Chronic ~01/2011) PTCA/Stent to mid LCX 01/2011 DM (diabetes mellitus) with peripheral vascular complication (Chronic) Atherosclerotic heart disease of hopi coronary artery without angina pectoris (Chronic) CABG x4: LEBRON to LAD, SVG to RI, SVG to PDA, SVG to posterolateral Lt ventricular branch, PVI w/ Atricure Ablation and ligation of Lt atrial appendage 10/2010; PTCA/Stent to mid LCX 01/2011 Body mass index 40.0-44.9, adult (Chronic) Meniscus degeneration (Chronic) RAQUEL (obstructive sleep apnea) (Chronic) Obesity (Chronic) PVC (premature ventricular contraction) (Chronic) Medical History: Medical History (Last Reviewed 10/31/19 @ 08:20 by Tam Dexter DO) Type 2 diabetes mellitus (Chronic) E11.9 DM (diabetes mellitus) with peripheral vascular complication (Chronic) E11.51 Atherosclerotic heart disease of hopi coronary artery without angina pectoris (Chronic) I25.10 CABG x4: LEBRON to LAD, SVG to RI, SVG to PDA, SVG to posterolateral Lt ventricular branch, PVI w/ Atricure Ablation and ligation of Lt atrial appendage 10/2010; PTCA/Stent to mid LCX 01/2011 Body mass index 40.0-44.9, adult (Chronic) Z68.41 RAQUEL (obstructive sleep apnea) (Chronic) G47.33 Obesity (Chronic) E66.9 PVC (premature ventricular contraction) (Chronic) I49.3 History of cardioversion Onset Date: ~09/08/19 Z98.890 BPH (benign prostatic hyperplasia) N40.0 Osteoarthritis M19.90 Allergies acetaminophen [From Percocet] Allergy (Verified 10/31/19 05:18) Swelling oxycodone [From Percocet] Allergy (Verified 10/31/19 05:18) A-fib, Swelling, Sulfa (Sulfonamide Antibiotics) Allergy (Verified 10/31/19 05:18) Swelling atropine Adverse Reaction (Severe, Verified 10/31/19 05:18) arrhythmia hydrochlorothiazide [From Hyzaar] Adverse Reaction (Severe, Verified 10/31/19 05:18) arrhythmia losartan [From Hyzaar] Adverse Reaction (Severe, Verified 10/31/19 05:18) arrhythmia quinapril [From Accupril] Adverse Reaction (Severe, Verified 10/31/19 05:18) arrhythmia atorvastatin [From Lipitor] Adverse Reaction (Intermediate, Verified 10/31/19 05:18) myalgias metformin Adverse Reaction (Intermediate, Verified 10/31/19 05:18) myalgias Home Medications: Ambulatory Orders Medication Instructions Recorded Gabapentin [Neurontin] 300 mg PO BIDCM 03/11/17 Insulin U-500 [Humulin R U-500 150 - 225 units SQ TIDCM 07/25/19 ([facility])] apixaban 5 mg tablet 5 mg PO BID #60 tab 08/14/19 furosemide 80 mg tablet 80 mg PO BID tab 09/04/19 Pramipexole Di-HCl [Mirapex] 0.5 mg PO QHS 10/11/19 Amiodarone HCl 200 mg PO DAILY 10/12/19 Ferrous Sulfate 325 mg PO BID 10/12/19 Pantoprazole Sodium [Protonix] 40 mg PO DAILY 10/12/19 Hydrocodone/Acetaminophen 1 tab PO BID 10/13/19 [Hydrocodone-Acetamin 5-325 mg] Potassium Chloride [K-Dur] 40 meq PO BID #120 tab 10/13/19 Surgical History: Surgical History (Last Reviewed 10/31/19 @ 08:20 by Tam Dexter DO) Presence of aortocoronary bypass graft (Chronic) Onset Date: ~10/2010 Z95.1 CABG x4: LEBRON to LAD, SVG to RI, SVG to PDA, SVG to posterolateral Lt ventricular branch, PVI w/ Atricure Ablation and ligation of Lt atrial appendage 10/2010 Presence of stent in coronary artery (Chronic) Onset Date: ~01/2011 Z95.5 PTCA/Stent to mid LCX 01/2011 Surgical History: - - CABG X4, PCI. Psychiatric History: Anxiety, Depression Smoking Status: Never smoker Tobacco Use: Chew - *Family History Maternal Family History: Family History (Last Reviewed 10/31/19 @ 08:20 by Tam Dexter DO) Mother CAD (coronary artery disease) Father CVA (cerebral vascular accident) Myocardial infarction Brother Myocardial infarction Brother CAD (coronary artery disease) Myocardial infarction Sister CAD (coronary artery disease) History Items: High Cholesterol, Heart Disease, Hypertension Paternal Family History: Family History (Last Reviewed 10/31/19 @ 08:20 by Tam Dexter DO) Mother CAD (coronary artery disease) Father CVA (cerebral vascular accident) Myocardial infarction Brother Myocardial infarction Brother CAD (coronary artery disease) Myocardial infarction Sister CAD (coronary artery disease) History Items: High Cholesterol, Heart Disease, Hypertension, Stroke Review of Systems Constitutional: Denies: Anorexia, Chills, Fever, Night Sweats Eyes: Denies: Blurred vision, Double vision HEENT: Denies: Head Aches, Sinus Congestion, Sinus Drainage Cardiovascular: Reports: Edema. Denies: Chest Pain, Palpitations Respiratory: Reports: Shortness of Breath. Denies: Cough Gastrointestinal: Denies: Abdominal Pain, Nausea, Vomiting Genitourinary: Denies: Dysuria Musculoskeletal: Denies: Joint Pain, Joint Tenderness Skin: Reports: Wounds. Denies: Pruritis Neurological: Reports: - - weakness in legs. Denies: Balance problems Psychiatric: Denies: Anxiety, Depression Hematologic/ Lymphatic: Denies: Easy Bruising, Easy Bleeding, Hx of blood clot VTE Information - Inpt Only VTE Present on Admission: No VTE Mechan Device Prophylaxis: None VTE Pharm Prophylaxis ordered?: No Reason prophylaxis not ordered:: Procedure Not Indicated Patient Problems: Active and Suspected Problems (Last Reviewed 09/26/19 @ 13:47 by Corinna Bryant) Hypokalemia (Acute) Hypoglycemia (Acute) Fall (Acute) - Physical Exam Vitals/I&O's: Vital Signs Temp Pulse Resp BP Pulse Ox 35.3 C L 117 H 18 133/81 H 95 10/31/19 04:00 10/31/19 07:00 10/31/19 07:00 10/31/19 07:00 10/31/19 07:00 Oxygen Flow Rate (L/min) 3 Oxygen Delivery Method Nasal Cannula Weight: 144 kg Body Mass Index (BMI) 40.7 Finger Stick Blood Glucose 11 Intake and Output for Last 24 Hours 10/29/19 10/30/19 10/31/19 23:59 23:59 23:59 Intake Total 200 / 200 Output Total 700 / 700 Balance -500 / -500 General: Alert, Cooperative, No apparent distress HEENT: Atraumatic, Normocephalic Oral: Moist Mucosa, No Gingival or Mucosal Lesions/ Ulcerations Neck: Negative Hepatojugular Reflux, Thyroid Normal Size and Texture Lungs: Clear to auscultation, Normal air movement, No rhonchi, No wheeze, No rales Cardiovascular: Regular rate, Regular Rhythm, Normal S1, Normal S2, No murmurs Abdomen: Bowel Sounds Present, Soft, Non Tender, Non-Distended, No Hepato- splenomegaly, Passing Flatus Extremities: No edema, No Calf Tenderness Skin: - - venous stasis changes to LE. superficial abrasions to LE and skin tear on right palm. Musculoskeletal: No Tenderness to Palpation of Joints or Extremities, No Muscle Wasting Neurological: Sensory exam intact to light touch and pain, - - no clonus Psych/Mental Status: Normal Affect, Appropriate Laboratory Results 10/31/19 04:06: POC Glucose 50 L 10/31/19 04:21: WBC 10.7, RBC 4.77, Hgb 11.0 L, Hct 37.0 L, MCV 77.6 L, MCH 23.1 L, MCHC 29.7 L, RDW Std Deviation 51.5 H, RDW Coeff of Lakshmi 18.6 H, Plt Count 276, MPV 8.4, Immature Gran % (Auto) 0.600, Neut % (Auto) 85.8 H, Lymph % (Auto) 8.9 L, [place] % (Auto) 4.0, Eos % (Auto) 0.5, Baso % (Auto) 0.2, Absolute Neuts (auto) 9.2 H, Absolute Lymphs (auto) 0.95, Nucleated RBC % 0 10/31/19 04:21: Sodium 129 L, Potassium 1.9 L*, Chloride 78 L, Carbon Dioxide 43.0 H, Anion Gap 8, BUN 49 H, Creatinine 1.77 H, Estim Creat Clear Calc 41.93, Est GFR (MDRD) Af Amer 48 L, Est GFR (MDRD) Non-Af 40 L, BUN/Creatinine Ratio 27.7 H, Glucose 59 L, Calcium 8.7 10/31/19 04:47: POC Glucose 66 L 10/31/19 05:56: POC Glucose 11 L* 10/31/19 06:08: POC Glucose 146 H 10/31/19 06:27: POC Glucose 98 10/31/19 06:47: POC Glucose 50 L Current Medications Potassium Chloride () 10 meq in 100 mls @ 100 mls/hr IV BOLUS Q1H [facility] Stop: 10/31/19 08:59 Last Admin: 10/31/19 07:48 Dose: 100 mls/hr Documented by: Dextrose/Sodium Chloride (Dextrose 5%/0.9% Nacl) 1,000 mls @ 200 mls/hr IV .Q5H [facility] Last Admin: 10/31/19 07:01 Dose: 200 mls/hr Documented by: Assessment/Plan All Active Problems (Last Reviewed 09/26/19 @ 13:47 by Corinna Bryant) Hypokalemia (Acute) Hyponatremia (Acute) Hypochloremia (Acute) Acute encephalopathy (Acute) Hypoglycemia (Acute) Sepsis (Acute) UTI (urinary tract infection) (Acute) Hypokalemia (Acute) Hypoglycemia (Acute) UTI (urinary tract infection) (Acute) Delirium (Acute) Fall (Acute) Atrial fibrillation with RVR (Acute) 1. Hypoglycemia * Has been refractory to several rounds of D50 And currently on D5 normal saline. Will transition patient over to D5 half-normal saline on the floor and monitor. * Check blood glucoses every hour until we can ensure stability and then once stability is been ensured in eventually able to wean off the D5 half-normal. * Feel the etiology of this is the patient's use of U500 insulin * Check an A1c * If patient does require insulin then would likely be something of much less potency * Given level care patient will be admitted to the ICU for now which automatically warrants an blender/braze applicator consult. 2. Hypokalemia * Received replacement in the emergency room and I will give additional replacement on the floor. Check a magnesium level. 3. Atrial fibrillation: Rate controlled. Continue with apixaban and amiodarone 4. VTE prophylaxis: Not indicated as patient is already anticoagulated 5. Advanced care planning: Conferred with the patient. Patient wishes to be DNR Comfort Care arrest. 6. Debility and falls: Certainly this episode was related with patient's hypoglycemia patient is had other falls which have led to some of the skin issues. Will have physical and occupational therapy evaluate him. 7. Abrasions and skin tears: Wound care to evaluate. Code Visit Inpatient E&M: 48393 Init Hosp L3
[2019-10-31] MEDS: Dext 5%-0.45% NS 1,000 ML 150 ML IV (09:17)
[2019-10-31 10:02] LABS: Hemoglobin A1c 6.1 % (4.2-6.3)
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
[2019-10-31] MEDS: HYDROcodone Bitartrate/Apap 5/325 Tablet PO ×2 (10:12→17:28)
[2019-10-31] MEDS: Gabapentin 300 MG Capsule PO ×2 (10:13→17:29)
[2019-10-31] MEDS: Amiodarone 200 MG Tablet PO (10:13)
[2019-10-31] MEDS: APIXABAN 5 MG TABLET PO (10:13)
[2019-10-31] MEDS: Pantoprazole Sodium 40 MG Tablet PO (10:14)
[2019-10-31 10:26] LABS: Bedside Glucose 156 mg/dL (70-110)
[2019-10-31 10:26] LABS: Bedside Glucose 68 mg/dL (70-110)
[2019-10-31 11:05] LABS: Bedside Glucose 133 mg/dL (70-110)
[2019-10-31 11:27] LABS: Anion Gap 8 (5-15); BUN 46 mg/dL (7-18); BUN/Creat Ratio 27.4 RATIO (10-20); Calcium,Total 8.3 mg/dL (8.5-10.1); Chloride 80 mmol/L (98-107); Creatinine, Serum 1.68 mg/dL (0.70-1.30); EST Glomerular Filtration Rate 43 mL/min (>60); Est Glom Filt Rate - Afr Amer 51 mL/min (>60); Estimated Creatinine Clearance 45.41 ml/min; Glucose 133 mg/dL (74-106); Magnesium 2.3 mg/dL (1.6-2.6); Potassium 2.7 mmol/L (3.5-5.1); Sodium Level 127 mmol/L (136-145)
[2019-10-31 12:31] LABS: Bedside Glucose 97 mg/dL (70-110)
[2019-10-31] MEDS: Acetaminophen 325 MG Tablet 650 MG PO (12:33)
[2019-10-31 13:45] LABS: Bedside Glucose 124 mg/dL (70-110)
--- NOTE | 2019-10-31 14:33 | NURSING ---
wound photo: left parekh
--- NOTE | 2019-10-31 14:33 | NURSING ---
wound photo: right parekh
--- NOTE | 2019-10-31 14:34 | NURSING ---
wound photo: right forehead
--- NOTE | 2019-10-31 14:36 | NURSING ---
wound photo: right hand
[2019-10-31] MEDS: fentaNYL 100 MCG/2 ML Ampul 25 MCG IV ×2 (14:42→17:54)
[2019-10-31] MEDS: 0.9% Saline Lock 10 ML Syringe IV (14:43)
--- NOTE | 2019-10-31 15:20 | CON.PCM_ITS ---
Problem List (1) Hypokalemia Status: Acute (2) Hyponatremia Status: Acute (3) Hypochloremia Status: Acute (4) CKD (chronic kidney disease), stage III Status: Chronic (5) Acute encephalopathy Status: Acute (6) Hypoglycemia Status: Acute (7) Fall Status: Acute (8) Hyperlipidemia Status: Chronic Qualifiers: Hyperlipidemia type: unspecified Qualified Code(s): E78.5 - Hyperlipidemia, unspecified (9) Hypertension Status: Chronic Qualifiers: Hypertension type: essential hypertension Qualified Code(s): I10 - Essential (primary) hypertension (10) Paroxysmal a-fib Status: Chronic Comment: S/P pulmonary vein isolation; (11) Periodic limb movement sleep disorder Status: Chronic (12) Pulmonary hypertension Status: Chronic Comment: Type II (13) (HFpEF) heart failure with preserved ejection fraction Status: Chronic Qualifiers: Heart failure chronicity: chronic Qualified Code(s): I50.32 - Chronic diastolic (congestive) heart failure (14) Atrial fibrillation with RVR Status: Acute (15) Anemia Status: Chronic Qualifiers: Anemia type: unspecified type Qualified Code(s): D64.9 - Anemia, unspecified (16) Type 2 diabetes mellitus Status: Chronic Qualifiers: Diabetes mellitus tank terminal gauger insulin use: with fpc use Diabetes mellitus complication status: with other specified complication Qualified Code(s): E11.69 - Type 2 diabetes mellitus with other specified complication; Z79.4 - retirement (current) use of insulin (17) Presence of aortocoronary bypass graft Status: Chronic Comment: CABG x4: LEBRON to LAD, SVG to RI, SVG to PDA, SVG to posterolateral Lt ventricular branch, PVI w/ Atricure Ablation and ligation of Lt atrial appendage 10/2010 (18) Presence of stent in coronary artery Status: Chronic Comment: PTCA/Stent to mid LCX 01/2011 (19) Atherosclerotic heart disease of [place] coronary artery without angina pectoris Status: Chronic Qualifiers: Tribe vs. transplanted heart: unspecified whether atka or transplanted heart Qualified Code(s): I25.10 - Atherosclerotic heart disease of [place] coronary artery without angina pectoris Comment: CABG x4: LEBRON to LAD, SVG to RI, SVG to PDA, SVG to posterolateral Lt ventricular branch, PVI w/ Atricure Ablation and ligation of Lt atrial appendage 10/2010; PTCA/Stent to mid LCX 01/2011 (20) Body mass index 40.0-44.9, adult Status: Chronic (21) Meniscus degeneration Status: Chronic (22) RAQUEL (obstructive sleep apnea) Status: Chronic Reason for Consult Date of Consultation: 10/31/19 Reason for Consultation: Hypoglycemia History of Present Illness: The patient is a 74 year old M with past medical history listed below and known to me from the outpatient office, who presented to [facility] on 10/31/2019 after having a fall while walking to the garage. Patient reportedly does not remember details of the fall, but would call out for his . EMS had stated that he was alert and oriented x3, but blood sugar was noted to be less than 20. Patient stated that he did not take insulin in over 48 hours on my evaluation, but had told the ER that he had that he did not know when he had taken it last. In the ER, patient was alert and oriented x3, blood sugar was 50 after a amp of D10. Patient was given an amp of D50 and sent to the CT scan secondary to facial wounds. Potassium was noted to be significantly low, so repletion was initiated. Patient persisted and hypoglycemia, so was initiated on a D10 drip and admitted to the intensive care unit for further evaluation. Since being in the intensive care unit, patient has remained alert and oriented. Patient has been receiving blood sugars every hour and is reporting some excess pain. Patient is unable to provide significant history as to his medication administration. As an outpatient, patient routinely chooses to discontinue all medications randomly. Patient does report that he took his Eliquis yesterday. Patient is unable to tell me when he used his insulin last. Patient does have U500 at home for administration. Patient is not able to provide a clear review of systems at this time. Patient is denying any fevers or chills. Patient is unable to give an account of what medications have been taken and the timing. Patient normally has supplemental oxygen at home, but in the past has routinely stated that he does not wear this when he walks to the garage. Review of systems otherwise stated negative from a constitutional, HEENT, respiratory, cardiovascular, GI, genitourinary, musculoskeletal, skin, neurologic, psychiatric and hematologic system unless stated above. Past Medical History Past Medical History (Chronic Problems): Chronic Problems (Last Reviewed 10/31/19 @ 08:20 by Tam Dexter DO) CKD (chronic kidney disease), stage III (Chronic) Hyperlipidemia (Chronic) Hypertension (Chronic) Paroxysmal a-fib (Chronic) S/P pulmonary vein isolation; Periodic limb movement sleep disorder (Chronic) Pulmonary hypertension (Chronic) Type II Coronary artery disease (Chronic) (HFpEF) heart failure with preserved ejection fraction (Chronic) Anemia (Chronic) Type 2 diabetes mellitus (Chronic) Presence of aortocoronary bypass graft (Chronic ~10/2010) CABG x4: LEBRON to LAD, SVG to RI, SVG to PDA, SVG to posterolateral Lt ventricular branch, PVI w/ Atricure Ablation and ligation of Lt atrial appendage 10/2010 Presence of stent in coronary artery (Chronic ~01/2011) PTCA/Stent to mid LCX 01/2011 DM (diabetes mellitus) with peripheral vascular complication (Chronic) Atherosclerotic heart disease of [place] coronary artery without angina pectoris (Chronic) CABG x4: LEBRON to LAD, SVG to RI, SVG to PDA, SVG to posterolateral Lt ventricular branch, PVI w/ Atricure Ablation and ligation of Lt atrial appendage 10/2010; PTCA/Stent to mid LCX 01/2011 Body mass index 40.0-44.9, adult (Chronic) Meniscus degeneration (Chronic) RAQUEL (obstructive sleep apnea) (Chronic) Obesity (Chronic) PVC (premature ventricular contraction) (Chronic) Medical History: Medical History (Last Reviewed 10/31/19 @ 08:20 by Tam Dexter DO) Type 2 diabetes mellitus (Chronic) E11.9 DM (diabetes mellitus) with peripheral vascular complication (Chronic) E11.51 Atherosclerotic heart disease of [place] coronary artery without angina pectoris (Chronic) I25.10 CABG x4: LEBRON to LAD, SVG to RI, SVG to PDA, SVG to posterolateral Lt ventricular branch, PVI w/ Atricure Ablation and ligation of Lt atrial appendage 10/2010; PTCA/Stent to mid LCX 01/2011 Body mass index 40.0-44.9, adult (Chronic) Z68.41 RAQUEL (obstructive sleep apnea) (Chronic) G47.33 Obesity (Chronic) E66.9 PVC (premature ventricular contraction) (Chronic) I49.3 History of cardioversion Onset Date: ~09/08/19 Z98.890 BPH (benign prostatic hyperplasia) N40.0 Osteoarthritis M19.90 Allergies acetaminophen [From Percocet] Allergy (Verified 10/31/19 05:18) Swelling oxycodone [From Percocet] Allergy (Verified 10/31/19 05:18) A-fib, Swelling, Sulfa (Sulfonamide Antibiotics) Allergy (Verified 10/31/19 05:18) Swelling atropine Adverse Reaction (Severe, Verified 10/31/19 05:18) arrhythmia hydrochlorothiazide [From Hyzaar] Adverse Reaction (Severe, Verified 10/31/19 05:18) arrhythmia losartan [From Hyzaar] Adverse Reaction (Severe, Verified 10/31/19 05:18) arrhythmia quinapril [From Accupril] Adverse Reaction (Severe, Verified 10/31/19 05:18) arrhythmia atorvastatin [From Lipitor] Adverse Reaction (Intermediate, Verified 10/31/19 05:18) myalgias metformin Adverse Reaction (Intermediate, Verified 10/31/19 05:18) myalgias Home Medications: Ambulatory Orders Medication Instructions Recorded Gabapentin [Neurontin] 300 mg PO BIDCM 03/11/17 Insulin U-500 [Humulin R U-500 150 - 225 units SQ TIDCM 07/25/19 ([facility])] apixaban 5 mg tablet 5 mg PO BID #60 tab 08/14/19 furosemide 80 mg tablet 80 mg PO BID tab 09/04/19 Pramipexole Di-HCl [Mirapex] 0.5 mg PO QHS 10/11/19 Amiodarone HCl 200 mg PO DAILY 10/12/19 Ferrous Sulfate 325 mg PO BID 10/12/19 Pantoprazole Sodium [Protonix] 40 mg PO DAILY 10/12/19 Hydrocodone/Acetaminophen 1 tab PO BID 10/13/19 [Hydrocodone-Acetamin 5-325 mg] Potassium Chloride [K-Dur] 40 meq PO BID #120 tab 10/13/19 Surgical History: Surgical History (Last Reviewed 10/31/19 @ 08:20 by Tam Dexter DO) Presence of aortocoronary bypass graft (Chronic) Onset Date: ~10/2010 Z95.1 CABG x4: LEBRON to LAD, SVG to RI, SVG to PDA, SVG to posterolateral Lt ventricular branch, PVI w/ Atricure Ablation and ligation of Lt atrial appendage 10/2010 Presence of stent in coronary artery (Chronic) Onset Date: ~01/2011 Z95.5 PTCA/Stent to mid LCX 01/2011 Surgical History: - - CABG X4, PCI. Psychiatric History: Anxiety, Depression Smoking Status: Never smoker Tobacco Use: Chew - *Family History Maternal Family History: Family History (Last Reviewed 10/31/19 @ 08:20 by Tam Dexter DO) Mother CAD (coronary artery disease) Father CVA (cerebral vascular accident) Myocardial infarction Brother Myocardial infarction Brother CAD (coronary artery disease) Myocardial infarction Sister CAD (coronary artery disease) History Items: High Cholesterol, Heart Disease, Hypertension Paternal Family History: Family History (Last Reviewed 10/31/19 @ 08:20 by Tam Dexter DO) Mother CAD (coronary artery disease) Father CVA (cerebral vascular accident) Myocardial infarction Brother Myocardial infarction Brother CAD (coronary artery disease) Myocardial infarction Sister CAD (coronary artery disease) History Items: High Cholesterol, Heart Disease, Hypertension, Stroke Review of Systems Unable to obtain accurate/complete ROS d/t: See HPI Patient Problems: Active and Suspected Problems (Last Reviewed 10/31/19 @ 08:20 by Tam Dexter DO) Hypokalemia (Acute) Hypoglycemia (Acute) Fall (Acute) - Physical Exam Vitals/I&O's: Vital Signs Temp Pulse Resp BP Pulse Ox 36.7 C 104 H 22 H 131/74 H 97 10/31/19 08:15 10/31/19 12:00 10/31/19 09:30 10/31/19 09:30 10/31/19 10:30 Oxygen Flow Rate (L/min) 3 Oxygen Delivery Method Nasal Cannula Weight: 140.1 kg Body Mass Index (BMI) 38.6 Finger Stick Blood Glucose 11 Intake and Output for Last 24 Hours 10/29/19 10/30/19 10/31/19 23:59 23:59 23:59 Intake Total 2385 / 2385 Output Total 2600 / 2600 Balance -215 / -215 General: Alert, Oriented x3, Cooperative, No apparent distress, - - Obese. No conversational dyspnea. HEENT: PERRLA, EOMI, Normocephalic, - - Lacerations above the right eye. Oral: Moist Mucosa, No Gingival or Mucosal Lesions/ Ulcerations, - - Dentures. Neck: Supple, No JVD, No Nodes, Trachea Midline Lungs: No rhonchi, No wheeze, No rales, Diminished Cardiovascular: Normal S1, Normal S2, No murmurs, Irregular Rate, No rub noted, No Gallop Abdomen: Bowel Sounds Present, Soft, Non Tender, Non-Distended, Obese Extremities: No clubbing, No cyanosis, Edema Skin: Excoriated Musculoskeletal: No Tenderness to Palpation of Joints or Extremities Lymphatic: No Cervical, Supraclavicular, or Inguinal Adenopathy Neurological: Cranial nerves II-XII grossly intact, Neuro grossly intact, Motor Exam 5/5 strength throughout Psych/Mental Status: Alert and oriented to time, place, person, mood and affect Microbiology Past 72 Hours 10/31/19 10:19 Wound - Hand Gram Stain - Final Laboratory Results 10/31/19 04:06: POC Glucose 50 L 10/31/19 04:21: WBC 10.7, RBC 4.77, Hgb 11.0 L, Hct 37.0 L, MCV 77.6 L, MCH 23.1 L, MCHC 29.7 L, RDW Std Deviation 51.5 H, RDW Coeff of Lakshmi 18.6 H, Plt Count 276, MPV 8.4, Immature Gran % (Auto) 0.600, Neut % (Auto) 85.8 H, Lymph % (Auto) 8.9 L, [place] % (Auto) 4.0, Eos % (Auto) 0.5, Baso % (Auto) 0.2, Absolute Neuts (auto) 9.2 H, Absolute Lymphs (auto) 0.95, Nucleated RBC % 0 10/31/19 04:21: Sodium 129 L, Potassium 1.9 L*, Chloride 78 L, Carbon Dioxide 43.0 H, Anion Gap 8, BUN 49 H, Creatinine 1.77 H, Estim Creat Clear Calc 41.93, Est GFR (MDRD) Af Amer 48 L, Est GFR (MDRD) Non-Af 40 L, BUN/Creatinine Ratio 27 .7 H, Glucose 59 L, Calcium 8.7 10/31/19 04:21: Hemoglobin A1c 6.1 10/31/19 04:47: POC Glucose 66 L 10/31/19 05:56: POC Glucose 11 L* 10/31/19 06:08: POC Glucose 146 H 10/31/19 06:27: POC Glucose 98 10/31/19 06:47: POC Glucose 50 L 10/31/19 09:07: POC Glucose 68 L 10/31/19 10:11: POC Glucose 156 H 10/31/19 10:55: Sodium 127 L, Potassium 2.7 L*, Chloride 80 L, Carbon Dioxide 39.0 H, Anion Gap 8, BUN 46 H, Creatinine 1.68 H, Estim Creat Clear Calc 45.41, Est GFR (MDRD) Af Amer 51 L, Est GFR (MDRD) Non-Af 43 L, BUN/Creatinine Ratio 27.4 H, Glucose 133 H, Calcium 8.3 L, Magnesium 2.3 10/31/19 10:57: POC Glucose 133 H 10/31/19 12:25: POC Glucose 97 10/31/19 13:07: POC Glucose 124 H Current Medications Acetaminophen (Tylenol) 650 mg PO Q6H PRN PRN PRN Reason: Pain Score 1-3/Temp > 100.7 F Last Admin: 10/31/19 12:33 Dose: 650 mg Documented by: Hydrocodone Bitart/Acetaminophen ([place] 5mg-325mg) 1 tablet PO Q6H PRN PRN PRN Reason: Pain Score 4-10/10 Amiodarone HCl (Cordarone) 200 mg PO DAILY [facility] Last Admin: 10/31/19 10:13 Dose: 200 mg Documented by: Apixaban (Eliquis) 5 mg PO BID [facility] Last Admin: 10/31/19 10:13 Dose: 5 mg Documented by: Dextrose (D50w Syringe) 0 gm IV X1 PRN; Protocol PRN Reason: Hypoglycemia Fentanyl Citrate (Sublimaze (100mcg Ampule)) 25 mcg IV Q2H PRN PRN PRN Reason: Pain Score 6-10/10 Last Admin: 10/31/19 14:42 Dose: 25 mcg Documented by: Ferrous Sulfate (Ferrous Sulfate) 325 mg PO BIDCM [facility]) [facility] Last Admin: 10/31/19 10:13 Dose: 300 mg Documented by: Glucagon () 1 mg IM .X1 PRN PRN Reason: Hypoglycemia Sodium Chloride () 250 mls @ 15 mls/hr IV .[id number] PRN PRN Reason: Saline Flush Dextrose/Sodium Chloride () 1,000 mls @ 75 mls/hr IV .[id number] [facility] Last Admin: 10/31/19 11:32 Dose: Not Given Documented by: Potassium Chloride () 10 meq in 100 mls @ 100 mls/hr IV BOLUS Q1H [facility] Stop: 10/31/19 16:29 Last Admin: 10/31/19 14:17 Dose: 100 mls/hr Documented by: Ondansetron HCl (Zofran) 4 mg IV Q8H PRN PRN PRN Reason: NAUSEA/VOMITING Pantoprazole Sodium (Protonix) 40 mg PO DAILY [facility] Last Admin: 10/31/19 10:14 Dose: 40 mg Documented by: Potassium Chloride (K-Dur) 40 meq PO BIDCM [facility] Last Admin: 10/31/19 10:14 Dose: 40 meq Documented by: Pramipexole Dihydrochloride (Mirapex) 0.5 mg PO QHS [facility] Sodium Chloride () 10 - 40 ml IV UD PRN PRN Reason: SALINE FLUSH Last Admin: 10/31/19 14:43 Dose: 20 ml Documented by: Clinical Impression(s) from Imaging Studies Brain CT 10/31/19 04:16 IMPRESSION: There is scalp swelling in the RIGHT frontal region. There is NO skull fracture. There is NO intracranial hemorrhage. Electronically Signed: Mahesh Quevedo MD at 4:58 EST , Service support , Assessment/Plan Active and Suspected Problems (Last Reviewed 10/31/19 @ 08:20 by Tam Dexter DO) Hypokalemia (Acute) Hypoglycemia (Acute) Fall (Acute) RECOMMENDATIONS: 1. Titrate dextrose drip to blood sugars 2. Attempt BiPAP with sleep 3. Monitor for signs or symptoms of neurologic manifestations with fall 4. Aggressive repletion of potassium. 5. Okay to continue baseline medications IMPRESSIONS: 1. Probable iatrogenic hypoglycemia/type 2 diabetes mellitus Patient is a very poor historian with very potent insulin doses at home. Clinical suspicion for overdose of insulin that is not being reported. Patient has remained on a dextrose infusion. This will be weaned to keep blood sugars around 150. Continue frequent blood sugar checks. Patient's hemoglobin A1c is not suggestive of chronic hyperglycemia. 2. Hypokalemia Unclear etiology. Patient has received multiple boluses. We will continue to check levels following repletion administration. Magnesium level is okay at this time. Patient is not reporting any gastric losses. Patient is not tachypneic to suggest acidosis. 3. Chronic hypoxic respiratory failure secondary to probable cor pulmonale Patient has had significant difficulty with fluid retention in the past. Patient is on his baseline oxygen at this time. We will continue to watch satu rations. Patient will need a walking oximetry prior to discharge. Patient does not appear to be significantly fluid overloaded at this time. 4. Stage III CKD/CAD/hypertension/BPH/depression/history of noncompliance/morbid obesity Complicates care, management, recovery and prognosis. Continue with baseline medications. No significant changes are indicated. Did stress the role of weight loss in the overall disease plan of care. Code Visit Inpatient E&M: 84221 Init Hosp L3
[2019-10-31 15:40] LABS: Bedside Glucose 140 mg/dL (70-110)
--- NOTE | 2019-10-31 16:57 | CHAPLAIN ---
Type of Pastoral Visit _x__ Initial Visit ___ Follow-up Visit ___ On-call Visit ___ General Patient Visit ___ Spiritual Assessment ___ Family Conference ___ Bereavement ___ Rapid Response ___ Code Blue ___ Other (describe below) Pastoral Care Referral From _x__ Patient ___ Family _x__ Nurse ___ Physician ___ [employer] ___ Solid Waste Collection Worker ___ Other (describe below) Sacrament/Intervention _x__ Active listening ___ Anointing ___ Episcopal ___ Bereavement ___ Communion _x__ Layne exploration ___ ___ Life review _x__ Prayer ___ Reconciliation ___ Sacrament of Sick _x__ Supportive presence ___ Wedding ___ Other (describe below) Pastoral Comments patient has layne heritage but also presents with several questions of a spiritual and emotional nature; pt welcomed the visit and the prayers; spouse of pt is with him
[2019-10-31] MEDS: Ferrous Sulfate 325 MG Tablet PO (17:30)
[2019-10-31 17:40] LABS: Bedside Glucose 229 mg/dL (70-110)
[2019-10-31 18:10] LABS: Bedside Glucose 254 mg/dL (70-110)
[2019-10-31 18:38] LABS: Anion Gap 8 (5-15); BUN 45 mg/dL (7-18); BUN/Creat Ratio 24.5 RATIO (10-20); Calcium,Total 7.8 mg/dL (8.5-10.1); Chloride 82 mmol/L (98-107); Creatinine, Serum 1.84 mg/dL (0.70-1.30); EST Glomerular Filtration Rate 38 mL/min (>60); Est Glom Filt Rate - Afr Amer 46 mL/min (>60); Estimated Creatinine Clearance 41.46 ml/min; Glucose 243 mg/dL (74-106); Potassium 3.2 mmol/L (3.5-5.1); Sodium Level 129 mmol/L (136-145)
--- NOTE | 2019-10-31 19:26 | NURSING ---
This RN was was notified by unit CLINICAL PSYCHOLOGIST LICENSED/school bus aide Swetha, and registered nurse Surjit Watkins, that patient was found to be taking medication from his home belongings and ingesting it. This RN confronted patient about what medications were ingested from his belongings. Pt states this was tylenol. Pt was then asked again what medication he was taking from his belongings. Pt then stated vicodin. This RN reminded patient that pain medication had been addressed multiple times throughout the day by intensive care team and that if patient felt that pain had not been managed appropriately then it should have been brought to this RN's attention in order to meet his needs more clearly. Pt was also educated on safety concerns with patient taking his home medications without the knowledge of medical staff while in the hospital. Despite lengthy reinforcement of education and safety pt remains resistant stating i have the right to have my medications and take them as i want to. This RN also reviewed home prescription with patient at the bedside. Home prescription was confirmed to be hydrocodone acetamin 2 tablets BID. Home prescription was confiscated from patient and locked in medication sterile processing manager patient's room. Dr. Dexter was paged and notified. New orders were received.
[2019-10-31 20:35] LABS: Bedside Glucose 232 mg/dL (70-110)
--- NOTE | 2019-10-31 21:20 | NURSING ---
pt informed that after taking home med (per previous nursing note by Sydnee Pelayo) that Dr. Dexetr had DC'd his norco and fentanyl for the night. Dr. Michael Means made aware of Dr. Dexter's orders. Pt states he wishes to leave against medical advice if he will not be getting more norco tonight. Pt was informed of MD's decision again and educated on medication safety. Dr. Rodriguez came to unit to speak to pt, discussed pain management and need for hospital stay with pt, pt still wants to leave AMA. pt educated by Dr. Rodriguez of the risks of leaving against medical advice. Pt signed AMA form at 2143. 2 peripheral IV's removed, monitoring equipment discontinued. Pt home belongings bag given to pt, pt home meds (Vicodin) given back to pt. Was escorted to the main entrance and got into his vehicle driven by his and switched to his home oxygen supply at 2225.
--- NOTE | 2019-11-01 07:07 | PCM.DC.SUM ---
Discharge Date and Diagnosis Date of Admission: 10/31/19 Date of Discharge: 10/31/19 - Secondary Discharge Diagnosis Chronic Problems (Last Reviewed 10/31/19 @ 08:20 by Tam Dexter DO) CKD (chronic kidney disease), stage III (Chronic) Hyperlipidemia (Chronic) Hypertension (Chronic) Paroxysmal a-fib (Chronic) S/P pulmonary vein isolation; Periodic limb movement sleep disorder (Chronic) Pulmonary hypertension (Chronic) Type II Coronary artery disease (Chronic) (HFpEF) heart failure with preserved ejection fraction (Chronic) Anemia (Chronic) Type 2 diabetes mellitus (Chronic) Presence of aortocoronary bypass graft (Chronic ~10/2010) CABG x4: LEBRON to LAD, SVG to RI, SVG to PDA, SVG to posterolateral Lt ventricular branch, PVI w/ Atricure Ablation and ligation of Lt atrial appendage 10/2010 Presence of stent in coronary artery (Chronic ~01/2011) PTCA/Stent to mid LCX 01/2011 DM (diabetes mellitus) with peripheral vascular complication (Chronic) Atherosclerotic heart disease of [place] coronary artery without angina pectoris (Chronic) CABG x4: LEBRON to LAD, SVG to RI, SVG to PDA, SVG to posterolateral Lt ventricular branch, PVI w/ Atricure Ablation and ligation of Lt atrial appendage 10/2010; PTCA/Stent to mid LCX 01/2011 Body mass index 40.0-44.9, adult (Chronic) Meniscus degeneration (Chronic) RAQUEL (obstructive sleep apnea) (Chronic) Obesity (Chronic) PVC (premature ventricular contraction) (Chronic) Hospital Course and Treatment Consultations 10/31/19 08:16 Consult: Onc/Wound/motor operator Routine Comment: Operations: None Summary of Care Provided: The patient is a 74 year old M patient mated for hyperglycemia and was started on glucose. Patient left AGAINST MEDICAL ADVICE. This is the patient's second admission for hypoglycemia and second time leaving AGAINST MEDICAL ADVICE. Was offered the patient that he could be transferred to hospital of his choice from the ER but he chose to be admitted here. [] - Physical Exam Vitals/I&O's: Vital Signs Temp Pulse Resp BP Pulse Ox 36.2 C L 125 H 24 H 118/57 L 99 10/31/19 22:00 10/31/19 22:00 10/31/19 22:00 10/31/19 22:00 10/31/19 22:00 Oxygen Flow Rate (L/min) 4 Oxygen Delivery Method Nasal Cannula Weight: 140.1 kg Body Mass Index (BMI) 38.6 Finger Stick Blood Glucose 11 Intake and Output for Last 24 Hours 10/30/19 10/31/19 11/01/19 23:59 23:59 23:59 Intake Total 3800.00 / 3800.00 Output Total 2950 / 2950 Balance 850.00 / 850.00 Microbiology Past 72 Hours 10/31/19 10:19 Wound - Hand Gram Stain - Final Laboratory Results 10/31/19 04:21: Hemoglobin A1c 6.1 10/31/19 09:07: POC Glucose 68 L 10/31/19 10:11: POC Glucose 156 H 10/31/19 10:55: Sodium 127 L, Potassium 2.7 L*, Chloride 80 L, Carbon Dioxide 39.0 H, Anion Gap 8, BUN 46 H, Creatinine 1.68 H, Estim Creat Clear Calc 45.41, Est GFR (MDRD) Af Amer 51 L, Est GFR (MDRD) Non-Af 43 L, BUN/Creatinine Ratio 27.4 H, Glucose 133 H, Calcium 8.3 L, Magnesium 2.3 10/31/19 10:57: POC Glucose 133 H 10/31/19 12:25: POC Glucose 97 10/31/19 13:07: POC Glucose 124 H 10/31/19 15:25: POC Glucose 140 H 10/31/19 17:34: POC Glucose 229 H 10/31/19 18:05: Sodium 129 L, Potassium 3.2 L, Chloride 82 L, Carbon Dioxide 39.0 H, Anion Gap 8, BUN 45 H, Creatinine 1.84 H, Estim Creat Clear Calc 41.46, Est GFR (MDRD) Af Amer 46 L, Est GFR (MDRD) Non-Af 38 L, BUN/Creatinine Ratio 24.5 H, Glucose 243 H, Calcium 7.8 L 10/31/19 18:05: POC Glucose 254 H 10/31/19 20:18: POC Glucose 232 H Home Medications: Medications to take at Discharge Gabapentin [Neurontin] 300 mg PO BIDCM 03/11/17 Insulin U-500 [Humulin R U-500 ([facility])] 150 - 225 units SQ TIDCM 07/25/19 apixaban 5 mg tablet 5 mg PO BID #60 tab 08/14/19 furosemide 80 mg tablet 80 mg PO BID tab 09/04/19 Pramipexole Di-HCl [Mirapex] 0.5 mg PO QHS 10/11/19 Amiodarone HCl 200 mg PO DAILY 10/12/19 Ferrous Sulfate 325 mg PO BID 10/12/19 Pantoprazole Sodium [Protonix] 40 mg PO DAILY 10/12/19 Hydrocodone/Acetaminophen [Hydrocodone-Acetamin 5-325 mg] 1 tab PO BID 10/13/19 Potassium Chloride [K-Dur] 40 meq PO BID #120 tab 10/13/19 Primary Care Physician: Abdi Navarro MD [Primary Care Provider] - Disposition: Against Medical Advice Medical Necessity - Tobacco Use Smoking Status: Never smoker Tobacco Use: Chew Meaningful Use Info Meaningful Use Diagnoses (Choose all that apply): None applicable Code Visit OBSV E&M: 22492 Observ/hosp same date L2
--- NOTE | 2019-11-01 11:18 | CASEMGMT ---
SW called [facility], spoke w/Indira Moctezuma. SW reviewed w/her concerns for this pt's safety at home as outlined by CM, RNs, and physicians in the medical record, explained pt left AMA yesterday and during the last hospitalization as well. They will go out to see pt. HOLDEN French
== END 2019-10-31 22:25 | disposition left against medical advice (07) | DRG 638 ==
LOC: ED 07:24 → ICU 01-31 13:12
PROVIDERS: Internal Medicine Critical Care Medicine; Emergency Provider Emergency Medicine; Family Provider Family Medicine; PCP Family Medicine
DX: E11.649 Type 2 diabetes mellitus with hypoglycemia without coma (principal); I13.0 Hypertensive heart and chronic kidney disease with heart failure and stage 1 through stage 4 chronic kidney disease, or unspecified chronic kidney disease; I50.32 Chronic diastolic (congestive) heart failure; J96.11 Chronic respiratory failure with hypoxia; E11.22 Type 2 diabetes mellitus with diabetic chronic kidney disease; I25.10 Atherosclerotic heart disease of native coronary artery without angina pectoris; E11.51 Type 2 diabetes mellitus with diabetic peripheral angiopathy without gangrene; N18.3 Chronic kidney disease, stage 3 (moderate); E78.5 Hyperlipidemia, unspecified; I48.0 Paroxysmal atrial fibrillation; I27.20 Pulmonary hypertension, unspecified; G47.33 Obstructive sleep apnea (adult) (pediatric); E87.6 Hypokalemia; D64.9 Anemia, unspecified; N40.0 Benign prostatic hyperplasia without lower urinary tract symptoms; G47.61 Periodic limb movement disorder; S00.81XA Abrasion of other part of head, initial encounter; I49.3 Ventricular premature depolarization; M19.90 Unspecified osteoarthritis, unspecified site; W19.XXXA Unspecified fall, initial encounter; Z99.81 Dependence on supplemental oxygen; Z95.5 Presence of coronary angioplasty implant and graft; Z66 Do not resuscitate; Z95.1 Presence of aortocoronary bypass graft; Z68.38 Body mass index [BMI] 38.0-38.9, adult; Z79.4 Long term (current) use of insulin; Y92.008 Other place in unspecified non-institutional (private) residence as the place of occurrence of the external cause; Z79.899 Other long term (current) drug therapy; E66.01 Morbid (severe) obesity due to excess calories; Z79.01 Long term (current) use of anticoagulants
CPT/HCPCS: 70450; 80048; 82962; 83036; 83735; 85025; 87070; 87077; 87186; 87205; 93005; 96361; 96374; 96375; 96376; 97162; 97166; 97802; 99218; 99285; J7040; J7050; A4216; G0378; J2405; J7799